=== PATIENT | female | born 1990 | race Caucasian/White ===

== ENCOUNTER 2023-05-13 20:19 | Outpatient (REF) | payer OTHER, SELFPAY ==
[2023-05-18 10:11] LABS: Age Gdln ACOG Testing Note (.); HPV Aptima Negative (Negative); IGP, Aptima HPV, rfx 16/18,45 Note (.)
== END 2023-05-13 20:20 | disposition home or self-care (01) ==
LOC: LAB 20:19
PROVIDERS: PCP Family Medicine; Visit Provider Obstetrics & Gynecology
DX: Z12.4 Encounter for screening for malignant neoplasm of cervix (principal)
CPT/HCPCS: 87624; G0145

== ENCOUNTER 2023-06-01 09:52 | Outpatient (OUT) | payer OTHER, SELFPAY ==
[2023-06-01 10:46] LABS: Basophils Percent Auto 0.3 % (0.2-2.0); Eosinophils Absolute Auto 0.1 10^3/uL (0.0-0.7); Eosinophils Percent Auto 1.5 % (0.9-7.0); Hematocrit 38.6 % (36.0-48.0); Hemoglobin 12.6 g/dL (12.0-16.0); Immature Granulocytes Abs Auto 0.01 10^3/uL (0.00-0.03); Immature Granulocytes Pct Auto 0.2 % (0.0-0.5); Lymphocytes Absolute Auto 1.9 10^3/uL (1.2-3.8); Lymphocytes Percent Auto 29.2 % (20.5-60.0); Mean Corpuscular HGB Conc 32.6 g/dL (29.9-35.2); Mean Corpuscular Hemoglobin 28.8 pg (26.7-34.0); Mean Corpuscular Volume 88.3 fL (81.0-99.0); Mean Platelet Volume 9.9 fL (9.5-13.5); Monocytes Absolute Auto 0.3 10^3/uL (0.3-0.8); Monocytes Percent Auto 5.2 % (1.7-12.0); Neutrophils Absolute Auto 4.2 10^3/uL (1.4-6.5); Neutrophils Percent Auto 63.6 % (43.0-75.0); Platelet Count 239 10^3/uL (150-450); Red Blood Count 4.37 10^6/uL (4.20-5.40); Red Cell Distribution Width 12.8 % (11.0-15.0); White Blood Count 6.6 10^3/uL (4.0-11.0)
[2023-06-01 11:11] LABS: INR 0.98; Partial Thromboplastin Time 30.2 sec (22.3-36.2); Prothrombin Time 10.4 sec (9.0-11.6)
[2023-06-01 11:27] LABS: Alanine Aminotransferase 17 U/L (14-59); Alkaline Phosphatase 54 U/L (46-116); Aspartate Amino Transferase 11 U/L (15-37); BUN Creatinine Ratio 12.2; Bilirubin Direct 0.1 mg/dL (0.0-0.2); Bilirubin Total 0.3 mg/dL (0.2-1.0); Calcium 9.3 mg/dL (8.5-10.1); Carbon Dioxide 27.1 mmol/L (21.0-32.0); Chloride 103 mmol/L (98-107); Estimated GFR (African America >60 (>=60); Estimated GFR (Non-African Ame >60 (>=60); Globulin 4.1 g/dL; Glucose 91 mg/dL (74-106); Potassium 4.1 mmol/L (3.5-5.1); Sodium 138 mmol/L (136-145); Total Protein 8.1 g/dL (6.4-8.2)
== END 2023-06-01 09:53 | disposition home or self-care (01) ==
LOC: PST 09:52
PROVIDERS: Obstetrics & Gynecology; PCP Family Medicine
DX: Z01.812 Encounter for preprocedural laboratory examination (principal); N92.0 Excessive and frequent menstruation with regular cycle; N94.6 Dysmenorrhea, unspecified; N94.10 Unspecified dyspareunia; R10.2 Pelvic and perineal pain; E34.9 Endocrine disorder, unspecified
CPT/HCPCS: 36415; 80048; 80076; 85025; 85610; 85730

== ENCOUNTER 2023-06-10 06:12 | Day surgery (SDC) | payer OTHER, SELFPAY ==
[2023-06-01 10:18] VITALS: BP 137/97; PULSE 78; RESP 14; TEMP 36.4; O2SAT 99; BMI 27.0
[2023-06-10] VITALS (31 sets, daily range): BP systolic 102–145; BP diastolic 63–93; PULSE 57–86; RESP 10–19; TEMP 36.1–37.2; O2SAT 90–100; BMI 27.3
[2023-06-10 06:22] LABS: Basophils Percent Auto 0.2 % (0.2-2.0); Eosinophils Absolute Auto 0.1 10^3/uL (0.0-0.7); Eosinophils Percent Auto 1.7 % (0.9-7.0); Hematocrit 39.7 % (36.0-48.0); Hemoglobin 12.8 g/dL (12.0-16.0); Immature Granulocytes Abs Auto 0.01 10^3/uL (0.00-0.03); Immature Granulocytes Pct Auto 0.1 % (0.0-0.5); Lymphocytes Absolute Auto 3.2 10^3/uL (1.2-3.8); Lymphocytes Percent Auto 39.6 % (20.5-60.0); Mean Corpuscular HGB Conc 32.2 g/dL (29.9-35.2); Mean Corpuscular Hemoglobin 28.5 pg (26.7-34.0); Mean Corpuscular Volume 88.4 fL (81.0-99.0); Monocytes Absolute Auto 0.4 10^3/uL (0.3-0.8); Monocytes Percent Auto 5.3 % (1.7-12.0); Neutrophils Absolute Auto 4.3 10^3/uL (1.4-6.5); Neutrophils Percent Auto 53.1 % (43.0-75.0); Platelet Count 229 10^3/uL (150-450); Red Blood Count 4.49 10^6/uL (4.20-5.40); White Blood Count 8.2 10^3/uL (4.0-11.0)
[2023-06-10 06:52] LABS: HCG Quantitative <1 mIU/mL
[2023-06-10] MEDS: LACTATED RINGER'S SOLUTION 1,000 ML 50 ML IV (07:37)
[2023-06-10] MEDS: METRONIDAZOLE/SODIUM CHLORIDE 500 MG/100 ML PREMIX 100 MG IV ×2 (07:41→14:10)
[2023-06-10] MEDS: CIPROFLOXACIN IN 5 % DEXTROSE 400 MG/200 ML PIGGYBACK 200 MG IV (07:57)
--- NOTE | 2023-06-10 09:37 | PC.NURSE ---
PATIENT HAD 16 [place] PLACED AT BEGINNING OF SURGICAL CASE. PATIENT HAD 100 ML OF CLEAR YELLOW URINE DRAINED THROUGHOUT THE CASE. PATIENT HAD CATHETER REMOVED UPON END OF SURGICAL CASE PER SURGEONS ORDERS.
--- NOTE | 2023-06-10 09:43 | PM.ONB ---
Brief Operative Note Date of procedure: 06/10/23 Pre-op diagnosis: menorrhagia, pelvic pain, dysparuenia, dysmenorrhea Post-op diagnosis: same Procedure: PROCEDURE:? Robotic assisted laparoscopic hysterectomy with cystoscopy, bilateral salpingectomy PREOPERATIVE DIAGNOSIS:? Dysmenorrhea, menorrhagia, pelvis pain, history of endometriosis. POSTOPERATIVE DIAGNOSIS:? Dysmenorrhea, menorrhagia, pelvis pain, history of endometriosis. ANESTHESIA:? General. SURGEON:? Brett Palma D.O. ASSISTANT SPEECH LANGUAGE PATHOLOGIST:? KAUSHAL URINE OUTPUT:? Yellow and clear. BLOOD LOSS:? 100 mL. FINDINGS:? slightly enlarged uterus, normal appearing ovaries and tubes SPECIMEN:? Uterus and cervix, left tube and right tube PROCEDURE:? The patient was taken back to the operating room, where she was prepped and draped in the normal sterile fashion after being placed in the dorsal lithotomy position.? Patient?s anesthesia was found to be adequate.? Surgical timeout was performed using two patient identifiers.? SCDs were on and in place.? Two grams of Ancef were given prior to the surgery.? Sterile Anne catheter was inserted.? Standard size VCare was secured to the uterine cervix and the surgeon changed gloves.? Attention then was turned to the patient's abdomen, where a supraumbilical incision was then made.? Two S retractors were used to identify the patient?s fascia.? The fascia was then tented up using Jolanta clamps and the patient?s fascia was incised sharply.? Patient?s abdomen was identified and entered bluntly.? The patient had the trocar placed and a pneumoperitoneum was obtained.? Approximately 4 liters of CO2 gas was used.? The camera was then placed through the trocar.? At this time, two robot trocars were placed in the patient?s left and right side, two hand widths from the midline, and this was placed under direct visualization.? The patient?s tube on the right side was tented up and the vessel sealer was then used to come across the mesosalpinx, and this was carried down to the uterine ovarian ligament.? The vessel sealer was carried down serially to the broad ligament, to the area of the bladder flap, which was then created anteriorly, and the uterine arteries were skeletonized and sealed using the vessel sealer.? The colpotomy was made using the monopolar cautery on cut, and this was carried circumferentially, posteriorly to anteriorly, until the uterus was amputated.? The specimen was then removed intact through the vagina, without difficulty.? The vagina was then closed using two running V-Loc in a non-lock fashion.? The robot was undocked.? The abdomen was desufflated.? The skin defects were closed using 4-0 Vicryl.? Please note, the fascia was closed using 0 Vicryl.? Sponge, lap and needle counts were correct x2.? Patient was taken to recovery room in stable condition.? The patient was awakened by Anesthesia first.? Patient tolerated procedure well.??Please note left ovarian cystectomy was performed using the vessel sealer Anesthesia: KENNEY Surgeon: Brett Palma Director Of Engineering: Blanca Hassan Estimated blood loss (mL): 25 Pathology: other (uterus,cervix and tubes) Condition: stable Disposition: PACU
[2023-06-10] MEDS: LACTATED RINGER'S SOLUTION 1,000 ML 1000 ML IV (09:46)
[2023-06-10] MEDS: HYDROMORPHONE HCL 0.5 MG/0.5 ML SYRINGE IV ×4 (10:11→10:38)
--- NOTE | 2023-06-10 10:17 | PC.NURSE ---
PAIN MEDICATION GIVEN AT 1011 OR AN 8 OUT OF 10 PAIN.
--- NOTE | 2023-06-10 10:29 | PC.NURSE ---
PAIN STILL PRESENT AFTEER PAIN MEDS GIVEN
--- NOTE | 2023-06-10 10:32 | PC.NURSE ---
PATIENT RECIEVED 3RD DOSE OF DILAUDID AT 1031 FOR PAIN. APPLYING HEATING PAD TO HELP WITH DISCOMFORT WELL.
--- NOTE | 2023-06-10 10:35 | PC.NURSE ---
PARESH PAD CLEAN AND DRY, 4 DRESSINGS WITH TEGA DERM WITH SCANT AMOUNT OF BLOOD ON EACH
--- NOTE | 2023-06-10 10:52 | PC.NURSE ---
COMPLAINING OF NAUSEAS AT THIS TIME. GIVING ANTIEMETIC MEDS ZOFRAN.
[2023-06-10] MEDS: ONDANSETRON PF 4 MG/2 ML VIAL IV ×2 (10:53→16:58)
--- NOTE | 2023-06-10 11:03 | PC.NURSE ---
pATIENT REPORTS IMPROVEMENT OF NAUSEA AND PAIN IS TOLERABLE AT A 7 AT THIS TIME FOR PATIENT.
--- NOTE | 2023-06-10 11:37 | PC.NURSE ---
1115 report received per pac. pt rates pain 06/08. iv infusing without problems.
[2023-06-10] MEDS: CIPROFLOXACIN IN 5 % DEXTROSE 400 MG/200 ML PIGGYBACK IV (13:00)
[2023-06-10] MEDS: KETOROLAC TROMETHAMINE 30 MG/ML VIAL IVP (13:14)
[2023-06-10 16:12] LABS: Basophils Percent Auto 0.1 % (0.2-2.0); Eosinophils Percent Auto 0.1 % (0.9-7.0); Hematocrit 32.7 % (36.0-48.0); Hemoglobin 10.9 g/dL (12.0-16.0); Immature Granulocytes Abs Auto 0.03 10^3/uL (0.00-0.03); Immature Granulocytes Pct Auto 0.2 % (0.0-0.5); Lymphocytes Absolute Auto 2.1 10^3/uL (1.2-3.8); Lymphocytes Percent Auto 16.9 % (20.5-60.0); Mean Corpuscular HGB Conc 33.3 g/dL (29.9-35.2); Mean Corpuscular Hemoglobin 29.3 pg (26.7-34.0); Mean Corpuscular Volume 87.9 fL (81.0-99.0); Mean Platelet Volume 10.1 fL (9.5-13.5); Monocytes Absolute Auto 0.5 10^3/uL (0.3-0.8); Monocytes Percent Auto 3.9 % (1.7-12.0); Neutrophils Absolute Auto 9.6 10^3/uL (1.4-6.5); Neutrophils Percent Auto 78.8 % (43.0-75.0); Platelet Count 195 10^3/uL (150-450); Red Blood Count 3.72 10^6/uL (4.20-5.40); White Blood Count 12.2 10^3/uL (4.0-11.0)
--- NOTE | 2023-06-10 16:14 | PC.NURSE ---
iv to saline lock
--- NOTE | 2023-06-10 16:45 | PC.NURSE ---
Dr. mccartney calls and is made aware of pt hemoglobin results, and desire to go home. provider gives orders to d/c pt home.
--- NOTE | 2023-06-10 17:20 | PC.NURSE ---
pt requests to go home now. RN gives discharge instructions and pt verbalizes understanding, and has no questions.
== END 2023-06-10 17:25 | disposition home or self-care (01) ==
LOC: SURGOUT 09:43 → FBC 11:17
PROVIDERS: PCP Family Medicine; Visit Provider Obstetrics & Gynecology
PROC: (CPT 49322; principal; 2023-06-10 07:30)
DX: N92.1 Excessive and frequent menstruation with irregular cycle (principal); N94.6 Dysmenorrhea, unspecified; N94.10 Unspecified dyspareunia; R10.2 Pelvic and perineal pain; E34.9 Endocrine disorder, unspecified; N85.2 Hypertrophy of uterus
CPT/HCPCS: 49322; 58571; 36415; 84702; 85025; 86850; 86900; 86901; 88307; 94667; 94668; J1170; J2704

== ENCOUNTER 2023-06-27 23:50 | Observation (INO) | payer OTHER, SELFPAY ==
[2023-06-27 23:55] VITALS: BP 132/93; PULSE 87; RESP 16; TEMP 37; O2SAT 99; BMI 27.4
[2023-06-28] VITALS (7 sets, daily range): BP systolic 101–126; BP diastolic 67–85; PULSE 63–86; RESP 16–20; TEMP 36.6–36.8; O2SAT 95–98; BMI 27.3
--- NOTE | 2023-06-28 00:25 | ED.FEMALEGU1 ---
HPI - Female Genitourinary General Chief complaint: OB/Uterine Contractions Stated complaint: bleeding and pain after hysterctomy Time Seen by Provider: 06/28/23 00:20 Source: patient Mode of arrival: walk-in Limitations: no limitations History of Present Illness HPI Narrative: described partial hysterectomy 06/10/23 due to endometriosis. States she was seen at hospital in [facility] last week for abdominal pain and found to have an abscess which was felt to be related to her surgery. Discharged home on cipro and was suppose to follow up with her gynecologit in 2 days. Tonight she past blood vaginally and has increased abdominal pain. No fever or chills or urinary symptoms MD elicited complaint: Reports vaginal bleeding Related Data Home Medications Medication Instructions Recorded Confirmed alprazolam 0.25 mg tablet 0.25 mg PO TID 06/01/23 06/01/23 bupropion HCl 150 mg 24 hr tablet, 150 mg PO QDAY 06/01/23 06/01/23 extended release rpfjaxrfie-unhjtndqffrej-gmkrlevq 1 cap PO Q8H PRN pain 06/01/23 06/01/23 50 mg-300 mg-40 mg capsule clonidine HCl 0.1 mg tablet 0.1 mg PO Q12H 06/01/23 06/01/23 gabapentin 800 mg tablet 800 mg PO Q12H 06/01/23 06/01/23 Previous Rx's Medication Instructions Recorded ibuprofen 800 mg tablet 800 mg PO Q8H PRN pain 14 days #40 06/10/23 tabs oxycodone-acetaminophen 5 mg-325 1 tab PO Q6H PRN pain 7 days #28 06/10/23 mg tablet (Percocet) tabs Allergies Allergy/AdvReac Type Severity Reaction Status Date / Time Penicillins Allergy Rash Verified 06/28/23 00:00 Review of Systems ROS Status of ROS 10 or more systems reviewed and unremarkable except as noted in history and below PFSH PFS Medical History (Updated 06/28/23 @ 05:33 by Angel Sterling MD) Surgical History (Updated 06/01/23 @ 10:22 by Erendira Valdez NP) Family History (Updated 06/01/23 @ 10:22 by Erendira Valdez NP) Other Family history of diabetes mellitus Family history of hypertension Family history of myocardial infarction Family history of stroke Kidney disease Social History (Updated 06/01/23 @ 10:18 by Erendira Valdez NP) Within the past year, how often did you have a drink containing alcohol: never Score interpretation: A score less than 3 is consistent with normal alcohol consumption. 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 Highest level of school completed/degree received: high school graduate Exam Constitutional Vital Signs, click to edit/add: Last Vital Signs Temp 98.6 F 06/27/23 23:55 Pulse 86 06/28/23 03:35 Resp 16 06/28/23 03:35 BP 120/73 06/28/23 03:35 Pulse Ox 98 06/28/23 03:35 O2 Del Method Room Air 06/28/23 03:35 Common normals: no apparent distress, oriented x3, no limitations, healthy appearing and alert Eye Common normals: EOMs intact bilaterally and conjunctivae normal Respiratory Common normals: normal respiratory effort, no retractions, no use of accessory muscles and clear to auscultation bilaterally Cardio Common normals: regular rate, regular rhythm, S1 normal heart sound and S2 normal heart sound GI Common normals: Normal to inspection, nondistended, normoactive bowel sounds present Other: mild tenderness LLQ. well healed incisions from recent Laproscopic procedure Other: normal external exam. speculum with mod brownish bloody fluid in the vault easily cleared. Extremity Common normals: normal to inspection and full ROM Neuro Common normals: oriented x3, CN's II-XII intact bilaterally, moves all extremities and no focal motor deficits Psych Appearance: grossly normal Course Vital Signs Vital signs: Vital Signs Temperature 98.6 F 06/27/23 23:55 Pulse Rate 87 06/27/23 23:55 Respiratory Rate 16 06/27/23 23:55 Blood Pressure 132/93 H 06/27/23 23:55 Pulse Oximetry 99 06/27/23 23:55 Temperature 98.6 F 06/27/23 23:55 Pulse Rate 86 06/28/23 03:35 Respiratory Rate 16 06/28/23 03:35 Blood Pressure 120/73 06/28/23 03:35 Pulse Oximetry 98 06/28/23 03:35 Oxygen Delivery Method Room Air 06/28/23 03:35 MDM - Female Genitourinary MDM Narrative Medical decision making narrative: presents with pelvic pain and vaginal bleeding. states she had hysterectomy 06/10/[address] with evidence of rim enhancing loculated fluid collection and several tiny bubbles of gas suspicious for abscess adjacent to the apex of the vaginal cuff measuring 4.2x2.3cm discussed with escalation engineer electrical design technologist Dr Dhaliwal and patient accepted for admission Lab Data Labs: Lab Results 06/28/23 Range/Units 00:05 WBC 11.0 (4.0-11.0) 10^3/uL RBC 4.20 (4.20-5.40) 10^6/uL Hgb 11.9 L (12.0-16.0) g/dL Hct 36.5 (36.0-48.0) % MCV 86.9 (81.0-99.0) fL MCH 28.3 (26.7-34.0) pg MCHC 32.6 (29.9-35.2) g/dL RDW 12.5 (11.0-15.0) % Plt Count 361 (150-450) 10^3/uL MPV 9.7 (9.5-13.5) fL Neut % (Auto) 58.8 (43.0-75.0) % Lymph % (Auto) 35.2 (20.5-60.0) % Grimes % (Auto) 4.3 (1.7-12.0) % Eos % (Auto) 1.1 (0.9-7.0) % Baso % (Auto) 0.3 (0.2-2.0) % Neut # (Auto) 6.5 (1.4-6.5) 10^3/uL Lymph # (Auto) 3.9 H (1.2-3.8) 10^3/uL Grimes # (Auto) 0.5 (0.3-0.8) 10^3/uL Eos # (Auto) 0.1 (0.0-0.7) 10^3/uL Baso # (Auto) 0.0 (0.0-0.1) 10^3/uL Abs Immat Gran (auto) 0.03 (0.00-0.03) 10^3/uL Imm/Tot Granulo (auto) 0.3 (0.0-0.5) % Sodium 137 (136-145) mmol/L Potassium 3.6 (3.5-5.1) mmol/L Chloride 101 (98-107) mmol/L Carbon Dioxide 27.6 (21.0-32.0) mmol/L Anion Gap 12.0 BUN 13.0 (7.0-18.0) mg/dL Creatinine 0.90 (0.55-1.02) mg/dL Est GFR ( Amer) >60 (>=60) Est GFR (Non-Af Amer) >60 (>=60) BUN/Creatinine Ratio 14.4 Glucose 122 H (74-106) mg/dL Lactate 1.0 (0.4-2.0) mmol/L Calcium 9.2 (8.5-10.1) mg/dL Total Bilirubin 0.1 L (0.2-1.0) mg/dL AST 10 L (15-37) U/L ALT 34 (14-59) U/L Alkaline Phosphatase 61 (46-116) U/L Total Protein 8.0 (6.4-8.2) g/dL Albumin 4.2 (3.4-5.0) g/dL Globulin 3.8 g/dL Albumin/Globulin Ratio 1.1 Discharge Plan Discharge Chief Complaint: OB/Uterine Contractions Clinical Impression: Abscess of female pelvis Patient Disposition: Admitted As Inpatient
--- NOTE | 2023-06-28 00:29 | CT_ITS ---
The [address] [address] Patient Name: ANALY GALLEGO MRN: [id number] date: 1990 Sex: F Assigned Patient Location: ER Current Patient Location: [place] Accession/Order Number: [id number] Exam Date: 06/28/2023 01:40 Report Date: 06/28/2023 06:46 At the request of: MARIE CHANEY Procedure: CT abdomen pelvis w con EXAM: CT abdomen, pelvis w con 06/28/2023 COMPARISON: CT of the abdomen and pelvis with contrast 06/24/2023. HISTORY: post op pain TECHNIQUE: 3 mm sections were obtained from the lung bases through the pubic symphysis following administration of intravenous contrast. Coronal and sagittal reconstructed images were obtained. FINDINGS: CT ABDOMEN: Lower cardiac chambers, posterior mediastinal structures, and lung bases appear unremarkable. Gallbladder is partially distended. No calcified stones are noted or surrounding fluid. Liver, spleen, pancreas, and adrenals appear unremarkable. An upper pole left renal cyst measures 5 mm. Midpole right renal cyst anteriorly measures 6 mm. There are a few additional smaller right renal midpole cysts noted. Small reactive noncalcified, nonenlarged retroperitoneal nodes are suggested. Bowel pattern is nonobstructive. The appendix is surgically absent. CT PELVIS: Prominent intrapelvic varices are noted. Right ovarian cyst is again identified measuring 18 x 26 mm. Left ovarian follicle measures 16 mm. Uterus is surgically absent. There is a multilobulated loculated rim-enhancing fluid collection again identified abutting the vaginal cuff. Surrounding induration of fat lateral to this abnormality cannot be from both ovaries. This collection was also present on prior study and now contains small gas bubbles. A component of the fluid collection extends to the base of the left ovary. On sagittal image 53, midline component of the collection measures 2.1 cm superior to inferior. On axial imaging, the collection has transverse width of approximately 5.1 cm. This is similar in size to that seen on prior study. No acute osseous abnormality noted. CT/CT abdomen pelvis w con IMPRESSION: 1. Prior hysterectomy and appendectomy. 2. Persistent multilobulated rim-enhancing fluid collection associated with the vaginal cuff now contains gas bubbles and extends laterally to the left ovary. This is presumably related to postoperative abscess. Vaginal dehiscence is likely present. 3. Prominent intrapelvic varices. Small bilateral ovarian cysts/follicles as described. 4. Subcentimeter bilateral renal cysts. No acute intra-abdominal process. Mild constipation. Electronically authenticated by: MEHDI BOLANOS Date: 06/28/2023 06:46
[2023-06-28 00:36] LABS: Basophils Percent Auto 0.3 % (0.2-2.0); Eosinophils Absolute Auto 0.1 10^3/uL (0.0-0.7); Eosinophils Percent Auto 1.1 % (0.9-7.0); Hematocrit 36.5 % (36.0-48.0); Hemoglobin 11.9 g/dL (12.0-16.0); Immature Granulocytes Abs Auto 0.03 10^3/uL (0.00-0.03); Immature Granulocytes Pct Auto 0.3 % (0.0-0.5); Lymphocytes Absolute Auto 3.9 10^3/uL (1.2-3.8); Lymphocytes Percent Auto 35.2 % (20.5-60.0); Mean Corpuscular HGB Conc 32.6 g/dL (29.9-35.2); Mean Corpuscular Hemoglobin 28.3 pg (26.7-34.0); Mean Corpuscular Volume 86.9 fL (81.0-99.0); Mean Platelet Volume 9.7 fL (9.5-13.5); Monocytes Absolute Auto 0.5 10^3/uL (0.3-0.8); Monocytes Percent Auto 4.3 % (1.7-12.0); Neutrophils Absolute Auto 6.5 10^3/uL (1.4-6.5); Neutrophils Percent Auto 58.8 % (43.0-75.0); Platelet Count 361 10^3/uL (150-450); Red Cell Distribution Width 12.5 % (11.0-15.0)
[2023-06-28 00:56] LABS: Alanine Aminotransferase 34 U/L (14-59); Albumin Globulin Ratio 1.1; Albumin Level 4.2 g/dL (3.4-5.0); Alkaline Phosphatase 61 U/L (46-116); Aspartate Amino Transferase 10 U/L (15-37); BUN Creatinine Ratio 14.4; Bilirubin Total 0.1 mg/dL (0.2-1.0); Calcium 9.2 mg/dL (8.5-10.1); Carbon Dioxide 27.6 mmol/L (21.0-32.0); Chloride 101 mmol/L (98-107); Estimated GFR (African America >60 (>=60); Estimated GFR (Non-African Ame >60 (>=60); Globulin 3.8 g/dL; Glucose 122 mg/dL (74-106); Potassium 3.6 mmol/L (3.5-5.1); Sodium 137 mmol/L (136-145)
[2023-06-28] MEDS: FENTANYL CITRATE/PF 100 MCG/2 ML VIAL 50 MCG IV (00:58)
[2023-06-28] MEDS: 0.9 % SODIUM CHLORIDE 1,000 ML 999 ML IV (00:58)
[2023-06-28] MEDS: METRONIDAZOLE/SODIUM CHLORIDE 500 MG/100 ML PREMIX 100 MG IV ×3 (00:59→18:28)
[2023-06-28] MEDS: ONDANSETRON PF 4 MG/2 ML VIAL IV ×3 (01:17→18:28)
[2023-06-28] MEDS: CIPROFLOXACIN IN 5 % DEXTROSE 400 MG/200 ML PIGGYBACK IV (02:42)
--- NOTE | 2023-06-28 03:50 | PC.NURSE ---
Was 8/10 on admission
[2023-06-28] MEDS: FENTANYL CITRATE/PF 100 MCG/2 ML VIAL IV (06:03)
[2023-06-28] MEDS: HYDROMORPHONE HCL 0.5 MG/0.5 ML SYRINGE IV ×4 (11:41→22:06)
--- NOTE | 2023-06-28 11:57 | PM.GYNHP1 ---
SWAGE TENDER - H&P: HPI Last H&P Last H&P: No Data to Display General Source: patient Mode of arrival: walk-in Limitations: no limitations History of Present Illness HPI Narrative: CAME TO ED WITH COMPLAINT OF ABDOMINAL PAIN. CT DEMONSTRATED ABSCESS AROUND VAGINAL CUFF. WBC NOT ELEVATED. NO FEVER. NO NAUSEA AND VOMITING MD elicited complaint: Reports vaginal discharge and pelvic pain Pertinent past history: Reports hysterectomy (PERFORMED ON 06/10/23 WITH CONSERVATION OF OVARIES) Location of symptoms: Reports pelvis Severity: severe Quality of pain: Reports cramping Consistency: Reports constant Vaginal discharge: Reports other (BLOODY ) Vaginal bleeding: Reports scant Relieving factors: Reports none Associated symptoms: Reports denies other symptoms Treatment prior to arrival: Reports none Sexual activity: Reports No Patient : No Possible : Reports other (S/P HYSTERECTOMY) Date of last menstrual period: S/P HYSTERECTOMY Related Data Home Medications Medication Instructions Recorded Confirmed alprazolam 0.25 mg tablet 0.25 mg PO BID PRN anxiety 06/01/23 06/28/23 bupropion HCl 150 mg 24 hr tablet, 150 mg PO QDAY 06/01/23 06/28/23 extended release xieqapgbyt-xgkkhsdkburqw-hqevazku 1 cap PO BID PRN pain 06/01/23 06/28/23 50 mg-300 mg-40 mg capsule gabapentin 800 mg tablet 800 mg PO .every morning 06/01/23 06/28/23 ciprofloxacin HCl 500 mg tablet 500 mg PO Q12H 06/28/23 06/28/23 clonidine HCl 0.1 mg PO BID 06/28/23 06/28/23 gabapentin 800 mg tablet 1,600 mg PO .hs 06/28/23 06/28/23 ibuprofen 800 mg tablet 800 mg PO Q8H PRN pain 06/28/23 06/28/23 metronidazole 500 mg tablet 500 mg PO Q8H 06/28/23 06/28/23 Allergies Allergy/AdvReac Type Severity Reaction Status Date / Time Penicillins Allergy Rash Verified 06/28/23 00:00 Review of Systems ROS Status of ROS 10 or more systems reviewed and unremarkable except as noted in history and below Gastrointestinal Reports: abdominal pain Genitourinary Reports: pelvic pain and vaginal bleeding [facility] Medical History (Updated 06/28/23 @ 12:13 by Edwina Dhaliwal MD) Surgical History (Updated 07/30/23 @ 06:34 by Cesia Ybarra) Family History Other Family history of diabetes mellitus Family history of hypertension Family history of myocardial infarction Family history of stroke Kidney disease Social History (Updated 06/01/23 @ 10:18 by Erendira Valdez NP) Within the past year, how often did you have a drink containing alcohol: never Score interpretation: A score less than 3 is consistent with normal alcohol consumption. 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 Highest level of school completed/degree received: high school graduate Gender Identity: female Meds Home Medications and Allergies Home Medications Medication Instructions Recorded Confirmed Type alprazolam 0.25 mg tablet 0.25 mg PO BID PRN anxiety 06/01/23 06/28/23 History bupropion HCl 150 mg 24 hr tablet, 150 mg PO QDAY 06/01/23 06/28/23 History extended release iwoqgmzimn-qmnmbbjjkzilc-bwrgzfqv 1 cap PO BID PRN pain 06/01/23 06/28/23 History 50 mg-300 mg-40 mg capsule gabapentin 800 mg tablet 800 mg PO .every morning 06/01/23 06/28/23 History ciprofloxacin HCl 500 mg tablet 500 mg PO Q12H 06/28/23 06/28/23 History clonidine HCl 0.1 mg PO BID 06/28/23 06/28/23 History gabapentin 800 mg tablet 1,600 mg PO .hs 06/28/23 06/28/23 History ibuprofen 800 mg tablet 800 mg PO Q8H PRN pain 06/28/23 06/28/23 History metronidazole 500 mg tablet 500 mg PO Q8H 06/28/23 06/28/23 History Allergies Allergy/AdvReac Type Severity Reaction Status Date / Time Penicillins Allergy Rash Verified 06/28/23 00:00 Exam Constitutional Vital Signs, click to edit/add: Last Vital Signs Temp 98 F 06/28/23 07:48 Pulse 64 06/28/23 07:48 Resp 20 06/28/23 07:48 BP 110/76 06/28/23 07:48 Pulse Ox 96 06/28/23 07:48 O2 Del Method Room Air 06/28/23 07:48 Documenting provider has reviewed patient's vital signs: yes Common normals: oriented x3, healthy appearing and alert General appearance: cooperative and in distress (CONSTANT PELVIC PAIN AND COMPLAINS OF NAUSEA) moderate Nutritional appearance: thin Orientation/consciousness: Yes oriented to person, Yes oriented to place and Yes oriented to time HENMT Common normals: normocephalic and head/scalp atraumatic Eye Common normals: PERRL Pupil: accommodation reflex normal Neck & C-Spine Common normals: full ROM and supple Respiratory Common normals: normal respiratory effort Auscultation: clear to auscultation bilaterally Cardio Common normals: regular rate and regular rhythm GI Common normals: Normal to inspection, nondistended, normoactive bowel sounds present and soft to palpation Auscultation: normoactive bowel sounds Other: DEFERRED PELVIC EXAM HAVE CT FINDINGS Extremity Common normals: normal to inspection and full ROM Neuro Common normals: oriented x3, CN's II-XII intact bilaterally, no focal motor deficits and no sensory deficits noted Psych Common normals: mental status grossly normal, thought process normal, cooperative and affect normal Results Labs Labs: Short CBC 06/28/23 Range/Units 00:05 WBC 11.0 (4.0-11.0) 10^3/uL Hgb 11.9 L (12.0-16.0) g/dL Hct 36.5 (36.0-48.0) % Plt Count 361 (150-450) 10^3/uL BMP 06/28/23 00:05 Sodium 137 Potassium 3.6 Chloride 101 Carbon Dioxide 27.6 BUN 13.0 Creatinine 0.90 Glucose 122 H Calcium 9.2 Liver Function 06/28/23 Range/Units 00:05 Total Bilirubin 0.1 L (0.2-1.0) mg/dL AST 10 L (15-37) U/L ALT 34 (14-59) U/L Alkaline Phosphatase 61 (46-116) U/L Albumin 4.2 (3.4-5.0) g/dL Assessment and Plan Assessment and Plan (1) Abscess of female pelvis: Plan WILL DISCUSS CASE AND CT FINDINGS WITH DR. PONCE TODAY. TODAY PROVIDING SUPPORTIVE CARE WITH IVF, PAIN MEDICATION, ANTIBIOTIC COVERAGE AND WILL BE KEPT NPO AFTER MIDNIGHT IN ANTICIPATION OF BEING TAKEN TO SURGERY TOMORROW TO DRAIN FLUID COLLECTION BEHIND VAGINAL CUFF.
[2023-06-28 12:47] LABS: Basophils Percent Auto 0.1 % (0.2-2.0); Eosinophils Absolute Auto 0.1 10^3/uL (0.0-0.7); Eosinophils Percent Auto 1.3 % (0.9-7.0); Hematocrit 33.1 % (36.0-48.0); Hemoglobin 10.9 g/dL (12.0-16.0); Immature Granulocytes Abs Auto 0.01 10^3/uL (0.00-0.03); Immature Granulocytes Pct Auto 0.1 % (0.0-0.5); Lymphocytes Absolute Auto 2.3 10^3/uL (1.2-3.8); Lymphocytes Percent Auto 34.6 % (20.5-60.0); Mean Corpuscular HGB Conc 32.9 g/dL (29.9-35.2); Mean Corpuscular Hemoglobin 28.6 pg (26.7-34.0); Mean Corpuscular Volume 86.9 fL (81.0-99.0); Mean Platelet Volume 9.1 fL (9.5-13.5); Monocytes Absolute Auto 0.3 10^3/uL (0.3-0.8); Monocytes Percent Auto 4.3 % (1.7-12.0); Neutrophils Percent Auto 59.6 % (43.0-75.0); Platelet Count 259 10^3/uL (150-450); Red Blood Count 3.81 10^6/uL (4.20-5.40); Red Cell Distribution Width 12.5 % (11.0-15.0); White Blood Count 6.7 10^3/uL (4.0-11.0)
[2023-06-28] MEDS: LACTATED RINGER'S SOLUTION 1,000 ML 125 ML IV (12:54)
[2023-06-28] MEDS: CIPROFLOXACIN IN 5 % DEXTROSE 400 MG/200 ML PIGGYBACK 200 MG IV (14:38)
[2023-06-29] VITALS (21 sets, daily range): BP systolic 97–141; BP diastolic 64–91; PULSE 69–123; RESP 16–18; TEMP 36.6–36.8; O2SAT 93–99
[2023-06-29] MEDS: METRONIDAZOLE/SODIUM CHLORIDE 500 MG/100 ML PREMIX 100 MG IV ×3 (00:37→13:50)
[2023-06-29] MEDS: LACTATED RINGER'S SOLUTION 1,000 ML 125 ML IV ×3 (00:37→13:53)
[2023-06-29] MEDS: HYDROMORPHONE HCL 0.5 MG/0.5 ML SYRINGE IV ×4 (01:53→13:46)
[2023-06-29] MEDS: ONDANSETRON PF 4 MG/2 ML VIAL IV ×2 (02:42→13:47)
[2023-06-29] MEDS: CIPROFLOXACIN IN 5 % DEXTROSE 400 MG/200 ML PIGGYBACK 125 MG IV (02:42)
[2023-06-29] MEDS: CLINDAMYCIN PHOSPHATE/D5W 600 MG/50 ML PIGGYBACK IV (12:50)
--- NOTE | 2023-06-29 13:00 | PM.ONB ---
Brief Operative Note Date of procedure: 06/29/23 Pre-op diagnosis: vaginal cuff hematoma Post-op diagnosis: same Procedure: I&d of vaginal cuff hematoma-pt was taken back to operating room, prepped and drapped in normal sterile fashion after being placed in dorsal lithotomy position, wt speculum placed in the vagina, the bowens retractor was used, survey of cuff demontrated a small opening, explored with sterile qtip was able to enter abdomen, small amount of blood, no evidence of infection, cultures performed, irrigation with cleocin was performed copious amount, all instruments removed from the patients vagina Anesthesia: BOAZA Surgeon: Brett Palma Estimated blood loss (mL): 10 Pathology: none sent Condition: stable Disposition: PACU
[2023-06-29] MEDS: CIPROFLOXACIN IN 5 % DEXTROSE 400 MG/200 ML PIGGYBACK 200 MG IV (15:01)
--- NOTE | 2023-06-30 15:05 | CM.DCFOLLOWU ---
Person spoke with:Aster How are you feeling? Still some pain How is your pain? better but still having some Did you understand your discharge instructions? Yes Do you have any questions about your discharge instructions? No Were you given any prescriptions at discharge? Yes Were you able to get your prescriptions filled? Yes Do you understand how to take your medications as ordered? Yes Do you have any questions about your follow up appointment and do you plan to keep your follow up appointment? I have appt scheduled and plan on going Is there anything else that you would like to discuss? No Questions/Comments/Concerns/Other:
--- NOTE | 2023-07-03 | DS_ITS ---
DISCHARGE DATE: ??07/03/2023 PRIMARY DIAGNOSES: 1.? Status post robotic hysterectomy. 2.? Vaginal cuff hematoma. 3.? Vaginal drainage. PROCEDURE:? I&D of vaginal cuff hematoma. HOSPITAL COURSE:? As expected.? Please see chart for full details.? LABORATORY DATA:? Please see chart. COMPLICATIONS:? None. DISCHARGE CONDITION:? Stable. CONSULTATION:? Anesthesia. DISCHARGE INSTRUCTIONS: 1.? Diet:? Regular. 2.? Medications: a.? Percocet 5/325 one to two p.o. every 4-6 hours p.r.n. pain. b.? Motrin 800 one p.o. every 8 hours p.r.n. pain. 3.? Followup in one week. Restrictions:? Pelvic rest for 6 weeks.? No heavy lifting. ?May drive when pain free and no longer on narcotics. SYNOPSIS:? Patient was status post robotic hysterectomy, who presented approximately one week post-op with a vaginal cuff hematoma.? There was drainage; however, patient did complain of pain and pressure. At that time, it was decided to go in to evacuate the vaginal cuff hematoma further, which was done through the vagina.? Patient tolerates procedure well. IV antibiotics were given.? Patient sent home on oral antibiotics.? Patient was given medication for pain control. JOSEFA
== END 2023-06-29 18:08 | disposition home or self-care (01) ==
LOC: ER 06-28 05:33 → MS 06-28 06:55
PROVIDERS: Admitting Provider Obstetrics & Gynecology; Emergency Provider Internal Medicine; PCP Family Medicine; Visit Provider Obstetrics & Gynecology
PROC: (CPT 57023; principal; 2023-06-29 11:30)
DX: N99.840 Postprocedural hematoma of a genitourinary system organ or structure following a genitourinary system procedure (principal); Z79.899 Other long term (current) drug therapy; Z90.710 Acquired absence of both cervix and uterus
CPT/HCPCS: 57023; 36415; 74177; 80053; 81003; 83605; 85025; 87070; 87075; 87076; 87150; 87186; 96365; 96366; 96367; 96375; 96376; 99285; 99999; G0378; J1170; J2704; Q9967

== ENCOUNTER 2023-07-15 12:42 | Outpatient (OUT) | payer OTHER, SELFPAY ==
--- NOTE | 2023-07-15 | XR_ITS ---
The [place] [id number] Patient Name: ANALY GALLEGO MRN: [id number] date: 1990 Sex: F Assigned Patient Location: [facility] Current Patient Location: [facility] Accession/Order Number: [id number] Exam Date: 07/15/2023 12:45 Report Date: 07/20/2023 13:16 At the request of: CASSIE SALOMON Procedure: XR knee LT 3V PROCEDURE: XR knee LT 3V HISTORY: PAIN IN LEFT KNEE , chronic since falling several months ago COMPARISON: None. FINDINGS: BONES:No fracture, acute abnormality, or significant arthropathy. SOFT TISSUES:No visible soft tissue swelling. EFFUSION:None visible. OTHER: Negative. XR/XR knee LT 3V IMPRESSION: 1. No acute bone abnormality or appreciable degenerative joint disease. Consider MRI for further evaluation if symptoms persist. Electronically authenticated by: SOHAN DAVIS Date: 07/20/2023 13:16
== END 2023-07-15 12:43 | disposition home or self-care (01) ==
LOC: RAD 12:43
PROVIDERS: PCP Family Medicine; Visit Provider Family Medicine
DX: M25.562 Pain in left knee (principal)
CPT/HCPCS: 73562

== ENCOUNTER 2023-08-24 10:29 | Emergency (ER) | payer OTHER, SELFPAY ==
[2023-08-24 10:33] VITALS: BP 127/92; PULSE 79; RESP 18; TEMP 37; O2SAT 98; BMI 24.6
--- NOTE | 2023-08-24 10:52 | US_ITS ---
The [address] [address] Patient Name: ANALY GALLEGO MRN: [id number] date: 1990 Sex: F Assigned Patient Location: ER Current Patient Location: ED.MAIN Accession/Order Number: [id number] Exam Date: 08/24/2023 11:15 Report Date: 08/24/2023 12:16 At the request of: MIRIAM LAND Procedure: US right upper quadrant US right upper quadrant, 08/24/2023 11:15 AM EDT INDICATION:Right upper quadrant pain x1 day. COMPARISON: Contrast-enhanced CT scan of the abdomen and pelvis 06/28/2023, right upper quadrant ultrasound 06/26/2022. TECHNIQUE: Multi-planar real-time ultrasonography of the upper abdomen (right upper quadrant) using grayscale imaging, supplemented by color, power, and spectral Doppler as needed. FINDINGS: The visualized pancreas is unremarkable. The distal pancreatic tail is obscured by overlying bowel gas. The liver is 14 cm with echotexture. No intrahepatic ductal dilatation. Common bile duct 5.7mm Normal gallbladder. No gallbladder wall thickening or pericholecystic fluid. Negative sonographic Forrest's sign. The main portal vein is antegrade Right kidney: 8.3 x 4.5 x 4.2 cm. No hydronephrosis or significant cortical atrophy. Increased echogenicity within the renal medulla. Normal color Doppler to the right kidney. No ascites. US/US right upper quadrant IMPRESSION: 1. No acute findings. 2. Increased echogenicity within the right renal medulla can be seen with medullary sponge kidney in the appropriate clinical setting. Electronically authenticated by: MILTON KUMAR Date: 08/24/2023 12:16
--- NOTE | 2023-08-24 10:54 | ED_ITS ---
HPI - General Adult General Chief complaint: Abdominal Pain Stated complaint: abd pain Time Seen by Provider: 08/24/23 10:52 Source: patient Mode of arrival: walk-in History of Present Illness HPI narrative: Patient is a Atrial female who is presenting to the Emergency Room with chief complaint of right upper quadrant pain, nausea this started last evening. Patient had a hysterectomy. Patient does still have her gallbladder. Patient d oes not have her appendix. She does not have her uterus, she does have her ovaries. She takes no control or hormone therapy. Patient does vape, no history of lung collapse or lung issues. Patient does not drink alcohol or caffeine, caffeine will cause anxiety. She does have history of acid reflux that she takes Protonix daily 4. Patient did have a gallbladder attack in September of last year, She stated that she had enlarged bile duct, does not remember if she had any gallstones or anything else acute. Patient has no recent traveling, no trauma. Patient did not have excessive amount of food or anything that could cause a flareup of acid reflux or gallbladder yesterday. Patient has no chest pain or chest tightness. She did vomit once last night and once this morning. Patient looks uncomfortable sitting on the bed, she doesn't ride home. No urinary frequency, urgency or burning. No flank pain. The pain in the right upper quadrant does radiate to the right shoulder. No acute complaints at this time. No fever or chills. No diarrhea . All systems are negative except as noted/marked. All systems reviewed and otherwise negative. . Nurses note and vital signs reviewed and patient is not hypoxic. General: The patient appears well and in no apparent distress. Patient is resting comfortably on cart. Patient is not toxic, lethargic, or listless Skin: Warm, dry, no pallor noted. There is no rash noted. No petechiae, purpura. Head: Normocephalic, atraumatic Eye: Normal conjunctiva, no drainage, EOMI. PERRL Ears, Nose, Mouth, and Throat: oral mucosa is moist. Nares patent. Mouth without vesicles. Cardiovascular: Regular Rate and Rhythm, no murmur, gallop, rub Respiratory: Patient is in no distress, no accessory muscle use, lungs are clear to auscultation, no wheezing, rales or rhonchi Back: Mild tenderness to palpation to the right upper scapular area, no rash. Otherwise the rest of her back is non-tender, no CVA tenderness bilaterally to percussion. No CT LS midline pain GI: soft, Moderate tenderness to palpation to the right upper quadrant, positive guarding; no rash, no flank pain bilateral, no right lower quadrant tenderness to palpation, no peritoneal signs, mild midepigastric tenderness to palpation, otherwise no tenderness to palpation, no masses appreciated. No rebound, guarding, or rigidity noted. No flank pain bilateral, No distention Musculoskeletal: Patient has full range of motion of all of the extremities, no motor, sensory, or focal neurological deficits Neurological: A&O x3, normal speech Psychiatric: Cooperative Related Data Home Medications Medication Instructions Recorded Confirmed alprazolam 0.25 mg tablet 0.25 mg PO BID PRN anxiety 06/01/23 06/28/23 bupropion HCl 150 mg 24 hr tablet, 150 mg PO QDAY 06/01/23 06/28/23 extended release dyoztpmlre-ieylwkqphqlih-awlikhlp 1 cap PO BID PRN pain 06/01/23 06/28/23 50 mg-300 mg-40 mg capsule gabapentin 800 mg tablet 800 mg PO .every morning 06/01/23 06/28/23 clonidine HCl 0.1 mg PO BID 06/28/23 06/28/23 gabapentin 800 mg tablet 1,600 mg PO .hs 06/28/23 06/28/23 ibuprofen 800 mg tablet 800 mg PO Q8H PRN pain 06/28/23 06/28/23 Previous Rx's Medication Instructions Recorded oxycodone-acetaminophen 5 mg-325 1 tab PO Q6H PRN pain 7 days #28 06/29/23 mg tablet (Percocet) tabs dicyclomine 20 mg tablet 20 mg PO TID PRN abdominal pain #7 08/24/23 tabs ondansetron 4 mg disintegrating 4 mg PO Q4H PRN nausea and 08/24/23 tablet vomiting 3 days #6 tabs Allergies Allergy/AdvReac Type Severity Reaction Status Date / Time Penicillins Allergy Rash Verified 06/28/23 00:00 [facility] Medical History (Updated 08/24/23 @ 13:49 by Chris Perez MD) Surgical History (Updated 06/28/23 @ 06:34 by Cesia Ybarra) Family History Other Family history of diabetes mellitus Family history of hypertension Family history of myocardial infarction Family history of stroke Kidney disease Social History (Updated 06/01/23 @ 10:18 by Erendira Valdez NP) Within the past year, how often did you have a drink containing alcohol: never Score interpretation: A score less than 3 is consistent with normal alcohol consumption. 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 Highest level of school completed/degree received: high school graduate Gender Identity: female Exam Constitutional Vital Signs, click to edit/add: Last Vital Signs Temp 98.2 F 08/24/23 13:49 Pulse 84 08/24/23 13:49 Resp 18 08/24/23 13:49 BP 102/69 08/24/23 13:49 Pulse Ox 98 08/24/23 13:49 O2 Del Method Room Air 08/24/23 13:49 Course Vital Signs Vital signs: Vital Signs Temperature 98.6 F 08/24/23 10:33 Pulse Rate 79 08/24/23 10:33 Respiratory Rate 18 08/24/23 10:33 Blood Pressure 127/92 H 08/24/23 10:33 Pulse Oximetry 98 08/24/23 10:33 Oxygen Delivery Method Room Air 08/24/23 10:33 Temperature 98.2 F 08/24/23 13:49 Pulse Rate 84 08/24/23 13:49 Respiratory Rate 18 08/24/23 13:49 Blood Pressure 102/69 08/24/23 13:49 Pulse Oximetry 98 08/24/23 13:49 Oxygen Delivery Method Room Air 08/24/23 13:49 Medical Decision Making MDM Narrative Medical decision making narrative: Patient's gallbladder ultrasound shows no acute findings, chest x-ray is negative. Patient was given a copy of her gallbladder ultrasound and chest x- ray. Labwork shows no acute findings. Patient is referred to Dr. Llamas if she continues to have right upper quadrant pain. Patient will follow-up with PCP. Alexis adame was given prescriptions for Zofran and Bentyl to help treat symptoms as needed. No questions at discharge Lab Data Lab results reviewed: Yes I reviewed the patient's lab results Labs: Lab Results 08/24/23 Range/Units 10:44 WBC 6.8 (4.0-11.0) 10^3/uL RBC 4.47 (4.20-5.40) 10^6/uL Hgb 13.0 (12.0-16.0) g/dL Hct 40.1 (36.0-48.0) % MCV 89.7 (81.0-99.0) fL MCH 29.1 (26.7-34.0) pg MCHC 32.4 (29.9-35.2) g/dL RDW 13.0 (11.0-15.0) % Plt Count 230 (150-450) 10^3/uL MPV 10.5 (9.5-13.5) fL Neut % (Auto) 63.4 (43.0-75.0) % Lymph % (Auto) 31.3 (20.5-60.0) % Roane % (Auto) 4.5 (1.7-12.0) % Eos % (Auto) 0.4 L (0.9-7.0) % Baso % (Auto) 0.1 L (0.2-2.0) % Neut # (Auto) 4.3 (1.4-6.5) 10^3/uL Lymph # (Auto) 2.1 (1.2-3.8) 10^3/uL Roane # (Auto) 0.3 (0.3-0.8) 10^3/uL Eos # (Auto) 0.0 (0.0-0.7) 10^3/uL Baso # (Auto) 0.0 (0.0-0.1) 10^3/uL Abs Immat Gran (auto) 0.02 (0.00-0.03) 10^3/uL Imm/Tot Granulo (auto) 0.3 (0.0-0.5) % Sodium 138 (136-145) mmol/L Potassium 4.2 (3.5-5.1) mmol/L Chloride 103 (98-107) mmol/L Carbon Dioxide 27.0 (21.0-32.0) mmol/L Anion Gap 12.2 BUN 10.0 (7.0-18.0) mg/dL Creatinine 0.92 (0.55-1.02) mg/dL Est GFR ( Amer) >60 (>=60) Est GFR (Non-Af Amer) >60 (>=60) BUN/Creatinine Ratio 10.9 Glucose 85 (74-106) mg/dL Calcium 9.4 (8.5-10.1) mg/dL Total Bilirubin 0.3 (0.2-1.0) mg/dL AST 11 L (15-37) U/L ALT 18 (14-59) U/L Alkaline Phosphatase 50 (46-116) U/L Troponin I High Sens <4.0 L (4.0-51.3) pg/mL Total Protein 8.0 (6.4-8.2) g/dL Albumin 4.3 (3.4-5.0) g/dL Globulin 3.7 g/dL Albumin/Globulin Ratio 1.2 Lipase 30.0 L (73.0-393.0) U/L Discharge Plan Discharge Chief Complaint: Abdominal Pain Clinical Impression: Right upper quadrant abdominal pain, Nausea & vomiting Patient Disposition: Home, Self-Care Condition: Good Prescriptions / Home Meds: New dicyclomine 20 mg tablet 20 mg PO TID PRN (Reason: abdominal pain) Qty: 7 0RF ondansetron 4 mg tablet,disintegrating 4 mg PO Q4H PRN (Reason: nausea and vomiting) 3 Days Qty: 6 0RF No Action alprazolam 0.25 mg tablet 0.25 mg PO BID PRN (Reason: anxiety) Rx Instructions: PER REFILL HX LAST FILLED 06/10/23 FOR #1430 DAYS - 1BID PRN bupropion HCl 150 mg tablet extended release 24 hr 150 mg PO QDAY Rx Instructions: PER REFILL HX: LAST FILLED 06/02/23 FOR #3030 DAYS tlvvxtnygf-iwvytgkyqmpdo-tsoz 50-300-40 mg capsule 1 cap PO BID PRN (Reason: pain) Rx Instructions: PER REFILL HX: LAST FILLED 06/10/23 FOR #1430 DAYS -- TAKE 1-2 CAPS PO BID PRN gabapentin 800 mg tablet 800 mg PO .every morning Rx Instructions: PER REFILL HX: LAST FILLED 06/10/23 #90/30 DAYS -- 1QAM + 2QPM gabapentin 800 mg tablet 1,600 mg PO .hs Rx Instructions: PER REFILL HX: LAST FILLED 06/10/23 #90/30 DAYS -- 1QAM + 2QPM clonidine HCl 0.1 mg PO BID Rx Instructions: PER REFILL HX: LAST FILLED 06/07/23 FOR #60/30 DAYS ibuprofen 800 mg tablet 800 mg PO Q8H PRN (Reason: pain) Rx Instructions: PER REFILL HX: LAST FILLED 06/10/23 #40/13 DAYS oxycodone-acetaminophen [Percocet] 5-325 mg tablet 1 tab PO Q6H PRN (Reason: pain) 7 Days Qty: 28 0RF Instructions: Acute Nausea and Vomiting (ED), Abdominal Pain (ED) Additional Instructions: Use Zofran and Bentyl as needed for nausea and abdominal cramping. Follow-up with PCP, surgeon was given to for follow-up as well as additional outpatient testing is needed for right upper quadrant or gallbladder. Stand Alone Forms: Portal Instructions Referrals: Yared Jacobs MD [Primary Care Provider] - 1 week Fletcher Llamas MD [Physician] - 1 week
[2023-08-24] MEDS: KETOROLAC TROMETHAMINE 30 MG/ML VIAL 15 MG IVP (11:06)
[2023-08-24] MEDS: ONDANSETRON PF 4 MG/2 ML VIAL IV (11:06)
[2023-08-24] MEDS: 0.9 % SODIUM CHLORIDE 1,000 ML 999 ML IV (11:06)
[2023-08-24] MEDS: MORPHINE SULFATE 4 MG/ML VIAL IV (11:25)
[2023-08-24 11:26] LABS: Basophils Percent Auto 0.1 % (0.2-2.0); Eosinophils Percent Auto 0.4 % (0.9-7.0); Hematocrit 40.1 % (36.0-48.0); Immature Granulocytes Abs Auto 0.02 10^3/uL (0.00-0.03); Immature Granulocytes Pct Auto 0.3 % (0.0-0.5); Lymphocytes Absolute Auto 2.1 10^3/uL (1.2-3.8); Lymphocytes Percent Auto 31.3 % (20.5-60.0); Mean Corpuscular HGB Conc 32.4 g/dL (29.9-35.2); Mean Corpuscular Hemoglobin 29.1 pg (26.7-34.0); Mean Corpuscular Volume 89.7 fL (81.0-99.0); Mean Platelet Volume 10.5 fL (9.5-13.5); Monocytes Absolute Auto 0.3 10^3/uL (0.3-0.8); Monocytes Percent Auto 4.5 % (1.7-12.0); Neutrophils Absolute Auto 4.3 10^3/uL (1.4-6.5); Neutrophils Percent Auto 63.4 % (43.0-75.0); Platelet Count 230 10^3/uL (150-450); Red Blood Count 4.47 10^6/uL (4.20-5.40); White Blood Count 6.8 10^3/uL (4.0-11.0)
[2023-08-24 11:30] LABS: Alanine Aminotransferase 18 U/L (14-59); Albumin Globulin Ratio 1.2; Albumin Level 4.3 g/dL (3.4-5.0); Alkaline Phosphatase 50 U/L (46-116); Anion Gap 12.2; Aspartate Amino Transferase 11 U/L (15-37); BUN Creatinine Ratio 10.9; Bilirubin Total 0.3 mg/dL (0.2-1.0); Calcium 9.4 mg/dL (8.5-10.1); Chloride 103 mmol/L (98-107); Estimated GFR (African America >60 (>=60); Estimated GFR (Non-African Ame >60 (>=60); Globulin 3.7 g/dL; Glucose 85 mg/dL (74-106); Potassium 4.2 mmol/L (3.5-5.1); Sodium 138 mmol/L (136-145); Troponin I High Sensitivity <4.0 pg/mL (4.0-51.3)
--- NOTE | 2023-08-24 12:27 | XR_ITS ---
The [place] [id number] Patient Name: ANALY GALLEGO MRN: [id number] date: 1990 Sex: F Assigned Patient Location: ER Current Patient Location: ER Accession/Order Number: [id number] Exam Date: 08/24/2023 12:48 Report Date: 08/24/2023 13:13 At the request of: MIRIAM LAND Procedure: XR chest 2V XR chest 2V, 08/24/2023 12:48 PM EDT, [place]001 INDICATION: rule out right pneumo COMPARISON: Chest radiograph from January 27, 2023 TECHNIQUE: Frontal and lateral views of the chest obtained. FINDINGS: The heart is normal in size. The aorta and mediastinum appear unremarkable. The pulmonary vasculature is normal. The lungs are clear. There is no evidence of pneumothorax or pleural effusion. The osseous structures appear intact. XR/XR chest 2V IMPRESSION: No active pulmonary process. No significant interval change is seen. Electronically authenticated by: GIUSEPPE HERNANDEZ Date: 08/24/2023 13:13
[2023-08-24] MEDS: PROCHLORPERAZINE 10 MG/2 ML VIAL IV (12:40)
[2023-08-24 13:02] VITALS: BP 102/69; PULSE 88; RESP 18; O2SAT 99
[2023-08-24 13:49] VITALS: BP 102/69; PULSE 84; RESP 18; TEMP 36.8; O2SAT 98
== END 2023-08-24 14:03 | disposition home or self-care (01) ==
PROVIDERS: Emergency Provider Emergency Medicine; PCP Family Medicine
DX: R10.11 Right upper quadrant pain (principal); R11.2 Nausea with vomiting, unspecified; Z90.710 Acquired absence of both cervix and uterus; Z79.899 Other long term (current) drug therapy; F17.210 Nicotine dependence, cigarettes, uncomplicated
CPT/HCPCS: 36415; 71046; 76705; 80053; 83690; 84484; 85025; 96361; 96374; 96375; 99285

== ENCOUNTER 2025-03-21 08:31 | Outpatient (OUT) | payer OTHER, SELFPAY ==
[2025-03-21 08:50] LABS: Basophils Percent Auto 0.2 % (0.2-2.0); Eosinophils Absolute Auto 0.1 10^3/uL (0.0-0.7); Eosinophils Percent Auto 1.3 % (0.9-7.0); Hematocrit 38.6 % (36.0-48.0); Hemoglobin 12.6 g/dL (12.0-16.0); Immature Granulocytes Abs Auto 0.01 10^3/uL (0.00-0.03); Immature Granulocytes Pct Auto 0.2 % (0.0-0.5); Lymphocytes Percent Auto 32.9 % (20.5-60.0); Mean Corpuscular HGB Conc 32.6 g/dL (29.9-35.2); Mean Corpuscular Hemoglobin 29.9 pg (26.7-34.0); Mean Corpuscular Volume 91.5 fL (81.0-99.0); Mean Platelet Volume 9.6 fL (9.5-13.5); Monocytes Absolute Auto 0.3 10^3/uL (0.3-0.8); Monocytes Percent Auto 4.5 % (1.7-12.0); Neutrophils Absolute Auto 3.8 10^3/uL (1.4-6.5); Neutrophils Percent Auto 60.9 % (43.0-75.0); Platelet Count 239 10^3/uL (150-450); Red Blood Count 4.22 10^6/uL (4.20-5.40); Red Cell Distribution Width 12.1 % (11.0-15.0); White Blood Count 6.2 10^3/uL (4.0-11.0)
[2025-03-21 09:38] LABS: Estimated Average Glucose 103 mg/dL; Glycohemoglobin A1C 5.2 % (4.5-6.2)
[2025-03-21 09:51] LABS: Alanine Aminotransferase 16 U/L (14-59); Albumin Globulin Ratio 1.2; Alkaline Phosphatase 49 U/L (46-116); Anion Gap 15.3; Aspartate Amino Transferase 11 U/L (15-37); BUN Creatinine Ratio 10.1; Bilirubin Total 0.2 mg/dL (0.2-1.0); Calcium 9.2 mg/dL (8.5-10.1); Carbon Dioxide 24.7 mmol/L (21.0-32.0); Chloride 104 mmol/L (98-107); Estimated GFR (African America >60 (>=60 mL/min/1.73m^2); Estimated GFR (Non-African Ame >60 (>=60 mL/min/1.73m^2); Free T3 3.18 pg/mL (2.18-3.98); Globulin 3.3 g/dL; Glucose 88 mg/dL (74-106); Sodium 140 mmol/L (136-145); Thyroid Stimulating Hormone 0.923 uIU/mL (0.358-3.740); Total Protein 7.3 g/dL (6.4-8.2)
[2025-03-22 14:08] LABS: Lyme Total Antibody CIA Negative (Negative)
== END 2025-03-21 08:32 | disposition home or self-care (01) ==
LOC: LAB 08:34
PROVIDERS: PCP Family Medicine; Visit Provider Family Medicine
DX: Z00.00 Encounter for general adult medical examination without abnormal findings (principal)
CPT/HCPCS: 36415; 80053; 83036; 84436; 84443; 84481; 85025; 86618

== ENCOUNTER 2025-03-29 08:37 | Outpatient (OUT) | payer OTHER, SELFPAY ==
[2025-03-29 09:28] LABS: Cholesterol 190 mg/dL (<=200); HDL Cholesterol 48 mg/dL (40-60); Triglycerides 245 mg/dL (<=150)
== END 2025-03-29 08:38 | disposition home or self-care (01) ==
LOC: LAB 08:38
PROVIDERS: PCP Family Medicine; Visit Provider Family Medicine
DX: Z00.00 Encounter for general adult medical examination without abnormal findings (principal)
CPT/HCPCS: 36415; 80053; 80061; 83036; 83525; 83540; 83735; 84436; 84443; 84481

== ENCOUNTER 2025-07-24 11:45 | Day surgery (SDC) | payer OTHER, SELFPAY ==
[2025-07-24 12:26] VITALS: BP 128/92; PULSE 80; TEMP 36.7; O2SAT 99
[2025-07-24 12:40] VITALS: BP 146/82; PULSE 72; O2SAT 99
--- NOTE | 2025-07-24 12:42 | W.PM.PROCNOT ---
Date of procedure: 07/24/25 Pre-op diagnosis: Postdural puncture headache Post-op diagnosis: same as pre-op Procedure: Procedure: Epidural blood patch Medications: 20cc autologous blood After informed consent was obtained, the patient was brought to the medical procedure unit and placed in the prone position.? The skin overlying the area was prepped and draped in standard sterile fashion using alcohol, after which a 25-gauge needle was used to raise a skin wheal with 2% lidocaine over the appropriately designated interspace identified under fluoroscopy.?Concomitantly, the patient's upper extremity was prepped and draped in a sterile fashion. Using aseptic technique, 20cc of the patient's blood were drawn into two sterile 10cc syringes. Subsequently a 17-gauge Tuohy needle was inserted through anesthetized area and directed toward the above interspace under fluoroscopic guidance, which was identified with loss of resistance technique to air.? Needle tip placement was confirmed by injection of Omnipaque dye, which revealed epidural placement; the above 20cc autologous blood was then administered.? Postoperatively, needles were removed.? The patient was transferred to the recovery area in stable condition to be discharged after meeting criteria.? Followup as per treatment plan. Anesthesia: Local Surgeon: Jerry Valente Pathology: none sent Condition: stable Disposition: no change
[2025-07-24] MEDS: IOHEXOL 240 MG/ML - 10 ML VIAL 48 MG INJ (12:45)
[2025-07-24] MEDS: LIDOCAINE HCL 2% 400 MG/20 ML MDV INJ (12:45)
[2025-07-24 12:49] VITALS: BP 132/77; BP 137/80; PULSE 68; PULSE 69; O2SAT 100
[2025-07-24 13:11] VITALS: BP 132/78; PULSE 64; O2SAT 98
[2025-07-24 13:40] VITALS: BP 136/78; PULSE 68; O2SAT 99
== END 2025-07-24 13:50 | disposition home or self-care (01) ==
PROVIDERS: PCP Family Medicine; Visit Provider Anesthesiology
DX: G97.41 Accidental puncture or laceration of dura during a procedure (principal)
CPT/HCPCS: 62273; Q9966

== ENCOUNTER 2025-08-31 16:46 | Outpatient (OUT) | payer OTHER, SELFPAY ==
--- OUTSIDE RECORDS SUMMARY | 2025-07-24 06:45 | XMS_ITS ---
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 B-12. * Medical History: Objective: * Vitals: Assessment: Plan: * Treatment: * * Electronic signature of Mihai Jacobs MD, [phone] on 08/31/2025 at 04:52 PM EDT Sign off status: Pending Visit Status: C ANC (Cancelled) * Provider: Liset Jacobs MD (TTC) Date: 0 07/24/2025 Generated for Printi ng/Faxing/eTransmitting on: 1 04:52 PM EDT
--- OUTSIDE RECORDS SUMMARY | 2025-08-27 22:55 | XMS_ITS | Encounter Summary ---
Author Organization [facility] tem Address [facility] [id number] [address] [place] [address] Care Team Providers Care Nub Card Tender Name Role Phone Yared Jacobs MD Primary Care Provider [phone] Reason for Visit * Reason Comments Flank Pain RLQ pain radiates to the rt flank - onset 1 hr [employer] HEL[employer], hx of stones. Encounter Details Date Type Department Care Team (Late st Contact Info) Description 08/27/2025 10:55 PM EDT - 08/28/2025 7:26 AM EDT Emergency [facility] - ER [address] [place] [address] Fletcher Barahona, DO [address] [facility], [address] [place] [address] Cyst of left ovary (Primary Dx); Abdominal pain, unspecified abdominal location Discharge Disposition: Institution Not Defined Elsewhere Social History Tobacco Use Types Packs/Day Years Used Date Smoking Tobacco: Former Cigarettes Vaping/E-cigarettes Smokeless Tobacco: Never Alcohol Use Standard Drinks/Week Comments No 0 (1 standard drink = 0.6 oz pur e alcohol) [facility] Utilities Answer Date Recorded In the past 12 months has [employer], gas, oil, or water company threatened to shut off services in your home? No 05/24/2025 AUDIT-C Answer Date Recorded Q1: How often do you have a drink containing alcohol? Never 05/24/2025 Q2: How many drinks containi ng alcohol do you have on a typical day when you are drinking? Patient does not drink 06/25/202 5 Q3: How often do you have si x or more drinks on one occasion? Never 05/24/2025 PHQ-2 Answer Date Recorded Total Score 2 05/24/2025 PRAPARE - Transportation Answer Date Re corded In the past 12 months, has l ack of transportation kept you from medical appointments or from getting medications? No 05/01 In the past 12 months, has l ack of transportation kept you from meetings, work, or from getting things needed for daily living? No 05/24/2025 Housing Instability Answer Date Recorde d Are you worried or concerned that in the next two months you may not have stable housing that you own, rent or stay in as a part of a household? No 05/24/2025 Childcare Answer Date Recorded Childcare Unknown 05/09/2019 Employment Answer Date Recorded Employment Unknown 05/09/2019 Hunger Screening Answer Date Recorded Within the past 12 months we worried whether our food would run out before we got money to buy more. Never True 05/25/2025 Within the past 12 months th e food we bought just didn't last and we didn't have money to get more. Never True 05/25/2025 Purpose - Life Answer Date Recorded Purpose and direction in life Unknown Comments No Sex and Gender Information Value Date Recorded Sex Assigned at Female 05/16/2022 10:14 AM EDT Legal Sex Female 11:43 AM EDT Gender Identity Female 05/16/2022 10:14 AM EDT Sexual Orientation Straight 05/16/2022 10 :14 AM EDT documented as of this encounter Last Filed Vital Signs Vital Sign Reading Time Taken Comments Blood Pressure 116/78 08/28/2025 7:15 AM EDT Pulse 59 08/28/2025 7:15 AM EDT Temperature 36.8 C (98.3 F) 08/27/2025 11:00 PM EDT Respiratory Rate 13 08/28/2025 6:45 AM EDT Oxygen Saturation 95% 08/28/2025 7:15 AM EDT Inhaled Oxygen Concentration - - Weight - - Height - - Body Mass Index - - documented in this encounter Medications at Time of Discharge AIMOVIG AUTOINJECTOR 70 mg/mL auto-injector Inject 1 INJECTION under the skin every 30 (thirty) days. 05/03/2025 ALPRAZolam (XANAX) 0.5 mg tablet Take 1 tablet (0.5 mg total) by mouth 3 (three) times a day as needed for anxiety. 07/30/2024 amitriptyline (ELAVIL) 25 mg tabletIndications: Fibromyalgia Take 1 tablet (25 mg total) by mouth nightly. 30 tablet 9 08/07/2025 butalbital-acetami nophen-caff (FIORICET, ESGIC) 50-300-40 mg per capsule Take 1 capsule by mouth as needed in the morning and 1 capsule as needed in the evening for headaches. Take 1-2 caps by mouth as needed for headaches. 08/19/2022 carisoprodoL (SOMA) 350 mg tabletIndications: Fibromyalgia One tablet at bed time 30 tablet 5 08/14/2025 cyanocobalamin 1000 MCG tablet Take 1 tablet (1,000 mcg total) by mouth in the morning. 30 tablet 01/11/2025 gabapentin (NEURONTIN) 800 mg tabletIndications: Paresthesias Take 1 tablet (800 mg total) by mouth in the morning and 1 tablet (800 mg total) in the evening. 30 tablet 2 05/26/2025 gabapentin (NEURONTIN) 800 mg tabletIndications: Paresthesias Take 2 tablets (1,600 mg total) by mouth nightly. 30 tablet 2 05/26/2025 hydrOXYzine (ATARAX) 25 mg tablet Take 1 tablet (25 mg total) by mouth every 6 (six) hours as needed for anxiety. 30 tablet 09/05/2023 ibuprofen (MOTRIN) 800 mg tablet Take 1 tablet (800 mg total) by mouth every 8 (eight) hours as needed for pain, fever or headaches. meclizine (ANTIVERT) 25 mg tablet Take 1 tablet (25 mg total) by mouth 2 (two) times a day as needed for dizziness. 04/08/2025 mupirocin (BACTROBAN) 2 % ointment Apply 1 Application topically as needed (sores on arms). 02/28/2025 ondansetron (ZOFRAN) 4 mg tablet Take 1 tablet (4 mg total) by mouth every 8 (eight) hours as needed for nausea or vomiting for up to 12 doses. 12 tablet 11/16/2024 propranolol LA (INDERAL LA) 60 mg 24 hr capsule Take 1 capsule (60 mg total) by mouth in the morning. 05/22/2025 rOPINIRole (REQUIP) 0.25 mg tabletIndications: Fibromyalgia Take 1 tablet (0.25 mg total) by mouth nightly. 30 tablet 5 08/07/2025 scopolamine (TRANSDERM-SCOP) 1 mg/[address] 1 patch on the skin every third day. 1 patch 01/11/2025 triamcinolone (KENALOG) 0.1 % cream Apply 1 Application topically as needed for irritation. 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 Pt states the pain started suddenly 10/10 on pain scale. Reports hx of stones roughly 2 years ago. documented in this encounter Plan of Treatment Upcoming Encounters Date Type Department Care Team (Late st Contact Info) Description 02/05/2026 10:45 AM EDT Office Visit [facility] Department of [address] [id number] [place] [address] [place] [id number] documented as of this encounter Goals Goal Patient Goal Type Associated Problems Recent Progress Patient-Stated? Author <enter goal here> General Yes Rachel Dockery LSW Note: Evaluation of progress towards goal: home with , self care documented as of this encounter Procedures Procedure Name Priority Date/Time Associated Diagnosis Comments US PELVIC COMPLETE STAT 08/28/2025 2: [address] ABDOMEN AND PELVIS WO CONT STAT 08/27/2025 11:43 PM EDT CBC WITH AUTO DIFFERENTIAL STAT 08/27/2025 11:21 PM EDT LIPASE STAT 08/27/2025 11:21 PM EDT COMPREHENSIVE METABOLIC PANEL STAT 08/27/2025 11:21 PM EDT POCT , URINE (NUCG) Routine 08/27/2025 11:14 PM EDT POCT NURSING URINE MACROSCOPIC UA Routine 08/27/2025 11:11 PM EDT documented in this encounter Results * Ultrasound pelvic with transvaginal and duplex (08/28/2025 2:00 AM EDT) Anatomical Region Laterality Modality Body, Pelvis Ultrasound 08/28/2025 2:08 AM EDT Narrative 08/28/2025 2:58 AM EDT CLINICAL INFORMATION: Evaluate for Ovarian Torsion. TECHNIQUE: Real-time transabdominal and transvaginal sonographic evaluation of the pelvis was performed with bonilla scale and color flow imaging. Transabdominal imaging performed to evaluate for extra adnexal pelvic pathology. Transvaginal imaging performed for better delineation of the adnexal and endometrial contents. Real time bonilla scale, color flow imaging and duplex spectral Doppler waveform analysis evaluation was performed of the major arterial inflow and venous outflow structures of the ovaries with arterial and venous spectral waveforms obtained and reviewed in view of the clinical history of Evaluate for Ovarian Torsion . Duplex spectral Doppler document arterial and venous spectral waveforms documented within the major arterial inflow and venous outflow of both ovaries. Arterial and venous Doppler duplex spectral waveforms were evaluated. COMPARISON: CT abdomen and pelvis without contrast 08/19/2025. FINDINGS: Patient is status post hysterectomy. Small amount of anechoic free fluid is seen in the posterior cul-de-sac. The right ovary measures 3.0 x 2.1 x 3.1 cm venous and arterial color Doppler flow is visualized. Normal arterial and venous waveforms. An anechoic simple cyst measuring 2.7 x 2.5 x 1.9 cm is present. The left ovary measures 7.6 x 5.0 x 7.7 cm. Arterial and venous color Doppler flow is visualized, however appropriate spectral Doppler waveforms were unable to be obtained, despite attempt. A large anechoic cyst measuring 7.4 x 7.2 x 4.9 cm is present. IMPRESSION: * No sonographic evidence of ovarian torsion on the right. * Spectral Doppler waveforms unable to be obtained on the left, however arterial and venous color Doppler flow is visualized. Clinical correlation and short-term follow-up exam is advised * Simple cyst in the left ovary. Since lesions of this size are difficult to assess completely with ultrasound, further imaging with MRI or surgical evaluation should be considered. Recommendations for adnexal cyst follow-up per Society of Radiologists in Ultrasound 2009 consensus statement on management of asymptomatic and ovarian and other adnexal cysts (Parmar et al., Radiology 2010 256: 943-54). Approved by Resident Mason Irwin MD on 08/28/2025 2:08 AM IYvette MD have personally reviewed the image(s) and agree with and/or edited the report Finalized by Yvette Avendano MD on 08/28/2025 2:58 AM Procedure Note Yvette Avendano MD - 08/28/2025 CLINICAL INFORMATION: Evaluate for Ovarian Torsion. TECHNIQUE: Real-time transabdominal and transvaginal sonographic evaluation of thepelvis was performed with bonilla scale and color flow imaging.Transabdominal imaging performed to evaluate for extra adnexal pelvicpathology. Transvaginal imaging performed for better delineation of theadnexal and endometrial contents. Real time bonilla scale, color flow imaging and duplex spectral Dopplerwaveform analysis evaluation was performed of the major arterial inflowand venous outflow structures of the ovaries with arterial and venousspectral waveforms obtained and reviewed in view of the clinical historyof Evaluate for Ovarian Torsion . Duplex spectral Doppler document arterial and venous spectral waveformsdocumented within the major arterial inflow and venous outflow of bothovaries. Arterial and venous Doppler duplex spectral waveforms wereevaluated. COMPARISON: CT abdomen and pelvis without contrast 08/19/2025. FINDINGS: Patient is status post hysterectomy. Small amount of anechoic free fluidis seen in the posterior cul-de-sac. The right ovary measures 3.0 x 2.1 x 3.1 cm venous and arterial colorDoppler flow is visualized. Normal arterial and venous waveforms. Ananechoic simple cyst measuring 2.7 x 2.5 x 1.9 cm is present. The left ovary measures 7.6 x 5.0 x 7.7 cm. Arterial and venous colorDoppler flow is visualized, however appropriate spectral Doppler waveformswere unable to be obtained, despite attempt. A large anechoic cystmeasuring 7.4 x 7.2 x 4.9 cm is present. IMPRESSION: * No sonographic evidence of ovarian torsion on the right. * Spectral Doppler waveforms unable to be obtained on the left, howeverarterial and venous color Doppler flow is visualized. Clinical correlationand short-term follow-up exam is advised * Simple cyst in the left ovary. Since lesions of this size are difficultto assess completely with ultrasound, further imaging with MRI or surgicalevaluation should be considered. Recommendations for adnexal cyst follow-up per Society of Radiologists inUltrasound 2009 consensus statement on management of asymptomatic andovarian and other adnexal cysts (Parmar et al., Radiology 2010 256:943-54). Approved by Resident Mason Irwin MD on 08/28/2025 2:08 AM I, Yvette Avendano MD have personally reviewed the image(s) and agree withand/or edited the report Finalized by Yvette Avendano MD on 08/28/2025 2:58 AM us Fletcher Barahona DO G US ORDERABLES Final Result * CT abdomen and pelvis without contrast (08/27/2025 11:43 PM EDT) Anatomical Region Laterality Modality Body, Abdomen, Body Covera N/A Compu ruiz Tomography 08/28/2025 12:1 0 AM EDT Narrative 08/28/2025 12:17 AM EDT STUDY: UNENHANCED CT OF THE ABDOMEN AND PELVIS CLINICAL INFORMATION: Age/Gender: 34 years / Female History: Right flank pain, history of kidney stones PROCEDURE: CT examination of the abdomen and pelvis was performed without intravenous contrast. Enteric contrast was not administered. All CT scans at this facility use dose modulation, iterative reconstruction, and/or weight based dosing when appropriate to reduce radiation dose to as low as reasonably achievable. COMPARISON: CT abdomen and pelvis 10/23/2024. FINDINGS: The lack of intravenous contrast limits evaluation of the viscera. LOWER THORAX: The lung bases are clear. The heart is normal in size. LIVER: Normal in size and configuration. No suspicious mass within the limits of an unenhanced exam. BILE DUCTS: No intrahepatic or extrahepatic bile duct dilation. GALLBLADDER: No calcified stones. Normal wall thickness. PANCREAS: Unremarkable. No main pancreatic duct dilation. SPLEEN: Unremarkable. ADRENAL GLANDS: Unremarkable. KIDNEYS/URETERS: No hydroureteronephrosis. Right nonobstructive nephrolithiasis with the largest stone seen in the interpolar region measuring 3 mm BLADDER: Unremarkable. REPRODUCTIVE ORGANS: Uterus is surgically absent. Large cystic lesion, likely arising from the right adnexa measuring 7.3 cm. Left ovary is unremarkable. Small right ovarian cystic is again noted measuring approximately 2.4 cm, similar to prior BOWEL: No disproportionate dilation of the small or large bowel. The appendix is surgically absent. PERITONEUM/RETROPERITONEUM: No fluid collection, ascites, or pneumoperitoneum. Trace pelvic free fluid LYMPH NODES: No abdominal or pelvic lymphadenopathy. VESSELS: No abdominal aortic aneurysm. ABDOMINAL/PELVIC WALL: Unremarkable. BONES: No suspicious osseous lesions. IMPRESSION: 1. Right nonobstructive nephrolithiasis. No hydronephrosis 2. Large cystic lesion likely arising from the right adnexa measuring approximately 7.3 cm. Recommend further evaluation with pelvic ultrasound to exclude ovarian torsion. Finalized by Cody Bates MD on 08/28/2025 12:17 AM Procedure Note Cody Bates MD - 08/28/2025 STUDY: UNENHANCED CT OF THE ABDOMEN AND PELVIS CLINICAL INFORMATION: Age/Gender: 34 years / Female History: Right flank pain, history of kidney stones PROCEDURE: CT examination of the abdomen and pelvis was performed withoutintravenous contrast. Enteric contrast was not administered. All CT scans at this facility use dose modulation, iterativereconstruction, and/or weight based dosing when appropriate to reduceradiation dose to as low as reasonably achievable. COMPARISON: CT abdomen and pelvis 10/23/2024. FINDINGS: The lack of intravenous contrast limits evaluation of the viscera. LOWER THORAX: The lung bases are clear. The heart is normal in size. LIVER: Normal in size and configuration. No suspicious mass within thelimits of an unenhanced exam. BILE DUCTS: No intrahepatic or extrahepatic bile duct dilation. GALLBLADDER: No calcified stones. Normal wall thickness. PANCREAS: Unremarkable. No main pancreatic duct dilation. SPLEEN: Unremarkable. ADRENAL GLANDS: Unremarkable. KIDNEYS/URETERS: No hydroureteronephrosis. Right nonobstructivenephrolithiasis with the largest stone seen in the interpolar regionmeasuring 3 mm BLADDER: Unremarkable. REPRODUCTIVE ORGANS: Uterus is surgically absent. Large cystic lesion,likely arising from the right adnexa measuring 7.3 cm. Left ovary isunremarkable. Small right ovarian cystic is again noted measuringapproximately 2.4 cm, similar to prior BOWEL: No disproportionate dilation of the small or large bowel. Theappendix is surgically absent. PERITONEUM/RETROPERITONEUM: No fluid collection, ascites, orpneumoperitoneum. Trace pelvic free fluid LYMPH NODES: No abdominal or pelvic lymphadenopathy. VESSELS: No abdominal aortic aneurysm. ABDOMINAL/PELVIC WALL: Unremarkable. BONES: No suspicious osseous lesions. IMPRESSION: 1. Right nonobstructive nephrolithiasis. No hydronephrosis 2. Large cystic lesion likely arising from the right adnexa measuringapproximately 7.3 cm. Recommend further evaluation with pelvic ultrasoundto exclude ovarian torsion. Finalized by Cody Bates MD on 08/28/2025 12:17 AM Fletcher Barahona DO IMG CT ORDERABLES Final Result * Lipase (08/27/2025 11:21 PM EDT) LIPASE 24 17 - 40 U/L 08/27/2025 11:42 PM EDT [facility] Blood Venous blood / Unknown 08/27/2025 11:21 PM EDT 08/27/2025 11:27 PM EDT Fletcher Barahona DO LAB BLOOD ORDERABLES Final Res ult [address] [address], [place] * (ABNORMAL) Comprehensive metabolic panel (08/27/2025 11:21 PM EDT) SODIUM 137 134 - 146 mmol/L 08/27/2025 11:45 PM [facility] POTASSIUM 3.8 3.5 - 5.0 mmol/L 08/27/2025 11:45 PM [facility] CHLORIDE 103 98 - 109 mmol/L 08/27/2025 11:45 PM [facility] CARBON DIOXIDE 23 22 - 32 mmol/L 08/27/2025 11:45 PM [facility] ANION GAP 11 5 - 15 mmol/L 08/27/2025 11:45 PM [facility] BLOOD UREA NITROGEN 11 5 - 23 mg/dL 08/27/2025 11:45 PM [facility] CREATININE 0.85 0.40 - 1.00 mg/dL 08/27/2025 11:45 PM [facility] Comment:METHOD TRACEABLE TO IDMS STANDARD GLUCOSE 107(H) 65 - 99 mg/dL 08/27/2025 11:45 PM [facility] CALCIUM 9.0 8.5 - 10.5 mg/dL 08/27/2025 11:45 PM [facility] TOTAL PROTEIN 7.6 6.0 - 8.0 g/dL 08/27/2025 11:45 PM [facility] ALBUMIN 4.2 3.2 - 5.3 g/dL 08/27/2025 11:45 PM [facility] ALKALINE PHOSPHATASE 59 39 - 130 U/L 08/27/2025 11:45 PM [facility] AST 20 <=41 U/L 08/27/2025 11:45 PM [facility] ALT 18 <=31 U/L 08/27/2025 11:45 PM [facility] BILIRUBIN,TOTAL 0.3 0.3 - 1.2 mg/dL 08/27/2025 11:45 PM [facility] EGFR Non-Race Dependent >90 >=60 ml/min/1.7 3sq.m 08/27/2025 11:45 PM [facility] Comment: eGFR not reported due to non-numeric value for Creatinine. Reported eGFR is based on the CKD-EPI 2020 equation that does not use a race coefficient. Blood Venous blood / Unknown 08/27/2025 11:21 PM EDT 08/27/2025 11:27 PM EDT us Fletcher Barahona DO LAB BLOOD ORDERABLES Final Res ult [address] [address], [place] * (ABNORMAL) CBC auto differential (08/27/2025 11:21 PM EDT) WBC 11.8(H) 4 - 11 x10E9/L 08/27/2025 11:30 PM EDT [facility] RBC Count 4.48 3.8 - 5.2 X10E12/L 08/27/2025 11:30 PM EDT [facility] Hemoglobin 13.3 11.7 - 15.5 g/dL 08/27/2025 11:30 PM EDT [facility] Hematocrit 38.8 35 - 47 % 08/27/2025 11:30 PM EDT [facility] MCV 87 80 - 100 fL 08/27/2025 11:30 PM EDT [facility] MCH 29.7 27 - 34 pg 08/27/2025 11:30 PM EDT [facility] MCHC 34.2 32 - 36 g/dL 08/27/2025 11:30 PM EDT [facility] RDW 13.3 11.5 - 15 % 08/27/2025 11:30 PM EDT [facility] Platelet Count 275 150 - 450 X10E9/L 08/27/2025 11:30 PM EDT [facility] MPV 7.8 7 - 12 fL 08/27/2025 11:30 PM EDT [facility] Neutrophils % 58.0 % 08/27/2025 11:30 PM EDT [facility] Lymphocytes % 35.0 % 08/27/2025 11:30 PM EDT [facility] Monocytes % 4.7 % 08/27/2025 11:30 PM EDT [facility] Eosinophils % 1.4 % 08/27/2025 11:30 PM EDT [facility] Basophils % 0.9 % 08/27/2025 11:30 PM EDT [facility] Neutrophils Absolute (A) 6.8(H) 1.5 - 6.6 10*3/uL 08/27/2025 11:30 PM EDT [facility] Lymphocytes Absolute 4.1(H) 1.0 - 3.5 10*3/uL 08/27/2025 11:30 PM EDT [facility] Monocytes Absolute 0.6 0.0 - 0.9 10*3/uL 08/27/2025 11:30 PM EDT [facility] Eosinophils Absolute 0.2 0.0 - 0.4 10*3/uL 08/27/2025 11:30 PM EDT [facility] Basophils Absolute 0.1 0.0 - 0.2 10*3/uL 08/27/2025 11:30 PM EDT [facility] Differential Type AUTOMATED DIFFERENTIAL 08/27/2025 11:30 PM EDT [facility] Blood Venous blood / Unknown 08/27/2025 11:21 PM EDT 08/27/2025 11:27 PM EDT us Fletcher Barahona DO LAB BLOOD ORDERABLES Final Res ult [address] [address], [place] * POCT , urine (08/27/2025 11:14 PM EDT) Pathologist [facility] POC Urine Negative Negative, Indeterminate 08/27/2025 11:16 PM EDT [facility] Urine 08/27/2025 11:1 4 PM EDT 08/27/2025 11:16 PM EDT us Fletcher Barahona DO POINT OF CARE TEST ORDERABLES Final Result Performing Organization Address City/[facility]/ZIP Co de Phone Number [place] [id number], [place] * (ABNORMAL) POCT Nursing Urine Macroscopic UA (08/27/2025 11:11 PM EDT) POC Urine Specific [place] 1.015 1.010, 1.015, 1.020, 1.025 08/27/2025 11:09 PM EDT [facility] POC Urine Leukocyte Esterase Negative Negative 08/27/2025 11:09 PM EDT [facility] POC Urine Nitrite Negative Negative 08/27/2025 11:09 PM EDT [facility] POC Urine pH 6.0 5.0, 6.0, 6.5, 7.0, 7.5, 8.0, 8.5, 5.5 08/27/2025 11:09 PM EDT [facility] POC Urine Protein Negative Negative 08/27/2025 11:09 PM EDT [facility] POC Urine Glucose Negative Negative 08/27/2025 11:09 PM EDT [facility] POC Urine Ketones Negative Negative 08/27/2025 11:09 PM EDT [facility] POC Urine Urobilinogen 0.2 E.U./dL 08/27/2025 11:09 PM EDT [facility] POC Urine Bilirubin Negative Negative 08/27/2025 11:09 PM EDT [facility] POC Urine Blood/HGB Trace(A) Negative 08/27/2025 11:09 PM EDT [facility] Urine 08/27/2025 11:1 1 PM EDT 08/27/2025 11:09 PM EDT us Fletcher Barahona DO POINT OF CARE TEST ORDERABLES Final Result [address] [address], documented in this encounter Visit Diagnoses Diagnosis Cyst of left ovary- Primary Other and unspecified ovarian cyst Abdominal pain, unspecified abdominal location documented in this encounter Administered Medications Inactive Administered Medications - up to 3 most recent administrations Medication Order MAR Action Action Date Dose Rate Site HYDROmorphone (PF) (DILAUDID) injection 0.5 mg 0.5 mg, intravenous, Once, On 08/28/25 at 0023, For 1 dose, If IV push, administer over over 2 to 3 minutes. Look-alike/sound-alike medication - verify indication for use. Given 08/28/2025 12:31 AM EDT 0.5 mg HYDROmorphone (PF) (DILAUDID) injection 0.5 mg 0.5 mg, intravenous, Once, On Thu08/28/25 at 0058, For 1 dose, If IV push, administer over over 2 to 3 minutes. Look-alike/sound-alike medication - verify indication for use. Given 08/28/2025 2:00 AM EDT 0.5 mg HYDROmorphone (PF) (DILAUDID) injection 0.5 mg 0.5 mg, intravenous, Once, On Thu08/28/25 at 0316, For 1 dose, If IV push, administer over over 2 to 3 minutes. Look-alike/sound-alike medication - verify indication for use. Given 08/28/2025 3:23 AM EDT 0.5 mg HYDROmorphone (PF) (DILAUDID) injection 0.5 mg 0.5 mg, intravenous, Once, On Thu08/28/25 at 0552, For 1 dose, If IV push, administer over over 2 to 3 minutes. Look-alike/sound-alike medication - verify indication for use. Given 08/28/2025 6:01 AM EDT 0.5 mg ketorolac (TORADOL) 30 mg/mL (1 mL) injection - Pyxis Override Pull Starting on Thu08/27/25 at 2326, For 1 dose, Tirso Staton: cabinet override Look-alike/sound-alike medication - verify indication for use. Duration of therapy is not to exceed 5 days. Maximum recommended dose + 120mg/24 hours. ketorolac (TORADOL) injection 30 mg 30 mg, intravenous, Once, On Thu08/27/25 at 2308, For 1 dose, Look-alike/sound-alike medication - verify indication for use. Duration of therapy is not to exceed 5 days. Maximum recommended dose + 120mg/24 hours. Given 08/27/2025 11:27 PM EDT 30 mg morphine injection 4 mg 4 mg, intravenous, Once, On Thu08/27/25 at 2343, For 1 dose, Look-alike/sound-alike medication - verify indication for use. Given 08/28/2025 12:04 AM EDT 4 mg ondansetron (PF) (ZOFRAN) injection 4 mg 4 mg, intravenous, Once, On 08/27/25 at 2308, For 1 dose, Intravenous administration preferred to be given over 2-5 minutes. Given 08/27/2025 11:22 PM EDT 4 mg ondansetron (PF) (ZOFRAN) injection 4 mg 4 mg, intravenous, Once, On Thu08/28/25 at 0316, For 1 dose, Intravenous administration preferred to be given over 2-5 minutes. Given 08/28/2025 3:20 AM EDT 4 mg sodium chloride 0.9 % bolus 1,000 mL, intravenous, at 984 mL/hr, Administer over 61 Minutes, Once, On 08/27/25 at 2308, For 1 dose Restarted 08/27/2025 11:42 PM EDT 984 mL/hr New Bag 08/27/2025 11:23 PM EDT 1,000 mL 984 mL/hr documented in this encounter Active and Recently Administered Medications Times are shown in EDT. Scheduled Medication Order 08/26/2025 08/27/2025 08/28/2025 HYDROmorphone (PF) (DILAUDID) injection 0.5 mg (COMPLETED) 0.5 mg, intravenous, Once, On Thu08/28/25 at 0023, For 1 dose, If IV push, administer over over 2 to 3 minutes. Look-alike/sound-alike medication - verify indication for use. 0031 (Given - Provid er: Tirso Staton RN) HYDROmorphone (PF) (DILAUDID) injection 0.5 mg (COMPLETED) 0.5 mg, intravenous, Once, On Thu08/28/25 at 0058, For 1 dose, If IV push, administer over over 2 to 3 minutes. Look-alike/sound-alike medication - verify indication for use. 0200 (Given - Provid er: Tirso Staton RN) HYDROmorphone (PF) (DILAUDID) injection 0.5 mg (COMPLETED) 0.5 mg, intravenous, Once, On Thu08/28/25 at 0316, For 1 dose, If IV push, administer over over 2 to 3 minutes. Look-alike/sound-alike medication - verify indication for use. 0323 (Given - Provid er: Tirso Staton RN) HYDROmorphone (PF) (DILAUDID) injection 0.5 mg (COMPLETED) 0.5 mg, intravenous, Once, On Thu08/28/25 at 0552, For 1 dose, If IV push, administer over over 2 to 3 minutes. Look-alike/sound-alike medication - verify indication for use. 0601 (Given - Provid er: Tirso Staton RN) ketorolac (TORADOL) injection 30 mg (COMPLETED) 30 mg, intravenous, Once, On Thu08/27/25 at 2308, For 1 dose, Look-alike/sound-alike medication - verify indication for use. Duration of therapy is not to exceed 5 days. Maximum recommended dose + 120mg/24 hours. 2327 (Given - Provider: Tirso Staton RN) morphine injection 4 mg (COMPLETED) 4 mg, intravenous, Once, On Thu08/27/25 at 2343, For 1 dose, Look-alike/sound-alike medication - verify indication for use. 0004 (Given - Provid er: Alivia Jara RN) ondansetron (PF) (ZOFRAN) injection 4 mg (COMPLETED) 4 mg, intravenous, Once, On Thu08/27/25 at 2308, For 1 dose, Intravenous administration preferred to be given over 2-5 minutes. 2322 (Given - Provider: Tirso Staton RN) ondansetron (PF) (ZOFRAN) injection 4 mg (COMPLETED) 4 mg, intravenous, Once, On Thu08/28/25 at 0316, For 1 dose, Intravenous administration preferred to be given over 2-5 minutes. 0320 (Given - Provid er: Tirso Staton RN) sodium chloride 0.9 % bolus (COMPLETED) 1,000 mL, intravenous, at 984 mL/hr, Administer over 61 Minutes, Once, On Thu08/27/25 at 2308, For 1 dose 2323 (New Bag - Provider: Tirso Staton RN)2335 (Paused - Provider: Tirso Staton RN)2342 (Restarted - Provider: Tirso Staton RN) 0029 (Stop Bag - Provider: Tirso Staton RN) documented in this encounter Additional Health Concerns Assessment Noted Time PHQ-9 Depression Total Score: 2 05/24/20 10:23 AM EDT A Body Mass Index follow-up plan has been documented for the patient 09/23/2022 1:33 PM EDT documented as of this encounter Care Teams Nub Card Tender Relationship Specialty Start Date End Date Yared Jacobs MD [address] [place] [address] PCP - General Family Medicine 01/10/25 documented as of this encounter
--- OUTSIDE RECORDS SUMMARY | 2025-08-28 08:25 | XMS_ITS | Encounter Summary ---
Author Organization [facility] tem Address [id number] [address] [place] [address] Care Team Providers Care Supervisor Sample Name Role Phone Yared Jacobs MD Primary Care Provider [phone] Reason for Referral * Consultation (Routine) - Pending Review Specialty Diagnoses / Procedures Referred By Contac t Referred To Contact Obstetrics & Gynecology Diagnoses Cyst of left ovary Marcelino Cruz, SCIENTIFIC GLASS BLOWER-AWS ARCHITECT [address] [place] [address] Phone: tel: fax: Usha Kaminski MD [address] [facility] [address] [place] [address] Phone: tel: fax: Referral ID Status Reason Start Date Expiration Date Visits Requested Visits Authorized [id number] Pending Review Specialty Services Required 08/28/2025 08/28/2026 1 1 * Consultation (Urgent) - Pending Review Specialty Diagnoses / Procedures Referred By Contac t Referred To Contact Urology Diagnoses Flank pain Hematuria, unspecified type Marcelino Cruz, PHI-AWS ARCHITECT [address] [place] [address] Phone: tel: fax: [facility] [address] [place] [address] Phone: tel: fax: Referral ID Status Reason Start Date Expiration Date Visits Requested Visits Authorized [id number] Pending Review Specialty Services Required 08/28/2025 08/28/2026 1 1 Reason for Visit * Reason Comments Flank Pain Abdominal Pain Nausea Encounter Details Date Type Department Care Team (Late st Contact Info) Description 08/28/2025 8:25 AM EDT - 08/28/2025 12:19 PM EDT Emergency [facility] - Emergency Department [address] [place] [address] Maria Ball MD [address] [place] [address] Flank pain (Primary Dx); Hematuria, unspecified type; Cyst of left ovary Discharge Disposition: Home Social History Tobacco Use Types Packs/Day Years Used Date Smoking Tobacco: Former Cigarettes Vaping/E-cigarettes Smokeless Tobacco: Never Alcohol Use Standard Drinks/Week Comments No 0 (1 standard drink = 0.6 oz pur e alcohol) [facility] Utilities Answer Date Recorded In the past 12 months has e [employer], gas, oil, or water [employer] threatened to shut off services in your home? No 05/24/2025 AUDIT-C Answer Date Recorded Q1: How often do you have a drink containing alcohol? Never 05/24/2025 Q2: How many drinks containi ng alcohol do you have on a typical day when you are drinking? Patient does not drink Q3: How often do you have si [...] Sign Reading Time Taken Comments Blood Pressure 132/104 08/28/2025 12:00 PM EDT Pulse 62 08/28/2025 12:00 PM EDT Temperature 36.7 C (98 F) 08/28/2025 8:30 AM EDT Respiratory Rate 16 08/28/2025 12:00 PM EDT Oxygen Saturation 100% 08/28/2025 12:00 PM EDT Inhaled Oxygen Concentration - - Weight - - Height - - Body Mass Index - - documented in this encounter Discharge Instructions * Discharge Instructions* Marcelino Cruz APRN-PRIYA - 08/28/2025 11:42 AM EDT May follow-up with the OBGYN referral for further evaluation of the 7 cm cyst seen on your ultrasound today of your left ovary. Follow-up ultrasound may be recommended to ensure resolution of symptoms. There was also evidence of blood in your urine with history of kidney stone, follow-up with the your referral to the urologist. May start daily Flomax in case of recently passed stone continue Motrinfor kqtu-[id number] pain. May use UItram as previously prescribed for severe pain. Return for any worsening pain fever vomiting or any concern for medical attention for reassessment. * Attachments The following attachments cannot be sent through Care Everywhere. * Ovarian cysts (Angolan) * Flank pain (Angolan) * Blood in Urine (Hematuria)? Adult ED (Angolan) documented in this encounter Medications at Time [...] as needed for pain, fever or headaches. ibuprofen (MOTRIN) 800 mg tablet Take 1 tablet (800 mg total) by mouth every 6 (six) hours as needed for pain or fever for up to 30 days. 30 tablet 08/28/2025 meclizine (ANTIVERT) 25 mg tablet Take 1 [...] skin every third day. 1 patch 01/11/2025 tamsulosin (FLOMAX) 0.4 mg capsule Take 1 capsule (0.4 mg total) by mouth in the morning for 7 days. 7 capsule 08/28/2025 triamcinolone (KENALOG) 0.1 % cream Apply 1 Application topically as needed for irritation. 03/09/2025 documented as of this encounter H&P Notes * Maite Bustos DO - 08/28/2025 8:41 AM EDT Gynecology History and Physical Subjective: Chief Complaint: Chief Complaint Patient presents with Flank Pain Abdominal Pain Nausea Aster Gonzalez is a 34 y.o. female who presents for RLQ pain radiating to R flank as a transfer from [place]. She is s/p RA laparoscopic hysterectomy (2022) for chronic pelvic pain, s/p appendectomy (2019). Patient states that her pain began suddenly last night in the RLQ and radiated to R flank, prompting her to present to the ED. She reports concurrent nausea and vomiting with 2 rounds of emesis. She denies associated dysuria, hematuria. fevers, chills. Her pain is minimally relieved with IV Diluadid. Imaging at outside hospital significant for CTAP showing nonobstructive R sided nephrolithiasis and a large cystic lesion likely arising from the R adnexa measuring 7.3 cm. Pelvic US ordered to evaluate for torsion revealed 7.6 x 5.0 x 7.7cm cyst on L ovary with arterial and venous doppler flow visualized, without doppler waveforms. Given lack of doppler waveforms seen on Pelvic US, patient transferred for further gynecological evaluation for ovarian torsion. Allergies Allergen Reactions Cyclobenzaprine Hallucinations Pt pt 01/11/25 Pregabalin Rash and Shortness Of Breath Other reaction(s): Mental Status Change Benadryl [Diphenhydramine Hcl] Anxiety I just don't like taking it Lamotrigine Rash Other reaction(s): Mental Status Change Penicillin Rash Penicillin G Rash Past Medical History: Diagnosis Date Abdominal pain 10/26/2022 Added automatically from request for surgery [id number] Anxiety Chronic pain syndrome 07/09/2022 Common bile duct dilation 10/26/2022 DDD (degenerative disc disease), cervical 07/09/2022 Fibromyalgia Hypertension Hypothyroidism Left-sided sensory deficit present 07/09/2022 Migraine Muscle spasm 07/09/2022 Other acute appendicitis without perforation or gangrene 03/12/2020 Palpitations Paresthesia of both legs 05/24/2025 Recurrent sinusitis 02/11/2022 Retained products of conception after miscarriage 04/19/2022 Retention cyst of nasal sinus 02/11/2022 Sensory disturbance 07/09/2022 Sinus tachycardia 05/16/2022 TIA (transient ischemic attack) 05/19/2022 Past Surgical History: Procedure Laterality Date DILATION AND CURETTAGE OF UTERUS 04/14/2022 DILATION CURETTAGE SUCTION N/A 04/19/2022 Performed by Alisha Hatfield MD at [facility] EGD Left Lateral 10/30/2022 Performed by Tatiana Mchugh MD at [facility] HYSTERECTOMY 06/10/2023 dr mccartney LAPAROSCOPIC APPENDECTOMY N/A 03/12/2020 Performed by Fletcher Mcgarry DO at [facility] NECK SURGERY Family History Problem Relation Age of Onset Breast cancer Maternal Grandmother Cancer Maternal Grandmother Alzheimer's disease Maternal Grandmother Stroke Maternal Grandfather Aneurysm Maternal Grandfather Neuropathy Father Diabetes Father Kidney disease Father Migraines Mother Hypertension Mother Hypertension Sister Breast cancer Maternal Aunt Ovarian cancer Paternal Aunt Breast cancer Paternal Aunt Colon cancer Neg Hx Uterine cancer Neg Hx Social History Socioeconomic History Marital status: Tobacco Use Smoking status: Former Current packs/day: 0.50 Types: Vaping/E-cigarettes , Cigarettes Smokeless tobacco: Never Vaping Use Vaping status: Former Substances: Nicotine, Flavoring Devices: Disposable Substance and Sexual Activity Alcohol use: No Drug use: Yes Types: Medical Marijuana Comment: lotion Sexual activity: Yes Partners: Male control/protection: Surgical Comment: CURRENT PARTNER SINCE 2020 Social Drivers of Health Financial Resource Strain: Low Risk (09/23/2023) Received from [facility] Overall Financial Resource Strain ([facility]) Difficulty of Paying Living Expenses: Not hard at all Food Insecurity: No Food Insecurity (05/25/2025) Hunger Screening Food Insecurity - Worry: Never True Food Insecurity - Inability: Never True Transportation Needs: No Transportation Needs (05/24/2025) PRAPARE - Transportation Lack of Transportation (Medical): No Lack of Transportation (Non-Medical): No Interpersonal Safety: Not At Risk (05/24/2025) Humiliation, Afraid, Rape, and Kick questionnaire Fear of Current or Ex-Partner: No Emotionally Abused: No Physically Abused: No Sexually Abused: No Housing Instability: Low Risk (05/24/2025) Housing Instability Housing Instability: No (Not in a hospital admission) She reports no updates to her past medical, surgical, social and family histories. Allergies, Medications and Problem list were reviewed and updated in [facility]. Review of Systems - History obtained from the patient General: no chills, fever, fatigue Respiratory: no acute respiratory distress Cardiovascular: no chest pain or palpitations Gastrointestinal: 2 episodes of emesis, no diarrhea Genito-Urinary: no vaginal bleeding, vaginal discharge, dysuria, trouble voiding, or hematuria Neurological: no headaches, lightheadedness, or dizziness Dermatological ROS: no rashes Objective: Vital signs in last 24 hours: Vitals: 08/28/25 0830 BP: (!) 133/92 Pulse: 64 Resp: 22 Temp: 36.7 ??C (98 ??F) SpO2: 98% Physical Exam General: in no acute distress Cardiovascular: RRR Respiratory: Regular respirations without evidence of distress. Abdominal: Soft, non-distended, tender to the RLQ, voluntary guarding of the RLQ, CVA tenderness onthe R side. Skin: Warm, well perfused without evidence of a rash on visible skin. Extremities: No evidence of lower extremity edema. Neurologic: alert, oriented, normal speech Psychologic: normal mood, behavior, speech, and thought processes Lab Review Lab Results Component Value Date WBC 11.8 (H) 08/27/2025 HGB 13.3 08/27/2025 HCT 38.8 08/27/2025 MCV 87 08/27/2025 PLT 275 08/27/2025 Lab Results Component Value Date GLU 107 (H) 08/27/2025 CALCIUM 9.0 08/27/2025 K 3.8 08/27/2025 CO2 23 08/27/2025 BUN 11 08/27/2025 CREATININE 0.85 08/27/2025 Lab Results Component Value Date ALBUMIN 4.2 08/27/2025 AST 20 08/27/2025 ALT 18 08/27/2025 ALKALINEPHO 70 04/16/2017 TOTALPROTEI 7.6 08/27/2025 Imaging: A/P Aster Gonzalez is a 34 y.o. female presenting with 1 day onset of RLQ pain that radiates to R flank with associated nausea and vomiting. L Ovarian cyst - First noted on imaging 03/21/24 measuring 1.7cm x 1.3cm x 1.1cm - CTAP 08/27: - Right nonobstructive nephrolithiasis. No hydronephrosis - Large cystic lesion likely arising from the right adnexa measuring approximately 7.3 cm. Recommend further evaluation with pelvic ultrasound to exclude ovarian torsion. - Pelvic US 08/28: - Left ovary measuring 7.6 x 5.0 x 7.7 cm. Right ovary measuring 3.0 x 2.1 x 3.1 cm. - No sonographic evidence of ovarian torsion on the right. - Spectral Doppler waveforms unable to be obtained on the left, however arterial and venous color Doppler flow is visualized. Clinical correlation and short-term follow-up exam is advised - Simple cyst in the left ovary. Since lesions of this size are difficult to assess completely withultrasound, further imaging with MRI or surgical evaluation should be considered - Low clinical suspicion for ovarian torsion at this time. Interval increase in size of cyst since 02/2024. - Recommend pain control, return precautions for ovarian torsion, close follow up with OBGYN outpatient for possible outpatient surgical management as necessary. RLQ pain, radiating to R flank - s/p appendectomy - Unlikely to be caused by large L sided cyst - Low concern for ovarian torsion at this time. Clinical history most consistent with R sided nephrolithiasis given pain distribution. - Recommend straining urine, pain control, IVF, Flomax, zofran for nausea/vomiting control - Recommend Urology consult for evaluation of RLQ and flank pain Maite Bustos DO Rn Ccu Resident, PGY-1 Cosigned by Kita Stewart MD at 08/28/2025 12:21 PM EDT Associated attestation - Kita Stewart MD - 08/28/2025 12:21 PM EDT Seen and agree Note reviewed Patient's pain completely right-sided Discussed no evidence of torsion. &cm left simple cyst unlikely to give right- sided pain. Discussed with ER COLOR TECHNICIAN. Will get urology input Could consider Laparoscopy, but unlikely to resolve pain documented in this encounter ED Notes * Alessio Mora RN - 08/28/2025 8:30 AM EDT Patient to the ED as a transfer; handoff complete. Patient to the ED for right flank pain and dx with a left side ovarian cyst at outside facility per ems. Patient to [facility] for OBGYN consult; per ems; patient was given 0.5mg of dilaudid prior to leaving facility but still state significant pain. * Marcelino Cruz, SCIENTIFIC GLASS BLOWER-AWS ARCHITECT - 08/28/2025 8:27 AM EDT Images from the original note were not included. [facility] - EMERGENCY DEPARTMENT Pt Name: Aster Gonzalez Birthdate: 1990 Chief Complaint: Chief Complaint Patient presents with Flank Pain Abdominal Pain Nausea History of Present Illness: 34-year-old female presents today to the [facility] as a transfer from outlying facility for evaluation of ovarian cyst. Past medical history includes hypertension, hypothyroidism, history of TIA who had presented to [facility] with complaint of abdominal pain. She reported that symptoms began to the right flank 1 hour prior to arrival described as sharp and constant with a history ofrenal stones. She had nausea but no vomiting. No fever. She had denied any vaginal bleeding or discharge. Denied any urinary symptoms. Previous abdominal surgery includes hysterectomy appendectomy. CT scan had showed a large adnexal 7.3 cm cyst as well as renal stone. Consultation was obtained withOBGYN with recommendations for evaluation at [facility] for consult. Past Medical History: Past Medical History: Diagnosis Date Abdominal pain 10/26/2022 Added automatically from request for surgery [id number] Anxiety Chronic pain syndrome 07/09/2022 Common bile duct dilation 10/26/2022 DDD (degenerative disc disease), cervical 07/09/2022 Fibromyalgia Hypertension Hypothyroidism Left-sided sensory deficit present 07/09/2022 Migraine Muscle spasm 07/09/2022 Other acute appendicitis without perforation or gangrene 03/12/2020 Palpitations Paresthesia of both legs 05/24/2025 Recurrent sinusitis 02/11/2022 Retained products of conception after miscarriage 04/19/2022 Retention cyst of nasal sinus 02/11/2022 Sensory disturbance 07/09/2022 Sinus tachycardia 05/16/2022 TIA (transient ischemic attack) 05/19/2022 Past Surgical History: Past Surgical History: Procedure Laterality Date DILATION AND CURETTAGE OF UTERUS 04/14/2022 DILATION CURETTAGE SUCTION N/A 04/19/2022 Performed by Alisha Hatfield MD at [facility] EGD Left Lateral 10/30/2022 Performed by Tatiana Mchugh MD at [facility] HYSTERECTOMY 06/10/2023 dr mccartney LAPAROSCOPIC APPENDECTOMY N/A 03/12/2020 Performed by Fletcher Mcgarry DO at [facility] NECK SURGERY Family History: Family History Problem Relation Age of Onset Breast cancer Maternal Grandmother Cancer Maternal Grandmother Alzheimer's disease Maternal Grandmother Stroke Maternal Grandfather Aneurysm Maternal Grandfather Neuropathy Father Diabetes Father Kidney disease Father Migraines Mother Hypertension Mother Hypertension Sister Breast cancer Maternal Aunt Ovarian cancer Paternal Aunt Breast cancer Paternal Aunt Colon cancer Neg Hx Uterine cancer Neg Hx Social History: Social History Socioeconomic History Marital status: Tobacco Use Smoking status: Former Current packs/day: 0.50 Types: Vaping/E-cigarettes , Cigarettes Smokeless tobacco: Never Vaping Use Vaping status: Former Substances: Nicotine, Flavoring Devices: Disposable Substance and Sexual Activity Alcohol use: No Drug use: Yes Types: Medical Marijuana Comment: lotion Sexual activity: Yes Partners: Male control/protection: Surgical Comment: CURRENT PARTNER SINCE 2020 Social Drivers of Health Financial Resource Strain: Low Risk (09/23/2023) Received from [facility] Overall Financial Resource Strain (CARDIA) Difficulty of Paying Living Expenses: Not hard at all Food Insecurity: No Food Insecurity (05/25/2025) Hunger Screening Food Insecurity - Worry: Never True Food Insecurity - Inability: Never True Transportation Needs: No Transportation Needs (05/24/2025) PRAPARE - Transportation Lack of Transportation (Medical): No Lack of Transportation (Non-Medical): No Interpersonal Safety: Not At Risk (05/24/2025) Humiliation, Afraid, Rape, and Kick questionnaire Fear of Current or Ex-Partner: No Emotionally Abused: No Physically Abused: No Sexually Abused: No Housing Instability: Low Risk (05/24/2025) Housing Instability Housing Instability: No Review of Systems: Review of Systems Physical Exam: ED Triage Vitals Temp Pulse Resp BP SpO2 -- -- -- -- -- Temp src Heart Rate Source Patient Position BP Location FiO2 (%) -- -- -- -- -- Vitals: 08/28/25 1114 08/28/25 1130 08/28/25 1145 08/28/25 1200 BP: (!) 124/97 (!) 127/92 128/90 (!) 132/104 Temp: TempSrc: Pulse: 62 Resp: 16 SpO2: 97% 94% 99% 100% MAP (mmHg): 104 104 102 114 100 Physical Exam Vitals and nursing note reviewed. Constitutional: Appearance: Normal appearance. She is not ill-appearing. HENT: Head: Normocephalic and atraumatic. Right Ear: External ear normal. Left Ear: External ear normal. Nose: Nose normal. Eyes: Pupils: Pupils are equal, round, and reactive to light. Neck: Trachea: Trachea normal. Cardiovascular: Rate and Rhythm: Normal rate and regular rhythm. Heart sounds: Normal heart sounds, S1 normal and S2 normal. No murmur heard. No friction rub. No gallop. No S3 or S4 sounds. Pulmonary: Effort: Pulmonary effort is normal. No respiratory distress. Breath sounds: Normal breath sounds. No decreased breath sounds, wheezing, rhonchi or rales. Abdominal: General: Bowel sounds are normal. There is no distension. Palpations: Abdomen is soft. Abdomen is not rigid. Tenderness: There is abdominal tenderness. There is no right CVA tenderness, left CVA tenderness, guarding or rebound. Comments: Right flank tenderness reported. Skin: General: Skin is warm and dry. Capillary Refill: Capillary refill takes less than 2 seconds. Findings: No rash. Neurological: Mental Status: She is alert. She is not disoriented. GCS: GCS eye subscore is 4 = Spontaneous. GCS verbal subscore is 5 = Oriented and converses. GCS motor subscore is 6 = Obeys commands. Cranial Nerves: No cranial nerve deficit. Sensory: No sensory deficit. Psychiatric: Speech: Speech normal. Behavior: Behavior normal. Procedure: Procedures Re-evaluation: Mary Worthington (scribe), documented on behalf and in the presence of Dr. Ball. Medical Decision Making OBGYN was consulted and evaluated patient at bedside. Symptoms of the pain persisted after Toradol,Dilaudid. Low suspicion of ovarian torsion at this time with ultrasound to finding the left ovary showing the7 cm cyst. Recommended patient follow-up with her previous referral to [facility] as she is currently sees with the midwives in [place]. She did have some mild improvement of pain symptoms afterPercocet. OBGYN recommended that urology be consulted. Discussed patient's case with mary HOFF who recommends treating as potential passed ureteral stone with Flomax, Motrin, follow-up in office referral. Offer to send patient home with Percocet but OAARS showed history of recent Ultram prescription. Plan to continue Ultram as she received through family physician. Her chart was corrected to showsshe will continue this medication. Risk Prescription drug management. ED Course: Clinical Impressions as of 08/28/25 1232 Flank pain Hematuria, unspecified type Cyst of left ovary . ED Disposition ED Disposition Discharge Date/Time ThuAug 28, 2025 12:05 PM Comment At the time of discharge, the plan has been discussed with the patient regarding the diagnosis and prognosis. All questions have been answered. Verbal discharge instructions were discussed with the patient. The patient has been advised to follow up w ith their Specialist within 1 week. The patient was also instructed to return to the ED if their symptoms change, worsen, new symptoms arise or if they have any additional concerns. Medications Prescribed this Visit Sig tamsulosin (FLOMAX) 0.4 mg capsule Take 1 capsule (0.4 mg total) by mouth in the morning for 7 days. ibuprofen (MOTRIN) 800 mg tablet Take 1 tablet (800 mg total) by mouth every 6 (six) hours as needed for pain or fever for up to 30 days. Shared/Split Visit 09:33 EDT Mary Worthington (scribe), scribed for and in the presence of: Dr. Ball who performed the aboveservice. I, Dr. Ball personally performed a akln-ll-ltaz diagnostic evaluation on this patient. I personally made and approved the management plan for this patient and take responsibility for the patient management. Additional Notes/Findings: Aster Gonzalez is a 34 y.o. F presenting to the ED for chief complaintof flank pain. Pt reports rt flank pain. Reports nausea. Pain rates 9 out of 10. Exam findings as follows: Constitutional: Awake and alert HENT: Head normocephalic and atraumatic Eyes: conjunctiva unremarkable Cardiovascular: Heart rate regular Pulmonary: Easy work of breathing, speaking full sentences Abdominal: Flat and non-distended Skin: Warm and dry Musculoskeletal: Moving all extremities spontaneously Neurological:intact Please note that portions of this note were completed with a voice recognition program. Efforts were made to edit the dictations but occasionally words are mis-transcribed. Marcelino Cruz APRN-PRIYA 08/28/25 0831 Mary Mendez 08/28/25 0934 Mary Mendez 08/28/25 0955 Marcelino Cruz APRN-PRIYA 08/28/25 1232 Cosigned by Maria Ball MD at 08/30/2025 4:06 PM EDT * Damaris Rubi RN - 08/28/2025 8:25 AM EDT Bed: 12 Expected date: Expected time: Means of arrival: [facility] Comments: Access patient from [place] ED- Aster [place] 1990 Right flank pain and has Left side ovarian cyst-Dr Kahn conferenced with sending and wanted pt to [facility] ED for PAVING STONE INSTALLER assessment. Dr Monroe conference with sending.-Patient coming ground and may be coming per private car--[facility] ED to notify Electrical Assemblies Supervisor resident when patient arrives-[facility] PTN ground transport-ETA for flower picker is [phone]-[facility] Report from [place]: RLQ pain Right flank pain CT shows cyst left ovary 7.3 cm 0.5 mg dilaudid H x chronic pain VSS 20 left AC 56, 126/77 ETA 10 minutes documented in this encounter Plan of Treatment Upcoming Encounters Date Type Department Care Team (Late st Contact Info) Description 02/05/2026 10:45 AM EDT Office Visit [facility] Department of [facility] [address] [id number] Rodrigo Robb MD [address] [address] Scheduled Referrals Name Type Priority Associated Diagnoses Order Schedule Ambulatory referral to Urology Outpatient Referral Routine Flank pain Hematuria, unspecified type 1 Occurrences starting 08/28/2025 until 08/28/2026 Ambulatory referral to Obstetrics / Gynecology - Consult (Non[facility]) Outpatient Referral Routine Cyst of left ovary 1 Occurrences starting 08/28/2025 until 08/28/2026 documented as of this encounter Goals Goal Patient Goal Type Associated Problems Recent Progress Patient-Stated? Author <enter goal here> General Yes Rachel Dockery, GOSIA Note: Evaluation of progress towards goal: home with , self care documented as of this encounter Visit Diagnoses Diagnosis Flank pain- Primary Abdominal pain, unspecified site Hematuria, unspecified type Cyst of left ovary Other and unspecified ovarian cyst documented in this encounter Administered Medications Inactive Administered Medications - up to 3 most recent administrations Medication Order MAR Action Action Date Dose Rate Site HYDROmorphone (PF) (DILAUDID) injection 1 mg 1 mg, intravenous, Once, On Thu08/28/25 at 0836, For 1 dose, If IV push, administer over over 2 to 3 minutes. Look-alike/sound-alike medication - verify indication for use. Given 08/28/2025 8:47 AM EDT 1 mg ketorolac (TORADOL) injection 15 mg 15 mg, intravenous, Once, On Thu08/28/25 at 0959, For 1 dose, Look-alike/sound-alike medication - verify indication for use. Duration of therapy is not to exceed 5 days. Maximum recommended dose + 120mg/24 hours. Given 08/28/2025 10:05 AM EDT 15 mg ondansetron (PF) (ZOFRAN) injection 4 mg 4 mg, intravenous, Once, On Thu08/28/25 at 0836, For 1 dose, Intravenous administration preferred to be given over 2-5 minutes. Given 08/28/2025 8:47 AM EDT 4 mg oxyCODONE-acetaminophen (PERCOCET) 5-325 mg per tablet 1 tablet 1 tablet, oral, Once, On Thu08/28/25 at 1110, For 1 dose, Look-alike/sound-alike medication - verify indication for use. Given 08/28/2025 11:12 AM EDT 1 tablet documented in this encounter Active and Recently Administered Medications Times are shown in EDT. Scheduled Medication Order 08/26/2025 08/27/2025 08/28/2025 HYDROmorphone (PF) (DILAUDID) injection 1 mg (COMPLETED) 1 mg, intravenous, Once, On Thu08/28/25 at 0836, For 1 dose, If IV push, administer over over 2 to 3 minutes. Look-alike/sound-alike medication - verify indication for use. 0847 (Given - Provid er: Sundepe Myers RN) ketorolac (TORADOL) injection 15 mg (COMPLETED) 15 mg, intravenous, Once, On Thu08/28/25 at 0959, For 1 dose, Look-alike/sound-alike medication - verify indication for use. Duration of therapy is not to exceed 5 days. Maximum recommended dose + 120mg/24 hours. 1005 (Given - Provid er: Jelena Pruitt RN) ondansetron (PF) (ZOFRAN) injection 4 mg (COMPLETED) 4 mg, intravenous, Once, On Thu08/28/25 at 0836, For 1 dose, Intravenous administration preferred to be given over 2-5 minutes. 0847 (Given - Provid er: Sundeep Myers RN) oxyCODONE-acetaminophen (PERCOCET) 5-325 mg per tablet 1 tablet (COMPLETED) 1 tablet, oral, Once, On Thu08/28/25 at 1110, For 1 dose, Look-alike/sound-alike medication - verify indication for use. 1112 (Given - Provid er: Nanette Bridges RN) documented in this encounter Additional Health Concerns Assessment Noted Time PHQ-9 Depression Total Score: 2 05/24/20 10:23 AM EDT A Body Mass Index follow-up plan has been documented for the patient 09/23/2022 1:33 PM EDT documented as of this encounter Care Teams Supervisor Sample Relationship Specialty Start Date End Date Yared Jacobs MD [address] [place] [address] PCP - General Family Medicine 01/10/25 documented as of this encounter
--- OUTSIDE RECORDS SUMMARY | 2025-08-31 16:49 | XMS_ITS | Encounter Summary ---
Author Organization [facility] tem Address [facility] [id number] [address] [place] [address] Care Team Providers Care Tearer Press Clipping Name Role Phone Yared Jacobs MD Primary Care Provider [phone] Encounter Details Date Type Department Care Team (Late st Contact Info) Description 08/14/2025 Results Follow-Up [facility] - Lab [address] [place] [address] Rodrigo Robb MD [address] [address] DNA double-stranded (dsDNA) Abs by Yordy beatty IFA Social History Tobacco Use Types Packs/Day Years Used Date Smoking Tobacco: Former Cigarettes Vaping/E-cigarettes Smokeless Tobacco: Never Alcohol Use Standard Drinks/Week Comments No 0 (1 standard drink = 0.6 oz pur e alcohol) [facility] Utilities Answer Date Recorded In the past 12 months has [employer], gas, oil, or water [employer] threatened to shut off services in your [...] AM EDT documented as of this encounter Plan of Treatment Upcoming Encounters Date Type Department Care Team (Late st Contact Info) Description 02/05/2026 10:45 AM EDT [facility] [address] [phone] Rodrigo Robb MD [address] [address] documented as of this encounter Goals Goal Patient Goal Type Associated Problems Recent Progress Patient-Stated? Author <enter goal here> General Yes Rachel Dockery, GOSIA Note: Evaluation of progress towards goal: home with , self care documented as of this encounter Visit Diagnoses Not on filedocumented in this encounter Additional Health Concerns Assessment Noted Time PHQ-9 Depression Total Score: 2 05/24/20 10:23 AM EDT A Body Mass Index follow-up plan has been documented for the patient 09/23/2022 1:33 PM EDT documented as of this encounter Care Teams Tearer Press Clipping Relationship Specialty Start Date End Date Yared Jacobs MD [address] [place] [address] PCP - General Family Medicine 01/10/25 documented as of this encounter
--- OUTSIDE RECORDS SUMMARY | 2025-08-31 16:50 | XMS_ITS | Encounter Summary ---
[facility] tem Address [facility][id number] [address] [place] [address] Care Team Providers Care Large Sheetfed Press Operator Name Role Phone Yared Jacobs MD Primary Care Provider [phone] Encounter Details Date Type Department Care Team (Late st Contact Info) Description 08/17/2025 [facility] of [address] [address] Karen Solorzano, TABITHA Social History Tobacco Use Types Packs/Day Years Used Date Smoking Tobacco: Former Cigarettes Vaping/E-cigarettes Smokeless Tobacco: Never Alcohol Use Standard Drinks/Week Comments No 0 (1 standard drink = 0.6 oz pur e alcohol) [facility] Utilities Answer Date Recorded In the past 12 months has e [employer], gas, oil, or water company threatened to [...] AM EDT documented as of this encounter Miscellaneous Notes * Telephone Encounter - Karen Solorzano CMA - 08/17/2025 2:13 PM EDT Marilu called was wondering will see need to see you for parneal plastic?? Or does she need to seesomeone else for this>> Please advise, Thanks * Telephone Encounter - Rodrigo Robb MD - 08/17/2025 2:13 PM EDT 1st she needs to be evaluated by Neurology to see the significant of this test * Telephone Encounter - Karen Soolrzano CMA - 08/17/2025 2:13 PM EDT ..Spoke with marilu gave results. Pt understood . She also wanted to let you know her Neuro doctor put her on medication for dx myathensia gravis. Medication pyridostigmoine documented in this encounter Plan of Treatment Upcoming Encounters Date Type Department Care Team (Late st Contact Info) Description 02/05/2026 10:45 AM EDT Office Visit [facility], A Department of [facility] [address] [address] Rodrigo Robb MD [address] [address] documented as of this encounter Goals Goal Patient Goal Type Associated Problems Recent Progress Patient-Stated? Author <enter goal here> General Yes Rachel Dockery, SHEAR GRINDER OPERATOR Note: Evaluation of progress towards goal: home with , self care documented as of this encounter Visit Diagnoses Not on filedocumented in this encounter Additional Health Concerns Assessment Noted Time PHQ-9 Depression Total Score: 2 05/24/20 25 10:23 AM EDT A Body Mass Index follow-up plan has been documented for the patient 09/23/2022 1:33 PM EDT documented as of this encounter Care Teams Large Sheetfed Press Operator Relationship Specialty Start Date End Date Yared Jacobs MD [address] [place] [address] PCP - General Family Medicine 01/10/25 documented as of this encounter
--- OUTSIDE RECORDS SUMMARY | 2025-08-31 16:50 | XMS_ITS | Encounter Summary ---
Author Organization [facility] tem Address [facility][id number] [address] [place] [address] Care Team Providers Care Elevator Constructor Electric Name Role Phone Yared Jacobs MD Primary Care Provider [phone] Encounter Details Date Type Department Care Team (Late Contact Info) Description 11/04/2022 Orders Only [facility] - GEN 7 Acute [address] [place] [address] Steffi Jeffries, LASHONDA Social History Tobacco Use Types Packs/Day Years Used Date Smoking Tobacco: Former Cigarettes Vaping/E-cigarettes Smokeless Tobacco: Never Alcohol Use Standard Drinks/Week Comments No 0 (1 standard drink = 0.6 oz pur e alcohol) PHQ-2 Answer Date Recorded Total Score 2 07/09/2022 Childcare Answer Date Recorded Childcare Unknown 05/09/2019 Employment Answer Date Recorded Employment Unknown 05/09/2019 Purpose - Life Answer Date Recorded Purpose and direction in life Unknown Comments No Sex and Gender Information Value Date Recorded Sex Assigned at Female 05/16/2022 10:14 AM EDT Legal Sex Female 11:43 AM EDT Gender Identity Female 05/16/2022 10:14 AM EDT Sexual Orientation Straight 05/16/2022 10 :14 AM EDT COVID-19 Exposure Response Date Recorded In the last month, have you been in contact with someone who was confirmed or suspected to have Coronavirus / COVID-19? No / Unsure 10/28/2022 4:44 PM EST documented as of this encounter Plan of Treatment Upcoming Encounters Date Type Department Care Team (Late Contact Info) Description 02/05/2026 10:45 AM EDT Office Visit [facility], A Department of [facility] [address] [phone] Rodrigo Robb MD [address] [address] documented as of this encounter Visit Diagnoses Not on filedocumented in this encounter Additional Health Concerns Infection Onset Date Last Indicated Resolved Time Respiratory Rule-Out 01/25/2025 01/25/2025 025 8:32 PM EST Respiratory Rule-Out 02/22/2025 02/22/2025 025 10:22 AM EDT Assessment Noted Time PHQ-9 Depression Total Score: 2 07/09/20 22 9:40 AM EDT A Body Mass Index follow-up plan has been documented for the patient 09/23/2022 1:33 PM EDT documented as of this encounter Care Teams Elevator Constructor Electric Relationship Specialty Start Date End Date Yared Jacobs MD [address] [place] [address] PCP - General Family Medicine 01/10/25 documented as of this encounter
--- OUTSIDE RECORDS SUMMARY | 2025-08-31 16:50 | XMS_ITS | Encounter Summary ---
Author Organization [facility] Address [address] [place] [address] [address] Care Team Providers Care Can Washer Name Role Phone Yared Jacobs MD Primary Care Provider [phone] Encounter Details Date Type Department Care Team (Late st Contact Info) Description 06/11/2023 Abstract [facility] [address] [phone] Brett Palma DO [address] [place] [address] Social History Tobacco Use Types Packs/Day Years Used Date Smoking Tobacco: Every Day Cigarettes Comments:Current smoker Comments Unknown Sex and Gender Information Value Date Recorded Sex Assigned at Female 07/25/2024 10:34 AM EDT Legal Sex Female 6:54 PM EDT Gender Identity Female 07/25/2024 10:34 AM EDT Sexual Orientation Not on file COVID-19 Exposure Response Date Recorded In the last 10 days, have yo u been in contact with someone who was confirmed or suspected to have Coronavirus/COVID-19? No / Unsure 05/13/2023 10:38 AM EDT documented as of this encounter Plan of Treatment Not on file documented as of this encounter Visit Diagnoses Not on filedocumented in this encounter Care Teams Can Washer Relationship Specialty Start Date End Date Yared Jacobs MD PCP - General Family Medicine 05/13/23 documented as of this encounter
--- OUTSIDE RECORDS SUMMARY | 2025-08-31 16:50 | XMS_ITS | Encounter Summary ---
Author Organization [employer] tem Address [id number] [address] [place] [address] Care Team Providers Care Nursing Home Manager Name Role Phone Yared Jacobs MD Primary Care Provider [phone] Reason for Visit * Reason Onset Date Comments Med Refill 09/03/2022 Encounter Details Date Type Department Care Team (Late Contact Info) Description 09/03/2022 Refill [facility] [address] [phone] Tatiana Baird MD [address] [address] Fibromyalgia Social History Tobacco Use Types Packs/Day Years [...] Office Visit [facility], A Department of [facility] [address] [address] Rodrigo Robb MD [address] [address] documented as of this encounter Visit Diagnoses Diagnosis Fibromyalgia Unspecified myalgia and myositis documented in this encounter Additional Health Concerns Infection Onset Date Last Indicated Resolved Time Respiratory Rule-Out 01/25/2025 01/25/2025 025 8:32 PM EST Respiratory Rule-Out 02/22/2025 02/22/2025 025 10:22 AM EDT Assessment Noted Time PHQ-9 Depression Total Score: 2 07/09/20 22 9:40 AM EDT A Body Mass Index follow-up plan has been documented for the patient 07/09/2022 3:15 PM EDT documented as of this encounter Care Teams Nursing Home Manager Relationship Specialty Start Date End Date Yared Jacobs MD [address] [place] [address] PCP - General Family Medicine 01/10/25 documented as of this encounter
--- OUTSIDE RECORDS SUMMARY | 2025-08-31 16:50 | XMS_ITS | Encounter Summary ---
Author Organization [facility] tem Address [facility] [place] [facility]-[id number] [address] [place] [address] Care Team Providers Care Spring Tester Name Role Phone Yared Jacobs MD Primary Care Provider [phone] Reason for Visit * Reason Comments Med Refill Encounter Details Date Type Department Care Team ([facility] Contact Info) Description 09/14/2022 Refill [facility] [address] [phone] Tatiana Baird MD [address] [address] Fibromyalgia Social History Tobacco Use Types Packs/Day [...] Upcoming Encounters Date Type Department Care Team ([facility] Contact Info) Description 02/05/2026 10:45 AM EDT Office Visit [facility], A Department of [facility] [address] [phone] Rodrigo Robb MD [address] [address] documented as of this encounter Visit Diagnoses [...] documented as of this encounter Care Teams Spring Tester Relationship Specialty Start Date End Date Yared Jacobs MD [address] [place] [address] PCP - General Family Medicine 01/10/25 documented as of this encounter
--- OUTSIDE RECORDS SUMMARY | 2025-08-31 16:50 | XMS_ITS | Encounter Summary ---
Author Organization [employer] tem Address [facility]-[id number] [address] [place] [address] Care Team Providers Care Assistant Engineer Name Role Phone Yared Jacobs MD Primary Care Provider [phone] Encounter Details Date Type Department Care Team (Late st Contact Info) Description 03/09/2025 Telephone [facility], A Department of [address] [address] Darlene Virgen CMA Social History Tobacco Use Types Packs/Day Years Used Date Smoking Tobacco: Former Cigarettes Vaping/E-cigarettes Smokeless Tobacco: Never Alcohol Use Standard Drinks/Week Comments No 0 (1 standard drink = 0.6 oz pur e alcohol) [facility] Utilities Answer Date Recorded In the past 12 months has e electric, gas, oil, or water company threatened to shut off services in your home? No 01/10/2025 PHQ-2 Answer Date Recorded Total Score 2 07/09/2022 PRAPARE - Transportation Answer Date Re corded In the past 12 months, has l ack of transportation kept you from medical appointments or from getting medications? No 12/31 In the past 12 months, has l ack of transportation kept you from meetings, work, or from getting things needed for daily living? No 01/10/2025 Housing Instability Answer Date Recorde d Are you worried or concerned that in the next two months you may not have stable housing that you own, rent or stay in as a part of a household? No 01/10/2025 Childcare Answer Date Recorded Childcare Unknown 05/09/2019 Employment Answer Date Recorded Employment Unknown 05/09/2019 Hunger Screening Answer Date Recorded Within the past 12 months we worried whether our food would run out before we got money to buy more. Never True 02/22/2025 Within the past 12 months th e food we bought just didn't last and we didn't have money to get more. Never True 02/22/2025 Purpose - Life Answer Date Recorded Purpose and direction in life Unknown Comments No Sex and Gender Information Value Date Recorded Sex Assigned at Female 05/16/2022 10:14 AM EDT Legal Sex Female 11:43 AM EDT Gender Identity Female 05/16/2022 10:14 AM EDT Sexual Orientation Straight 05/16/2022 10 :14 AM EDT documented as of this encounter Miscellaneous Notes * Telephone Encounter - Darlene Virgen CMA - 03/09/2025 9:00 AM EDT Aster called and would like to know if EBV test could be put in for her? She also would like to know if antibodies for lupus could be rechecked as well? Please advise. * Telephone Encounter - Rodrigo Robb MD - 03/09/2025 9:00 AM EDT I do not check for EBV since the results will not be significant. Patient was checked for lupus previously and he clinical picture did not change Will discuss lab tests next appointment if they are necessary or not * Telephone Encounter - Karen Solorzano CMA - 03/09/2025 9:00 AM EDT Pt notified. documented in this encounter Plan of Treatment Upcoming Encounters Date Type Department Care Team (Late st Contact Info) Description 02/05/2026 10:45 AM EDT Office Visit [facility], A Department of [address] [place] [address] Rodrigo Robb MD [address] [address] documented as of this encounter Visit Diagnoses Not on filedocumented in this encounter Additional Health Concerns Assessment Noted Time PHQ-9 Depression Total Score: 2 07/09/20 22 9:40 AM EDT A Body Mass Index follow-up plan has been documented for the patient 09/23/2022 1:33 PM EDT documented as of this encounter Care Teams Assistant Engineer Relationship Specialty Start Date End Date Yared Jacobs MD [address] [place] [address] PCP - General Family Medicine 01/10/25 documented as of this encounter
--- OUTSIDE RECORDS SUMMARY | 2025-08-31 16:50 | XMS_ITS | Clinical Summary ---
Author Organization [facility] Address [address], [address] [place] [address] Care Team Providers Care Wireless Operator Name Role Phone Yared Jacobs MD Primary Care Provider [phone] Allergies Active Allergy Reactions Criticality Noted Date Comments Penicillins Rash Low 09/12/2023 Medications gabapentin (NEURONTIN) 800 MG tablet Take 1 tablet by mouth 3 times daily. Active ALPRAZolam (XANAX) 0.25 MG tablet Take 1 tablet by mouth 3 times daily as needed for Anxiety. Active dicyclomine (BENTYL) 10 MG capsule Take 1 capsule by mouth 3 times daily for 5 days 15 capsule 09/12/2023 Active ondansetron (ZOFRAN) 4 MG tablet Take 1 tablet by mouth 3 times daily as needed for Nausea or Vomiting 15 tablet 09/12/2023 Active Social History Tobacco Use Types Packs/Day Years Used Date Smoking Tobacco: Never Smokeless Tobacco: Never Alcohol Use Standard Drinks/Week Comments Not Currently 0 (1 standard drink = 0.6 oz pur e alcohol) [facility] Answer Date Recorded Q1: How often do you have a drink containing alcohol? Never 09/12/2023 Q2: How many drinks containi ng alcohol do you have on a typical day when you are drinking? Patient does not drink Q3: How often do you have si x or more drinks on one occasion? Never 09/12/2023 Comments No Sex and Gender Information Value Date Recorded Sex Assigned at Not on file Legal Sex Female 1:15 PM EST Gender Identity Not on file Sexual Orientation Not on file Last Filed Vital Signs Vital Sign Reading Time Taken Comments Blood Pressure 121/104 09/12/2023 6:11 PM EDT Pulse 80 09/12/2023 6:11 PM EDT Temperature 37.3 C (99.2 F) 09/12/2023 4:07 PM EDT Respiratory Rate 16 09/12/2023 6:11 PM EDT Oxygen Saturation 97% 09/12/2023 6:11 PM EDT Inhaled Oxygen Concentration - - Weight 65.8 kg (145 lb) 09/12/2023 4:07 PM EDT Height 157.5 cm (5' 2 ) 09/12/2023 4:07 PM EDT Body Mass Index 26.52 09/12/2023 4:07 PM EDT Plan of Treatment Health Maintenance Due Date Last Done Comments Depression Screen 2002 Varicella vaccine (1 of 2 - 13+ 2-dose series) 2003 HIV screen 2005 Hepatitis C screen 2008 Hepatitis B vaccine (1 of 3 - 19+ 3-dose series) 2009 Flu vaccine (#1) 06/30/2025 COVID-19 Vaccine (1 - 2023-2 5 season) 2025 DTaP/Tdap/Td vaccine (2 - Td or Tdap) 04/13/2033 04/13/2023 HPV vaccine (No Doses Required) Completed Hepatitis A vaccine Aged Out No longe r eligible based on patient's age to complete this topic Hib vaccine Aged Out No longer eligi ble based on patient's age to complete this topic Meningococcal (ACWY) vaccine Aged Out No longer eligible based on patient's age to complete this topic Meningococcal B vaccine Aged Out No l onger eligible based on patient's age to complete this topic Pneumococcal 0-49 years Vaccine Aged Out No longer eligible based on patient's age to complete this topic Polio vaccine Aged Out No longer elig ible based on patient's age to complete this topic Insurance [facility] [employer] RET MEDICAID Care Teams Wireless Operator Relationship Specialty Start Date End Date Yared Jacobs MD [address] [place] [address] PCP - General Family Medicine 10/14/22
--- OUTSIDE RECORDS SUMMARY | 2025-08-31 16:50 | XMS_ITS | Clinical Summary ---
Author Organization [facility] Address [address] [place] [address] Care Team Providers Care Optic Fibre Drawer Name Role Phone Yared Jacobs MD Primary Care Provider [phone] Allergies Active Allergy Reactions Criticality Noted Date Comments Lamotrigine Hallucinations,Rash Low 02/19/2022 Other reaction(s): Mental Status Change Penicillin G Unknown 05/11/2023 Pregabalin Hallucinations,Rash, Shor tness of breath High 02/19/2022 Other reaction(s): Mental Status Change Medications buPROPion XL (Wellbutrin XL) 150 MG 24 hr tablet Take 150 mg by mouth in the morning. 3 Active gabapentin (Neurontin) 800 MG tablet Take 800 mg by mouth at bedtime. Active cloNIDine (Catapres) 0.1 MG tablet Take 0.1 mg by mouth in the morning and 0.1 mg in the evening. Active ALPRAZolam (Xanax) 0.25 MG tablet 2 Active nortriptyline (Pamelor) 10 MG capsule Nortriptyline HCl A ctive pantoprazole (ProtoNix) 40 MG EC tablet 2 Active dicyclomine (Bentyl) 20 MG tablet Take 20 mg by mouth in the morning and 20 mg in the evening. 3 Active ibuprofen 800 MG tablet Take 800 mg by mouth every 8 (eight) hours. Active metoprolol tartrate (Lopressor) 25 MG tablet 3 Active Family History Medical History Relation Name Comments No Known Problems Daughter Diabetes Father Kidney disease Father Rheum arthritis Father Hypertension Mother Migraines Mother No Known Problems Son Relation Name Status Comments Brother 1 Alive Brother 2 Alive Brother 3 Alive Daughter Alive Father Alive Mother Alive Sister Alive Son Alive Social History Tobacco Use Types Packs/Day Years Used Date Smoking Tobacco: Every Day Cigarettes Tobacco Cessation:Ready to Q uit: Not Asked; Counseling Given: Not Answered Comments:Current smoker Comments No Sex and Gender Information Value Date Recorded Sex Assigned at Female 07/25/2024 10:34 AM EDT Legal Sex Female 6:54 PM EDT Gender Identity Female 07/25/2024 10:34 AM EDT Sexual Orientation Not on file Last Filed Vital Signs Vital Sign Reading Time Taken Comments Blood Pressure 112/72 07/21/2023 2:10 PM EDT Pulse - - Temperature - - Respiratory Rate - - Oxygen Saturation - - Inhaled Oxygen Concentration - - Weight 66 kg (145 lb 6.4 oz) 07/21/2023 2:10 PM EDT Height 157.5 cm (5' 2 ) 07/06/2023 1:55 PM EDT Body Mass Index 26.59 07/06/2023 1:55 PM EDT Plan of Treatment Not on file Insurance Care Teams Optic Fibre Drawer Relationship Specialty Start Date End Date Yared Jacobs MD PCP - General Family Medicine 05/13/23
--- OUTSIDE RECORDS SUMMARY | 2025-08-31 16:50 | XMS_ITS | Encounter Summary ---
Author Organization [employer] Address [id number] [address] [place] [address] Care Team Providers Care Manager Alliance Name Role Phone Yared Jacobs MD Primary Care Provider [phone] Encounter Details Date Type Department Care Team (Late st Contact Info) Description 09/07/2024 Documentation [facility] [address] [place] [address] Gemma Jones, CHARGEBACK ANALYST-CN [address] [place] [address] Social History Tobacco Use Types Packs/Day Years [...] got money to buy more. Never True 08/08/2024 Within the past 12 months th e food we bought just didn't last and we didn't have money to get more. Never True 08/08/2024 Purpose - Life Answer Date Recorded Purpose [...] Upcoming Encounters Date Type Department Care Team ([facility] st Contact Info) Description 02/05/2026 10:45 AM EDT Office Visit [facility] [address] [phone] Rodrigo Robb MD [address] [address] documented as of this encounter Visit Diagnoses Diagnosis Cyclical pelvic pain- Primary documented in this encounter Additional Health Concerns [...] documented as of this encounter Care Teams Manager Alliance Relationship Specialty Start Date End Date Yared Jacobs MD [address] [place] [address] PCP - General Family Medicine 01/10/25 documented as of this encounter
--- OUTSIDE RECORDS SUMMARY | 2025-08-31 16:50 | XMS_ITS | Encounter Summary ---
Author Organization [employer] Address [id number] [address] [place] [address] Care Team Providers Care Case Fitter Name Role Phone Yared Jacobs MD Primary Care Provider [phone] Reason for Visit * Reason Onset Date Comments Med Refill 09/15/2022 Encounter Details Date Type Department Care Team (Late st Contact Info) Description 09/15/2022 Refill [facility] [address] [place] [address] Gretchen Frances CMA Fibromyalgia Social History Tobacco Use Types Packs/Day [...] encounter Miscellaneous Notes * Telephone Encounter - Gretchen Frances CMA - 09/15/2022 8:55 AM EDT Refill request * Telephone Encounter - Gretchen Frances CMA - 09/15/2022 8:55 AM EDT Patient asked why her refill request was refused documented in this encounter Plan of Treatment Upcoming Encounters Date Type Department Care Team (Late st Contact Info) Description 02/05/2026 10:45 AM EDT Office Visit [facility] [address] [phone] Rodrigo Robb MD [address] [address] documented as of this encounter Visit Diagnoses Diagnosis Fibromyalgia Unspecified myalgia and myositis documented in this encounter Additional Health Concerns Infection Onset Date Last Indicated Resolved Time Respiratory Rule-Out 01/25/2025 01/25/2025 025 8:32 PM EST Respiratory Rule-Out 02/22/2025 02/22/2025 025 10:22 AM EDT Assessment Noted Time PHQ-9 Depression Total Score: 2 07/09/20 9:40 AM EDT A Body Mass Index follow-up plan has been documented for the patient 07/09/2022 3:15 PM EDT documented as of this encounter Care Teams Case Fitter Relationship Specialty Start Date End Date Yared Jacobs MD [address] [place] [address] PCP - General Family Medicine 01/10/25 documented as of this encounter
--- OUTSIDE RECORDS SUMMARY | 2025-08-31 16:50 | XMS_ITS | Clinical Summary ---
Author Organization [employer] Address [id number] [address] [place] [address] Care Team Providers Care Warper Tender Name Role Phone Yared Jacobs MD Primary Care Provider [phone] Allergies Active Allergy Reactions Criticality Noted Date Comments Diphenhydramine Hcl Anxiety Low 02/22/2025 I just don't like taking it Cyclobenzaprine Hallucinations High 01/11/2025 Pt pt 01/11/25 Lamotrigine Rash Low 02/19/2022 Other reaction(s): Mental Status Change Penicillin Rash Low 02/19/2022 Penicillin G Rash Low 10/31/2021 Pregabalin Rash,Shortness Of Breath High 02/19/2022 Other reaction(s): Mental Status Change Medications * This document contains information received from the source organization and may not represent a complete record from that organization. butalbital-acet aminophen-caff (FIORICET, ESGIC) 50-300-40 mg per capsule Take 1 capsule by mouth as needed in the morning and 1 capsule as needed in the evening for headaches. Take 1-2 caps by mouth as needed for headaches. 022 Active hydrOXYzine (ATARAX) 25 mg tablet Take 1 tablet (25 mg total) by mouth every 6 (six) hours as needed for anxiety. 30 tablet 023 Active ALPRAZolam (XANAX) 0.5 mg tablet Take 1 tablet (0.5 mg total) by mouth 3 (three) times a day as needed for anxiety. 024 Active ondansetron (ZOFRAN) 4 mg tablet Take 1 tablet (4 mg total) by mouth every 8 (eight) hours as needed for nausea or vomiting for up to 12 doses. 12 tablet Active cyanocobalamin 1000 MCG tablet Take 1 tablet (1,000 mcg total) by mouth in the morning. 30 tablet Active Additional Information Patient taking differently:1,000 mcg oral Daily, Morning,Patient takes in gummy form, Reported on 08/07/2025 scopolamine (TRANSDERM-SCOP ) 1 mg/[address] 1 patch on the skin every third day. 1 patch Active Additional Information Patient taking differently:1 patch transdermalAs needed, nausea, 1 patch on the skin every 3rd day PRN for nausea, Reported on 08/07/2025 AIMOVIG AUTOINJECTOR 70 mg/mL auto-injector Inject 1 INJECTION under the skin every 30 (thirty) days. Active ibuprofen (MOTRIN) 800 mg tablet Take 1 tablet (800 mg total) by mouth every 8 (eight) hours as needed for pain, fever or headaches. Active meclizine (ANTIVERT) 25 mg tablet Take 1 tablet (25 mg total) by mouth 2 (two) times a day as needed for dizziness. Active mupirocin (BACTROBAN) 2 % ointment Apply 1 Application topically as needed (sores on arms). Active propranolol LA (INDERAL LA) 60 mg 24 hr capsule Take 1 capsule (60 mg total) by mouth in the morning. Active triamcinolone (KENALOG) 0.1 % cream Apply 1 Application topically as needed for irritation. Active gabapentin (NEURONTIN) 800 mg tabletIndicatio ns:Paresthesias Take 1 tablet (800 mg total) by mouth in the morning and 1 tablet (800 mg total) in the evening. 30 tablet 2 Active gabapentin (NEURONTIN) 800 mg tabletIndicatio ns:Paresthesias Take 2 tablets (1,600 mg total) by mouth nightly. 30 tablet 2 Active amitriptyline (ELAVIL) 25 mg tabletIndicatio ns:Fibromyalgia Take 1 tablet (25 mg total) by mouth nightly. 30 tablet 9 Active rOPINIRole (REQUIP) 0.25 mg tabletIndicatio ns:Fibromyalgia Take 1 tablet (0.25 mg total) by mouth nightly. 30 tablet 5 Active carisoprodoL (SOMA) 350 mg tabletIndicatio ns:Fibromyalgia One tablet at bed time 30 tablet 5 Active tamsulosin (FLOMAX) 0.4 mg capsule Take 1 capsule (0.4 mg total) by mouth in the morning for 7 days. 7 capsule 025 2024 Active ibuprofen (MOTRIN) 800 mg tablet Take 1 tablet (800 mg total) by mouth every 6 (six) hours as needed for pain or fever for up to 30 days. 30 tablet 025 2024 Active traMADoL (ULTRAM) 50 mg tablet Take 1 tablet (50 mg total) by mouth every 6 (six) hours as needed for pain. Active carisoprodoL (SOMA) 350 mg tabletIndicatio ns:Fibromyalgia One tab at 8 PM each night 90 tablet 3 025 2024 Discontinued traMADoL (ULTRAM) 50 mg tabletIndicatio ns:neuropathic pain,pain Take 1 tablet (50 mg total) by mouth every 8 (eight) hours as needed for pain Indications: neuropathic pain, pain. 2024 Discontinued amitriptyline (ELAVIL) 10 mg tablet Take 1 tablet (10 mg total) by mouth nightly. 2024 Discontinued(R siri) tiZANidine (ZANAFLEX) 4 mg tablet Take 1 tablet (4 mg total) by mouth every 6 (six) hours as needed for muscle spasms. 30 tablet 025 2024 Discontinued chlorzoxazone 375 mg tabletIndicatio ns:Fibromyalgia One tab at 8 PM each night 30 tablet 5 025 2024 Discontinued Active Problems Problem Noted Date Diagnosed Date Chronic pain of both hips 08/07/2025 Leg weakness, bilateral 05/25/2025 Paresthesias 05/24/2025 Paresthesia of both legs 05/24/2025 Right leg weakness 01/10/2025 Acute pain of left shoulder 01/10/2025 Chronic migraine with aura w ithout status migrainosus, not intractable 01/10/2025 Sinus pressure 01/10/2025 Forgetfulness 01/10/2025 Overview (01/10/2025): Just today Positive NAN (antinuclear antibody) 01/10/2025 Fibromyalgia 01/10/2025 Stroke-like symptoms 01/10/2025 Numbness of right lower extremity 01/10/2025 High triglycerides 08/11/2024 Chronic hypertension 08/08/2024 Family hx of ovarian malignancy 08/08/2024 Family hx-breast malignancy 08/08/2024 Family history of thyroid disease 08/08/2024 Generalized anxiety disorder 08/03/2024 Psychophysiological insomnia 08/03/2024 Carpal tunnel syndrome of left wrist 07/14/2024 Overview (07/14/2024): Cock-up splint Parovarian cyst 03/24/2024 Common bile duct dilation 10/26/2022 Abdominal pain 10/26/2022 Overview (10/29/2022): Added automatically from request for surgery [id number] Chronic pain syndrome 07/09/2022 Left-sided sensory deficit present 07/09/2022 Sensory disturbance 07/09/2022 DDD (degenerative disc disease), cervical 2021 Muscle spasm 07/09/2022 TIA (transient ischemic attack) 05/19/2022 Sinus tachycardia 05/16/2022 Anxiety 04/19/2022 Lupus 04/19/2022 Retained products of conception after miscarriag e 04/19/2022 Retention cyst of nasal sinus 02/11/2022 Recurrent sinusitis 02/11/2022 Resolved Problems Problem Noted Date Diagnosed Date Resolved Date Acute appendicitis 03/12/2020 Other acute appendicitis wit hout perforation or gangrene 03/12/2020 04/19/2022 Encounters Date Type Department Care Team Description 08/28/2025 8:25 AM EDT - 08/28/2025 12:19 PM EDT Emergency [facility] - Emergency Department [address] [place] [address] Maria Ball MD Flank pain (Primary Dx); Hematuria, unspecified type; Cyst of left ovary Discharge Disposition: Home 08/28/2025 Travel 08/27/2025 10:55 PM EDT - 08/28/2025 7:26 AM EDT Emergency [facility] - ER [address] [place] [phone] Fletcher Barahona DO Cyst of left ovary (Primary Dx); Abdominal pain, unspecified abdominal location Discharge Disposition: Institution Not Defined Elsewhere 08/27/2025 Travel 08/17/2025 Telephone [facility] Rheumatology, A Department of [address] [phone] Karen Solorzano, [facility] 08/17/2025 Telephone [facility] Rheumatology, A Department of [address] [phone] Karen Solorzano, [facility] 08/14/2025 Results Follow-Up [facility] - Lab [address] [place] [address], [place] [phone] Rodrigo Robb MD DNA double-stranded (dsDNA) Abs by Yordy beatty [facility] 08/11/2025 Telephone [facility] Rheumatology, A Department of [address] [phone] Darlene Virgen, [facility] 08/09/2025 Travel 08/09/2025 Results Follow-Up [facility] Rheumatology, A Department of [address] [phone] Rodrigo Robb MD Antinuclear Ab, HEp-2 Substrate, S (NAN by IFA), X-ray hips bilateral with or without pelvis 5+ views, ZACKERY Panel, Additional followed-up results: 3 08/07/2025 10:46 AM EDT - 08/07/2025 11:59 PM EDT Hospital Encounter [facility] - Radiology Imaging [address] [facility] [address] [place] [phone] Chronic pain of both hips Discharge Disposition: Home 08/07/2025 10:15 AM EDT Office Visit [facility] Rheumatology, A Department of [facility] [address] [facility] [address] [place] [phone] Rodrigo Robb MD Fibromyalgia (Primary Dx); Chronic pain of both hips 08/07/2025 Travel 08/07/2025 Telephone [facility] Rheumatology, A Department of [facility] [address] [facility] [address] [place] [phone] Karen Solorzano CMA 06/07/2025 Results Follow-Up [facility] - GEN [address] Acute [address] [place] [phone] Nadira Avelar RN ECG 12 lead from Last 3 Months Immunizations No known immunizations Family History Medical History Relation Name Comments Diabetes Father Kidney disease Father Neuropathy Father Breast cancer Maternal Aunt Aneurysm Maternal Grandfather Stroke Maternal Grandfather Alzheimer's disease Maternal Grandmother Breast cancer Maternal Grandmother Cancer Maternal Grandmother Hypertension Mother Migraines Mother Breast cancer Paternal Aunt Ovarian cancer Paternal Aunt Hypertension Sister Colon cancer Neg Hx Uterine cancer Neg Hx Relation Name Status Comments Father Maternal Aunt Other Maternal Grandfather Maternal Grandmother Mother Paternal Aunt Alive Sister Social History Tobacco Use Types Packs/Day Years Used Date Smoking Tobacco: Former Cigarettes Vaping/E-cigarettes Smokeless Tobacco: Never Tobacco Cessation:Counseling Given: Not Answered Alcohol Use Standard Drinks/Week Comments No 0 (1 standard drink = 0.6 oz pur e alcohol) [facility] Utilities Answer Date Recorded In the past 12 months has [employer] gas, oil, or water [employer] threatened to shut off services in your [...] Orientation Straight 05/16/2022 10 :14 AM EDT Last Filed Vital Signs Vital Sign Reading Time Taken Comments Blood Pressure 132/104 08/28/2025 12:00 PM EDT Pulse 62 08/28/2025 12:00 PM EDT Temperature 36.7 C (98 F) 08/28/2025 8:30 AM EDT Respiratory Rate 16 08/28/2025 12:00 PM EDT Oxygen Saturation 100% 08/28/2025 12:00 PM EDT Inhaled Oxygen Concentration - - Weight 73 kg (161 lb) 08/07/2025 10:00 AM EDT Height 157.5 cm (5' 2.01 ) 08/07/2025 10:00 AM E DT Body Mass Index 29.44 08/07/2025 10:00 AM EDT Plan of Treatment Upcoming Encounters Date Type Department Care Team (Late st Contact Info) Description 02/05/2026 10:45 AM EDT Office Visit [facility], A Department of [facility] [address] [phone] Rodrigo Robb MD [address] [address] Health Maintenance Due Date Last Done Comments Adult BMI Follow Up Plan 2008 Influenza Vaccine 07/31/2025 Depression Screening 05/24/2026 05/24/2025 Adult BMI Screening 08/07/2026 08/07/2025 Tobacco Screening 08/28/2026 08/28/2025 Pap Smear 08/08/2027 08/08/2024, 09/0 07/2024, 06/11/2023 DTaP,Tdap and Td Vaccines (2 - Td or Tdap) 04/13/2033 04/13/2023 Goals Goal Patient Goal Type Associated Problems Recent Progress Patient-Stated? Author <enter goal here> General Yes Rachel Dockery, LOGISTICS PROJECT MANAGER Note: Evaluation of progress towards goal: home with , self care Medical Devices Not on file Procedures Procedure Name Priority Date/Time Associated Diagnosis Comments US PELVIC COMPLETE STAT 08/28/2025 2: [address] ABDOMEN AND PELVIS WO CONT STAT 08/27/2025 11:43 PM EDT LIPASE STAT 08/27/2025 11:21 PM EDT COMPREHENSIVE METABOLIC PANEL STAT 08/27/2025 11:21 PM EDT CBC WITH AUTO DIFFERENTIAL STAT 08/27/2025 11:21 PM EDT POCT , URINE (NUCG) Routine 08/27/2025 11:14 PM EDT POCT NURSING URINE MACROSCOPIC UA Routine 08/27/2025 11:11 PM EDT DSDNA AB BY CRITHIDIA IFA, IGG, S Routine 08/09/2025 3:09 PM EDT NAN positive C3 COMPLEMENT Routine 08/09/2025 3:07 PM EDT NAN positive C4 COMPLEMENT Routine 08/09/2025 3:07 PM EDT NAN positive XR HIPS BILAT W OR WO PELVIS 5+ VWS Routine 08/07/2025 11:09 AM EDT Chronic pain of both hips ACHR MODULATING FLOW CYTOMETRY, SERUM Routine 08/07/2025 10:42 AM EDT Fibromyalgia MG/LEMS EVALUATION, S Routine 08/07/2025 10:42 AM EDT Fibromyalgia IMMUNOGLOBULINS Routine 08/07/2025 10:42 AM EDT Fibromyalgia ZACKERY PANEL Routine 08/07/2025 10:42 AM EDT Fibromyalgia ANTINUCLEAR AB, HEP-2 SUBSTRATE, S (NAN BY IFA) Routine 08/07/2025 10:42 AM EDT Fibromyalgia PAP SMEAR Routine 08/08/2024 4:31 AM EDT Encounter for screening for cervical cancer Screening for STD (sexually transmitted disease) from Last 3 Months or Most Recently Relevant to Health Maintenance Results * Ultrasound pelvic with transvaginal and [...] Mason Irwin MD on 08/28/2025 2:08 AM Yvette Worthington MD have personally reviewed the image(s) and agree withand/or edited the report Finalized by Yvette Avendano MD on 08/28/2025 2:58 AM us Fletcher Barahona DO [facility] US ORDERABLES Final Result * CT abdomen [...] Bates MD on 08/28/2025 12:17 AM Fletcher Wood Jun DO IMG CT ORDERABLES Final Result * (ABNORMAL) CBC auto differential (08/27/2025 11:21 PM EDT) WBC 11.8(H) 4 - 11 x10E9/L 08/27/2025 11:30 PM EDT [facility] RBC Count 4.48 3.8 - 5.2 X10E12/L 08/27/2025 11:30 PM EDT [facility] Hemoglobin 13.3 11.7 - 15.5 g/dL 08/27/2025 11:30 PM EDT [facility] Hematocrit 38.8 35 - 47 % 08/27/2025 11:30 PM EDT [facility] MCV 87 80 - 100 fL 08/27/2025 11:30 PM EDT [facility] MCH 29.7 27 - 34 pg 08/27/2025 11:30 PM EDT [facility] MCHC 34.2 32 - 36 g/dL 08/27/2025 11:30 PM EDT [facility] RDW 13.3 11.5 - 15 % 08/27/2025 11:30 PM EDT [facility] Platelet Count 275 150 - 450 X10E9/L 08/27/2025 11:30 PM EDT [facility] MPV 7.8 7 - 12 fL 08/27/2025 11:30 PM EDT [facility] Neutrophils % 58.0 % 08/27/2025 11:30 PM EDT [facility] Lymphocytes % 35.0 % 08/27/2025 11:30 PM EDT [facility] Monocytes % 4.7 % 08/27/2025 11:30 PM EDT [facility] Eosinophils % 1.4 % 08/27/2025 11:30 PM EDT [facility] Basophils % 0.9 % 08/27/2025 11:30 PM EDT [facility] Neutrophils Absolute (A) 6.8(H) 1.5 - 6.6 10*3/uL 08/27/2025 11:30 PM EDT [facility] Lymphocytes Absolute 4.1(H) 1.0 - 3.5 10*3/uL 08/27/2025 11:30 PM EDT [facility] Monocytes Absolute 0.6 0.0 - 0.9 10*3/uL 08/27/2025 11:30 PM EDT [facility] Eosinophils Absolute 0.2 0.0 - 0.4 10*3/uL 08/27/2025 11:30 PM EDT [facility] Basophils Absolute 0.1 0.0 - 0.2 10*3/uL 08/27/2025 11:30 PM EDT [facility] Differential Type AUTOMATED DIFFERENTIAL 08/27/2025 11:30 PM EDT [facility] Blood Venous blood / Unknown 08/27/2025 11:21 PM EDT 08/27/2025 11:27 PM EDT Fletcher Barahona DO LAB BLOOD ORDERABLES Final Res ult [place] [id number], [place] * Lipase (08/27/2025 11:21 PM EDT) LIPASE 24 17 - 40 U/L 08/27/2025 11:42 PM EDT [facility] Blood Venous blood / Unknown 08/27/2025 11:21 PM EDT 08/27/2025 11:27 PM EDT Fletcher Barahona DO LAB BLOOD ORDERABLES Final Res ult Performing Organization Address City/[facility]/[place] [address], [place] * (ABNORMAL) Comprehensive metabolic panel (08/27/2025 11:21 PM EDT) SODIUM 137 134 - 146 mmol/L 08/27/2025 11:45 PM EDT [facility] POTASSIUM 3.8 3.5 - 5.0 mmol/L 08/27/2025 11:45 PM [facility] CHLORIDE 103 98 - 109 mmol/L 08/27/2025 11:45 PM [facility] CARBON DIOXIDE 23 22 - 32 mmol/L 08/27/2025 11:45 PM [facility] ANION GAP 11 5 - 15 mmol/L 08/27/2025 11:45 PM [facility] BLOOD UREA NITROGEN 11 5 - 23 mg/dL 08/27/2025 11:45 PM [facility] CREATININE 0.85 0.40 - 1.00 mg/dL 08/27/2025 11:45 PM [facility] Comment:METHOD TRACEABLE TO IDMS STANDARD GLUCOSE 107(H) 65 - 99 mg/dL 08/27/2025 11:45 PM [facility] CALCIUM 9.0 8.5 - 10.5 mg/dL 08/27/2025 11:45 PM [facility] TOTAL PROTEIN 7.6 6.0 - 8.0 g/dL 08/27/2025 11:45 PM [facility] ALBUMIN 4.2 3.2 - 5.3 g/dL 08/27/2025 11:45 PM [facility] ALKALINE PHOSPHATASE 59 39 - 130 U/L 08/27/2025 11:45 PM [facility] AST 20 <=41 U/L 08/27/2025 11:45 PM [facility] ALT 18 <=31 U/L 08/27/2025 11:45 PM [facility] BILIRUBIN,TOTAL 0.3 0.3 - 1.2 mg/dL 08/27/2025 11:45 PM [facility] EGFR Non-Race Dependent >90 >=60 ml/min/1.7 3sq.m 08/27/2025 11:45 PM [facility] Comment: eGFR not reported due to non-numeric value for Creatinine. Reported eGFR is based on the CKD-EPI 2020 equation that does not use a race coefficient. Blood Venous blood / Unknown 08/27/2025 11:21 PM EDT 08/27/2025 11:27 PM EDT Fletcher Barahona DO LAB BLOOD ORDERABLES Final Res ult [place] [id number], [place] * POCT , urine (08/27/2025 11:14 PM EDT) POC Urine Negative Negative, Indeterminate 08/27/2025 11:16 PM EDT [facility] Urine 08/27/2025 11:1 4 PM EDT 08/27/2025 11:16 PM EDT Fletcher Barahona DO POINT OF CARE TEST ORDERABLES Final Result Performing Organization Address [facility] [place] [address], [place] * (ABNORMAL) POCT Nursing Urine Macroscopic UA (08/27/2025 11:11 PM EDT) POC Urine Specific [place] 1.015 1.010, 1.015, 1.020, 1.025 08/27/2025 11:09 PM EDT [facility] POC Urine Leukocyte Esterase Negative Negative 08/27/2025 11:09 PM EDT [facility] POC Urine Nitrite Negative Negative 08/27/2025 11:09 PM EDT [facility] POC Urine pH 6.0 5.0, 6.0, 6.5, 7.0, 7.5, 8.0, 8.5, 5.5 08/27/2025 11:09 PM EDT [facility] POC Urine Protein Negative Negative 08/27/2025 11:09 PM EDT [facility] POC Urine Glucose Negative Negative 08/27/2025 11:09 PM EDT [facility] POC Urine Ketones Negative Negative 08/27/2025 11:09 PM EDT [facility] POC Urine Urobilinogen 0.2 E.U./dL 08/27/2025 11:09 PM EDT [facility] POC Urine Bilirubin Negative Negative 08/27/2025 11:09 PM EDT [facility] POC Urine Blood/HGB Trace(A) Negative 08/27/2025 11:09 PM EDT [facility] Urine 08/27/2025 11:1 1 PM EDT 08/27/2025 11:09 PM EDT Fletcher Barahona DO POINT OF CARE TEST ORDERABLES Final Result [address] [address], [place] * DNA double-stranded (dsDNA) Abs by Crithidia luciliae IFA (08/09/2025 3:09 PM EDT) DSDNA AB BY CRITHIDIA IFA, IGG, S Negative Negative 08/10/2025 6:51 PM EDT [facility] Crithidia Interp SEE COMMENTS 08/10/2025 6:51 PM EDT [facility] Comment: RESULT: Testing for dsDNA antibody by Crithidia IFA was negative. Test Performed by: [facility] - [address] [address] [place]: Afsaneh Alvarez Ph.D.; CLIA# [id number] Blood Venous blood / Unknown Venipuncture / Unknown 08/09/2025 3:09 PM EDT 08/09/2025 3:09 PM EDT us Rodrigo Robb MD LAB BLOOD ORDERABLES Final Res ult [facility] [address] [place] [address], [place] * C3 complement (08/09/2025 3:07 PM EDT) COMPLEMENT C3 135 86 - 184 mg/dL 08/09/2025 8:41 PM EDT [facility] Blood Venous blood / Unknown Venipuncture / Unknown 08/09/2025 3:07 PM EDT 08/09/2025 3:07 PM EDT us Rodrigo Robb MD LAB BLOOD ORDERABLES Final Res ult [facility] [address] [place] [address], [place] [phone] * C4 complement (08/09/2025 3:07 PM EDT) COMPLEMENT C4 41 16 - 47 mg/dL 08/09/2025 8:41 PM EDT [facility] Blood Venous blood / Unknown Venipuncture / Unknown 08/09/2025 3:07 PM EDT 08/09/2025 3:07 PM EDT us Rodrigo Robb MD LAB BLOOD ORDERABLES Final Res ult Performing Organization Address City/[facility]/ZIP Co de Phone Number [facility] [address] [place] [address], * X-ray hips bilateral with or without pelvis 5+ views (08/07/2025 11:09 AM EDT) Anatomical Region Laterality Modality Lower Extremities, MSK, Hip Bilateral Comp uted Radiography 08/08/2025 8:59 PM EDT Narrative 08/08/2025 8:59 PM EDT XR HIPS BILAT W OR WO PELVIS 5+ VWS Chronic pain of both hips Findings: There is grossly no fracture or destructive lesion. Impression: * No acute findings. * Consider MRI if you suspect occult process. Finalized by Carlos Glez MD on 08/08/2025 8:59 PM Procedure Note Carlos Glez MD - 08/08/2025 XR HIPS BILAT W OR WO PELVIS 5+ VWS Chronic pain of both hips Findings: There is grossly no fracture or destructive lesion. Impression: * No acute findings. * Consider MRI if you suspect occult process. Finalized by Carlos Glez MD on 08/08/2025 8:59 PM us Rodrigo Robb MD IMG DIAGNOSTIC IMAGING ORDERAB LES Final Result * (ABNORMAL) MG/LEMS Evaluation, S (08/07/2025 10:42 AM EDT) ACH RECEPTOR (MUSCLE) BINDING AB 0.13(H) <=0.02 nmol/L 08/15/2025 5:10 PM EDT [facility] Comment: Due to a change in assay reagent for the Acetylcholine Receptor (Muscle AChR) Binding Antibody (ARBI) test, direct quantitative comparison to previous testing results is not advised. ADDITIONAL INFORMATION This test was developed and its performance characteristics determined by [facility] in a manner consistent with CLIA requirements. This test has not been cleared or approved by the U.S. Food and Drug Administration. P/Q-TYPE CALCIUM CHANNEL AB 0.00 <=0.02 nmol/L 08/15/2025 5:10 PM EDT [facility] Comment: ADDITIONAL INFORMATION This test was developed and its performance characteristics determined by [facility] in a manner consistent with CLIA requirements. This test has not been cleared or approved by the U.S. Food and Drug Administration. Test Performed by: [facility] [place] [address] [place]: Afsaneh Alvarez Ph.D.; CLIA# [id number] [facility] INTERPRETATION SEE COMMENTS 08/15/2025 5:10 PM EDT [facility] Comment: The following antibodies were identified: muscle acetylcholine receptor binding antibodies. This antibody profile in an appropriate clinical and electrophysiological context, is consistent with autoimmune myasthenia gravis. A paraneoplastic basis should be considered with thymoma being the most commonly associated cancer. Blood Venous blood / Unknown 08/07/2025 10:42 AM EDT 08/07/2025 1:43 PM EDT us Rodrigo Robb MD LAB BLOOD ORDERABLES Final Res ult Performing Organization Address [facility]/ZIP Co de Phone Number [facility] [address] [place] [address], [place] * (ABNORMAL) Antinuclear Ab, HEp-2 Substrate, S (NAN by IFA) (08/07/2025 10:42 AM EDT) ANTINUCLEAR AB, HEP-2 SUBSTRATE, S Positive 1:320(A) <1:80 (Negativ e) 08/08/2025 2:26 PM EDT [facility] Comment: ADDITIONAL INFORMATION Method: Immunofluorescence using HEp-2 cellular substrate. NAN TITER: 1:320 08/08/2025 2:26 PM EDT [facility] NAN PATTERN: Speckled 08/08/2025 2:26 PM EDT [facility] Comment: Test Performed by: [facility] [address] [place] [address] [place]: Afsaneh Alvarez Ph.D.; CLIA# [id number] NAN TITER 2: DNR 08/08/2025 2:26 PM EDT [facility] NAN PATTERN 2: DNR 08/08/2025 2:26 PM EDT [facility] CYTOPLASMIC PATTERN: DNR 07/2025 2:26 PM EDT [facility] LAB COMMENT: DNR 08/08/2025 2:26 PM EDT [facility] Blood Venous blood / Unknown Venipuncture / Unknown 08/07/2025 10:42 AM EDT 08/07/2025 10:42 AM EDT Rodrigo Robb MD LAB BLOOD ORDERABLES Final Res ult Performing Organization Address [facility]/ZIP Co de Phone Number [facility] [address] [place] [address], [place] * AChR Modulating Flow Cytometry, Serum (08/07/2025 10:42 AM EDT) Pathologist [facility] ACHR MODULATING FLOW CYTOMETRY, SERUM Negative Negative 08/15/2025 3:37 PM EDT [facility] Comment: ADDITIONAL INFORMATION This test was developed and its performance characteristics determined by [facility] in a manner consistent with CLIA requirements. This test has not been cleared or approved by the U.S. Food and Drug Administration. Test Performed by: [facility] - [address] [address] [place]: Afsaneh Alvarez Ph.D.; CLIA# [id number] Blood Venous blood / Unknown 08/07/2025 10:42 AM EDT 08/07/2025 1:43 PM EDT Rodrigo Robb MD LAB BLOOD ORDERABLES Final Res ult Performing Organization Address City/[facility]/ZIP Co de Phone Number [address] [address], [place] * Immunoglobulins (08/07/2025 10:42 AM EDT) IGA 257 68 - 378 mg/dL 08/07/2025 1:20 PM EDT [facility] IGG 990 635 - 1,741 mg/dL 08/07/2025 1:20 PM EDT [facility] IGM 64 45 - 281 mg/dL 08/07/2025 1:20 PM EDT [facility] Blood Venous blood / Unknown Venipuncture / Unknown 08/07/2025 10:42 AM EDT 08/07/2025 10:42 AM EDT Rodrigo Robb MD LAB BLOOD ORDERABLES Final Res ult [facility] [address] [place] [address], * ZACKERY Panel (08/07/2025 10:42 AM EDT) JO1 ANTIBODY <0.2 <1.0 AI 08/07/2025 2:55 PM EDT [facility] RELAYS DRAFTSPERSON ANTIBODY IGG <0.2 <1.0 AI 08/07/2025 2:55 PM EDT [facility] SCL 70 ANTIBODY 0.4 <1.0 AI 08/07/2025 2:55 PM EDT [facility] ANTI-ADNE AB IGG <0.2 <1.0 AI 08/07/2025 2:55 PM EDT [facility] SSA ANTIBODY <0.2 <1.0 AI 08/07/2025 2:55 PM EDT [facility] SSB ANTIBODY <0.2 <1.0 AI 08/07/2025 2:55 PM EDT [facility] Blood Venous blood / Unknown Venipuncture / Unknown 08/07/2025 10:42 AM EDT 08/07/2025 10:42 AM EDT Rodrigo Robb MD LAB BLOOD ORDERABLES Final Res ult [facility] [address] [place] [address], * Pap Smear (08/08/2024 4:31 AM EDT) 08/08/2024 4:31 AM EDT 08/08/2024 5:07 AM EDT Narrative COPATH - 08/28/2024 9:10 AM EDT [facility] [address] [place] [address] Gynecologic Cytology Consultation Patient Name:ANALY GONZALEZ:1990 (Age: 33)Gender:FTaken:4Reported:4Physician(s):Gemma Jones CNM ([id number])Copy To: Rec. #:[id number]: #[id number] Final Cytologic Interpretation ThinPrep Pap Test (Cervical): Satisfactory for evaluation. A transformazion zone component is not identified via imaging-assisted review, using [employer] Thin Prep Imaging System, within 22 microscopic fletcher of view. NEGATIVE FOR INTRAEPITHELIAL LESION OR MALIGNANCY. 08/28/2024 Interpretation performed at [facility], [address] [place] [address], License number: [id number]. Electronically Signed Out By PADMA Lugo (ASCP) Date of Last Menstrual Period: (None Given) Other Clinical Conditions: Hysterectomy: has ovaries Z12.4 Screening for malignant neoplasm of cervix Z11.3 Encntr screen for infections w sexl mode of transmiss Source of Specimen ThinPrep Pap Test (Cervical) Thin Prep Pap (LOCKER ROOM CLERK) Fee Code(s): G0145 The Pap test is a screening test with an inherent, but low, probability of error. The Pap test is primarily effective for the diagnosis and prevention of squamous cell carcinoma. Regular screening is critical for prevention. ThinPrep liquid-based slides, which meet the Home Care Liaison criteria for automated screening, have been screened by the ThinPrep Imaging System (as of 08/16/07) along with an additional manual rescreening by a sales development representative and, if indicated, by a pathologist. Gemma Jones APRN-[facility] PATHOLOGY/CYTOLOGY ORD ERABLES Final Result COPATH from Last 3 Months or Most Recently Relevant to Health Maintenance Insurance FRONTPATH Advance Directives * Full Code (Latest Code Status on File) Date Activated Date Inactivated Comments 05/24/2025 5:14 AM 05/26/2025 8:01 PM * Full Code Date Activated Date Inactivated Comments 01/10/2025 10:06 AM 01/11/2025 4:49 PM * Full Code Date Activated Date Inactivated Comments 10/26/2022 5:42 PM 10/30/2022 10:21 PM * Full Code Date Activated Date Inactivated Comments 05/19/2022 10:54 PM 05/21/2022 4:29 PM * Full Code Date Activated Date Inactivated Comments 05/16/2022 12:41 PM 05/17/2022 4:37 PM Care Teams Warper Tender Relationship Specialty Start Date End Date Yared Jacobs MD [address] [place] [address] PCP - General Family Medicine 01/10/25
--- OUTSIDE RECORDS SUMMARY | 2025-08-31 16:50 | XMS_ITS | Encounter Summary ---
Author Organization [facility] Address [address] [place] [address] Care Team Providers Care Tax Associate Attorney Name Role Phone Maddison Fraire MANAGEMENT LEAD Unavailable [phone] Source Comments In the event this information is protected by the Federal Confidentiality of Alcohol and Drug AbusePatient Records regulations: The Federal rules restrict any use of the information to criminally investigate or prosecute any alcohol or drug abuse patient.[facility] Encounter Details Date Type Department Care Team (Late st Contact Info) Description 07/01/2022 Get Medical Advice Neurology [address] [place], [place] [phone] [place] [address] [place] [address] Question regarding last visit follow up. Social History Tobacco Use Types Packs/Day Years Used Date Smoking Tobacco: Former Cigarettes Q uit: 02/20/2020 Smokeless Tobacco: Current Alcohol Use Standard Drinks/Week Comments Not Currently 0 (1 standard drink = 0.6 oz pur e alcohol) PHQ-2 Answer Date Recorded PHQ-2 score 2 06/11/2022 Area Deprivation Index Answer Date Pedor rded National Score (1-100), lower number is lower ri 56 06/13/2022 State Score (1-10), lower number is lower risk N ot on file 06/13/2022 Data from: https://www.neighborhoodatlas.medicine.[facility].edu/. Last address used for calculation [address] 06/13/2022 Comments Unknown Sex and Gender Information Value Date Recorded Sex Assigned at Female 02/17/2022 9:01 PM EDT Legal Sex Female 9:36 AM EST Gender Identity Female 02/17/2022 9:01 PM EDT Sexual Orientation Straight 02/17/2022 9: 01 PM EDT documented as of this encounter Plan of Treatment Not on file documented as of this encounter Visit Diagnoses Diagnosis Weakness- Primary Other malaise and fatigue Paresthesia of skin Disturbance of skin sensation documented in this encounter Care Teams Tax Associate Attorney Relationship Specialty Start Date End Date Maddison Fraire CNP [address] [place] [address] Referring Internal Medicine 01/14/22 documented as of this encounter
--- OUTSIDE RECORDS SUMMARY | 2025-08-31 16:50 | XMS_ITS | Encounter Summary ---
Author Organization [facility] Address [address] [place] [address] Care Team Providers Care Milking Worker Name Role Phone Maddison Fraire MALTED MILK MASHER Unavailable [phone] Source Comments In the event this information is protected by the Federal Confidentiality of Alcohol and Drug AbusePatient Records regulations: The Federal rules restrict any use of the information to criminally investigate or prosecute any alcohol or drug abuse patient.[facility] Encounter Details Date Type Department Care Team (Late st Contact Info) Description 07/07/2022 Patient Msg Neurology [address] [phone] Provider, [facility] Requested EMG Appointment Social History Tobacco Use Types Packs/Day Years Used Date Smoking Tobacco: Former Cigarettes Q uit: 02/20/2020 Smokeless Tobacco: Current Alcohol Use Standard Drinks/Week Comments Not Currently 0 (1 standard drink = 0.6 oz pur e alcohol) PHQ-2 Answer Date Recorded PHQ-2 score 2 06/11/2022 Area Deprivation Index Answer Date Pedro rded National Score (1-100), lower number is lower ri sk 56 06/13/2022 State Score (1-10), lower number is lower risk N ot on file 06/13/2022 Data from: https://www.neighborhoodatlas.medicine.[facility].edu/. Last address used for calculation [address] [...] on filedocumented in this encounter Care Teams Milking Worker Relationship Specialty Start Date End Date Maddison Fraire CNP [address] [place] [address] Referring Internal Medicine 01/14/22 documented as of this encounter
--- OUTSIDE RECORDS SUMMARY | 2025-08-31 16:50 | XMS_ITS | Encounter Summary ---
Author Organization [facility] Address [facility][id number] [address] [place] [address] Care Team Providers Care Solution Make Up Operator Name Role Phone Yared Jacobs MD Primary Care Provider [phone] Reason for Referral * Consultation (Routine) - Pending Review Specialty Diagnoses / Procedures Referred By Contac t Referred To Contact Neurology Diagnoses Serum acetylcholine receptor antibody positive Rodrigo Robb MD [address] [place] [address] Phone: tel: fax: Shahram Benson MD [address] [place] [address] 101, [address] [place] [address] Phone: tel: fax: Referral ID Status Reason Start Date Expiration Date Visits Requested Visits Authorized [id number] Pending Review Specialty Services Required 08/17/2025 08/17/2026 1 1 Encounter Details Date Type Department Care Team (Late st Contact Info) Description 08/17/2025 [facility] Department of [address] [phone] Karen Solorzano CMA Social History Tobacco Use Types Packs/Day Years Used Date Smoking Tobacco: Former Cigarettes Vaping/E-cigarettes Smokeless Tobacco: Never Alcohol Use Standard Drinks/Week Comments No 0 (1 standard drink = 0.6 oz pur e alcohol) [facility] Utilities Answer Date Recorded In the past 12 months has th e electric, gas, oil, or water company [...] Encounter - Karen Solorzano CMA - 08/17/2025 11:26 AM EDT Aster called asking for results of her MG/LEMS eval lab she stated they sent her message regarding abnormal result?? Please advise. Thanks * Telephone Encounter - Rodrigo Robb MD - 08/17/2025 11:26 AM EDT Abnormal lab tests came back positive cold as style: Antibodies. Patient needs to be seen and evaluated by Neurology to rule out possibility of neurological diseasecausing her fatigue * Telephone Encounter - Karen Solorzano CMA - 08/17/2025 11:26 AM EDT Pt notified. documented in this encounter Plan of Treatment Upcoming Encounters Date Type Department Care Team (Late st Contact Info) Description 02/05/2026 10:45 AM EDT Office Visit [facility], A Department of [facility] [address] [phone] Rodrigo Robb MD [address] [address] Scheduled Referrals Name Type Priority Associated Diagnoses Orde r Schedule [facility] [place], [place] Outpatient Referral Routine Serum acetylcholine receptor antibody positive 1 Occurrences starting 08/17/2025 until 08/17/2026 documented as of this encounter Goals Goal Patient Goal Type Associated Problems Recent Progress Patient-Stated? Author <enter goal here> General Yes Rachel Dockery, AIR POLLUTION INSPECTOR Note: Evaluation of progress towards goal: home with , self care documented as of this encounter Visit Diagnoses Diagnosis Serum acetylcholine receptor antibody positive- Primary documented in this encounter Additional Health Concerns Assessment Noted Time PHQ-9 Depression Total Score: 2 05/24/20 25 10:23 AM EDT A Body Mass Index follow-up plan has been documented for the patient 09/23/2022 1:33 PM EDT documented as of this encounter Care Teams Solution Make Up Operator Relationship Specialty Start Date End Date Yared Jacobs MD [address] [place] [address] PCP - General Family Medicine 01/10/25 documented as of this encounter
--- OUTSIDE RECORDS SUMMARY | 2025-08-31 16:50 | XMS_ITS | Clinical Summary ---
Author Organization [facility] Address [address] [place] [address] Care Team Providers Care Sales Manager Prearranged Funerals Name Role Phone Yee Maddison Dutton HUMAN SERVICE WORKER Unavailable [phone] Allergies Active Allergy Reactions Criticality Noted Date Comments Lamotrigine Mental Status Change,Rash Penicillin Rash 02/19/2022 Penicillin G Rash Low 10/31/2021 Pregabalin Mental Status Change ,Rash,Shortness of Breath 02/19/2022 Medications acetaminophen 300 mg-caffeine 40 mg-butalbital 50 mg (FIORICET) per capsule Take 1-2 capsules by mouth twice daily. 02/17/2022 Active fluticasone (FLONASE) 50 mcg/actuation nasal spray Use 1 [place] in the nose once daily. 02/11/2022 Active gabapentin (NEURONTIN) 300 mg capsule Take 300 capsules by mouth five times daily. 01/26/2022 Active hydrOXYzine HCl (ATARAX) 25 mg tablet 1 tablet. 01/26/2022 Active naratriptan (AMERGE) 2.5 mg tablet Take one at onset of severe headache/migr clement may repeat x 1 after 4 hours if needed. Maximum 2/day and 2 days/week. 9 tablet 4 06/13/2022 Active sertraline (ZOLOFT) 50 mg tablet Take 1 tablet by mouth daily at bedtime. 30 tablet 4 06/13/2022 Active meloxicam (MOBIC) 15 mg tablet Take 1 tablet by mouth once daily as needed for pain. 30 tablet 4 06/13/2022 Active Active Problems No known active problems Social History Tobacco Use Types Packs/Day Years Used Date Smoking Tobacco: Former Cigarettes Q uit: 02/20/2020 Smokeless Tobacco: Current Alcohol Use Standard Drinks/Week Comments Not Currently 0 (1 standard drink = 0.6 oz pur e alcohol) PHQ-2 Answer Date Recorded PHQ-2 score 2 06/11/2022 Area Deprivation Index Answer Date Pedro rded National Score (1-100), lower number is lower ri sk 56 12/28/2022 State Score (1-10), lower number is lower risk N ot on file 12/28/2022 Data from: https://www.neighborhoodatlas.medicine.[facility]/. Last address used for calculation [address] 12/28/2022 Comments Unknown Sex and Gender Information Value Date Recorded Sex Assigned at Female 02/17/2022 9:01 PM EDT Legal Sex Female 9:36 AM EST Gender Identity Female 02/17/2022 9:01 PM EDT Sexual Orientation Straight 02/17/2022 9: 01 PM EDT Plan of Treatment Health Maintenance Due Date Last Done Comments Anxiety Screening 2008 Depression Screening 2008 HIV Screening 2008 Hepatitis C Screening 2008 DTaP,Tdap,Td Vaccine (1 - Tdap) 2009 Hepatitis B Vaccine (1 of 3 - 19+ 3-dose series) 09/26 Cervical Cancer Screening 2011 HPV Vaccine (1 - 3-dose SCDM series) 2017 Influenza Vaccine (#1) 2025 Insurance [facility] Care Teams Sales Manager Prearranged Funerals Relationship Specialty Start Date End Date Maddison Fraire, HUMAN SERVICE WORKER [address] [place] [phone] Referring Internal Medicine 01/14/22
--- OUTSIDE RECORDS SUMMARY | 2025-08-31 16:50 | XMS_ITS | Encounter Summary ---
Author Organization [facility] tem Address [facility][id number] [address] [place] [address] Care Team Providers Care Scientist Immunology Name Role Phone Yared Jacobs MD Primary Care Provider [phone] Encounter Details Date Type Department Care Team (Late st Contact Info) Description 08/09/2025 Results Follow-Up [facility], A Department of [address] [phone] Rodrigo Robb MD [address] [address] Antinuclear Ab, HEp-2 Substrate, S (NAN by IFA), X-ray hips bilateral with or without pelvis 5+ views, ZACKERY Panel, Additional followed-up results: 3 Social History Tobacco Use Types Packs/Day Years Used Date Smoking Tobacco: Former Cigarettes Vaping/E-cigarettes Smokeless Tobacco: Never Alcohol Use Standard Drinks/Week Comments No 0 (1 standard drink = 0.6 oz pur e alcohol) [facility] Utilities Answer Date Recorded In the past 12 months has [employer], gas, oil, or water company threatened to [...] Office Visit [facility], A Department of [facility] [address] [phone] Rodrigo Robb MD [address] [address] documented as of this encounter Goals Goal Patient Goal Type Associated Problems Recent Progress Patient-Stated? Author <enter goal here> General Yes Rachel Dockery, WELDING MACHINE OPERATOR ELECTRON BEAM Note: Evaluation of progress towards goal: home with , self care documented as of this encounter Visit Diagnoses Not on filedocumented in this encounter Additional Health Concerns Assessment Noted Time PHQ-9 Depression Total Score: 2 05/24/20 10:23 AM EDT A Body Mass Index follow-up plan has been documented for the patient 09/23/2022 1:33 PM EDT documented as of this encounter Care Teams Scientist Immunology Relationship Specialty Start Date End Date Yared Jacobs MD [address] [place] [address] PCP - General Family Medicine 01/10/25 documented as of this encounter
--- OUTSIDE RECORDS SUMMARY | 2025-08-31 16:50 | XMS_ITS | Encounter Summary ---
Author Organization [facility] Address [address] [place] [address] Care Team Providers Care Party Plan Salesperson Name Role Phone Yared Jacobs MD Primary Care Provider [phone] Encounter Details Date Type Department Care Team (Late st Contact Info) Description 06/23/2023 Abstract [facility] [address] [place] [phone] Geeta Lora PA [address] [place], [id number] Social History Tobacco Use Types Packs/Day Years Used Date Smoking Tobacco: Every Day Cigarettes Comments:Current smoker Comments Unknown Sex and Gender Information Value Date Recorded Sex Assigned at Female 07/25/2024 10:34 AM EDT Legal Sex Female 6:54 PM EDT Gender Identity Female 07/25/2024 10:34 AM EDT Sexual Orientation Not on file documented as of this encounter Plan of Treatment Not on file documented as of this encounter Visit Diagnoses Not on filedocumented in this encounter Care Teams Party Plan Salesperson Relationship Specialty Start Date End Date Yared Jacobs MD PCP - General Family Medicine 05/13/23 documented as of this encounter
--- OUTSIDE RECORDS SUMMARY | 2025-08-31 16:50 | XMS_ITS | Encounter Summary ---
Author Organization [employer] [facility] Address [id number] [address] [place] [address] Care Team Providers Care Employment Programs Analyst Name Role Phone Yared Jacobs MD Primary Care Provider [phone] Encounter Details Date Type Department Care Team (Late st Contact Info) Description 10/13/2022 Telephone [facility] [address] [phone] Karen Solorzano CMA Social History Tobacco Use [...] have Coronavirus / COVID-19? No / Unsure 09/23/2022 12:42 PM EDT documented as of this encounter Miscellaneous Notes * Telephone Encounter - Karen Solorzano CMA - 10/13/2022 3:03 PM EST Aster called in stated she has tachycardia and her primary physician stated she shouldn't take amitriptyline it could make it worst, she was wondering if you could prescribe something different forher. Please advise. Thanks * Telephone Encounter - Rodrigo Robb MD - 10/13/2022 3:03 PM EST We can try low-dose gabapentin or Lyrica if she has never tried these at bed time * Telephone Encounter - Karen Solorzano CMA - 10/13/2022 3:03 PM EST Called spoke with Aster she stated already on gabapentin and lyrica she is allergic too. She stated if not anything else to take she was wondering would it be safe for her to continue the amitriptyline documented in this encounter Plan of Treatment Upcoming Encounters Date Type Department Care Team (Late st Contact Info) Description 02/05/2026 10:45 AM EDT Office Visit [facility], [facility] Department of [facility] [address] [phone] Rodrigo Robb MD [address] [address] documented as of this encounter Visit Diagnoses [...] documented as of this encounter Care Teams Employment Programs Analyst Relationship Specialty Start Date End Date Yared Jacobs MD [address] [place] [address] PCP - General Family Medicine 01/10/25 documented as of this encounter
--- OUTSIDE RECORDS SUMMARY | 2025-08-31 16:50 | XMS_ITS | Encounter Summary ---
Author Organization [employer] Address [id number] [address] [place] [address] Care Team Providers Care Director Of Medical Education Name Role Phone Yared Jacobs MD Primary Care Provider [phone] Encounter Details Date Type Department Care Team (Late st Contact Info) Description 05/29/2025 Orders Only [facility] [address] [place] [phone] Waqas Marvin MD [address] [place] [address] [address] [place] [address] Neck pain (Primary Dx) Social History Tobacco Use Types Packs/Day Years Used Date Smoking Tobacco: Former Cigarettes Vaping/E-cigarettes Smokeless Tobacco: Never Alcohol Use Standard Drinks/Week Comments No 0 (1 standard drink = 0.6 oz pur e alcohol) [facility] Utilities Answer Date Recorded In the past 12 months has [employer], gas, oil, or water [employer] threatened to shut off services in your [...] Office Visit [facility], A Department of [address] [phone] Rodrigo Robb MD [address] [address] Scheduled Orders Name Type Priority Associated Diagnoses Orde r Schedule X-ray spine cervical 4 or 5 views Imaging Routine Neck pain Expected: 09/28/2025, Expires: 05/29/2026 documented as of this encounter Goals Goal Patient Goal Type Associated Problems Recent Progress Patient-Stated? Author <enter goal here> General Yes Rachel Dockery, PLASTIC FIXTURE BUILDER Note: Evaluation of progress towards goal: home with , self care documented as of this encounter Visit Diagnoses Diagnosis Neck pain- Primary Cervicalgia documented in this encounter Additional Health Concerns Assessment Noted Time PHQ-9 Depression Total Score: 2 05/24/20 10:23 AM EDT A Body Mass Index follow-up plan has been documented for the patient 09/23/2022 1:33 PM EDT documented as of this encounter Care Teams Director Of Medical Education Relationship Specialty Start Date End Date Yared Jacobs MD [address] [place] [address] PCP - General Family Medicine 01/10/25 documented as of this encounter
--- OUTSIDE RECORDS SUMMARY | 2025-08-31 16:50 | XMS_ITS | Encounter Summary ---
Author Organization [employer] [facility] Address [id number] [address] [place] [address] Care Team Providers Care Sales Agent Insurance Name Role Phone Yared Jacobs MD Primary Care Provider [phone] Reason for Visit * Reason Comments Med Refill Encounter Details Date Type Department Care Team ([facility] st Contact Info) Description 10/09/2024 Refill [facility] [address] [phone] Rodrigo Robb MD [address] [address] Fibromyalgia Social History Tobacco Use Types Packs/Day [...] Upcoming Encounters Date Type Department Care Team ([facility] st Contact Info) Description 02/05/2026 10:45 AM EDT Office Visit [facility], A Department of [facility] [address] [phone] Rodrigo Robb MD [address] [address] documented as of this encounter Visit Diagnoses [...] documented as of this encounter Care Teams Sales Agent Insurance Relationship Specialty Start Date End Date Yared Jacobs MD [address] [place] [address] PCP - General Family Medicine 01/10/25 documented as of this encounter
--- OUTSIDE RECORDS SUMMARY | 2025-08-31 16:50 | XMS_ITS | Encounter Summary ---
Author Organization [employer] tem Address [id number] [address] [place] [address] Care Team Providers Care Philosophy And Religion Instructor Name Role Phone Yared Jacobs MD Primary Care Provider [phone] Encounter Details Date Type Department Care Team (Latest Contact Info) Description 08/28/2025 Travel Social History Tobacco Use Types Packs/Day Years Used Date Smoking Tobacco: Former Cigarettes Vaping/E-cigarettes Smokeless Tobacco: Never Alcohol Use Standard Drinks/Week Comments No 0 (1 standard drink = 0.6 oz pur e alcohol) [facility] Utilities Answer Date Recorded In the past 12 months has th [employer], gas, oil, or water company threatened [...] Upcoming Encounters Date Type Department Care Team ([facility] st Contact Info) Description 02/05/2026 10:45 AM EDT Office Visit [facility] Department of [address] [phone] Rodrigo Robb MD [address] [address] documented as of this encounter Goals Goal Patient Goal Type Associated Problems Recent Progress Patient-Stated? Author <enter goal here> General Yes Rachel Dockery, BAG MACHINE HELPER Note: Evaluation of progress towards goal: home with , self care documented as of this encounter Visit Diagnoses Not on filedocumented in this encounter Additional Health Concerns Assessment Noted Time PHQ-9 Depression Total Score: 2 05/24/20 10:23 AM EDT A Body Mass Index follow-up plan has been documented for the patient 09/23/2022 1:33 PM EDT documented as of this encounter Care Teams Philosophy And Religion Instructor Relationship Specialty Start Date End Date Yared Jacobs MD [address] [place] [address] PCP - General Family Medicine 01/10/25 documented as of this encounter
--- OUTSIDE RECORDS SUMMARY | 2025-08-31 16:50 | XMS_ITS | Encounter Summary ---
Author Organization [facility] tem Address [facility]-[id number] [address] [place] [address] Care Team Providers Care Truer Pinion And Wheel Name Role Phone Yared Jacobs MD Primary Care Provider [phone] Reason for Visit * Reason Onset Date Comments GENETICS 08/29/2024 CLERICAL skin lesions 08/29/2024 Encounter Details Date Type Department Care Team (Late st Contact Info) Description 08/29/2024 Telephone [facility] -GENETICS [address] [facility] [address] [place] [id number] May Rand, [facility] [address] [facility] [address] [place], [place] [id number] GENETICS (CLERICAL); skin lesions Social History Tobacco Use Types Packs/Day Years [...] encounter Miscellaneous Notes * Telephone Encounter - Nia Stroud - 08/29/2024 11:03 AM EDT 08/29/24 NON-WORKING PHONE #, SENT [place] LETTER. [place] documented in this encounter Plan of Treatment Upcoming Encounters Date Type Department Care Team ([facility] st Contact Info) Description 02/05/2026 10:45 AM EDT Office Visit [facility] Department of [facility] [address] [address] Rodrigo Robb MD [address] [address] documented as of this encounter Visit Diagnoses [...] documented as of this encounter Care Teams Truer Pinion And Wheel Relationship Specialty Start Date End Date Yared Jacobs MD [address] [place] [address] PCP - General Family Medicine 01/10/25 documented as of this encounter
--- OUTSIDE RECORDS SUMMARY | 2025-08-31 16:50 | XMS_ITS | Clinical Summary ---
Author Organization [facility] Address [address] [place] [address] Care Team Providers Care Livestock Breeder Name Role Phone [facility], Other Unavailable [phone] Social History Tobacco Use Types Packs/Day Years Used Date Smoking Tobacco: Never Assessed Comments Unknown Sex and Gender Information Value Date Recorded Sex Assigned at Not on file Legal Sex Female 11:31 AM EDT Gender Identity Not on file Sexual Orientation Not on file Last Filed Vital Signs Vital Sign Reading Time Taken Comments Blood Pressure - - Pulse - - Temperature - - Respiratory Rate - - Oxygen Saturation - - Inhaled Oxygen Concentration - - Weight 65.8 kg (145 lb) 08/26/2022 11:00 AM EDT Height 157.5 cm (5' 2 ) 08/26/2022 11:00 AM EDT Body Mass Index 26.52 08/26/2022 11:00 AM EDT Plan of Treatment Health Maintenance Due Date Last Done Comments HEPATITIS C VIRUS SCREENING 1990 TETANUS 1990 HIV SCREENING DISCUSSION 2005 HEP B VACCINE (1 of 3 - 19+ 3-dose series) 2009 TDAP (ADULT) 2009 CERVICAL CANCER SCREENING DISCUSSION 2011 HPV VACCINE (1 - 3-dose SCDM series) 2017 COVID-19 VACCINE (1 - 2023-2 5 season) 2025 INFLUENZA VACCINE (#1) 2025 PNEUMOCOCCAL VACCINE SERIES Aged Out No longer eligible based on patient's age to complete this topic Care Teams Livestock Breeder Relationship Specialty Start Date End Date [facility], Other [address] [place] [address] PCP - Admissions Gate Attendant Transplant 08/26/22
--- OUTSIDE RECORDS SUMMARY | 2025-08-31 16:50 | XMS_ITS | Encounter Summary ---
Author Organization [facility] Address [address] [place] [address] Care Team Providers Care Button Riveter Name Role Phone Yared Jacobs MD Primary Care Provider [phone] Encounter Details Date Type Department Care Team (Late st Contact Info) Description 06/10/2023 Abstract [facility] [address] [place] [phone] Brett Palma DO [address] [place] [address] Social History Tobacco Use Types Packs/Day Years [...] on filedocumented in this encounter Care Teams Button Riveter Relationship Specialty Start Date End Date Yared Jacobs MD PCP - General Family Medicine 05/13/23 documented as of this encounter
--- OUTSIDE RECORDS SUMMARY | 2025-08-31 16:50 | XMS_ITS | Encounter Summary ---
Author Organization [employer] Address [facility]-[id number] [address] [place] [address] Care Team Providers Care Hand Laminator Name Role Phone Yared Jacobs MD Primary Care Provider [phone] Encounter Details Date Type Department Care Team (Latest Contact Info) Description 08/27/2025 Travel Social History Tobacco Use Types Packs/Day Years Used Date Smoking Tobacco: Former Cigarettes Vaping/E-cigarettes Smokeless Tobacco: Never Alcohol Use Standard Drinks/Week Comments No 0 (1 standard drink = 0.6 oz pur e alcohol) [facility] Utilities Answer Date Recorded In the past 12 months has th [employer], gas, oil, or water company threatened [...] Upcoming Encounters Date Type Department Care Team ([facility] st Contact Info) Description 02/05/2026 10:45 AM EDT Office Visit [facility] Department of [address] [address] Rodrigo Robb MD [address] [address] documented as of this encounter Goals Goal Patient Goal Type Associated Problems Recent Progress Patient-Stated? Author <enter goal here> General Yes Rachel Dockery, RIGGER SUPERVISOR Note: Evaluation of progress towards goal: home with , self care documented as of this encounter Visit Diagnoses Not on filedocumented in this encounter Additional Health Concerns Assessment Noted Time PHQ-9 Depression Total Score: 2 05/24/20 10:23 AM EDT A Body Mass Index follow-up plan has been documented for the patient 09/23/2022 1:33 PM EDT documented as of this encounter Care Teams Hand Laminator Relationship Specialty Start Date End Date Yared Jacobs MD [address] [place] [address] PCP - General Family Medicine 01/10/25 documented as of this encounter
--- OUTSIDE RECORDS SUMMARY | 2025-08-31 16:50 | XMS_ITS | Encounter Summary ---
Author [facility] Address [id number] [address] [place] [address] Care Team Providers Care Customer Support Associate Name Role Phone Yared Jacobs MD Primary Care Provider [phone] Encounter Details Date Type Department Care Team (Late st Contact Info) Description 08/07/2025 [facility] of [address] [address] Karen Solorzano, TABITHA Social History Tobacco Use Types Packs/Day Years Used Date Smoking Tobacco: Former Cigarettes Vaping/E-cigarettes Smokeless Tobacco: Never Alcohol Use Standard Drinks/Week Comments No 0 (1 standard drink = 0.6 oz pur e alcohol) [facility] Utilities Answer Date Recorded In the past 12 months has e [employer], gas, oil, or water company threatened to [...] Office Visit [facility] Department of [facility] [address] [phone] Rodrigo Robb MD [address] [address] documented as of this encounter Goals Goal Patient Goal Type Associated Problems Recent Progress Patient-Stated? Author <enter goal here> General Yes Rachel Dockery, SENIOR POLICY ADVISOR Note: Evaluation of progress towards goal: home with , self care documented as of this encounter Visit Diagnoses Not on filedocumented in this encounter Additional Health Concerns Assessment Noted Time PHQ-9 Depression Total Score: 2 05/24/20 10:23 AM EDT A Body Mass Index follow-up plan has been documented for the patient 09/23/2022 1:33 PM EDT documented as of this encounter Care Teams Customer Support Associate Relationship Specialty Start Date End Date Yared Jacobs MD [address] [place] [address] PCP - General Family Medicine 01/10/25 documented as of this encounter
--- OUTSIDE RECORDS SUMMARY | 2025-08-31 16:51 | XMS_ITS | Encounter Summary ---
Author Organization [employer] tem Address [facility]-[id number] [address] [place] [address] Care Team Providers Care Cone Operator Name Role Phone Yared Jacobs MD Primary Care Provider [phone] Encounter Details Date Type Department Care Team (Late st Contact Info) Description 06/11/2022 Telephone [facility] [address] [place] [address] Anisha Bernabe Social History Tobacco Use Types Packs/Day Years Used Date Smoking Tobacco: Former Cigarettes Vaping/E-cigarettes Smokeless Tobacco: Never Alcohol Use Standard Drinks/Week Comments No 0 (1 standard drink = 0.6 oz pur e alcohol) PHQ-2 Answer Date Recorded Total Score 11 05/09/2019 Childcare Answer Date Recorded Childcare Unknown 05/09/2019 [...] have Coronavirus / COVID-19? No / Unsure 06/13/2022 9:38 PM EDT documented as of this encounter Miscellaneous Notes * Telephone Encounter - Anisha Bernabe - 06/11/2022 3:29 PM EDT Patient called and left a voicemail at [facility] manager front office. Patient called because she is looking for someone to please call her to discuss some things off of her MRI report as soon as possible. A good call back number for the patient is [phone] Please advise. * Telephone Encounter - June Bonilla MD - 06/11/2022 3:29 PM EDT I will call her tomorrow morning and discuss results. Please let me know if a particular time worksfor her. Thanks * Telephone Encounter - Blanca Coleman CMA - 06/11/2022 3:29 PM EDT Called patient and she said anytime tomorrow morning will work for her * Telephone Encounter - June Bonilla MD - 06/11/2022 3:29 PM EDT Thanks! documented in this encounter Plan of Treatment Upcoming Encounters Date Type Department Care Team (Late st Contact Info) Description 02/05/2026 10:45 AM EDT Office Visit [facility] Department of [facility] [address] [phone] Rodrigo Robb MD [address] [address] documented as of this encounter Visit Diagnoses Not on filedocumented in this encounter Additional Health Concerns Infection Onset Date Last Indicated Resolved Time Respiratory Rule-Out 01/25/2025 01/25/2025 025 8:32 PM EST Respiratory Rule-Out 02/22/2025 02/22/202502/22/2 025 10:22 AM EDT Assessment Noted Time PHQ-9 Depression Total Score: 11 019 2:00 PM EDT documented as of this encounter Care Teams Cone Operator Relationship Specialty Start Date End Date Yared Jacobs MD [address] [place] [address] PCP - General Family Medicine 01/10/25 documented as of this encounter
--- OUTSIDE RECORDS SUMMARY | 2025-08-31 16:51 | XMS_ITS | Encounter Summary ---
[facility] Address [facility]-[id number] [address] [place] [address] Care Team Providers Care Electronic Maintenance Supervisor Name Role Phone Yared Jacobs MD Primary Care Provider [phone] Encounter Details Date Type Department Care Team (Late st Contact Info) Description 02/14/2025 Telephone [facility] Department of [address] [phone] Karen Solorzano, TABITHA Social History Tobacco Use Types Packs/Day Years Used Date Smoking Tobacco: Former Cigarettes Vaping/E-cigarettes Smokeless Tobacco: Never Alcohol Use Standard Drinks/Week Comments No 0 (1 standard drink = 0.6 oz pur e alcohol) [facility] Utilities Answer Date Recorded In the past [...] got money to buy more. Never True 01/25/2025 Within the past 12 months th e food we bought just didn't last and we didn't have money to get more. Never True 01/25/2025 Purpose - Life Answer Date Recorded Purpose [...] Upcoming Encounters Date Type Department Care Team ([facility] st Contact Info) Description 02/05/2026 10:45 AM EDT Office Visit [facility] Department of [facility] [address] [phone] Rodrigo Robb MD [address] [address] documented as of this encounter Visit Diagnoses Not on filedocumented in this encounter Additional Health Concerns Infection Onset Date Last Indicated Resolved Time Respiratory Rule-Out 02/22/2025 02/22/2025 025 10:22 AM EDT Assessment Noted Time PHQ-9 Depression Total Score: 2 07/09/20 22 9:40 AM EDT A Body Mass Index follow-up plan has been documented for the patient 09/23/2022 1:33 PM EDT documented as of this encounter Care Teams Electronic Maintenance Supervisor Relationship Specialty Start Date End Date Yared Jacobs MD [address] [place] [address] PCP - General Family Medicine 01/10/25 documented as of this encounter
--- NOTE | 2025-08-31 16:52 | US_ITS ---
The [address] [address] Patient Name: ANALY GALLEGO MRN: [id number] date: 1990 Sex: F Assigned Patient Location: US Current Patient Location: US Accession/Order Number: [id number] Exam Date: 08/31/2025 16:58 Report Date: 08/31/2025 19:50 At the request of: CASSIE SALOMON MD Procedure: US renal bladder Renal ultrasound HISTORY: Kidney stones Right kidney measures up to 8.4 cm. Renal cortex thickness 8 mm. Multiple echogenic foci seen in the right kidney measuring up to 5 mm. Left kidney measures up to 10.6 cm with cortex thickness of 9 mm. Echogenic foci of the kidney measuring up to 6 mm. No hydronephrosis. Minimal post void residual of the urinary bladder. Bilateral ureteral jets identified. US/US renal bladder IMPRESSION: No hydronephrosis. Punctate echogenic foci of the kidneys consistent with nonobstructing renal calculi. Impression dictated by: Chris Steve M.D. 08/31/2025 7:50 PM Dictation Location: [place] [address] Electronically authenticated by: [id number] Y Date: 08/31/2025 19:50
--- OUTSIDE RECORDS SUMMARY | 2025-08-31 16:52 | XMS_ITS | Patient Health Record ---
Author Organization The [facility] in [place] Address [address] [place] [address] Care Team Providers Care Dyehouse Worker Name Role Phone Mihai Jacobs Primary Care Provider Allergies Allergen (clinical drug ingredient) Drug/Non Drug Allergy documented on EMR Reaction Allergy Type Onset Date Status Penicillin rash Drug Allergy Active Results Component Value Reference Range Notes UA DIP NONAUTO WO MICRO (810 02) - IN OFFICE (Not yet reviewed by provider) Interpretation: Performing Lab: Notes/Report: COLOR light yello CLARITY cloudy GLUCOSE neg BILIRUBIN neg KETONE beg SPECIFIC GRAVITY 1.005 BLOOD small PH 5.0 PROTEIN pos UROBILINOGEN neg NITRITE neg LEUKOCYTE ESTERASE neg CBC AUTO DIFF Reviewed date:03/21/2025 02:21:58 PM Interpretation: Performing Lab: Notes/Report: [facility] , White Blood Count 6.2 4.0-11.0 10 3/uL Red Blood Count 4.22 4.20-5.40 10 6/uL Hemoglobin 12.6 12.0-16.0 g/dL Hematocrit 38.6 36.0-48.0 % Mean Corpuscular Volume 91.5 81.0-99.0 fL Mean Corpuscular Hemoglobin 29.9 26.7-34.0 pg Mean Corpuscular HGB Conc 32.6 29.9-35.2 g/dL Red Cell Distribution Width 12.1 11.0-15.0 % Platelet Count 239 150-450 10 3/uL Mean Platelet Volume 9.6 9.5-13.5 fL Neutrophils Percent Auto 60.9 43.0-75.0 % Lymphocytes Percent Auto 32.9 20.5-60.0 % Monocytes Percent Auto 4.5 1.7-12.0 % Eosinophils Percent Auto 1.3 0.9-7.0 % Basophils Percent Auto 0.2 0.2-2.0 % Immature Granulocytes Pct Auto 0.2 0.0-0.5 % Neutrophils Absolute Auto 3.8 1.4-6.5 10 3/uL Lymphocytes Absolute Auto 2.0 1.2-3.8 10 3/uL Monocytes Absolute Auto 0.3 0.3-0.8 10 3/uL Eosinophils Absolute Auto 0.1 0.0-0.7 10 3/uL Basophils Absolute Auto 0.0 0.0-0.1 10 3/uL Immature Granulocytes Abs Auto 0.01 0.00-0.03 10 3/uL Performing Lab: see note - [facility] LB GLYCOHEMOGLOBIN A1C Reviewed date:03/21/2025 02:21:58 PM Interpretation: Performing Lab: Notes/Report: [facility] , Glycohemoglobin A1C 5.2 4.5-6.2 % ACTION SUGGESTED > 7.0 ADA RECOMMENDED LIMIT 4.0 - 6.0 ADA THERAPEUTIC TARGET < 7.0 Estimated Average Glucose 103 Performing Lab: see note - [facility] LB PROF 14(COMP METB) Reviewed date:03/21/2025 02:21:58 PM Interpretation: Performing Lab: Notes/Report: [facility] , Sodium 140 136-145 mmol/L Potassium 4.0 3.5-5.1 mmol/L Chloride 104 98-107 mmol/L Carbon Dioxide 24.7 21.0-32.0 mmol/L Anion Gap 15.3 Glucose 88 74-106 mg/dL Blood Urea Nitrogen 9.0 7.0-18.0 mg/dL Creatinine 0.89 0.55-1.02 mg/dL Estimated GFR ( Hayde >60 >=60 mL/min/1.73m 2 Estimated GFR (Non- Elina >60 >=60 mL/min/1.73m 2 BUN Creatinine Ratio 10.1 Calcium 9.2 8.5-10.1 mg/dL Bilirubin Total 0.2 0.2-1.0 mg/dL Aspartate Amino Transferase 11 15-37 U/L Alanine Aminotransferase 16 14-59 U/L Alkaline Phosphatase 49 46-116 U/L Total Protein 7.3 6.4-8.2 g/dL Albumin Level 4.0 3.4-5.0 g/dL Globulin 3.3 Albumin Globulin Ratio 1.2 Performing Lab: see note ML - [facility] FREE T3 Reviewed date:03/21/2025 02:21:58 PM Interpretation: Performing Lab: Notes/Report: [facility] , Free T3 3.18 2.18-3.98 pg/mL Performing Lab: see note ML - [facility] LB T4 Reviewed date:03/21/2025 02:21:58 PM Interpretation: Performing Lab: Notes/Report: [facility] , T4 Thyroxine 8.00 4.80-13.90 ug/dL Performing Lab: see note - [facility] LB TSH Reviewed date:03/21/2025 02:21:58 PM Interpretation: Performing Lab: Notes/Report: [facility] , Thyroid Stimulating Hormone 0.923 0.358-3.740 u IU/mL Performing Lab: see note ML - [facility] LB Lyme Disease Serology w/Refl ex Reviewed date:03/22/2025 07:13:18 PM Interpretation: Performing Lab: Notes/Report: [facility] , Lyme Total Antibody PETER Negative Negative Performed at: [facility] Lyme antibodies not detected. Reflex testing is not testing on a new sample collected in 7 to 14 days is burgdorferi. If recent infection is suspected, repeat (Lyme disease). Negative results may occur in patients indicated. No laboratory evidence of infection with B. burgdorferi recently infected (less than or equal to 14 days) with B. recommended. Hotel Desk Clerk: Aidan Silvestre PhD, Phone: [phone] [address] [place], [place] [phone] Performing Lab: see note [facility] LB INSULIN Reviewed date:03/30/2025 12:19:17 PM Interpretation: Performing Lab: Notes/Report: [facility] , Insulin 24.0 2.6-24.9 uIU/mL [address] [place], [place] [id number] Hotel Desk Clerk: Aidan Silvestre PhD, Phone: [phone] Performed at: [facility] Performing Lab: see note [facility] LB IRON Reviewed date:03/29/2025 01:19:22 PM Interpretation: Performing Lab: Notes/Report: [facility] , Iron 51.0 50.0-170.0 ug/dL Performing Lab: see note ML - [facility] LB LIPID PROFILE Reviewed date:03/29/2025 01:19:22 PM Interpretation: Performing Lab: Notes/Report: [facility] , Triglycerides 245 <=150 mg/dL Cholesterol 190 <=200 mg/dL HDL Cholesterol 48 40-60 mg/dL <40 mg/dl - HIGH CARDIOVASCULAR RISK > or =60 mg/dl - LOW CARDIOVASCULAR RISK LDL Cholesterol Calculated 93.0 <100 mg/dl OPTIMAL >190 mg/dl VERY HIGH 160-189 mg/dl HIGH 130-159 mg/dl BORDERLINE HIGH 100-129 mg/dl NEAR OR ABOVE OPTIMAL VLDL CHOLESTEROL 49.0 Chol HDL Ratio 4.0 4.4 - 7.1 AVERAGE RISK >11.0 HIGH RISK 3.3 - 4.4 LOW RISK 7.1 - 11.0 MODERATE RISK Performing Lab: see note ML - [facility] LB MAGNESIUM Reviewed date:03/29/2025 01:19:22 PM Interpretation: Performing Lab: Notes/Report: [facility] , Magnesium 2.0 1.8-2.4 mg/dL Performing Lab: see note ML - [facility] LB Reason For Referral Reason Neck and low back pa in Diagnosis 1 Cervical disc disord er at C5-C6 level with radiculopathy (M50.122) Referral Organization [facility] Referring Provider First Name Mihai Referring Provider Last Name Arlene Referring Provider Speciality Family Med icine Referred Provider [facility], Physical Therap y Referred Provider Specialty Physical The rapist Referral Priority Routine Medications Medication SIG (Take, Route, Frequency, Duration) Notes Start Date End Date Status HYDROcodone-Acetaminophe n 5-325 MG 1 tablet as needed Orally every 6 hrs; Duration: 7 days 08/31/2025 Active Hyoscyamine Sulfate 0.125 MG 1-2 tabs SL SL every 4 hrs PRN abd pain 08/31/2025 Active Mupirocin 2 % 1 application Externally Twice a day ENT 03/01/2025 Active Meclizine HCl 25 MG 1 tablet as needed Orally Q 6 hours 03/01/2025 Active Ibuprofen 800 MG 1 tablet Orally ever y 6-8 hrs PRN; Duration: 30 days PRN Active Vitamin D 50 MCG (2000 UT) 1 tablet Orally Once a day Active Triamcinolone Acetonide 0.1 % 1 application Externally Twice a day; Duration: 30 PRN 07/27/2023 Active Aimovig 70 MG/ML 70 mg Subcutaneous monthly; Duration: 1 days 02/10/2025 Active Scopolamine 1 MG/3DAYS 1 patch to skin behind the ear as needed Transdermal; Duration: 30 days 03/21/2025 Active pyRIDostigmine [place] 60 MG 1 tablet Orally BID 08/31/2025 Active Protonix 40 MG 1 tablet Orally Ever y Evening; Duration: 30 day(s) 08/17/2023 Active Ondansetron HCl 4 MG 1 tablet Orally QID ; Duration: 30 days PRN 05/27/2023 Active Neurontin 800 MG Take Orally dx M54.5 0 1 Q am, 1 afternoon, 2 Q pm; Duration: 30 days 08/29/2024 Active hydrOXYzine HCl 25 MG 1 Orally QID prn PRN Active traMADol HCl 50 MG TAKE 1 TABLET BY MOUTH 3 TIMES A DAY NEEDED; Duration: 30 08/08/2025 Active Zglldsyivr-AMZF-Dhdtxagh 50-300-40 MG TAKE 1 TO 2 CAPSULES BY MOUTH TWICE A DAY NEEDED FOR 30 DAYS; Duration: 30 days 08/08/2025 Active Terbinafine HCl 250 MG 1 tablet Orally O nce a day; Duration: 30 days 03/23/2025 Active Amitriptyline HCl 10 MG 1 tablet at bedt li Orally Once a day; Duration: 30 day(s) 01/20/2025 Active Tamsulosin HCl 0.4 MG 1 capsule Orally O nce a day 08/31/2025 Active ALPRAZolam 0.5 MG 1 tablet Orally Twic e a day; Duration: 30 days 08/08/2025 Active Soma 350 MG 1 tablet as needed Orally once daily- PRN Rhuematology 03/01/2025 Active Social History Tobacco Use: Social History Observation Description Date Details (start date - stop date) Former Smoker 11/30/2004 - 11/30/2019 Tobacco Use/Smoking Question Answer Notes Patient is a former smoker When did you start smoking? 11/30/2004 When did you stop smoking? 11/30/2019 How long has it been since you last smoked? 1-5 years Alcohol Screen (Audit-C) Question Answer Notes Did you have a drink containing alcohol in the p ast year? No Points 0 Interpretation Negative AUDIT-C (Standard) Question Answer Notes Did you have a drink containing alcohol in the p ast year? 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, predominantly inattentive type (F90.0) Active confirmed Problem Hypertension (14991410) Hypertension (I10) Active confirmed Problem Gastroesophageal reflux disease (571511748) GERD (gastroesophagea l reflux disease) (K21.9) Active confirmed Problem Migraine (19633887) Migraine (G43.909) Active confirmed Problem Dysmenorrhea (437461402) Dysmenorrhea (N94.6) Active confirmed Problem Well adult (152533367) Well adult (Z00.00) Active confirmed Problem Cervical spondylosis (512255173) Cervical spondylosis (M47.812) Active confirmed Problem Atypical migraine (47057804) Atypical migraine (G43.009) Active confirmed Problem Cervical radiculopathy (05292619) Cervical disc disorder at C5-C6 level with radiculopathy (M50.122) Active confirmed Problem Anxiety depression (428033311) Anxiety with depression (F41.8) Active confirmed Vital Signs Blood pressure diastolic 82 mm Hg 06/14/2025 Height 62 in 08/31/2025 Blood pressure systolic 116 mm Hg 06/14/2025 Weight 164 lbs 06/14/2025 BMI 29.99 kg/m2 06/14/2025 Encounters Encounter Location Date Provider Diagnosis [facility] [address] [place] [address] 03/21/2025 Mihai Jacobs Well adult Z00.00 [facility] [address] [place] [address] 06/14/2025 Mihai Jacobs Cervical disc disord er at C5-C6 level with radiculopathy M50.122 [facility] [address] [place] [address] 08/31/2025 Mihai Hoy UTI (urinary tract infection), uncomplicated N39.0 and Dysuria R30.0 [facility] [address] [place] [facility] [place] [address] 09/20/2024 Mihai Hoy Hypertension I10 [facility] [address] [place] [facility] [place] [place] [address] 01/20/2025 Mihai Hoy Anxiety with depress ion F41.8 [facility] [address] [facility] [place] [address] 10/21/2024 Mihai Hoy Migraine G43.909 an d Hypertension I10 [facility] [address] [place] [facility] [place] [address] 11/17/2024 Mihai Hoy Hypertension I10 [facility] [address] [place] [place] [place] [address] 12/14/2024 Mihai Hoy Hypertension I10 [facility] [address] [facility] [place] [address] 12/22/2024 Mihai Hoy Hypertension I10 [facility] [address] [place] [facility] [place] [address] 01/11/2025 Mihai Hoy [facility] [address] [place] [place] [address] 01/11/2025 Mihai Hoy [facility] [address] [place] [place] [address] 01/13/2025 Mihai Hoy Hypertension I10 [facility] [address] [place] [place] [place] [address] 01/18/2025 Mihai Hoy [facility] [address] [place] [facility] [place] [place] [address] 01/19/[address] [facility] [address] [facility] [place] [address] 01/26/[address] [facility] [address] [facility] [place] [address] 01/27/2025 Mihai Hoy Bilateral lower extremity edema R60.0 [facility] [address] [place] [facility] [place] [address] 02/06/2025 Mihai Luis Albertoy [facility] [address] [place] [address] 02/06/2025 Mihai [address]10 [facility] [address] [place] [address] 02/10/2025 Mihai H[address] Hypertension I10 [facility] [address] [place] [address] 02/17/2025 Mihai Hoy Hypertension I10 [facility] [address] [place] [address] 02/28/2025 Mihai Jacobs [facility] [address] [facility] [place] [address] 03/01/2025 Mihai Arlene [facility] [address] [facility] [place] [address] 03/06/2025 Mihai Hoy Hypertension I10 [facility] [address] [facility] [place] [address] 03/09/2025 Mihai Arlene [facility] [address] [facility] [place] [address] 03/14/2025 Mihai Jacobs [facility] [address] [facility] [place] [address] 03/17/2025 Mihai Arlene [facility] [address] [facility] [place] [address] 03/17/2025 Mihai Jacobs Well adult Z00.00 [facility] [address] [facility] [place] [address] 03/21/2025 Mihai Luis Albertoy [facility] [address] [facility] [place] [address] 03/21/2025 Mihai Sahuy [facility] [address] [facility] [place] [address] 03/21/2025 Mihai Sahuy [facility] [address] [facility] [place] [address] 03/22/[address] [facility] [address] [place] [place] [address] 03/23/2025 Mihai Hoy [facility] [address] [place] [facility] [place] [place] [address] 03/29/2025 Mihai Hoy Well adult Z00.00 an d Hypertension I10 [facility] [address] [place] [facility] [place] [address] 03/29/2025 Mihai Hoy [facility] [address] [place] [place] [address] 04/05/2025 Mihai Hoy Well adult Z00.00 [facility] [address] [place] [place] [address] 04/19/2025 Mihai Hoy Hypertension I10 and Migraine G43.909 [facility] [address] [place] [place] [place] [address] 05/12/2025 Mihai Hoy Well adult Z00.00 [facility] [address] [place] [address] 06/08/2025 Mihai Hoy Hypertension I10 [facility] [address] [place] [address] 07/04/2025 Mihai Hoy Well adult Z00.00 an d Hypertension I10 [facility] [address] [place] [address] 07/18/2025 Mihai Hoy B12 deficiency E53. 8 [facility] [address] [place] [address] 08/08/2025 Mihai Hoy Well adult Z00.00 an d Hypertension I10 [facility] [address] [place] [address] 08/31/2025 Mihai Hoy UTI (urinary tract infection), uncomplicated N39.0 [facility] [address] [place] [address] 03/01/2025 Mihai Hoy Vertigo R42 [facility] [address] [place] [address] 12/14/2024 Mihai Hoy Hypertension I10 Assessments Encounter Date Diagnosis (ICD Code) Assessment Notes Treatment Notes Treatment Clinical Notes Section Notes 09/20/2024 Hypertension (ICD-10 - I10) 03/21/2025 Well adult (ICD-10 - Z00.00) 12/14/2024 Hypertension (ICD-10 - I10) 01/20/2025 Anxiety with depression (ICD-10 - F41.8) vangie thomas iwyu the tramadol 03/01/2025 Vertigo (ICD-10 - R42) 06/14/2025 Cervical disc disorder at C5-C6 level with radiculopathy (ICD-10 - M50.122) needs PT 08/31/2025 UTI (urinary tract infection), uncomplicated (ICD-10 - N39.0) Drink plenty of water. Avoid drinks like coffee, alcohol and soft frinks, as these can irritate your bladder and aggravate your frequent or urgent need to urinate. Apply a warm heating pad to your abdomen to minimize bladder pressure or discomfort. You have been prescribed antibiotics for a urinary tract infection. Antibiotics may bother your stomach, so try taking them with a light meal (unless instructed otherwise by your pharmacist). It is important to take them until they are finished. You can use lthb-edz-yovhsae acetaminophen or ibuprofen if needed for pain. You should follow up with your Primary Care Physician or return to clinic if not improving in the next 3-5 days. 10/21/2024 Migraine (ICD-10 - G43.909) 11/17/2024 Hypertension (ICD-10 - I10) 12/14/2024 Hypertension (ICD-10 - I10) 12/22/2024 Hypertension (ICD-10 - I10) 01/13/2025 Hypertension (ICD-10 - I10) 01/27/2025 Bilateral lower extremity edema (ICD-10 - R60.0) 02/06/2025 Hypertension (ICD-10 - I10) 02/10/2025 Hypertension (ICD-10 - I10) 02/17/2025 Hypertension (ICD-10 - I10) CancelRx Response got Denied on 2025-03-21 11:27:49 for 'ALPRAZolam XR 0.5 MG Tablet Extended Release 24 Hour'Pharmacy Notes: Unable to cancel prescription; prescription was transferred to another pharmacy. Rx was transferred to -- Facility: [facility] [id number] ID: [id number] 03/06/2025 Hypertension (ICD-10 - I10) 03/17/2025 Well adult (ICD-10 - Z00.00) 03/29/2025 Well adult (ICD-10 - Z00.00) 05/12/2025 Well adult (ICD-10 - Z00.00) 06/08/2025 Hypertension (ICD-10 - I10) 07/04/2025 Well adult (ICD-10 - Z00.00) 04/05/2025 Well adult (ICD-10 - Z00.00) 04/19/2025 Hypertension (ICD-10 - I10) 07/18/2025 B12 deficiency (ICD-10 - E53.8) 08/08/2025 Well adult (ICD-10 - Z00.00) 08/31/2025 UTI (urinary tract infection), uncomplicated (ICD-10 - N39.0) 08/08/2025 Hypertension (ICD-10 - I10) 04/19/2025 Migraine (ICD-10 - G43.909) 07/04/2025 Hypertension (ICD-10 - I10) 03/29/2025 Hypertension (ICD-10 - I10) 10/21/2024 Hypertension (ICD-10 - I10) 08/31/2025 Dysuria (ICD-10 - R30.0) 06/14/2025 Other Recommended to rest and use a heating pad on the area. Take NSAIDs for pain as needed Plan Of Treatment Pending Test Test Name Order Date CMP (COMPLETE METABOLIC PANEL) 4 HEMOGLOBIN A1C (GLYCO) 02/12/2024 HEMOGLOBIN A1C (GLYCO) 03/21/2025 IRON, TOTAL 03/21/2025 LYME TITER IGG and IGM (SCREEN) 03/17/20 25 LIPID PANEL (CHOL/TRIG/HDL/LDL) 03/21/20 25 LIPID PANEL (CHOL/TRIG/HDL/LDL) 02/12/20 24 CBC WITH DIFF 02/12/2024 MAMM Mammograms CAD 02/12/2024 UA DIP NONAUTO WO MICRO (01180) - IN OFF ICE 08/31/2025 Insulin Level 02/12/2024 Insulin Level 03/21/2025 XR Knee 3 Views Left* 06/08/2023 MAGNESIUM 03/21/2025 VITAMIN B12 07/18/2025 US ARTERY LEG SEAN 01/27/2025 US FRANCISCA DOP LEG SEAN 01/27/2025 XR KNEE LT 4V or > 07/20/2023 THYROID PANEL (T4/TSH/FREE T3) 5 THYROID PANEL (T4/TSH/FREE T3) 5 THYROID PANEL (T4/TSH/FREE T3) 4 US renal bladder 08/31/2025 CMP (COMP MET [place]) w/eGFR CKD-EPI 2024 CBC WITH DIFF 03/21/2025 Insurance Providers Payer Name Payer Address Payer Phone Subscriber Number Group Number Insured Name Patient Relationship to Insured Coverage Start Date Coverage End Date [employer] [address] [place], [place] [phone] [id number] maria alejandra gonzalez Spouse - patient is the spouse of the insured [place] [address] [address] [place] [address] [id number] Aster Gonzalez Self - patient is the insured Medications Administered Medication Instructions Date of Administration Dosage Notes Cyanocobalamin 08/31/2025 1 mL Medical (General) History Medical History History ICD Code Degenerative disc disease 722.6 Ovarian cyst, right N83.201 Cervical disc disorder at C5-C6 level wi th radiculopathy M50.122 Insomnia G47.00 Cervical disc disease M50.90 Atypical migraine G43.009 Lupus M32.9 Sinus tachycardia R00.0 Miscarriage O03.9 NAN positive R76.8 Syncope R55 COVID-19 U07.1 Vitamin D deficiency E55.9 Peripheral neuropathy G62.9 Depression F32.9 Anxiety F41.9 Surgical History Surgery Date(Month/Year) I&D of vaginal cuff hemangioma 06/29/2023 Lap Hysterectomy, Cystoscopy, Bilat Salp ingectomy - Dr. Palma 06/10/23 Cervical Disc Replacement- C5 APPENDECTOMY Hospitalization History Reason Date(Month/Year) Kidney Stones- [facility] 08/24 fibromyalgia 01/24 Stomach Issues 09/2022
--- OUTSIDE RECORDS SUMMARY | 2025-08-31 16:52 | XMS_ITS | Encounter Summary ---
[id number] [address] [place] [address] Care Team Providers Care Yarding Engineer Name Role Phone Yared Jacobs MD Primary Care Provider [phone] Reason for Visit * Reason Comments Med Refill Encounter Details Date Type Department Care Team (Late st Contact Info) Description 07/15/2019 Refill [facility] [address] [place] [address] [address] [place] [address] Tracey Morfin, [employer] EQU[employer]MENT PRESERVATION INSPECTOR-[facility] [address] [place] [address] Intractable migraine without status migrainosus, unspecified migraine type Social History Tobacco Use Types Packs/Day Years Used Date Smoking Tobacco: Every Day Cigarettes Smokeless Tobacco: Never Alcohol Use Standard Drinks/Week Comments No 0 (1 standard drink = 0.6 oz pur e alcohol) PHQ-2 Answer Date Recorded Total Score 11 05/09/2019 Childcare Answer Date Recorded Childcare Unknown 05/09/2019 Employment Answer Date Recorded Employment Unknown 05/09/2019 Comments No Sex and Gender Information Value [...] Description 02/05/2026 10:45 AM EDT Office Visit [facility] of [facility] [address] [address] Rodrigo Robb MD [address] [address] documented as of this encounter Visit Diagnoses Diagnosis Intractable migraine without status migrainosus, unspecified migraine type documented in this encounter Additional Health Concerns Infection Onset Date Last Indicated Resolved Time COVID-19 Positive 12/25/2021 12/25/2021 01/15/2022 11:12 PM EST Respiratory Rule-Out 01/25/2025 01/25/2025 025 8:32 PM EST Respiratory Rule-Out 02/22/2025 02/22/2025 025 10:22 AM EDT Assessment Noted Time PHQ-9 Depression Total Score: 11 019 2:00 PM EDT documented as of this encounter Care Teams Yarding Engineer Relationship Specialty Start Date End Date Yared Jacobs MD [address] [place] [address] PCP - General Family Medicine 01/10/25 documented as of this encounter
--- OUTSIDE RECORDS SUMMARY | 2025-08-31 16:52 | XMS_ITS | Encounter Summary ---
Author Organization [employer] Address [id number] [address] [place] [address] Care Team Providers Care Forming Machine Upkeep Mechanic Name Role Phone Yared Jacobs MD Primary Care Provider [phone] Encounter Details Date Type Department Care Team (Late st Contact Info) Description 09/11/2023 Telephone [facility] [address] [phone] Karen Solorzano, CUSTODIAN BLOOD BANK Social History Tobacco Use Types Packs/Day Years [...] got money to buy more. Never True 09/05/2023 Within the past 12 months th e food we bought just didn't last and we didn't have money to get more. Never True 09/05/2023 Purpose - Life Answer Date Recorded Purpose [...] Office Visit [facility], A Department of [facility] [address] [phone] Rodrigo Robb MD [address] [address] documented as of this encounter Visit Diagnoses [...] documented as of this encounter Care Teams Forming Machine Upkeep Mechanic Relationship Specialty Start Date End Date Yared Jacobs MD [address] [place] [address] PCP - General Family Medicine 01/10/25 documented as of this encounter
--- OUTSIDE RECORDS SUMMARY | 2025-08-31 16:52 | XMS_ITS | Encounter Summary ---
Author Organization [employer] Address [id number] [address] [place] [address] Care Team Providers Care Material Attendant Name Role Phone Yared Jacobs MD Primary Care Provider [phone] Encounter Details Date Type Department Care Team (Late st Contact Info) Description 02/15/2024 Telephone [facility] [address] [place] [phone] Diann Mayfield RMA Social History Tobacco Use Types Packs/Day Years [...] encounter Miscellaneous Notes * Telephone Encounter - VERITO Javier - 02/15/2024 9:42 AM EDT Tried calling patient regarding her appt tomorrow for Fibromyalgia. The providers aren't treating for strictly Fibro. They are to be referred back to the nurse practitioner at Rheumatology . Patient does have an appt with them on 03/10. I will send her a my chart message to cancel this appt * Telephone Encounter - VERITO Javier - 02/15/2024 9:42 AM EDT We will see patient. Spoke with providers. Some Program Support Clerk don't like to send in usp narcotics. Patient will have to sign pain contract and have a drug screen documented in this encounter Plan of Treatment Upcoming Encounters Date Type Department Care Team (Late st Contact Info) Description 02/05/2026 10:45 AM EDT Office Visit [facility] Rheumatology, A Department of [facility] [address] [place] [phone] Rodrigo Robb MD [address] [address] documented as of this encounter Visit Diagnoses [...] documented as of this encounter Care Teams Material Attendant Relationship Specialty Start Date End Date Yared Jacobs MD [address] [place] [address] PCP - General Family Medicine 01/10/25 documented as of this encounter
--- OUTSIDE RECORDS SUMMARY | 2025-08-31 16:52 | XMS_ITS | Encounter Summary ---
Author Organization [employer] Address [id number] [address] [place] [address] Care Team Providers Care Dry Room Attendant Name Role Phone Yared Jacobs MD Primary Care Provider [phone] Encounter Details Date Type Department Care Team (Late st Contact Info) Description 05/19/2022 Telephone [facility] [address] [place] [address] Yarelis Anthony Social History Tobacco Use Types Packs/Day Years [...] have Coronavirus / COVID-19? No / Unsure 05/21/2022 4:10 PM EDT documented as of this encounter Mental Status * Question Answer Entry Date Author Overall Cognitive Status WFL 05/20/2022 9:22 AM EDT Eleanor Portillo, PT * Question Answer Entry Date Author Overall Cognitive Status X 05/20/2022 9:00 AM EDT Roopa Koch, LATESHA-IC DESIGN MANAGER documented in this encounter Plan of Treatment Upcoming Encounters Date Type Department Care Team (Late st Contact Info) Description 02/05/2026 10:45 AM EDT [facility] [address] [phone] Rodrigo Robb MD [address] [address] documented as of this encounter Visit Diagnoses Not on filedocumented in this encounter Additional Health Concerns Infection Onset Date Last Indicated Resolved Time Respiratory Rule-Out 01/25/2025 01/25/2025 025 8:32 PM EST Respiratory Rule-Out 02/22/2025 02/22/2025 025 10:22 AM EDT Assessment Noted Time PHQ-9 Depression Total Score: 11 019 2:00 PM EDT documented as of this encounter Care Teams Dry Room Attendant Relationship Specialty Start Date End Date Yared Jacobs MD [address] [place] [address] PCP - General Family Medicine 01/10/25 documented as of this encounter
--- OUTSIDE RECORDS SUMMARY | 2025-08-31 16:52 | XMS_ITS | Encounter Summary ---
Author Organization [employer] Address [id number] [address] [place] [address] Care Team Providers Care Refrigerated Cargo Clerk Name Role Phone Yared Jacobs MD Primary Care Provider [phone] Encounter Details Date Type Department Care Team (Late st Contact Info) Description 12/21/2024 Documentation [facility] [address] [place] [address] Gemma Jones, WASTE WATER TREATMENT PLANT OPERATOR-CN [address] [place] [address] Social History Tobacco Use Types [...] got money to buy more. Never True 12/21/2024 Within the past 12 months th e food we bought just didn't last and we didn't have money to get more. Never True 12/21/2024 Purpose - Life Answer Date Recorded Purpose [...] Office Visit [facility], A Department of [facility] [address] [phone] Rodrigo Robb MD [address] [address] documented as of this encounter Visit Diagnoses Diagnosis Herpes zoster without complication- Primary documented in this encounter Additional Health [...] documented as of this encounter Care Teams Refrigerated Cargo Clerk Relationship Specialty Start Date End Date Yared Jaocbs MD [address] [place] [address] PCP - General Family Medicine 01/10/25 documented as of this encounter
--- OUTSIDE RECORDS SUMMARY | 2025-08-31 20:09 | XMS_ITS | CCD ---
Author Organization [facility] Care Team Providers Care Rail Equipment Operator Name Role Phone Maddison Zaldivar CNP S Unavailable Maddison Cabrera Unavailable MD Cassie Salomon Primary Care Provider [phone] MD Arthur Mckenzie Attending Provider [phone] ROSY BERMUDEZ Attending Unavailab MADDISON Jean-Baptiste Referring Unavailable ROSY BERMUDEZ Attending Unavailab Arthur Ivy Unavailable MD Cassie Salomon Primary Care Provider [phone] MD Arthur Mckenzie Attending Provider [phone] NOREEN ., DR RUIZ Dutton Admitting Unavailable SORTO ., DR RUIZ Dutton Attending Unavailable UMM ., DR MATTHEWS Consulting Unavailable UMM ., DR MATTHEWS Primary Care Unavailable NOREEN ., DR RUIZ Dutton Admitting Unavailable SORTO ., DR RUIZ Dutton Attending Unavailable NOREEN ., DR RUIZ Dutton Consulting Unavailable UMM ., DR MATTHEWS Primary Care Unavailable MADDISON ZALDIVAR Primary Care Unavailable KRIS ., DR ALFARO Consulting Unavailable KRIS ., DR ALFARO Attending Unavailable KRIS ., DR ALFARO Admitting Unavailable ANJALI LUX Consulting Unavailable ARMIN BILL Consulting Unavailable SAILAJA DELA CRUZ Consulting Unavailable BRYANT Rehman, DR FRAGOSO Attending Unavailable SUZANNE .KAVYA Consulting UnavailLuigi Rehman, DR FRAGOSO Admitting Unavailable UMM ., DR MATTHEWS Primary Care Unavailable DIONNA SONG Consulting Unavailable YVAN POWERS Admitting Unavailable YVAN POWERS Attending Unavailable BRIAN ., DR PACE Consulting Unavailable UMM ., DR MATTHEWS Primary Care Unavailable JUANCHO ., YVAN Consulting Unavailable NEWATIA, MICHAEL Consulting Unavailable KAYLEY, MADDISON Admitting Unavailable KAYLEY, MADDISON Attending Unavailable ZIEBER, DR SOHAN Miller Consulting Unavailable HOY ., DR MATTHEWS Primary Care Unavailable KAYLEY, MADDISON Consulting Unavailable KAYLEY, MADDISON Admitting Unavailable KAYLEY, MADDISON Attending Unavailable ZIEBER, DR SOHAN Miller Consulting Unavailable HOY ., DR MATTHEWS Primary Care Unavailable KAYLEY, MADDISON Consulting Unavailable KAYLEY, MADDISON Primary Care Unavailable KRIS ., DR ALFARO Attending Unavailable KRIS ., DR ALFARO Admitting Unavailable PESAVENTO, MANDO Consulting Unavailable PESAVENTO, MANDO Admitting Unavailable PESAVENTO, MANDO Attending Unavailable HOY ., DR MATTHEWS Primary Care Unavailable KRIS ., DR ALFARO Attending Unavailable CLARK, DR DIONNA Angeles Consulting Unavailable REQUEST, DR QUILES LISTED Primary Care Unavaila ble KRIS ., DR ALFARO Admitting Unavailable KRIS ., DR ALFARO Consulting Unavailable KAYLEY, MADDISON Primary Care Unavailable KRIS ., DR ALFARO Attending Unavailable KRIS ., DR ALFARO Consulting Unavailable KRIS ., DR ALFARO Admitting Unavailable ZIEBER, DR SOHAN Miller Consulting Unavailable KRIS ., DR ALFARO Consulting Unavailable KRIS ., DR ALFARO Admitting Unavailable KRIS ., DR ALFARO Attending Unavailable HOY ., DR MATTHEWS Primary Care Unavailable ZIEBER, DR SOHAN Miller Consulting Unavailable KRIS ., DR ALFARO Attending Unavailable KRIS ., DR ALFARO Consulting Unavailable KRIS ., DR ALFARO Admitting Unavailable HOY ., DR MATTHEWS Primary Care Unavailable MISC, DR GALVIN Consulting Unavailable MISC, DR GALVIN Admitting Unavailable MISC, DR GALVIN Attending Unavailable HOY ., DR MATTHEWS Primary Care Unavailable PESAVENTO, MANDO Admitting Unavailable PESAVENTO, MANDO Attending Unavailable PESAVENTO, MANDO Consulting Unavailable KEYSHAY ., DR MATTHEWS Primary Care Unavailable JUANCHO ., YVAN Admitting Unavailable JUANCHO ., YVAN Attending Unavailable GREVIRA ., KAVYA FIELDS Consulting Unavailabl e HOY ., DR MATTHEWS Primary Care Unavailable LOI DYKES Consulting Unavailable STRAWSER, SADAF Consulting Unavailable KRIS ., DR ALFARO Attending Unavailable KRIS ., DR ALFARO Consulting Unavailable KAYLEY, MADDISON Primary Care Unavailable KRIS ., DR ALFARO Admitting Unavailable KRIS ., DR ALFARO Attending Unavailable KRIS ., DR ALFARO Consulting Unavailable KRIS ., DR ALFARO Admitting Unavailable HOY ., DR MATTHEWS Primary Care Unavailable PRECIOUS CERON Consulting Unavailable DELTA II, DEDE Consulting Unavailable KAYLEY, MADDISON Primary Care Unavailable KEIKO, DR IDNIA Miller Admitting Unavailable KEIKO, DR INDIA Miller Attending Unavailable KEIKO, DR INDIA Miller Consulting Unavailable DIONNA SONG Consulting Unavailable MARKER ., DR PACE Admitting Unavailable MARKER ., DR PACE Attending Unavailable MARKER ., DR PACE Consulting Unavailable HOY ., DR MATTHEWS Primary Care Unavailable HAILEY LIN Consulting Unavailable ROBIN HOLLIS Consulting Unavailable KRIS ., DR ALFARO Consulting Unavailable KRIS ., DR ALFARO Admitting Unavailable KRIS ., DR ALFARO Attending Unavailable HOY ., DR MATTHEWS Primary Care Unavailable DIONNA PANIAGUA Consulting Unavailable KAYLEY, MADDISON Admitting Unavailable KAYLEY, MADDISON Attending Unavailable KAYLEY, MADDISON Primary Care Unavailable MISC, DR GALVIN Admitting Unavailable MISC, DR GALVIN Attending Unavailable MISC, DR GALVIN Consulting Unavailable HOY ., DR MATTHEWS Primary Care Unavailable KAYLEY, MADDISON Primary Care Unavailable MARIE CHANEY Admitting Unavailable MARIE CHANEY Attending Unavailable MARIE CHANEY Consulting Unavailable Paulina Pro Unavailable UMM, CASSIE Hernandez Primary Care Unavailable FAITH KURTZ Admitting Unavailable FAITH KURTZ Attending Unavailable ROSALINA DOLL Referring Unavailable ROSALINA DOLL Attending Unavailable MD Cassie Salomon Primary Care Provider [phone] MD Arthur Mckenzie Attending Provider [phone] SARA VALDEZ Attending Unavailable HOY, CASSIE M Referring Unavailable HOY, CASSIE M Primary Care Unavailable ROLF BLANK Attending Unavailable SARA VALDEZ Referring Unavailable HOY, CASSIE M Primary Care Unavailable SARA VALDEZ Attending Unavailable KEYSHAY, CASSIE M Referring Unavailable HOY, CASSIE M Primary Care Unavailable SARA VALDEZ Attending Unavailable HOY, CASSIE M Referring Unavailable HOY, CASSIE M Primary Care Unavailable ROLF BLANK Attending Unavailable ROLF BLANK Referring Unavailable HOY, CASSIE M Primary Care Unavailable ARIEL LYNN Attending Unavailable HOY, CASSIE M Referring Unavailable HOY, CASSIE M Primary Care Unavailable ARIEL LYNN Attending Unavailable HOY, CASSIE M Referring Unavailable HOY, CASSIE M Primary Care Unavailable HOY, CASSIE M Primary Care Unavailable ISABEL GARCIA Attending Unavailable HOY, CASSIE M Primary Care Unavailable ISIS TORRES Attending Unavailable HOY, CASSIE M Primary Care Unavailable ARIEL LUNDBERG Attending Unavailable CAROLINA ALEXANDER Attending Unavailable CAROLINA ALEXANDER Referring Unavailable HOY, CASSIE M Primary Care Unavailable HOY, CASSIE M Primary Care Unavailable ELLIOT DUGGAN Attending Unavailable Cassie Salomon MD Primary Care Provider [phone] Brandi Lisa APRN Attending Provider Cody Gupta MD Attending Provider [facility] Referring Provider Cody Gupta MD Other Provider Cassie Salomon MD Primary Care Unavaila brandon Youssef PA-C, Rabia Hernandez Attending Samantha Valdovinos MD, Billy Zuniga Attending Cassie Romero MD Fletcher Primary Care Unavaila brandon Salomon MD, Cassie Bynum Primary Care Unavaila brandon Valdovinos MD, Billy Zuniga Consulting Damaris Brown DO Attending Unavailabl e Damaris Martino DO Admitting Unavailabl e Sidra BLANCO, Jerry Iniguez Attending Unavailable Cassie Salomon MD Primary Care Unavaila brandon Salomon MD, Cassie Bynum Primary Care Unavaila brandon Youssef PA-C, Rabia Hernandez Attending Cassie Romero MD Primary Care Unavaila Phyllis Epps Attending Unavailable HOY, CASSIE M Primary Care Unavailable ARIEL LUNDBERG Attending Unavailable UMM CASSIE M Primary Care Unavailable BATSHEVAJULIANE Admitting Unavailable BATSHEVABRADID M Attending Unavailable BLAKE HERNANDES Consulting Unavailable INPATIENT, TELENEUROLOGY Consulting Unavail able HOY, CASSIE M Primary Care Unavailable MANDO SANCHEZ Attending Unavailable CARLOS GIL Referring Unavailable HOY, CASSIE M Primary Care Unavailable SARA VALDEZ Referring Unavailable HOY, CASSIE M Primary Care Unavailable VANESSA MATHEWS Referring Unavail able HOY, CASSIE M Primary Care Unavailable GIL, CARLOS Attending Unavailable HOY, CASSIE M Referring Unavailable HOY, CASSIE M Primary Care Unavailable INGE, SABEENA PONCE Admitting Unavailable INGE, SABEENA PONCE Attending Unavailable BRYANHAELLIOT WEBBER Referring Unavailable HOY, CASSIE M Primary Care Unavailable WAQAS SEVILLA Unavailable ELLIOT DUGGAN Referring Unavailable HOY, CASSIE M Primary Care Unavailable GIL, CARLOS Attending Unavailable HOY, CASSIE M Referring Unavailable HOY, CASSIE M Primary Care Unavailable GIL, CARLOS Referring Unavailable HOY, CASSIE M Primary Care Unavailable GIL, CARLOS Referring Unavailable HOY, CASSIE M Primary Care Unavailable Candy, Cody S Admitting Unavailable Candy, Cody S Attending Unavailable Hoy, Cassie M Primary Care Unavailable Hoy, Cassie M Primary Care Unavailable Candy, Cody S Admitting Unavailable Candy, Cody S Attending Unavailable Hoy, Cassie M Primary Care Unavailable Candy, Cody S Admitting Unavailable Candy, Cody S Attending Unavailable Allergies Allergy Classification Reported Allergen(s) Allergy Type Date of Onset Reaction(s) Facility Anti-Epileptic Agents (1 source) lamoTRIgine Drug Allergy 4 [facility] Penicillins (antibiotic) (2 sources) Penicillin Drug Allergy 4 [facility] pregabalin (1 source) [facility] lamoTRIg[facility]; Translations: [LAMOTRIGINE] Drug Allergy 2 Mental Status Change, Rash [facility] (14 sources) Penicillin; Translations: [PENICILLIN] Drug Allergy 2 [facility] (20 sources) Penicillin G; Translations: [PENICILLIN G] Drug Allergy 1 [facility] (20 sources) pregabalin; Translations: [PREGABALIN] Drug Allergy 2 Mental Status Change, Rash, Shortness of Breath [facility] (13 sources) Penicillins; Translations: [Penicillins] Propensity to adverse reactions 2 [facility] (1 source) lamoTRIgine Drug Allergy [facility] (3 sources) cyclobenzaprine ; Translations: [CYCLOBENZAPRIN E] Drug Allergy 5 [facility] (3 sources) diphenhydrAMINE ; Translations: [DIPHENHYDRAMIN E HCL] Drug Allergy 5 [facility] (1 source) lamoTRIgine Drug Allergy [address] [facility] Repository (1 source) Penicillin Drug Allergy [address] [facility] (1 source) pregabalin Drug Allergy [address] [facility] Medications Current Medications Medication Drug Class(es) Dates Sig (Normalized) Sig (Original) acetaminophen 325 mg oral tablet (4 sources) take 1 tablet by mouth every four hours Tylenol 325 MG 1 tablet as needed Orally every 4 hrs Active acetaminophen 300 mg / butalbital 50 mg / caffeine 40 mg oral capsule (13 sources) Barbiturate, Central Nervous System Stimulant, Methylxanthine Start: 06-15-2025 take 1 capsule by mouth every four hours as needed for pain Butalbital-Aceta minophen-Caff 50-300-40 mg capsule Active 1 CAP PO Every 4 hours as needed for pain June 15, 2025 12:00am Complies with drug therapy Start: 02-17-2022 take 1-2 capsules by mouth twice daily acetaminophen 300 mg-caffeine 40 mg-butalbital 50 mg (FIORICET) per capsule Take 1-2 capsules by mouth twice daily. 0 02/17/2022 Active take 1-2 capsules by mouth twice daily Fcgdbuxkdw-MIEJ-Ujrwifmj 50-300-40 MG take 1 to 2 capsules by mouth twice a day if needed headache Oral for 7 Days Active Comment on above: Take 1-2 capsules by mouth twice daily. ALPRAZolam 0.25 mg oral tablet (14 sources) Benzodiazepine Start: 08-18-20 take 1 tablet by mouth twice daily as needed for anxiety Alprazolam 0.25 mg tablet Active 0.25 MG PO Twice daily as needed for Anxiety August 18, 2022 12:00am Complies with drug therapy amitriptyline hydrochloride 10 mg oral tablet (20 sources) Tricyclic Antidepressant Start: 07-30-20 25 take 1 tablet by mouth once daily at bedtime Amitriptyline 10 mg tablet Active 10 MG PO Daily at bedtime June 28, 2025 12:00am Complies with drug therapy Start: 08-18-2022 End: 05-05-2024 take 1 tablet by mouth once daily at bedtime Amitriptyline 10 mg tablet Discontinued 10 MG PO Daily at bedtime August 18, 2022 12:00am May 05, 2024 10:27am carisoprodol 350 mg oral tablet (20 sources) Muscle Relaxant Start: 06-15-2025 take 1 tablet by mouth once daily at bedtime Carisoprodol (Soma) 350 mg tablet Active 350 MG PO Daily at bedtime June 15, 2025 12:00am Complies with drug therapy Start: 08-18-2022 End: 09-02-2022 take 1 tablet by mouth once daily at bedtime Carisoprodol 350 mg tablet Discontinued 350 MG PO Daily at bedtime August 18, 2022 12:00am September 02, 2022 7:53am take 1 tablet by keagan th every six hours Carisoprodol 350 MG 1 tablet as needed Orally Four times a day Not-Taking doxycycline hyclate 100 mg oral tablet (2 sources) Tetracycline-class Drug Start: 02-11-2022 End: 03-11-2022 take 1 tablet by mouth twice daily doxycycline (VIBRA-TABS) 100 mg tablet Take 1 tablet by mouth twice daily. 0 02/11/2022 03/11/2022 Active Comment on above: Take 1 tablet by mouth twice daily. 1 ml erenumab-aooe 70 mg/ml auto-injector (5 sources) Start: 07-12-2025 inject 70 mg by subcutaneous injection every 30 days Erenumab-Aooe (Aimovig Autoinjector) 70 mg/mL auto-injector Active 70 MG SUBCUT Q30D July 12, 2025 12:00am Complies with drug therapy gabapentin 800 mg oral tablet (20 sources) Anti-epileptic Agent Start: 08-18-2022 End: 06-15-2025 Gabapentin 800 mg tablet Active 800 MG PO Three times daily June 15, 2025 1:14pm 1 tab am, 1 tab noon and 2 tabs at bedtime Complies with drug therapy Start: 08-18-2022 End: 08-18-2022 Gabapentin 300 mg capsule Discontinued MG August 18, 2022 12:00am August 18, 2022 9:20am Start: 08-18-2022 End: 08-18-2022 Gabapentin Discontinued MG S eptember 2021 12:00am August 18, 2022 9:20am Start: 01-26-2022 gabapentin (NE URONTIN) 300 mg capsule Take 300 capsules by mouth five times daily. 0 01/26/2022 Active Gabapentin 800 M G take 1 capsule by mouth once daily Oral tid for 30 Days Active take 1 capsule by mo [facility] once daily Gabapentin 300 MG take 1 capsule by mouth once daily Oral for 30 Days Active Comment on above: Take 300 capsules by mouth five times daily. hydrOXYzine hydrochloride 25 mg oral tablet (15 sources) Antihistamine Start: 05-05-20 take 1 tablet by mouth twice daily as needed for anxiety Hydroxyzine Hcl 25 mg tablet Active 25 MG PO Twice daily as needed for anxiety May 05, 2024 12:00am Complies with drug therapy Start: 01-26-2022 hydrOXYzine HC l (ATARAX) 25 mg tablet 1 tablet. 0 01/26/2022 Active take 1 tablet by keagan twice daily hydrOXYzine HCl 25 MG take 1 tablet by mouth twice a day if needed Oral for 30 Days Active Comment on above: 1 tablet. ibuprofen 800 mg oral tablet (20 sources) Nonsteroidal Anti-inflammatory Drug Start: 06-15-2025 take 1 tablet by mouth every eight hours Ibuprofen 800 mg tablet Active 800 MG PO Every 8 hours June 15, 2025 12:00am Complies with drug therapy Start: 08-18-2022 End: 06-28-2025 take 1 tablet by mouth once daily as needed for pain Ibuprofen 600 mg tablet Discontinued 600 MG PO Daily as needed for Pain August 18, 2022 12:00am June 28, 2025 2:01pm take 1 tablet by keagan th three times daily at mealtime as needed Ibuprofen 800 MG 1 tablet with food or milk as needed Orally Three times a day Active take 1 tablet by keagan th three times daily at mealtime as needed Ibuprofen 600 MG 1 tablet with food or milk as needed Orally Three times a day Active mecobalamin 1 mg chewable tablet (7 sources) Start: 06-15-2025 take 1 tablet by mouth once daily Mecobalamin (Vitamin B12) 1,000 mcg tablet,chewable Active 1000 MCG PO Daily June 15, 2025 12:00am Complies with drug therapy methylPREDNISolone 4 mg oral tablet (1 source) Corticosteroid Start: 04-13-2023 Medrol 4 MG as directed Orally as directed for 6 days March, Active ondansetron 4 mg oral tablet (6 sources) Serotonin-3 Receptor Antagonist Start: 07-12-2025 take 1 tablet by mouth every eight hours as needed for nausea and vomiting Ondansetron Hcl 4 mg tablet Active 4 MG PO Every 8 hours as needed for nausea and vomiting July 12, 2025 12:00am Complies with drug therapy take 1 tablet by keagan th every six hours for nausea Ondansetron 4 MG dissolve 1 tablet ON TO NGUE every 6 hours if needed for nausea OR vomiting Oral for 5 Days Active pyridostigmine bromide 60 mg oral tablet (1 source) Start: 08-23-2025 take 1 tablet by mouth twice daily Pyridostigmine [place] 60 mg tablet Active 60 MG PO Twice daily August 23, 2025 12:00am Complies with drug therapy rOPINIRole 0.25 mg oral tablet (2 sources) Nonergot Dopamine Agonist Start: 08-09-2025 take 1 tablet by mouth once daily at bedtime Ropinirole 0.25 mg tablet Active 0.25 MG PO Daily at bedtime August 09, 2025 12:00am administer 1-3 hours before bedtime Complies with drug therapy traMADol hydrochloride 50 mg oral tablet (7 sources) Opioid Agonist Start: 06-15-2025 take 1 tablet by mouth three times daily as needed for pain Tramadol 50 mg tablet Active 50 MG PO Three times daily as needed for pain June 15, 2025 12:00am Complies with drug therapy Completed/Discontinued Medications Medication Drug Class(es) Dates Sig (Normalized) Sig (Original) acetaminophen 300 mg / butalbital 50 mg / caffeine 40 mg / codeine phosphate 30 mg oral capsule (9 sources) Opioid Agonist, Barbiturate, Central Nervous System Stimulant, Methylxanthine Start: 05-05-2024 End: 06-15-2025 take 1 capsule by mouth every four hours as needed Butalbital-Acetamin op-Caf-Cod (Fioricet With Codeine) 99-780-46-30 mg capsule Discontinued 1 CAP PO Every 4 hours as needed May 05, 2024 12:00am June 15, 2025 1:13pm ciprofloxacin 500 mg oral tablet (5 sources) Quinolone Antimicrobial take 1 tablet by mouth twice daily Ciprofloxacin HCl 500 MG take 1 tablet by mouth twice a day Oral for 10 Days Not-Taking cyclobenzaprine hydrochloride 5 mg oral tablet (5 sources) Muscle Relaxant Start: 02-19-2022 End: 06-13-2022 take 2.5-5 mg by mouth every twelve hours as needed cyclobenzaprine (FLEXERIL) 5 mg tablet Take 0.5-1 tablets by mouth twice daily as needed. 60 tablet 3 02/19/2022 06/13/2022 Discontinued Comment on above: Take 0.5-1 tablets b y mouth twice daily as needed. diclofenac sodium 75 mg delayed release oral tablet (5 sources) Nonsteroidal Anti-inflammatory Drug Start: 02-19-2022 End: 06-13-2022 take 1 tablet by mouth every twelve hours as needed diclofenac, EC, (VOLTAREN) 75 mg EC tablet Take 1 tablet by mouth twice daily as needed (for pain.). 60 tablet 4 02/19/2022 06/13/2022 Discontinued Comment on above: Take 1 tablet by keagan twice daily as needed (for pain.). DULoxetine 30 mg delayed release oral capsule (5 sources) Serotonin and Norepinephrine Reuptake Inhibitor take 1 capsule by mouth once daily DULoxetine HCl 30 MG take 1 capsule by mouth once daily Oral for 30 Days Not-Taking fluticasone propionate 0.05 mg/actuat metered dose nasal spray (5 sources) Corticosteroid Start: 02-11-2022 fluticasone (FLONASE) 50 mcg/actuation nasal spray Use 1 [place] in the nose once daily. 0 02/11/2022 Active Comment on above: Use 1 [place] in the n ose once daily. Ketorolac (4 sources) Nonsteroidal Anti-inflammatory Drug, Cyclooxygenase Inhibitor Start: 03-20-2017 Toradol per 15 mg Feb, 30 mg meclizine hydrochloride 25 mg oral tablet (5 sources) Antiemetic take 1 tablet by mouth twice daily for dizziness Meclizine HCl 25 MG take 1 tablet by mouth twice a day if needed for dizziness (DO NO... (REFER TO PRESCRIPTION NOTES). Oral for 10 Days Not-Taking meloxicam 15 mg oral tablet (1 source) Nonsteroidal Anti-inflammatory Drug Start: 06-13-2022 take 1 tablet by mouth once daily as needed for pain meloxicam (MOBIC) 15 mg tablet Take 1 tablet by mouth once daily as needed for pain. 30 tablet 4 06/13/2022 Active Comment on above: Take 1 tablet by keagan once daily as needed for pain. naratriptan 2.5 mg oral tablet (19 sources) Serotonin-1b and Serotonin-1d Receptor Agonist Start: 08-18-2022 End: 05-05-2024 take 1 tablet by mouth once daily as needed for headache Naratriptan 2.5 mg tablet Discontinued 2.5 MG PO Daily as needed for Migraine Headache August 18, 2022 12:00am May 05, 2024 10:27am Start: 02-19-2022 End: 06-13-2022 naratriptan (AMERGE) 2.5 mg tablet Take one at onset of severe headache/migraine may repeat x 1 after 4 hours if needed. Maximum 2/day and 2 days/week. 9 tablet 4 06/13/2022 Active Comment on above: Take one at onset of severe headache/migraine may repeat x 1 after 4 hours if needed. Maximum 2/day and 2 days/week. oxyCODONE hydrochloride 5 mg oral tablet (11 sources) Opioid Agonist Start: End: take 5-10 mg by mouth every six hours as needed for pain Oxycodone 5 mg tablet Discontinued 5 - 10 MG PO Q6H as needed for Pain 40 8 September 02, 2022 May 05, 2024 10:28am predniSONE 10 mg oral tablet (16 sources) Start: End: Prednisone 10 mg tablets,dose pack Discontinued 1 dose pk PO per package directions September 02, 2022 12:00am May 05, 2024 10:28am take 4 tabs for 3 days then take 3 tabs for 3 days then take 2 tabs for 3 days then take 1 tab for 3 days Start: 09-02-2022 End: 05-05-2024 Prednisone Discontinued 1 do se pk PO per package directions September 02, 2022 12:00am Irma 6th, 2024 10:28am take 4 tabs for 3 days then take 3 tabs for 3 days then take 2 tabs for 3 days then take 1 tab for 3 days Start: 09-02-2022 Prednisone Act cachorro 1 dose pk PO per package directions September 01, 2022 11:00pm take 4 tabs for 3 days then take 3 tabs for 3 days then take 2 tabs for 3 days then take 1 tab for 3 days Start: 09-02-2022 Prednisone Act cachorro 1 dose pk PO per package directions September 02, 2022 12:00am take 4 tabs for 3 days then take 3 tabs for 3 days then take 2 tabs for 3 days then take 1 tab for 3 days take 2 tablets by mo uth once daily predniSONE 20 MG take 2 tablets by mouth once daily Oral for 5 Days Not-Taking pregabalin 50 mg oral capsule (5 sources) take 1 capsule by mouth three times daily Pregabalin 50 MG take 1 capsule by mouth three times a day Oral for 8 Days Not-Taking RA Vitamin D-3 50 MCG (1999 UT) (5 sources) take 1 capsule by mouth once daily RA Vitamin D-3 50 MCG (1999 UT) take 1 capsule by mouth once daily Oral for 30 Days Not-Taking sertraline 50 mg oral tablet (3 sources) Serotonin Reuptake Inhibitor Start: 06-13-2022 take 1 tablet by mouth once daily at bedtime sertraline (ZOLOFT) 50 mg tablet Take 1 tablet by mouth daily at bedtime. 30 tablet 4 06/13/2022 Active Start: 03-12-2022 End: 06-13-2022 take 1 tablet by mouth once daily at bedtime sertraline (ZOLOFT) 25 mg tablet Take 1 tablet by mouth daily at bedtime. 30 tablet 4 03/12/2022 06/13/2022 Discontinued Comment on above: Take 1 tablet by keagan th daily at bedtime. sulfamethoxazole 800 mg / trimethoprim 160 mg oral tablet (13 sources) Dihydrofolate Reductase Inhibitor Antibacterial, Sulfonamide Antimicrobial Start: take 1 tablet by mouth every twelve hours Bactrim DS 800-160 MG 1 tablet Orally Twice a day for 10 day(s) Dec, Not-Taking Start: 09-02-2022 End: 06-15-2025 take 1 tablet by mouth every twelve hours Sulfamethoxazole-Trimethoprim (Bactrim D s) 800-160 mg tablet Discontinued 1 TAB PO Q12H September 02, 2022 12:00am June 15, 2025 1:15pm divalproex sodium 250 mg delayed release oral tablet (5 sources) Mood Stabilizer, Anti-epileptic Agent Start: 02-07-2022 End: 06-13-2022 take 1 tablet by mouth once daily divalproex DR (DEPAKOTE) 250 mg EC tablet Take 1 tablet by mouth once daily. 0 02/07/2022 06/13/2022 Discontinued Comment on above: Take 1 tablet by keagan th once daily. 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 Headache; including migraine (2 sources) Migraine without aura, not refractory ; Translations: [Chronic migraine without aura, not intractable, without status migrainosus] Chronic Immunizations and screening for infectious disease (1 source) Encounter for screening for infections with a predominantly sexual mode of transmission; Translations: [Encounter for screening for infections with a predominantly sexual mode of transmission] Onset: 4 Episodic Malaise and fatigue (2 sources) Asthenia; Translations: [Weakness] Episodic Menstrual disorders (8 sources) Dysmenorrhea, unspecified; Translations: [Irregular menstruation, unspecified] Onset: 2 Chronic Miscellaneous mental health disorders (1 source) Psychophysiologic insomnia; Translations: [Psychophysiologic insomnia] Onset: 4 Chronic Other aftercare (1 source) Other mcfp (current) drug therapy; Translations: [OTH CITY DIRECTOR CURRENT DRUG THERAPY] Onset: 3 Episodic Other connective tissue disease (1 source) Other muscle spasm; Translations: [OTHER MUSCLE SPASM] Onset: 2 Episodic Other connective tissue disease (15 sources) Other symptoms and signs involving the musculoskeletal system; Translations: [Weakness of left upper extremity] Onset: 5 06-15-2025 Episodic Other endocrine disorders (5 sources) Endocrine disorder, unspecified; Translations: [ENDOCRINE DISORDER UNSPECIFIED] Onset: 2 Episodic Other gastrointestinal disorders (2 sources) Other constipation; Translations: [Other constipation] Onset: 3 Episodic Other nervous system disorders (4 sources) Other chronic pain; Translations: [OTHER CHRONIC PAIN] Onset: 2 Chronic Other nervous system disorders (1 source) Carpal tunnel syndrome, left upper limb; Translations: [Carpal tunnel syndrome, left upper limb] Onset: 4 Chronic Other nervous system disorders (18 sources) Chronic pain; Translations: [Other chronic pain] 06-28-2025 Chronic Other nervous system disorders (2 sources) Paresthesia of skin; Translations: [Paresthesia of skin] Onset: 5 Episodic Other non-traumatic joint disorders (1 source) Pain in right hip; Translations: [Pain in right hip] Onset: 5 Episodic Other non-traumatic joint disorders (1 source) Pain in left hip; Translations: [Pain in left hip] Onset: 5 Episodic Other screening for suspected conditions (not mental disorders or infectious disease) (6 sources) Unspecified abnormal finding in specimens from other organs, systems and tissues; Translations: [Encounter for screening mammogram for malignant neoplasm of breast] Onset: 2 Episodic Other upper respiratory infections (1 source) Acute upper respiratory infection, unspecified; Translations: [ACUTE UP RESPIRATORY INFECTION UNS] Onset: 3 Episodic Poisoning by nonmedicinal substances (2 sources) Toxic effect of unspecified spider venom, accidental (unintentional), initial encounter; Translations: [Toxic effect of venom of wasps, undetermined, initial encounter] Episodic Residual codes; unclassified (9 sources) History of cervical discectomy; Translations: [Other specified postprocedural states] 05-05-2024 Episodic Residual codes; unclassified (2 sources) Other specified postprocedural states; Translations: [Other postprocedural status] 05-05-2024 Episodic Spondylosis; intervertebral disc disorders; other back problems (20 sources) Cervical disc disorder; Translations: [Cervical disc disorder, unspecified, unspecified cervical region] 06-15-2025 Chronic Spondylosis; intervertebral disc disorders; other back problems (20 sources) Cervical disc disorder with radiculopathy; Translations: [Cervical disc disorder at C5-C6 level with radiculopathy] Onset: 2 09-02-2022 Episodic Comment on above: Problem List clean-u p per request of Phys. EHR Cmte Syncope (2 sources) Syncope; Translations: [Syncope and collapse] Episodic Systemic lupus erythematosus and connective tissue disorders (1 source) Systemic lupus erythematosus, unspecified; Translations: [SYSTEMIC LUPUS ERYTHMATOSUS UNS] Onset: 2 Chronic Unclassified (1 source) CONTACT W/AND (SUSP) EXPOS COVID-19; Translations: [CONTACT W/AND (SUSP) EXPOS COVID-19] Onset: 3 Unclassified (1 source) ADENOMYOSIS OF THE UTERUS; Translations: [ADENOMYOSIS OF THE UTERUS] Onset: 3 Unclassified (3 sources) LOW BACK PAIN, UNSPECIFIED; Translations: [LOW BACK PAIN, UNSPECIFIED] Onset: 2 Unclassified (1 source) Gynecologic Exam Onset: 4 Unclassified (1 source) Right paraovarian cyst Onset: 4 Unclassified (1 source) New Patient Onset: 4 Unclassified (1 source) Low back pain, unspecified; Translations: [Low back pain, unspecified] Onset: 5 Unclassified (1 source) VOMITING, NAUSEA Onset: 4 Unclassified (2 sources) Z98.890 - Other specified postprocedural states,M54.12 - Radiculopathy, cervical region Unclassified (5 sources) Call Dr. Gupta's office to schedule a follow up appointment if you do not already have one scheduled Unclassified (4 sources) Call Dr. Irving office to schedule a follow up appointment if you do not already have one scheduled Unclassified (1 source) Chronic migraine with aura, not intractable, without status migrainosus; Translations: [Chronic migraine with aura, not intractable, without status migrainosus] Onset: 5 Unclassified (1 source) Extremity Weakness Onset: 5 Unclassified (1 source) Blurred Vision Onset: 5 Unclassified (1 source) weakness/numbness, blurred vision Onset: 5 Unclassified (1 source) Rash Onset: 5 Unclassified (1 source) Rapidly progressive paresthesia Onset: 5 Viral infection (1 source) Other coronavirus as the cause of diseases classified elsewhere; Translations: [OTH CORONAVIRUS CAUSE DZ CLASS ELSW] Onset: 3 Episodic Past or Other Problems Problem Classification Problem Date Documented Da te Episodic/Chronic Abdominal pain (17 sources) Unspecified abdominal pain; Translations: [Pelvic and perineal pain] Onset: 06-26-2022 Episodic Contraceptive and procreative management (1 source) Contraception Onset: 04-28-2024 Episodic Fever of unknown origin (5 sources) Fever, unspecified; Translations: [Fever] Onset: 01-27-2023 Episodic Genitourinary symptoms and ill-defined conditions (2 sources) Hematuria, unspecified; Translations: [Dysuria] Onset: 03-21-2024 Episodic Headache; including migraine (1 source) Cervicogenic headache; Translations: [Cervicogenic headache] Onset: 02-22-2025 Episodic Nausea and vomiting (1 source) Nausea with vomiting, unspecified; Translations: [NAUSEA WITH VOMITING UNSPECIFIED] Onset: 06-30-2022 Episodic Noninfectious gastroenteritis (2 sources) Noninfective gastroenteritis and colitis, unspecified; Translations: [NONINFECTIVE GE AND COLITIS UNS] Onset: 06-30-2022 Episodic Nonspecific chest pain (8 sources) Chest pain, unspecified; Translations: [Other chest pain] Onset: 04-08-2022 Episodic Other complications of (5 sources) Missed ; Translations: [MISSED ] Onset: 04-11-2022 Episodic Other complications of (1 source) Other specified related conditions, first trimester; Translations: [OTH SPEC PREG RELATED COND 1ST TRI] Onset: 04-10-2022 Episodic Other complications of (1 source) Other mental disorders complicating , first trimester; Translations: [OTH MENTAL D/O COMP PREG FIRST TRI] Onset: 04-10-2022 Episodic Other connective tissue disease (3 sources) Other specified soft tissue disorders; Translations: [OTHER SPEC SOFT TISSUE DISORDERS] Onset: 03-07-2022 Episodic Other connective tissue disease (1 source) Pain in right arm; Translations: [Pain in right arm] Onset: 01-25-2025 Episodic Other connective tissue disease (1 source) Pain in upper limb Onset: 01-25-2025 Episodic Other connective tissue disease (1 source) Unspecified symptoms and signs involving the nervous system; Translations: [Unspecified symptoms and signs involving the nervous system] Onset: 01-10-2025 Episodic Other connective tissue disease (2 sources) Fibromyalgia; Translations: [Fibromyalgia] Onset: 01-10-2025 Episodic Other female genital disorders (2 sources) Personal history of other diseases of the female genital tract; Translations: [PERSONAL HX OTH DZ FE GENITAL TRACT] Onset: 12-24-2022 Episodic Other female genital disorders (2 sources) Other specified conditions associated with female genital organs and menstrual cycle; Translations: [Other specified conditions associated with female genital organs and menstrual cycle] Onset: 04-12-2024 Episodic Other female genital disorders (1 source) Other specified noninflammatory disorders of vagina; Translations: [Other specified noninflammatory disorders of vagina] Onset: 10-13-2024 Episodic Other gastrointestinal disorders (1 source) Constipation, unspecified; Translations: [CONSTIPATION UNSPECIFIED] Onset: 06-30-2022 Episodic Other nervous system disorders (2 sources) Anesthesia of skin; Translations: [Anesthesia of skin] Onset: 01-10-2025 Episodic Other nervous system disorders (1 source) Numbness Onset: 01-10-2025 Episodic Other non-traumatic joint disorders (1 source) Pain in right shoulder Onset: 01-15-2022 Resolved: 01-15-2022 Episodic Other non-traumatic joint disorders (1 source) Pain in right elbow Onset: 01-15-2022 Resolved: 01-15-2022 Episodic Other skin disorders (1 source) Other skin changes; Translations: [Other skin changes] Onset: 04-28-2024 Episodic Other skin disorders (1 source) Rash and other nonspecific skin eruption; Translations: [Rash and other nonspecific skin eruption] Onset: 12-21-2024 Episodic Other skin disorders (1 source) Disorder of the skin and subcutaneous tissue, unspecified; Translations: [Disorder of the skin and subcutaneous tissue, unspecified] Onset: 09-01-2024 Episodic Ovarian cyst (6 sources) Unspecified ovarian cyst, right side; Translations: [Unspecified ovarian cyst, left side] Onset: 12-24-2022 Episodic Residual codes; unclassified (4 sources) Kidney donor; Translations: [KIDNEY DONOR] Onset: 10-17-2022 Episodic Residual codes; unclassified (1 source) Less than 8 weeks gestation of ; Translations: [< 8 WEEKS GESTATION ] Onset: 04-10-2022 Episodic Residual codes; unclassified (1 source) Edema, unspecified; Translations: [EDEMA UNSPECIFIED] Onset: 03-11-2022 Episodic Residual codes; unclassified (2 sources) Acquired absence of both cervix and uterus; Translations: [Acquired absence of both cervix and uterus] Onset: 04-12-2024 Episodic Screening and history of mental health and substance abuse codes (1 source) Personal history of nicotine dependence; Translations: [PERSONAL HISTORY OF NICOTINE DEPEND] Onset: 06-30-2022 Episodic Sprains and strains (1 source) Unspecified sprain of right shoulder joint, initial encounter Onset: 01-15-2022 Resolved: 01-15-2022 Episodic Superficial injury; contusion (1 source) Contusion of right elbow, initial encounter Onset: 01-15-2022 Resolved: 01-15-2022 Episodic Unclassified (1 source) LOW BACK PAIN, UNSPECIFIED; Translations: [LOW BACK PAIN, UNSPECIFIED] Onset: 11-04-2022 Results Test Name Value Interpretation Reference Range Facility C3 COMPLEMENTon 08-09-2025 COMPLEMENT C3 135 mg/dL Normal 86-184 [facility] Comment on above: Performed By: #### C HERVE DE LA GARZA, 59136-9, 26443-8, THYR #### [facility] ([id number]) [address] [place] [address] C4 COMPLEMENTon 08-09-2025 COMPLEMENT C4 41 mg/dL Normal 16-47 [facility] Comment on above: Performed By: #### C HERVE DE LA GARZA, 39199-5, 72492-6, THYR #### [facility] ([id number]) [address] [place] [address] DSDNA AB BY CRITHIDIA IFA, I GG, Son 08-09-2025 CRITHIDIA INTERPRETATION SEE COMMENTS Normal [facility] Comment on above: Result Comment: RESU LT: Testing for dsDNA antibody by Crithidia IFA was negative. Test Performed by: [facility] - [facility] [address] [place] [address] Camp Maintenance Supervisor: Afsaneh Alvarez Ph.D.; CLIA# [id number] Performed By: #### C BCA, BMP, 16837-8, 25003-3, THYR #### [facility] ([id number]) [address] [place] [address] DSDNA AB BY CRITHIDIA IFA, IGG, S Negative Normal Negative [facility] Comment on above: Performed By: #### C BCA, BMP, , 55817-2, THYR #### [facility] ([id number]) [address] [place] [address] XR HIPS BILAT W OR WO PELVIS 5+ VWSon 08-08-2025 XR HIPS BILAT W OR WO PELVIS 5+ VWS XR HIPS BILAT W OR WO PELVIS 5+ VWS XR HIPS BILAT W OR WO PELVIS 5+ VWS Chronic pain of both hips Findings: There is grossly no fracture or destructive lesion. Impression: * No acute findings. * Consider MRI if you suspect occult process. Finalized by Carlos Glez MD on 08/08/2025 8:59 PM Normal [facility] ACHR MODULATING FLOW CYTOMET RY, SERUMon 08-07-2025 ACHR MODULATING FLOW CYTOMETRY, SERUM Negative Normal Negative [facility] Comment on above: Result Comment: ADDITIONAL INFORMATION This test was developed and its performance characteristics determined by [facility] in a manner consistent with CLIA requirements. This test has not been cleared or approved by the U.S. Food and Drug Administration. Test Performed by: [facility] - [facility] [address] [place] [address] Camp Maintenance Supervisor: Afsaneh Alvarez Ph.D.; CLIA# [id number] Performed By: #### 6 30-4 #### [facility] ([id number]) [address], [address] [place] [address] ANTINUCLEAR AB, HEP-2 SUBSTR ATE, S (NAN BY IFA)on 08-07-2025 NAN PATTERN 2: DNR Normal [facility] Comment on above: Performed By: #### V PPCR #### [facility] ([id number]) [address], [address] [place] [address] NAN PATTERN: Speckled Normal [facility] Comment on above: Result Comment: Test Performed by: [facility] [address] [place] [address] Camp Maintenance Supervisor: Afsaneh Alvarez Ph.D.; CLIA# [id number] Performed By: #### V PPCR #### [facility] ([id number]) [address], [address] [place] [address] NAN TITER 2: DNR Normal [facility] Comment on above: Performed By: #### V PPCR #### [facility] ([id number]) [address], [address] [place] [address] NAN TITER: 1:320 Normal [facility] Comment on above: Performed By: #### V PPCR #### [facility] ([id number]) [address], [address] [place] [address] ANTINUCLEAR AB, HEP-2 SUBSTRATE, S Positive Abnormal <1:80 (Negative) [facility] Comment on above: Result Comment: ADDITIONAL INFORMATION Method: Immunofluorescence using HEp-2 cellular substrate. Performed By: #### V PPCR #### [facility] ([id number]) [address], [address] [place] [address] CYTOPLASMIC PATTERN: DNR Normal [facility] [place] [facility] Comment on above: Performed By: #### V PPCR #### [facility] ([id number]) [address], [address] [place] [address] LAB COMMENT: DNR Normal [facility] [place] [facility] Comment on above: Performed By: #### V PPCR #### [facility] ([id number]) [address] [place] [address] ZACKERY PANELon 08-07-2025 ANTI-ADEN AB IGG <^0.2 Normal <1.0 [facility] [place] [facility] Comment on above: Performed By: #### V PPCR #### [facility] ([id number]) [address], [address] [place] [address] JO1 ANTIBODY <^0.2 Normal <1.0 [facility] [place] [facility] Comment on above: Performed By: #### V PPCR #### [facility] ([id number]) [address], [address] [place] [address] BUCKLE STRAP DRUM OPERATOR ANTIBODY IGG <^0.2 Normal <1.0 [facility] [place] [facility] Comment on above: Performed By: #### V PPCR #### [facility] ([id number]) [address], [address] [place] [address] SCL 70 ANTIBODY 0.4 AI Normal <1.0 [facility] [place] [facility] Comment on above: Performed By: #### V PPCR #### [facility] ([id number]) [address] [place] [address] SSA ANTIBODY <^0.2 Normal <1.0 [facility] [place] [facility] Comment on above: Performed By: #### V PPCR #### [facility] ([id number]) [address] [address] SSB ANTIBODY <^0.2 Normal <1.0 [facility] Comment on above: Performed By: #### V PPCR #### [facility] ([id number]) [address] [address] IMMUNOGLOBULINSon 08-07-2025 IgA [Mass/Vol] 257 mg/dL Normal 68-378 [facility] Comment on above: Performed By: #### V PPCR #### [facility] ([id number]) [address] [place] [address] IgG [Mass/Vol] 990 mg/dL Normal 635-1741 [facility] Comment on above: Performed By: #### V PPCR #### [facility] ([id number]) [address] [place] [address] IgM [Mass/Vol] 64 mg/dL Normal 45-281 [facility] Comment on above: Performed By: #### V PPCR #### [facility] ([id number]) [address] [place] [address] MG/LEMS EVALUATION, Son ACH RECEPTOR (MUSCLE) BINDING AB 0.13 nmol/L High <=0.02 [facility] Comment on above: Result Comment: Due to a change in assay reagent for the Acetylcholine Receptor (Muscle AChR) Binding Antibody (ARBI) test, direct quantitative comparison to previous testing results is not advised. ADDITIONAL INFORMATION This test was developed and its performance characteristics determined by [facility] in a manner consistent with CLIA requirements. This test has not been cleared or approved by the U.S. Food and Drug Administration. Performed By: #### 6 30-4 #### [facility] ([id number]) [address] [place] [address] MG LAMBERT-EATON INTERPRETATION SEE COMMENTS Normal [facility] Comment on above: Result Comment: The following antibodies were identified: muscle acetylcholine receptor binding antibodies. This antibody profile in an appropriate clinical and electrophysiological context, is consistent with autoimmune myasthenia gravis. A paraneoplastic basis should be considered with thymoma being the most commonly associated cancer. Performed By: #### 6 30-4 #### [facility] ([id number]) [address] [place] [address], [address] [place] [address] P/Q-TYPE CALCIUM CHANNEL AB 0.00 nmol/L Normal <=0.02 [facility] Comment on above: Result Comment: ADDITIONAL INFORMATION This test was developed and its performance characteristics determined by [facility] in a manner consistent with CLIA requirements. This test has not been cleared or approved by the U.S. Food and Drug Administration. Test Performed by: [facility] [place] [address] Camp Maintenance Supervisor: Afsaneh Alvarez Ph.D.; CLIA# [id number] Performed By: #### 6 30-4 #### [facility] ([id number]) [address] [place] [address], [address] [address] Send-out: Otheron 07-26-2025 Send-out Other See Report Normal [facility] Comment on above: Order Comment: Refer ence Lab: [facility] Name: Cerebrospinal Fluid IgG Index Profile, Serum and Spinal FluidTest Code: SFIGCSF tube 4 0.5mL + 2 x 0.5mL serumsent 07/20/2025 14:45:54 EDT ar Result Comment: Miss ing Attachment Chartable Reference Lab Reports Can be viewed in source system Performed By: #### C [id number] #### [facility] [address] [place] [address] Send-out: Otheron 07-25-2025 Send-out Other See Report Normal [facility] Comment on above: Order Comment: Refer ence Lab: [facility] Name: Syphilis: VDRL, CSFTest Code: [id number] 1sent 07/20/2025 14:46:01 EDT ar Result Comment: Miss ban Talavera Chartable Reference Lab Reports Can be viewed in source system Performed By: #### C [id number] #### [place] [address] MS Profile, SerCSFon 025 [place] Free Light Chain,CSF-Correa 0.0095 mg/dL Normal <0.1000 [facility] Comment on above: Result Comment: Nega tive. The kappa free light concentration measured in CSF is lower than the threshold associated with multiple sclerosis. Clinical correlation recommended. ADDITIONAL INFORMATION This test has been modified from the pit furnace operator's instructions. Its performance characteristics were determined by [facility] in a manner consistent with CLIA requirements. This test has not been cleared or approved by the [place].S. Food and Drug Administration. A [facility] study published in 2018 with 325 patients suggested that a kappa free light chain concentration in CSF greater than or equal to 0.06 mg/dL has 92% clinical sensitivity in the diagnosis of multiple sclerosis (ref 1). A second, larger [facility] study with 1355 patients published in 2020 showed that a kappa CSF concentration greater than or equal to 0.06 mg/dL had approximately 89% sensitivity. When kappa was greater than or equal to 0.1 mg/dL it had similar sensitivity (87%) to the finding of 2 unique CSF oligoclonal bands (89%) (ref 2). Given the difference in thresholds based on these studies and highest sensitivity at the threshold of 0.06mg/dL, any CSF kappa free light chain result greater than or equal to 0.06 mg/dL will reflex to oligoclonal banding when the multiple sclerosis profile tests are ordered. A result less than 0.06 mg/dL is considered negative. A result between 0.06 and 0.099 mg/dL is considered borderline; look for oligoclonal banding test results. A result greater than or equal to 0.1 mg/dL is considered positive; look for oligoclonal banding test results. References: 1.Etienne KM, Jaqui E, Hayden BOYD, Haile WOODS, Carlos QUISPE, Gris MARTIN, et al. CSF free light chain identification of demyelinating disease: comparison with oligoclonal banding and other CSF indexes. Clin Chem Lab Med. 2018;56(7):1071-80. 2.Theoodre VARNER, Hayden BOYD, Edgardo Norris, Carlos QUISPE, Gris MARTIN, et al. CSF [place] Free Light Chains: Cutoff Validation for Diagnosing Multiple Sclerosis. [place] Clin Proc. 2020; [id number])93710-2. doi: 10.1016/j.mayocp.202.09.014. Performed By: #### U CI #### [place] [id number] Send-out: Other 07-23-2025 Send-out Other See Report Normal [facility] Comment on above: Order Comment: Refer ence Lab: [facility]est Name: Lyme testing, csfTest Code: LYMPVsent 07/20/2025 14:45:47 EDT ar Result Comment: Miss ing Attachment Chartable Reference Lab Reports Can be viewed in source system Performed By: #### C BCI #### [address] [address] CSF Crypto-[facility] 07-21-2025 Crypto Ag Titr CSF-[place] Negative Normal Negative B [facility] Comment on above: Result Comment: A si ngle negative result does not exclude the diagnosis of cryptococcosis. Test Performed by: [facility] [employer] [address] [address] Camp Maintenance Supervisor: Afsaneh Alvarez Ph.D.; CLIA# [id number] Performed By: #### C [id number] #### [address] [address] [place] Bands-[facility] 5 [place] Band Int-[place] 0 bands Normal <2 [facility] Comment on above: Result Comment: The oligoclonal band assay detected no unique IgG bands in the CSF. This is a negative result. Test Performed by: [facility] [employer] - [address] [place] [address] Camp Maintenance Supervisor: Afsaneh Alvarez Ph.D.; CLIA# [id number] Performed By: #### C BCI #### [address] [address] [place] Bands CSF-Correa 1 bands Normal [facility] Comment on above: Performed By: #### C BCI #### [place] [address] Olig[place] Bands-Correa 1 bands Normal [facility] Comment on above: Performed By: #### C BCI #### [address] [address] .CSF Cell Cnt RBC Mon 2024 CSF RBC 64 /mcL High 0-1 [facility] Comment on above: Performed By: #### U CI #### [place] [address] .CSF Cell Cnt TNC Mon 2024 CSF TNC 2 /mcL Normal [facility] Comment on above: Result Comment: No e stablished Reference Range. Performed By: #### M G #### [place] [address] .CSF Coloron 07-20-2025 CSF Color Clear Normal [facility] Comment on above: Performed By: #### C [id number] #### [place] [address] C CSFon 07-20-2025 C CSF -- - Final No growth at 7 days. - Gram Stain Rare White Blood Cells No organisms seen. Normal [facility] Comment on above: Performed By: #### C [id number] #### [address] [address] CSF Cell Counton 07-20-2025 CSF Tube Number Tube 1 Normal [facility] Comment on above: Performed By: #### C [id number] #### [address] [address] CSF Glucoseon 07-20-2025 Glucose CSF 53 mg/dL Normal 40-70 [facility] Comment on above: Performed By: #### C BCI #### [address] [address] Tube Num CSF Glu Tube Number 1 Normal [facility] Comment on above: Performed By: #### C BCI #### [address] [address] CSF Proteinon 07-20-2025 Protein CSF 24.00 mg/dL Normal 15.00-45.0 0 [facility] Comment on above: Performed By: #### C [id number] #### [address] [address] Tube Num CSF Prot Tube Number 1 Normal [facility] Comment on above: Performed By: #### C [id number] #### [address] [address] Jennifer Inkon 07-20-2025 Jennifer Ink Jennifer ink smears performed on CSF sediment are positive in only 60% of all cases of cryotococcal meningitis. All requests for Jennifer Ink smears should be be supplemented with culture or antigenic detection. - Final Negative for capsule production [facility] Comment on above: Performed By: #### C [id number] #### [facility] [address] [place] [address] BASIC METABOLIC PANELon -2 Anion gap [Moles/Vol] 9 mmol/L Normal 5-15 [facility] Comment on above: Performed By: #### V PPCR #### [facility] ([id number]) [address], [address] [place] [address] Calcium [Mass/Vol] 9.2 mg/dL Normal 8.5-10.5 [facility] Comment on above: Performed By: #### V PPCR #### [facility] ([id number]) [address], [address] [place] [address] Chloride [Moles/Vol] 103 mmol/L Normal 98-109 [facility] Comment on above: Performed By: #### V PPCR #### [facility] ([id number]) [address], [address] [place] [address] CO2 [Moles/Vol] 24 mmol/L Normal 22-32 [facility] Comment on above: Performed By: #### V PPCR #### [facility] ([id number]) [address], [address] [place] [address] Creatinine [Mass/Vol] 0.90 mg/dL Normal 0.40-1.00 [facility] Comment on above: Result Comment: METH OD TRACEABLE TO IDMS STANDARD Performed By: #### V PPCR #### [facility] ([id number]) [address], [address] [place] [address] GFR/1.73 sq M.predicted among non-blacks MDRD (S/P/Bld) [Vol rate/Area] 86 mL/min/{1.73_m2} Normal >=60 [facility] Comment on above: Result Comment: Repo rted eGFR is based on the CKD-EPI 2020 equation that does not use a race coefficient. Performed By: #### V PPCR #### [facility] ([id number]) [address], [address] [place] [address] Glucose [Mass/Vol] 88 mg/dL Normal 65-99 [facility] Comment on above: Performed By: #### V PPCR #### [facility] ([id number]) [address], [address] [place] [address] Potassium [Moles/Vol] 3.5 mmol/L Normal 3.5-5.0 [facility] Comment on above: Performed By: #### V PPCR #### [facility] ([id number]) [address], [address] [place] [address] Sodium [Moles/Vol] 136 mmol/L Normal 134-146 [facility] Comment on above: Performed By: #### V PPCR #### [facility] ([id number]) [address], [address] [place] [address] Urea nitrogen [Mass/Vol] 13 mg/dL Normal 5-23 [facility] Comment on above: Performed By: #### V PPCR #### [facility] ([id number]) [address], [address] [place] [address] CBC WITH AUTO DIFFERENTIALon 05-26-2025 BASOPHILS ABSOLUTE COUNT (10*3/UL) BY AUTOMATED COUNT 0.0 10*3/uL Normal 0.0-0.2 [facility] Comment on above: Performed By: #### V PPCR #### [facility] ([id number]) [address], [address] [place] [address] BASOPHILS RELATIVE PERCENT BY AUTOMATED COUNT 0.3 % Normal [facility] Comment on above: Performed By: #### V PPCR #### [facility] ([id number]) [address], [address] [place] [address] CELLAVISION DIFFERENTIAL TYPE AUTOMATED DIFFERENTIAL Normal [facility] Comment on above: Performed By: #### V PPCR #### [facility] ([id number]) [address] [address] [place] [address] Eosinophils (Bld) [#/Vol] 0.1 10*3/uL Normal 0.0-0.4 [facility] Comment on above: Performed By: #### V PPCR #### [facility] ([id number]) [address] [address] [place] [address] EOSINOPHILS RELATIVE PERCENT BY AUTOMATED COUNT 0.8 % Normal [facility] Comment on above: Performed By: #### V PPCR #### [facility] ([id number]) [address] [address] [place] [address] Erythrocyte distribution width (RBC) [Ratio] 13.0 % Normal 11.5-15 [facility] Comment on above: Performed By: #### V PPCR #### [facility] ([id number]) [address] [address] [place] [address] Hematocrit (Bld) [Volume fraction] 38.3 % Normal 35-47 [facility] Comment on above: Performed By: #### V PPCR #### [facility] ([id number]) [address] [address] [place] [address] Hemoglobin (Bld) [Mass/Vol] 13.0 g/dL Normal 11.7-15.5 [facility] Comment on above: Performed By: #### V PPCR #### [facility] ([id number]) [address] [address] [place] [address] LYMPHOCYTES ABSOLUTE COUNT (10*3/UL) BY AUTOMATED COUNT 3.4 10*3/uL Normal 1.0-3.5 [facility] Comment on above: Performed By: #### V PPCR #### [facility] ([id number]) [address] [address] [place] [address] LYMPHOCYTES RELATIVE PERCENT BY AUTOMATED COUNT 43.8 % Normal [facility] Comment on above: Performed By: #### V PPCR #### [facility] ([id number]) [address], [address] [place] [address] MCH (RBC) [Entitic mass] 29.5 pg Normal 27-34 [facility] Comment on above: Performed By: #### V PPCR #### [facility] ([id number]) [address], [address] [place] [address] MCHC (RBC) [Mass/Vol] 34.0 g/dL Normal 32-36 [facility] Comment on above: Performed By: #### V PPCR #### [facility] ([id number]) [address], [address] [place] [address] MCV (RBC) [Entitic vol] 87 fL Normal 80-100 [facility] Comment on above: Performed By: #### V PPCR #### [facility] ([id number]) [address], [address] [place] [address] MONOCYTES ABSOLUTE COUNT (10*3/UL) BY AUTOMATED COUNT 0.4 10*3/uL Normal 0.0-0.9 [facility] Comment on above: Performed By: #### V PPCR #### [facility] ([id number]) [address], [address] [place] [address] MONOCYTES RELATIVE PERCENT BY AUTOMATED COUNT 5.7 % Normal [facility] Comment on above: Performed By: #### V PPCR #### [facility] ([id number]) [address], [address] [place] [address] NEUTROPHILS ABSOLUTE COUNT BY AUTOMATED COUNT 3.8 10*3/uL Normal 1.5-6.6 [facility] Comment on above: Performed By: #### V PPCR #### [facility] ([id number]) [address], [address] [place] [address] NEUTROPHILS RELATIVE PERCENT BY AUTOMATED COUNT 49.4 % Normal [facility] Comment on above: Performed By: #### V PPCR #### [facility] ([id number]) [address] [address] [place] [address] Platelet mean volume (Bld) [Entitic vol] 8.3 fL Normal 7-12 [facility] Comment on above: Performed By: #### V PPCR #### [facility] ([id number]) [address] [address] Platelets (Bld) [#/Vol] 200 10*3/uL Normal 150-450 [facility] Comment on above: Performed By: #### V PPCR #### [facility] ([id number]) [address] [address] [place] [address] RBC COUNT 4.41 X10E12/L Normal 3.8-5.2 [facility] Comment on above: Performed By: #### V PPCR #### [facility] ([id number]) [address] [address] WBC (Bld) [#/Vol] 7.8 10*3/uL Normal 4-11 [facility] Comment on above: Performed By: #### V PPCR #### [facility] ([id number]) [address] [address] MR CERVICAL SPINE W WO CONTo n 05-26-2025 MR CERVICAL SPINE W WO CONT MR CERVICAL SPINE W WO CONT MR CERVICAL SPINE W WO CONT 05/26/2025 12:11 AM INDICATION: Left upper extremity weakness. COMPARISON: MRI cervical spine 06/06/2022. TECHNIQUE: Multiplanar multisequence MR images of the cervical spine with and without contrast were obtained. FINDINGS: Post contrast sequence is severely degraded by patient motion artifact. There are 7 cervical type vertebrae. Vertebral body heights are preserved. Intervertebral disc space hardware at the C5-C6 level with adjacent susceptibility compromising evaluation of the adjacent bone marrow. Straightening of the normal lordosis, no significant spondylolisthesis. No aggressive bone marrow replacing process. Cervical spinal cord signal is unremarkable. No definite pathologic enhancement. Paraspinous soft tissues are unremarkable. Dominant left vertebral artery, major cervical arterial flow voids appear preserved. DEGENERATIVE FINDINGS: Craniocervical junction: Normal alignment at the craniocervical junction without narrowing at the foramen magnum and at C1-C2. C2-C3: No significant neural foraminal or thecal sac narrowing. C3-C4: Posterior disc osteophyte complex with bilateral facet arthropathy. Minimal overall thecal sac stenosis. Bilateral neural foramina pain. C4-C5: Bilateral uncovertebral joint spurring and facet arthropathy. Bilateral neural foramina and thecal sac are patent. C5-C6: Left greater than right disc osteophyte complex focally effacing the left ventral thecal sac and narrowing the left neural foramen. Facet arthropathy. No segment thecal sac stenosis. Moderate left neural foraminal stenosis. C6-C7: Bilateral uncovertebral joint spurring with facet arthropathy. No significant thecal sac or neural foraminal stenosis. C7-T1: No significant neural foraminal or thecal sac narrowing. IMPRESSION: * Degenerative changes most pronounced on the left at the C5-C6 level with disc osteophyte complex resulting in moderate left neural foraminal stenosis. * No new high-grade thecal sac or neural foraminal stenosis. Finalized by Sidney Simpson MD on 05/26/2025 1:43 PM Normal [facility] MR LUMBAR SPINE W WO CONTon 05-26-2025 MR LUMBAR SPINE W WO CONT MR LUMBAR SPINE W WO CONT MR LUMBAR SPINE W WO CONT 05/26/2025 12:11 AM INDICATION: Lower extremity weakness. COMPARISON: None. TECHNIQUE: Multiplanar multisequence MR images of the lumbar spine with and without contrast were obtained. FINDINGS: Diminutive ribs at what is designated as T12 for numbering purposes. There are 4 nonrib-bearing lumbar type vertebrae. Vertebral body heights are preserved. Straightening of the normal lordosis, no significant spondylolisthesis. No aggressive bone marrow replacing process. Visualized lower thoracic spinal cord signal is unremarkable. Conus medullaris terminates at the L1 level. Cauda equina nerve roots are grossly normal. No pathologic enhancement. No significant degenerative changes, spinal canal stenosis, or neural foraminal stenosis throughout the thoracic spine. Paraspinous soft tissues and visualized abdominal contents show no acute abnormality. Right renal simple cyst, this does not require follow-up. IMPRESSION: * No significant degenerative changes, spinal canal stenosis, or neural foraminal stenosis throughout the lumbar spine. 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 ? Finalized by Sidney Simpson MD on 05/26/2025 1:58 PM Normal [facility] MR ORBIT W WO CONTon 025 MR ORBIT W WO CONT MR ORBIT W WO CONT MR ORBIT W WO CONT CLINICAL INFORMATION: Left-sided vision difficulty. COMPARISON: MRI brain 01/10/2025. PROCEDURE: Routine MRI Orbits was obtained before and after the uncomplicated intravenous administration of 14 mL ProHance. Multisequence, multiplanar imaging was obtained. FINDINGS: Postcontrast sequences degraded by patient motion artifact. No acute intracranial ischemia, mass effect, shift of midline structures, or abnormal extra axial fluid collection. No acute intracranial hemorrhage or parenchymal enhancing lesion. Overall brain volume is normal. Few scattered nonspecific foci of T2/FLAIR hyperintensity within the supratentorial white matter predominantly within the left frontal lobe deep white matter. Major intracranial flow voids appear preserved. Ventricular system size and morphology are normal, basal cisterns are patent. Normal rounded contour the bilateral globes. [place] lenses are intact. Slight prominence of CSF within the bilateral optic nerve sheaths. Intraorbital fat is preserved. Extraocular musculature is symmetric. Symmetric signal intensity and caliber of the bilateral optic nerves. No pathologic enhancement. Optic chiasm and bilateral optic tracts are within normal limits. Suprasellar space is unremarkable. Cavernous sinus is normal. Mild mucosal thickening of the left in the right maxillary alveolar recess. Trace fluid within the left greater than right mastoid air cells. IMPRESSION: * Unremarkable MRI of the orbits given limitations of motion degraded postcontrast sequences. * Few scattered nonspecific foci of T2/FLAIR hyperintensity within the supratentorial white matter. Finalized by Sidney Simpson MD on 05/26/2025 9:38 AM Normal [facility] MR THORACIC SPINE W WO CONTo n 05-26-2025 MR THORACIC SPINE W WO CONT MR THORACIC SPINE W WO CONT MR THORACIC SPINE W WO CONT 05/26/2025 12:11 AM INDICATION: Left upper extremity weakness. COMPARISON: None TECHNIQUE: Multiplanar multisequence MR images of the thoracic spine with and without contrast were obtained. FINDINGS: Evaluation is degraded by patient motion artifact, most pronounced of the postcontrast sequences. 11 vertebral bodies with fully formed ribs. Hypoplastic ribs at what is designated as T12 for numbering purposes. Vertebral body heights are preserved. Normal kyphosis, no significant spondylolisthesis. No aggressive bone marrow replacing process. Thoracic spinal cord signal is unremarkable. No pathologic enhancement. No significant thecal sac or neural foraminal stenosis. Visualized intrathoracic contents and paraspinous soft tissues show no acute abnormality. Dependent atelectasis. Right renal simple cyst, this does not require follow-up. IMPRESSION: * Minimal multilevel degenerative changes without significant thecal sac or neural foraminal stenosis throughout the thoracic spine. 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 ? Finalized by Sidney Simpson MD on 05/26/2025 1:53 PM Normal [facility] BASIC METABOLIC PANELon 06-2 Anion gap [Moles/Vol] 8 mmol/L Normal 5-15 [facility] Comment on above: Performed By: #### B MP #### [facility] ([facility]) [address] [place] [address] VIR Calcium [Mass/Vol] 9.1 mg/dL Normal 8.5-10.5 [facility] Comment on above: Performed By: #### B MP #### [facility] ([facility]) [address] [place] [address] VIR Chloride [Moles/Vol] 106 mmol/L Normal 98-109 [facility] Comment on above: Performed By: #### B MP #### [facility] ([facility]) [address] [place] [address] VIR CO2 [Moles/Vol] 25 mmol/L Normal 22-32 [facility] Comment on above: Performed By: #### B MP #### [facility] ([facility]) [address] [place] [address] VIR Creatinine [Mass/Vol] 0.79 mg/dL Normal 0.40-1.00 [facility] Comment on above: Result Comment: METH OD TRACEABLE TO IDMS STANDARD Performed By: #### B MP #### [facility] ([facility]) [address] [place] [address] VIR EGFR (CKD-EPI) NON-RACE DEPENDENT >^90 Normal >=60 [facility] Comment on above: Result Comment: Repo rted eGFR is based on the CKD-EPI 2020 equation that does not use a race coefficient. Performed By: #### B MP #### [facility] ([facility]) [address] [place] [address] VIR Glucose [Mass/Vol] 88 mg/dL Normal 65-99 [facility] Comment on above: Performed By: #### B MP #### [facility] ([facility]) [address] [place] [address] VIR Potassium [Moles/Vol] 3.9 mmol/L Normal 3.5-5.0 [facility] Comment on above: Performed By: #### B MP #### [facility] ([facility]) [address] [place] [address] VIR Sodium [Moles/Vol] 139 mmol/L Normal 134-146 [facility] Comment on above: Performed By: #### B MP #### [facility] ([facility]) [address] [place] [address] VIR Urea nitrogen [Mass/Vol] 12 mg/dL Normal 5-23 [facility] Comment on above: Performed By: #### B MP #### [facility] ([facility]) [address] [place] [address] VIR CBC WITH AUTO DIFFERENTIALon 05-25-2025 BASOPHILS ABSOLUTE COUNT (10*3/UL) BY AUTOMATED COUNT 0.1 10*3/uL Normal 0.0-0.2 [facility] Comment on above: Performed By: #### C BCA #### [facility] ([facility]) [address] [place] [address] VIR BASOPHILS RELATIVE PERCENT BY AUTOMATED COUNT 0.8 % Normal [facility] Comment on above: Performed By: #### C BCA #### [facility] ([facility]) [address] [place] [address] VIR CELLAVISION DIFFERENTIAL TYPE AUTOMATED DIFFERENTIAL Normal [facility] Comment on above: Performed By: #### C BCA #### [facility] ([facility]) [address] [place] [address] VIR Eosinophils (Bld) [#/Vol] 0.1 10*3/uL Normal 0.0-0.4 [facility] Comment on above: Performed By: #### C BCA #### [facility] ([facility]) [address] [place] [address] VIR EOSINOPHILS RELATIVE PERCENT BY AUTOMATED COUNT 1.1 % Normal [facility] Comment on above: Performed By: #### C BCA #### [facility] ([facility]) [address] [place] [address] VIR Erythrocyte distribution width (RBC) [Ratio] 13.3 % Normal 11.5-15 [facility] Comment on above: Performed By: #### C BCA #### [facility] ([facility]) [address] [place] [address] VIR Hematocrit (Bld) [Volume fraction] 37.7 % Normal 35-47 [facility] Comment on above: Performed By: #### C BCA #### [facility] ([facility]) [address] [place] [address] VIR Hemoglobin (Bld) [Mass/Vol] 12.8 g/dL Normal 11.7-15.5 [facility] Comment on above: Performed By: #### C BCA #### [facility] ([facility]) [address] [place] [address] VIR LYMPHOCYTES ABSOLUTE COUNT (10*3/UL) BY AUTOMATED COUNT 2.8 10*3/uL Normal 1.0-3.5 [facility] Comment on above: Performed By: #### C BCA #### [facility] ([facility]) [address] [place] [address] VIR LYMPHOCYTES RELATIVE PERCENT BY AUTOMATED COUNT 41.2 % Normal [facility] Comment on above: Performed By: #### C BCA #### [facility] ([facility]) [address] [place] [address] VIR MCH (RBC) [Entitic mass] 29.1 pg Normal 27-34 [facility] Comment on above: Performed By: #### C BCA #### [facility] ([facility]) [address] [place] [address] VIR MCHC (RBC) [Mass/Vol] 33.9 g/dL Normal 32-36 [facility] Comment on above: Performed By: #### C BCA #### [facility] ([facility]) [address] [place] [address] VIR MCV (RBC) [Entitic vol] 86 fL Normal 80-100 P [facility] Comment on above: Performed By: #### C BCA #### [facility] ([facility]) [address] [place] [address] VIR MONOCYTES ABSOLUTE COUNT (10*3/UL) BY AUTOMATED COUNT 0.4 10*3/uL Normal 0.0-0.9 [facility] Comment on above: Performed By: #### C BCA #### [facility] ([facility]) [address] [place] [address] VIR MONOCYTES RELATIVE PERCENT BY AUTOMATED COUNT 5.4 % Normal [facility] Comment on above: Performed By: #### C BCA #### [facility] ([facility]) [address] [place] [address] VIR NEUTROPHILS ABSOLUTE COUNT BY AUTOMATED COUNT 3.5 10*3/uL Normal 1.5-6.6 [facility] Comment on above: Performed By: #### C BCA #### [facility] ([facility]) [address] [place] [address] VIR NEUTROPHILS RELATIVE PERCENT BY AUTOMATED COUNT 51.5 % Normal [facility] Comment on above: Performed By: #### C BCA #### [facility] ([facility]) [address] [place] [address] VIR Platelet mean volume (Bld) [Entitic vol] 8.3 fL Normal 7-12 [facility] Comment on above: Performed By: #### C BCA #### [facility] ([facility]) [address] [place] [address] VIR Platelets (Bld) [#/Vol] 200 10*3/uL Normal 150-450 [facility] Comment on above: Performed By: #### C BCA #### [facility] ([facility]) [address] [place] [address] VIR RBC COUNT 4.39 X10E12/L Normal 3.8-5.2 [facility] Comment on above: Performed By: #### C BCA #### [facility] ([facility]) [address] [place] [address] VIR WBC (Bld) [#/Vol] 6.7 10*3/uL Normal 4-11 [facility] Comment on above: Performed By: #### C BCA #### [facility] ([facility]) [address] [place] [address] VIR APTTon 05-24-2025 aPTT Coag (Bld) [Time] 33 s Normal 26-37 [facility] Comment on above: Performed By: #### P TT #### [facility] ([facility]) [address] [place] [address] VIR BASIC METABOLIC PANELon 06-2 Anion gap [Moles/Vol] 10 mmol/L Normal 5-15 [facility] Comment on above: Performed By: #### B MP #### [facility] ([facility]) [address] [place] [address] VIR Calcium [Mass/Vol] 9.6 mg/dL Normal 8.5-10.5 [facility] Comment on above: Performed By: #### B MP #### [facility] ([facility]) [address] [place] [address] VIR Chloride [Moles/Vol] 104 mmol/L Normal 98-109 [facility] Comment on above: Performed By: #### B MP #### [facility] ([facility]) [address] [place] [address] VIR CO2 [Moles/Vol] 23 mmol/L Normal 22-32 [facility] Comment on above: Performed By: #### B MP #### [facility] ([facility]) [address] [place] [address] VIR Creatinine [Mass/Vol] 0.79 mg/dL Normal 0.40-1.00 [facility] Comment on above: Result Comment: METH OD TRACEABLE TO IDMS STANDARD Performed By: #### B MP #### [facility] ([facility]) [address] [place] [address] VIR EGFR (CKD-EPI) NON-RACE DEPENDENT >^90 Normal >=60 [facility] Comment on above: Result Comment: Repo rted eGFR is based on the CKD-EPI 2020 equation that does not use a race coefficient. Performed By: #### B MP #### [facility] ([facility]) [address] [place] [address] VIR Glucose [Mass/Vol] 90 mg/dL Normal 65-99 [facility] Comment on above: Performed By: #### B MP #### [facility] ([facility]) [address] [place] [address] VIR Potassium [Moles/Vol] 3.8 mmol/L Normal 3.5-5.0 [facility] Comment on above: Performed By: #### B MP #### [facility] ([facility]) [address] [place] [address] VIR Sodium [Moles/Vol] 137 mmol/L Normal 134-146 [facility] Comment on above: Performed By: #### B MP #### [facility] ([facility]) [address] [place] [address] VIR Urea nitrogen [Mass/Vol] 11 mg/dL Normal 5-23 [facility] Comment on above: Performed By: #### B MP #### [facility] ([facility]) [address] [place] [address] VIR CBC WITH AUTO DIFFERENTIALon 05-24-2025 BASOPHILS ABSOLUTE COUNT (10*3/UL) BY AUTOMATED COUNT 0.0 10*3/uL Normal 0.0-0.2 [facility] Comment on above: Performed By: #### C BCA #### [facility] ([facility]) [address] [place] [address] VIR BASOPHILS RELATIVE PERCENT BY AUTOMATED COUNT 0.2 % Normal [facility] Comment on above: Performed By: #### C BCA #### [facility] ([facility]) [address] [place] [address] VIR CELLAVISION DIFFERENTIAL TYPE AUTOMATED DIFFERENTIAL Normal [facility] Comment on above: Performed By: #### C BCA #### [facility] ([facility]) [address] [place] [address] VIR Eosinophils (Bld) [#/Vol] 0.1 10*3/uL Normal 0.0-0.4 [facility] Comment on above: Performed By: #### C BCA #### [facility] ([facility]) [address] [place] [address] VIR EOSINOPHILS RELATIVE PERCENT BY AUTOMATED COUNT 0.9 % Normal [facility] Comment on above: Performed By: #### C BCA #### [facility] ([facility]) [address] [place] [address] VIR Erythrocyte distribution width (RBC) [Ratio] 12.9 % Normal 11.5-15 [facility] Comment on above: Performed By: #### C BCA #### [facility] ([facility]) [address] [place] [address] VIR Hematocrit (Bld) [Volume fraction] 39.0 % Normal 35-47 [facility] Comment on above: Performed By: #### C BCA #### [facility] ([facility]) [address] [place] [address] VIR Hemoglobin (Bld) [Mass/Vol] 13.2 g/dL Normal 11.7-15.5 [facility] Comment on above: Performed By: #### C BCA #### [facility] ([facility]) [address] [place] [address] VIR LYMPHOCYTES ABSOLUTE COUNT (10*3/UL) BY AUTOMATED COUNT 2.7 10*3/uL Normal 1.0-3.5 [facility] Comment on above: Performed By: #### C BCA #### [facility] ([facility]) [address] [place] [address] VIR LYMPHOCYTES RELATIVE PERCENT BY AUTOMATED COUNT 26.9 % Normal [facility] Comment on above: Performed By: #### C BCA #### [facility] ([facility]) [address] [place] [address] VIR MCH (RBC) [Entitic mass] 29.3 pg Normal 27-34 [facility] Comment on above: Performed By: #### C BCA #### [facility] ([facility]) [address] [place] [address] VIR MCHC (RBC) [Mass/Vol] 33.7 g/dL Normal 32-36 [facility] Comment on above: Performed By: #### C BCA #### [facility] ([facility]) [address] [place] [address] VIR MCV (RBC) [Entitic vol] 87 fL Normal 80-100 [facility] Comment on above: Performed By: #### C BCA #### [facility] ([facility]) [address] [place] [address] VIR MONOCYTES ABSOLUTE COUNT (10*3/UL) BY AUTOMATED COUNT 0.4 10*3/uL Normal 0.0-0.9 [facility] Comment on above: Performed By: #### C BCA #### [facility] ([facility]) [address] [place] [address] VIR MONOCYTES RELATIVE PERCENT BY AUTOMATED COUNT 4.3 % Normal [facility] Comment on above: Performed By: #### C BCA #### [facility] ([facility]) [address] [place] [address] VIR NEUTROPHILS ABSOLUTE COUNT BY AUTOMATED COUNT 6.9 10*3/uL High 1.5-6.6 [facility] Comment on above: Performed By: #### C BCA #### [facility] ([facility]) [address] [place] [address] VIR NEUTROPHILS RELATIVE PERCENT BY AUTOMATED COUNT 67.7 % Normal [facility] Comment on above: Performed By: #### C BCA #### [facility] ([facility]) [address] [place] [address] VIR Platelet mean volume (Bld) [Entitic vol] 8.4 fL Normal 7-12 [facility] Comment on above: Performed By: #### C BCA #### [facility] ([facility]) [address] [place] [address] VIR Platelets (Bld) [#/Vol] 196 10*3/uL Normal 150-450 [facility] Comment on above: Performed By: #### C BCA #### [facility] ([facility]) [address] [place] [address] VIR RBC COUNT 4.49 X10E12/L Normal 3.8-5.2 [facility] Comment on above: Performed By: #### C BCA #### [facility] ([facility]) [address] [place] [address] VIR WBC (Bld) [#/Vol] 10.2 10*3/uL Normal 4-11 [facility] Comment on above: Performed By: #### C BCA #### [facility] ([facility]) [address] [place] [address] VIR COPPER, Son 05-24-2025 COPPER 118 mcg/dL Normal 77-206 [facility] Comment on above: Result Comment: ADDITIONAL INFORMATION This test was developed and its performance characteristics determined by [facility] in a manner consistent with CLIA requirements. This test has not been cleared or approved by the [place]. Food and Drug Administration. Test Performed by: [facility] [address] [place] [address] [employer] Supervisor: Afsaneh Alvarez Ph.D.; CLIA# [id number] Performed By: #### V PPCR #### [facility] ([id number]) [address] [place] [address] URINALYSISon 05-24-2025 Bilirubin Ql (U) Negative Normal Negative [facility] Comment on above: Performed By: #### U A #### [facility] ([facility]) [address] [place] [address] VIR BLOOD/HGB Negative Normal Negative [facility] Comment on above: Performed By: #### U A #### [facility] ([facility]) [address] [place] [address] VIR Color (U) Colorless Normal Yellow, Colorless [facility] Comment on above: Performed By: #### U A #### [facility] ([facility]) [address] [place] [address] VIR Glucose Ql (U) Negative Normal Negative [facility] Comment on above: Performed By: #### U A #### [facility] ([facility]) [address] [place] [address] VIR Ketones Ql (U) Negative Normal Negative [facility] Comment on above: Performed By: #### U A #### [facility] ([facility]) [address] [place] [address] VIR Leukocyte esterase Test strip Ql (U) Negative Normal Negative [facility] Comment on above: Performed By: #### U A #### [facility] ([facility]) [address] [place] [address] VIR Nitrite Ql (U) Negative Normal Negative [facility] Comment on above: Performed By: #### U A #### [facility] ([facility]) [address] [place] [address] VIR PH,URINE 6.5 Normal 5.0-8.5 [facility] Comment on above: Performed By: #### U A #### [facility] ([facility]) [address] [place] [address] VIR Protein Ql (U) Negative Normal Negative [facility] Comment on above: Performed By: #### U A #### [facility] ([facility]) [address] [place] [address] VIR Specific gravity (U) [Rel density] 1.005 Normal 1.003-1.03 5 [facility] Comment on above: Performed By: #### U A #### [facility] ([facility]) [address] [place] [address] VIR TURBIDITY Clear Normal Clear [facility] Comment on above: Performed By: #### U A #### [facility] ([facility]) [address] [place] [address] VIR UROBILINOGEN <1.1 eu/dL Normal <1.1 eu/dL [facility] Comment on above: Performed By: #### U A #### [facility] ([facility]) [address] [place] [address] VIR VITAMIN B12on 05-24-2025 Cobalamin (Vitamin B12) [Mass/Vol] 315 pg/mL Normal 180-914 [facility] Comment on above: Performed By: #### B 12 #### [facility] ([facility]) [address] [place] [address] VIR BASIC METABOLIC PANELon 05-01 Anion gap [Moles/Vol] 5 mmol/L Normal 5-15 [facility] Comment on above: Performed By: #### C BCA, CMP #### [facility] ([id number]) [address] [place] [address] Calcium [Mass/Vol] 9.1 mg/dL Normal 8.5-10.5 [facility] Comment on above: Performed By: #### C BCA, CMP #### [facility] ([id number]) [address] [place] [address] Chloride [Moles/Vol] 106 mmol/L Normal 98-109 [facility] Comment on above: Performed By: #### C BCA, CMP #### [facility] ([id number]) [address] [place] [address] CO2 [Moles/Vol] 24 mmol/L Normal 22-32 [facility] Comment on above: Performed By: #### C BCA, CMP #### [facility] ([id number]) [address] [place] [address] Creatinine [Mass/Vol] 0.89 mg/dL Normal 0.40-1.00 [facility] Comment on above: Result Comment: METH OD TRACEABLE TO IDMS STANDARD Performed By: #### C BCA, CMP #### [facility] ([id number]) [address] [place] [address] GFR/1.73 sq M.predicted among non-blacks MDRD (S/P/Bld) [Vol rate/Area] 87 mL/min/{1.73_m2} Normal >=60 [facility] Comment on above: Result Comment: eGFR not reported due to non-numeric value for Creatinine. Reported eGFR is based on the CKD-EPI 2020 equation that does not use a race coefficient. Performed By: #### C BCA, CMP #### [facility] ([id number]) [address] [place] [address] Glucose [Mass/Vol] 90 mg/dL Normal 65-99 [facility] Comment on above: Performed By: #### C BCA, CMP #### [facility] ([id number]) [address] [place] [address] Potassium [Moles/Vol] 4.0 mmol/L Normal 3.5-5.0 [facility] Comment on above: Performed By: #### C BCA, CMP #### [facility] ([id number]) [address] [place] [address] Sodium [Moles/Vol] 135 mmol/L Normal 134-146 [facility] Comment on above: Performed By: #### C BCA, CMP #### [facility] ([id number]) [address] [place] [address] Urea nitrogen [Mass/Vol] 8 mg/dL Normal 5-23 [facility] Comment on above: Performed By: #### C BCA, CMP #### [facility] ([id number]) [address] [place] [address] C-REACTIVE PROTEINon 025 C REACTIVE PROTEIN 0.6 mg/dL Normal <=0.7 [facility] Comment on above: Performed By: #### C HOLLI, CMP #### [facility] ([id number]) [address] [place] [address] CBC WITH AUTO DIFFERENTIALon 05-23-2025 BASOPHILS ABSOLUTE COUNT (10*3/UL) BY AUTOMATED COUNT 0.0 10*3/uL Normal 0.0-0.2 [facility] Comment on above: Performed By: #### C HOLLI, CMP #### [facility] ([id number]) [address] [place] [address] BASOPHILS RELATIVE PERCENT BY AUTOMATED COUNT 0.4 % Normal [facility] Comment on above: Performed By: #### C HOLLI, CMP #### [facility] ([id number]) [address] [place] [address] CELLAVISION DIFFERENTIAL TYPE AUTOMATED DIFFERENTIAL Normal [facility] Comment on above: Performed By: #### C HOLLI, CMP #### [facility] ([id number]) [address] [place] [address] Eosinophils (Bld) [#/Vol] 0.1 10*3/uL Normal 0.0-0.4 [facility] Comment on above: Performed By: #### C HOLLI, CMP #### [facility] ([id number]) [address] [place] [address] 91561 EOSINOPHILS RELATIVE PERCENT BY AUTOMATED COUNT 0.8 % Normal [facility] Comment on above: Performed By: #### C HOLLI, CMP #### [facility] ([id number]) [address] [place] [address] Erythrocyte distribution width (RBC) [Ratio] 13.1 % Normal 11.5-15 [facility] Comment on above: Performed By: #### C HOLLI, CMP #### [facility] ([id number]) [address] [place] [address] Hematocrit (Bld) [Volume fraction] 37.6 % Normal 35-47 [facility] Comment on above: Performed By: #### C BCA, CMP #### [facility] ([id number]) [address] [place] [address] Hemoglobin (Bld) [Mass/Vol] 12.8 g/dL Normal 11.7-15.5 [facility] Comment on above: Performed By: #### C HOLLI, CMP #### [facility] ([id number]) [address] [place] [address] 27661 LYMPHOCYTES ABSOLUTE COUNT (10*3/UL) BY AUTOMATED COUNT 2.3 10*3/uL Normal 1.0-3.5 [facility] Comment on above: Performed By: #### C HOLLI, CMP #### [facility] ([id number]) [address] [place] [address] 07227 LYMPHOCYTES RELATIVE PERCENT BY AUTOMATED COUNT 24.9 % Normal [facility] Comment on above: Performed By: #### C HOLLI, CMP #### [facility] ([id number]) [address] [place] [address] 01817 MCH (RBC) [Entitic mass] 29.8 pg Normal 27-34 [facility] Comment on above: Performed By: #### C BCA, CMP #### [facility] ([id number]) [address] [place] [address] 26566 MCHC (RBC) [Mass/Vol] 33.9 g/dL Normal 32-36 [facility] Comment on above: Performed By: #### C BCA, CMP #### [facility] ([id number]) [address] [place] [address] 39866 MCV (RBC) [Entitic vol] 88 fL Normal 80-100 [facility] Comment on above: Performed By: #### C BCA, CMP #### [facility] ([id number]) [address] [place] [address] 40904 MONOCYTES ABSOLUTE COUNT (10*3/UL) BY AUTOMATED COUNT 0.3 10*3/uL Normal 0.0-0.9 [facility] Comment on above: Performed By: #### C HOLLI, CMP #### [facility] ([id number]) [address] [place] [address] 46398 MONOCYTES RELATIVE PERCENT BY AUTOMATED COUNT 3.6 % Normal [facility] Comment on above: Performed By: #### C HOLLI, CMP #### [facility] ([id number]) [address] [place] [address] 89370 NEUTROPHILS ABSOLUTE COUNT BY AUTOMATED COUNT 6.6 10*3/uL Normal 1.5-6.6 [facility] Comment on above: Performed By: #### C HOLLI, CMP #### [facility] ([id number]) [address] [place] [address] 30801 NEUTROPHILS RELATIVE PERCENT BY AUTOMATED COUNT 70.3 % Normal [facility] Comment on above: Performed By: #### C HOLLI, CMP #### [facility] ([id number]) [address] [place] [address] 51376 Platelet mean volume (Bld) [Entitic vol] 8.7 fL Normal 7-12 [facility] Comment on above: Performed By: #### C BCA, CMP #### [facility] ([id number]) [address] [place] [address] 49698 Platelets (Bld) [#/Vol] 224 10*3/uL Normal 150-450 [facility] Comment on above: Performed By: #### C BCA, CMP #### [facility] ([id number]) [address] [place] [address] 98892 RBC COUNT 4.29 X10E12/L Normal 3.8-5.2 [facility] Comment on above: Performed By: #### C BCA, CMP #### [facility] ([id number]) [address] [place] [address] 74141 WBC (Bld) [#/Vol] 9.3 10*3/uL Normal 4-11 [facility] Comment on above: Performed By: #### C BCA, CMP #### [facility] ([id number]) [address] [place] [address] 99065 ERYTHROCYTE SEDIMENTATION RA TE (ESR)on 05-23-2025 ESR, ERYTHROCYTE SEDIMENTATION RATE 14 mm/h Normal 0-20 [facility] Comment on above: Performed By: #### C BCA, CMP #### [facility] ([id number]) [address] [place] [address] 36516 XR SPINE LUMBAR 2 OR 3 VWSon 05-23-2025 XR SPINE LUMBAR 2 OR 3 VWS XR SPINE LUMBAR 2 OR 3 VWS CLINICAL INFORMATION: low back pain, subjective weakness in thighs TECHNIQUE: XR SPINE LUMBAR 2 OR 3 VWS 3 views of the lumbar spine were obtained. Minor degenerative changes appreciated. Endplates appear intact without compression. There is no malalignment. Sacral ala intact. IMPRESSION: Minor degenerative changes. Finalized by Aidan Weber MD on 05/23/2025 1:43 PM Normal [facility] XR SPINE THORACIC 3 VWSon XR SPINE THORACIC 3 VWS XR SPINE THORACI C 3 VWS CLINICAL INFORMATION: back pain TECHNIQUE: XR SPINE THORACIC 3 VWS 3 views thoracic spine were obtained. There is no thoracic malalignment or compression. Endplates appear intact. No fracture. IMPRESSION: Negative exam. Finalized by Aidan Weber MD on 05/23/2025 1:42 PM Normal [facility] Audiology Office/Clinic Note on 02-28-2025 Audiology Office/Clinic Note History Patient was seen today for a hearing test. She was seen prior to her appointment with Rabia Youssef PA-C. Patient reports a cyst in her left sinus cavity which is causing headaches and dizziness. She reports occasional tinnitus and otalgia in the left ear. She denies hearing loss. She denies family history of hearing loss and noise exposure. Otoscopy was unremarkable, bilaterally. Tympanometry yielded Type A tympanograms bilaterally. Pure tone testing revealed normal hearing sensitivity, bilaterally. Word recognition ability RIGHT: 100% @ 50dB (30dB masking) LEFT: 100% @ 50dB (30dB masking) Using recorded [facility] W22 1 & 2 word lists. Summary Results were reviewed with the patient. Findings from today?s testing revealed normal hearing sensitivity, bilaterally. Recommendations 1. Follow-up with ENT as scheduled. 2. Re-test hearing every 2-3 years or sooner if changes are noted. 3. Hearing protection in noise. Electronically signed by Phyllis Maxwell 02/28/25 16:23 EDT Normal [facility] Otolaryngology Office/Clinic Noteon 02-28-2025 Otolaryngology Office/Clinic Note Chief Complaint Pt states here for vision/sinus/facial pain concerns . History of Present Illness History of Present Illness HPI: Pt states she has been having spotty/spinning vision for a mo. This comes and goes but does not last. she feels when occurs she can feel more headaches in a band around her head. Pt has appt with neuro in [place] having recurrent nosebleeds for a few wks, switches between nos, heavy, and lasts 10 min. Pt does take flonase daily. Ongoing L facial/chin pain for 3 wks, ongoing headaches as well. She feels this feels tingly and like its numb, this is fairly constant. She feels laying on the left makes her discomfort worse. Had a cyst on mri and ct of sinus within the left maxillary sinus this was reviewed and seen on previous notes. Pt does state she feels she clenches her jaw alot. Review of Systems General Adult ROS Fatigue: No Appetite change: No Other General: No Weakness: No Weight gain: No Weight Loss: No Cardiovascular Chest pain/pressure: No Claudication: No Edema: No Orthopnea: No Other Cardiovascular: No Palpitations: No Syncope: No EENMT Bleeding gums: No Dental pain: No Ear drainage: No Ear pain: No Facial pain: Yes Hearing loss: No Hoarseness: No Mouth lesions: No Nasal congestion: No Nasal discharge: No Nosebleeds: Yes Other EENMT: Yes Postnasal drainage: No Sore_throat: No Tinnitus: No Vision Changes: No Gastrointestinal Abdominal pain: No Constipation: No Diarrhea: No Dysphagia: No Fecal incontinence: No Heartburn: No Nausea: No Other GI: No Stools, black/bloody: No Vomiting: No Vomiting blood: No Genitourinary Decreased urine output: No Dysuria: No Frequency: No Genital irritation: No Hematuria: No Hesitancy: No Impaired urge sensation: No Other Genitourinary: No Polyuria: No Sexual dysfunction: No Urgency: No Urinary Incontinence: No Vaginal discharge: No Hematologic/Lymphatic Musculoskeletal Neurological Psychiatric Respiratory Apnea: No Cough: No Hemoptysis: No Other Respiratory: No Shortness_of_breath: No Snoring: No Sputum production: No Wheezing: No Skin Physical Exam Vitals & Measurements BP: 134/95 HT: 156.5 cm WT: 73 kg WT: 73 kg (Dosing) BMI: 29.81 Additional Vitals BP Position/Location: Sitting, Right arm Overall:[Communication mode is clear, normal] [Appearance- no acute distress, appears stated age and is well nourished] Assistive device:[ none] Head:[normocephalic, no trauma, lesions or asymmetry]no facial nerve weakness. Ocular appearance:[ Conjuctiva- clear and bright, no drainage or infection. EOM intact] Ears:[ external ear- normal shape, no signs of infection, mass, lesion or asymmetry bilaterally. Ear canal is healthy, free from wax and infection, bilaterally] [Eardrum-healthy, no sign of infection, trauma, perforation or infection] [Middle ear- healthy, no obvious fluid present or infection] Nose:[ External- healthy, no sign of asymmetry, lesion or infection] Septum:[ Midline, no sign of perforation, infection or deviation] Turbinates:[ normal, no hypertrophy, mass or polyp] Nasal passages:[ clear, no infection, drainage or obstruction,dryness and crusting noted] Oral cavity:[ Normal, tongue healthy no mass, lesion or infection. Soft and hard palate normal. Bimanual palpation is normal. Mucosa moist, free from infection][ Benign gingiva, good dental hygiene][Tonsil size is normal, no asymmetry, mass or lesionn][oropharynx- clear, no evidence of post nasal drip, cobblestoning or other abnormalities] Nasopharynx:[ unable to view with mirror due to gagging] Larynx:[ Unable to view with mirror due to gagging] Neck:[ Salivary gland exam is normal, no enlargement or tenderness. No lymph node enlargement. TMJ exam is normal, but tenderness noted on palpation left][ Thyroid exam is normal, no masses or tenderness] Mental Status:[Alert and oriented x3][Mood and affect normal][Gait is normal]. Audiogram:[ Word recognition is normal. Hearing is normal bilaterally. No asymmetry noted] Tympanogram: [Normal bilaterally][No negative pressure and normal ear canal volume] Assessment/Plan 1. Change in vision Pt has what is felt to be spotty vision, pt referred to ophthalmology for evaluation 2. Epistaxis Pt has recent worsening of nosebleeding, dryness and irritation noted on exam. pt stop flonase for several days and use saline along with atb ointment to help heal nose. 3. Atypical facial pain Pt has left side facial pain with know maxillary sinus abnormality, plan to reimage this for evaluation and determination if additional meds/treatment is needed. Suspect she may have TMJ component as well given tenderness on exam and sensation of pain and numbness plan to try some meds to help this. Pt states she is sensative to muscle relaxers so if issues switch to topical voltaren. f/u once testing and treatment completed., side effects of meds reviewed Or (more content not included)... Normal [facility] BASIC METABOLIC PANLon 02-22 Anion gap [Moles/Vol] 6 mmol/L Normal 5-15 [facility] Comment on above: Performed By: #### C HOLLI, HERVE, 64806-5, 03690-1, THYR #### [facility] ([id number]) [address] [place] [address] 97469 Calcium [Mass/Vol] 9.1 mg/dL Normal 8.5-10.5 [facility] Comment on above: Performed By: #### C BCA, BMP, 67957-2, 77858-2, THYR #### [facility] ([id number]) [address] [place] [address] 00921 Chloride [Moles/Vol] 106 mmol/L Normal 98-109 [facility] Comment on above: Performed By: #### C BCA, BMP, 27856-2, 90569-0, THYR #### [facility] ([id number]) [address] [place] [address] 23632 CO2 [Moles/Vol] 22 mmol/L Normal 22-32 [facility] Comment on above: Performed By: #### C BCA, BMP, 59503-0, 83961-4, THYR #### [facility] ([id number]) [address] [place] [address] 54731 Creatinine [Mass/Vol] 0.78 mg/dL Normal 0.40-1.00 [facility] Comment on above: Result Comment: METH OD TRACEABLE TO IDMS STANDARD Performed By: #### C BCA, BMP, , 28447-2, THYR #### [facility] ([id number]) [address] [place] [address] 61175 eGFR (CKD-EPI) NON-RACE DEPENDENT >90 Normal >59 [facility] Comment on above: Result Comment: Reported eGFR is based on the CKD-EPI 2021 equation that does not use a race coefficient. Performed By: #### C BCA, BMP, 14818-6, 51122-0, THYR #### [facility] ([id number]) [address] [place] [address] 53952 Glucose [Mass/Vol] 91 mg/dL Normal 65-99 [facility] Comment on above: Performed By: #### C BCA, BMP, 57631-4, 96177-1, THYR #### [facility] ([id number]) [address] [place] [address] 39886 Potassium [Moles/Vol] 3.8 mmol/L Normal 3.5-5.0 [facility] Comment on above: Performed By: #### C BCA, BMP, , 71448-0, THYR #### [facility] ([id number]) [address] [place] [address] 44094 Sodium [Moles/Vol] 134 mmol/L Normal 134-146 [facility] Comment on above: Performed By: #### C BCA, BMP, , 22232-5, THYR #### [facility] ([id number]) [address] [place] [address] 99020 Urea nitrogen [Mass/Vol] 11 mg/dL Normal 5-23 [facility] Comment on above: Performed By: #### C BCA, BMP, , 21636-0, THYR #### [facility] ([id number]) [address] [place] [address] 07210 CBC AND AUTO DIFFon 02-22- 25 ABSOLUTE BASOPHIL 0.0 X10E9/L Normal 0.0-0.2 [facility] Comment on above: Performed By: #### C BCA, BMP, , 58727-0, THYR #### [facility] ([id number]) [address] [place] [address] 23939 ABSOLUTE NEUTROPHIL 4.8 X10E9/L Normal 1.5-6.6 [facility] Comment on above: Performed By: #### C BCA, BMP, , 67638-2, THYR #### [facility] ([id number]) [address] [place] [address] 37852 Basophils/100 WBC (Bld) 0.7 % Normal [facility] Comment on above: Performed By: #### C BCA, BMP, , 03830-8, THYR #### [facility] ([id number]) [address] [place] [address] 04438 Eosinophils (Bld) [#/Vol] 0.0 10*3/uL Normal 0.0-0.4 [facility] Comment on above: Performed By: #### C BCA, BMP, , 17814-1, THYR #### [facility] ([id number]) [address] [place] [address] 62717 Eosinophils/100 WBC (Bld) 0.5 % Normal [facility] Comment on above: Performed By: #### C BCA, BMP, , 91984-2, THYR #### [facility] ([id number]) [address] [place], [place] [address] Erythrocyte distribution width (RBC) [Ratio] 12.8 % Normal 11.5-15.0 [facility] Comment on above: Performed By: #### C BCA, BMP, , 61754-5, THYR #### [facility] ([id number]) [address] [place], [place] [address] Hematocrit (Bld) [Volume fraction] 37.9 % Normal 35-47 [facility] Comment on above: Performed By: #### C BCA, BMP, , 41105-8, THYR #### [facility] ([id number]) [address] [place], [place] [address] Hemoglobin (Bld) [Mass/Vol] 13.0 g/dL Normal 11.7-15.5 [facility] Comment on above: Performed By: #### C BCA, BMP, , 53919-2, THYR #### [facility] ([id number]) [address] [place] [address] 35415 Lymphocytes (Bld) [#/Vol] 2.4 10*3/uL Normal 1.0-3.5 [facility] Comment on above: Performed By: #### C BCA, BMP, , 12240-4, THYR #### [facility] ([id number]) [address] [place] [address] 85599 Lymphocytes/100 WBC (Bld) 31.5 % Normal [facility] Comment on above: Performed By: #### C BCA, BMP, , 02441-7, THYR #### [facility] ([id number]) [address] [place] [address] 09402 MCH (RBC) [Entitic mass] 30.2 pg Normal 27-34 [facility] Comment on above: Performed By: #### C BCA, BMP, , 56113-9, THYR #### [facility] ([id number]) [address] [place] [address] 81440 MCHC (RBC) [Mass/Vol] 34.2 g/dL Normal 32-36 [facility] Comment on above: Performed By: #### C BCA, BMP, , 37339-4, THYR #### [facility] ([id number]) [address] [place] [address] 62850 MCV (RBC) [Entitic vol] 88 fL Normal 80-100 [facility] Comment on above: Performed By: #### C BCA, BMP, , 57113-4, THYR #### [facility] ([id number]) [address] [place] [address] 80858 Monocytes (Bld) [#/Vol] 0.3 10*3/uL Normal 0-0.9 [facility] Comment on above: Performed By: #### C BCA, BMP, , 41499-0, THYR #### [facility] ([id number]) [address] [place] [address] 57121 Monocytes/100 WBC (Bld) 4.0 % Normal [facility] Comment on above: Performed By: #### C BCA, BMP, , 32874-1, THYR #### [facility] ([id number]) [address] [place] [address] 26537 Neutrophils/100 WBC (Bld) 63.3 % Normal [facility] Comment on above: Performed By: #### C BCA, BMP, 18542-9, 07194-3, THYR #### [facility] ([id number]) [address] [place] [address] 94675 Platelet mean volume (Bld) [Entitic vol] 8.1 fL Normal 7-12 [facility] Comment on above: Performed By: #### C BCA, BMP, , 91614-7, THYR #### [facility] ([id number]) [address] [place] [address] 22939 Platelets (Bld) [#/Vol] 230 10*3/uL Normal 150-450 [facility] Comment on above: Performed By: #### C BCA, BMP, , 33107-7, THYR #### [facility] ([id number]) [address] [place] [address] 36537 RBC COUNT 4.28 X10E12/L Normal 3.80-5.20 [facility] Comment on above: Performed By: #### C BCA, BMP, , 13846-0, THYR #### [facility] ([id number]) [address] [place] [address] 25232 WBC (Bld) [#/Vol] 7.7 10*3/uL Normal 4.0-11.0 [facility] Comment on above: Performed By: #### C BCA, BMP, 16743-5, 70960-3, THYR #### [facility] ([id number]) [address] [place] [address] 12058 CRP [Mass/Vol]on 02-22-2025 C REACTIVE PROTEIN 0.6 mg/dL Normal 0.000-0.7 4 4 [facility] Comment on above: Performed By: #### C HERVE DE LA GARZA, , 82075-0, THYR #### [facility] ([id number]) [address] [place] [address] BRAIN WO CONTon CT BRAIN WO CONT CT BRAIN WO CONT Exam: CT brain without contrast. CLINICAL HISTORY: Headache. TECHNIQUE: CT brain without intravenous contrast. All CT scans at this facility use dose modulation, iterative reconstruction, and/or weight based dosing when appropriate to reduce radiation dose to as low as reasonably achievable COMPARISON: 01/10/2025 FINDINGS: No evidence of hemorrhage. No mass or mass effect. No CT evidence of acute ischemia/infarct. The midline structures are intact, no midline shift. The ventricles and basal cisterns are unremarkable. The brainstem and cerebellum are unremarkable. The paranasal sinuses and mastoid air cells are well aerated. No acute osseous abnormality. IMPRESSION: No acute intracranial pathology by CT. Finalized by Dez Holt MD on 02/22/2025 11:17 AM Normal [facility] ESR Photometric method (Bld) [Velocity]on 02-22-2025 ESR, ERYTHROCYTE SEDIMENTATION RATE 18 mm/h Normal 0-20 [facility] Comment on above: Performed By: #### C HERVE DE LA GARZA, , 70732-0, THYR #### [facility] ([id number]) [address] [place] [address] 98950 Lactate (P brian) [Moles/Vol]o n 02-22-2025 LACTATE W/REFLEX 0.8 mmol/L Normal 0.4-2.0 [facility] Comment on above: Result Comment: Result did not trigger repeat Lactate, re-order if needed. Performed By: #### C HERVE DE LA GARZA, , 43411-0, THYR #### [facility] ([id number]) [address] [place] [address] 25067 SARS/FLU A+B/RSV by NAAT/Mol ecularon 02-22-2025 SARS/FLU A+B/RSV by NAAT/Molecular FLU A PCR Negative (qualifier value) FLU B PCR Negative (qualifier value) RSV by PCR Negative (qualifier value) SARS CoV 2 Not detected (qualifier value) NOTE The Xpert Xpress SARS-CoV-2/Flu/RSV Plus test is a rapid, multiplexed real-time RT-PCR test intended for the simultaneous qualitative detection and differentiation of SARS-CoV-2, influenza A, influenza B and respiratory syncytial virus (RSV) viral RNA from individuals suspected of respiratory viral infection consistent with COVID-19 by their healthcare provider. This test has not been validated in asymptomatic patients. The Xpert Xpress SARS-CoV-2 test is intended for use by qualified and trained operators who are performing tests using either [employer] or [employer] systems and is limited to laboratories that meet the CLIA requirements to perform high and moderate complexity tests. The Xpert Xpress SARS-CoV-2/Flu/RSV Plus is only for use under the Food and Drug Administration's Emergency Use Authorization. Results are for the simultaneous detection and differentiation of SARS-CoV-2, influenza A, influenza B and RSV nucleic acids in clinical specimens. SARS-CoV-2, influenza A, influenza B and RSV RNA identified by this test are generally detectable in upper respiratory samples during the acute phase of infection. Positive results are indicative of the presence of the identified virus, but do not rule out bacterial infection or co-infection with other pathogens not detected by this test. Clinical correlation with patient history and other diagnostic information is necessary to determine patient infection status. The agent detected may not be the definite cause of disease. Negative results do not preclude SARS-CoV-2, influenza A, influenza B and RSV infection and should not be used as the sole basis for treatment or other patient management decisions. Negative results must be combined with clinical observations, patient history and epidemiological information. An Invalid result may occur with specimen-associated inhibition unable to be resolved with specimen repeat. Fact Sheet for Healthcare Providers: https://www.fda.gov/me hollis/760458/download Fact Sheet for Patients: https://www.fda.gov/me hollis/164972/download Normal [facility] Comment on above: Performed By: #### C HOLLI, HERVE, 12908-0, 66208-0, THYR #### [facility] ([id number]) [address] [place] [address] 57983 CBC AND AUTO DIFFon 01-25-20 ABSOLUTE BASOPHIL 0.1 X10E9/L Normal 0.0-0.2 [facility] Comment on above: Performed By: #### Jose Manuel DE LA GARZA, 12485-9, CMP #### [facility] ([id number]) [address] [place] [address] 76691 ABSOLUTE NEUTROPHIL 8.3 X10E9/L High 1.5-6.6 [facility] Comment on above: Performed By: #### Jose Manuel DE LA GARZA, 11492-7, CMP #### [facility] ([id number]) [address] [place] [address] 22481 Basophils/100 WBC (Bld) 0.4 % Normal [facility] Comment on above: Performed By: #### Jose Manuel DE LA GARZA, 25571-3, CMP #### [facility] ([id number]) [address] [place] [address] 70931 Eosinophils (Bld) [#/Vol] 0.1 10*3/uL Normal 0.0-0.4 [facility] Comment on above: Performed By: #### Jose Manuel DE LA GARZA, 53803-4, CMP #### [facility] ([id number]) [address] [place] [address] 91178 Eosinophils/100 WBC (Bld) 0.7 % Normal [facility] Comment on above: Performed By: #### Jose Manuel DE LA GARZA, 20726-7, CMP #### [facility] ([id number]) [address] [place] [address] 22398 Erythrocyte distribution width (RBC) [Ratio] 13.6 % Normal 11.5-15.0 [facility] Comment on above: Performed By: #### Jose Manuel DE LA GARZA, 40804-7, CMP #### [facility] ([id number]) [address] [place] [address] 95060 Hematocrit (Bld) [Volume fraction] 36.7 % Normal 35-47 [facility] Comment on above: Performed By: #### Jose Manuel DE LA GARZA, 11316-0, CMP #### [facility] ([id number]) [address] [place] [address] 50240 Hemoglobin (Bld) [Mass/Vol] 12.1 g/dL Normal 11.7-15.5 [facility] Comment on above: Performed By: #### Jose Manuel DE LA GARZA, 13173-1, CMP #### [facility] ([id number]) [address] [place] [address] 11589 Lymphocytes (Bld) [#/Vol] 3.4 10*3/uL Normal 1.0-3.5 [facility] Comment on above: Performed By: #### Jose Manuel DE LA GARZA, 08901-6, CMP #### [facility] ([id number]) [address] [place] [address] 28271 Lymphocytes/100 WBC (Bld) 27.7 % Normal [facility] Comment on above: Performed By: #### Jose Manuel DE LA GARZA, 51165-4, CMP #### [facility] ([id number]) [address] [place] [address] 32329 MCH (RBC) [Entitic mass] 29.5 pg Normal 27-34 [facility] Comment on above: Performed By: #### Jose Manuel DE LA GARZA, 46045-8, CMP #### [facility] ([id number]) [address] [place] [address] 04598 MCHC (RBC) [Mass/Vol] 32.9 g/dL Normal 32-36 [facility] Comment on above: Performed By: #### Jose Manuel DE LA GARZA, 05864-1, CMP #### [facility] ([id number]) [address] [place] [address] 75413 MCV (RBC) [Entitic vol] 90 fL Normal 80-100 [facility] Comment on above: Performed By: #### Jose Manuel DE LA GARZA, 62413-9, CMP #### [facility] ([id number]) [address] [place] [address] 33776 Monocytes (Bld) [#/Vol] 0.6 10*3/uL Normal 0-0.9 [facility] Comment on above: Performed By: #### Jose Manuel DE LA GARZA, 56230-3, CMP #### [facility] ([id number]) [address] [place] [address] 37448 Monocytes/100 WBC (Bld) 4.6 % Normal [facility] Comment on above: Performed By: #### Jose Manuel DE LA GARZA, 96013-7, CMP #### [facility] ([id number]) [address] [place] [address] 86857 Neutrophils/100 WBC (Bld) 66.6 % Normal [facility] Comment on above: Performed By: #### Jose Manuel DE LA GARZA, 60459-3, CMP #### [facility] ([id number]) [address] [place] [address] 33083 Platelet mean volume (Bld) [Entitic vol] 7.5 fL Normal 7-12 [facility] Comment on above: Performed By: #### Jose Manuel DE LA GARZA, 02874-0, CMP #### [facility] ([id number]) [address] [place] [address] 61595 Platelets (Bld) [#/Vol] 298 10*3/uL Normal 150-450 [facility] Comment on above: Performed By: #### Jose Manuel DE LA GARZA, 32624-0, CMP #### [facility] ([id number]) [address] [place] [address] 32922 RBC COUNT 4.10 X10E12/L Normal 3.80-5.20 [facility] Comment on above: Performed By: #### Jose Manuel DE LA GARZA, 22969-8, CMP #### [facility] ([id number]) [address] [place] [address] 55196 WBC (Bld) [#/Vol] 12.4 10*3/uL High 4.0-11.0 [facility] Comment on above: Performed By: #### C HOLLI, 24295-0, CMP #### [facility] ([id number]) [address] [place] [address] 56715 COMPREHENSIVE METABOLIC PANE Giovanny 01-25-2025 Albumin [Mass/Vol] 4.7 g/dL Normal 3.2-5.3 [facility] Comment on above: Performed By: #### C HOLLI, CMP #### [facility] ([id number]) [address] [place] [address] 54121 ALP [Catalytic activity/Vol] 44 U/L Normal 39-130 [facility] Comment on above: Performed By: #### C HOLLI, CMP #### [facility] ([id number]) [address] [place] [address] 75239 ALT [Catalytic activity/Vol] 24 U/L Normal 0-31 [facility] Comment on above: Performed By: #### C BCA, CMP #### [facility] ([id number]) [address] [place] [address] 19918 Anion gap [Moles/Vol] 5 mmol/L Normal 5-15 [facility] Comment on above: Performed By: #### C BCA, CMP #### [facility] ([id number]) [address] [place] [address] 16209 AST [Catalytic activity/Vol] 18 U/L Normal 0-41 [facility] Comment on above: Performed By: #### C BCA, CMP #### [facility] ([id number]) [address] [place] [address] 09265 Bilirubin [Mass/Vol] 0.3 mg/dL Normal 0.3-1.2 [facility] Comment on above: Performed By: #### C BCA, CMP #### [facility] ([id number]) [address] [place] [address] 30696 Calcium [Mass/Vol] 9.3 mg/dL Normal 8.5-10.5 [facility] Comment on above: Performed By: #### C BCA, CMP #### [facility] ([id number]) [address] [place] [address] 13862 Chloride [Moles/Vol] 103 mmol/L Normal 98-109 [facility] Comment on above: Performed By: #### C BCA, CMP #### [facility] ([id number]) [address] [place] [address] 31835 CO2 [Moles/Vol] 24 mmol/L Normal 22-32 [facility] Comment on above: Performed By: #### C BCA, CMP #### [facility] ([id number]) [address] [place] [address] 69171 Creatinine [Mass/Vol] 0.72 mg/dL Normal 0.40-1.00 [facility] Comment on above: Result Comment: METH OD TRACEABLE TO IDMS STANDARD Performed By: #### C BCA, CMP #### [facility] ([id number]) [address] [place] [address] 36529 eGFR (CKD-EPI) NON-RACE DEPENDENT >90 Normal >59 [facility] Comment on above: Result Comment: Reported eGFR is based on the CKD-EPI 2020 equation that does not use a race coefficient. Performed By: #### C BCA, CMP #### [facility] ([id number]) [address] [place] [address] 17141 Glucose [Mass/Vol] 96 mg/dL Normal 65-99 [facility] Comment on above: Performed By: #### C BCA, CMP #### [facility] ([id number]) [address] [place] [address] 60642 Potassium [Moles/Vol] 3.9 mmol/L Normal 3.5-5.0 [facility] Comment on above: Performed By: #### C BCA, CMP #### [facility] ([id number]) [address] [place] [address] 19642 Protein [Mass/Vol] 8.1 g/dL High 6.0-8.0 [facility] Comment on above: Performed By: #### C BCA, CMP #### [facility] ([id number]) [address] [place] [address] 68480 Sodium [Moles/Vol] 132 mmol/L Low 134-146 [facility] Comment on above: Performed By: #### C BCA, CMP #### [facility] ([id number]) [address] [place] [address] 49249 Urea nitrogen [Mass/Vol] 10 mg/dL Normal 5-23 [facility] Comment on above: Performed By: #### C BCA, CMP #### [facility] ([id number]) [address] [place] [address] 10236 Fibrin D-dimer DDU (PPP) [Ma ss/Vol]on 01-25-2025 D DIMER 269 ng/mL DDU High <255 [facility] Comment on above: Result Comment: Results >=255ng/mL DDU: Results may be indicative of the presence of VTE. The use of the Wells score and further diagnostic tests should be considered. Elevated D-Dimer levels can also be associated with DIC, neoplasm, , trauma and liver disease. Elevated levels of rheumatoid factor may lead to an overestimation of the D-Dimer level. Performed By: #### C BCA, CMP #### [facility] ([id number]) [address] [place] [address] SARS/FLU A+B/RSV by NAAT/Mol ecularon 01-25-2025 SARS/FLU A+B/RSV by NAAT/Molecular FLU A PCR Negative (qualifier value) FLU B PCR Negative (qualifier value) RSV by PCR Negative (qualifier value) SARS CoV 2 Not detected (qualifier value) NOTE The Xpert Xpress SARS-CoV-2/Flu/RSV Plus test is a rapid, multiplexed real-time RT-PCR test intended for the simultaneous qualitative detection and differentiation of SARS-CoV-2, influenza A, influenza B and respiratory syncytial virus (RSV) viral RNA from individuals suspected of respiratory viral infection consistent with COVID-19 by their healthcare provider. This test has not been validated in asymptomatic patients. The Xpert Xpress SARS-CoV-2 test is intended for use by qualified and trained operators who are performing tests using either [employer] or [employer] systems and is limited to laboratories that meet the CLIA requirements to perform high and moderate complexity tests. The Xpert Xpress SARS-CoV-2/Flu/RSV Plus is only for use under the Food and Drug Administration's Emergency Use Authorization. Results are for the simultaneous detection and differentiation of SARS-CoV-2, influenza A, influenza B and RSV nucleic acids in clinical specimens. SARS-CoV-2, influenza A, influenza B and RSV RNA identified by this test are generally detectable in upper respiratory samples during the acute phase of infection. Positive results are indicative of the presence of the identified virus, but do not rule out bacterial infection or co-infection with other pathogens not detected by this test. Clinical correlation with patient history and other diagnostic information is necessary to determine patient infection status. The agent detected may not be the definite cause of disease. Negative results do not preclude SARS-CoV-2, influenza A, influenza B and RSV infection and should not be used as the sole basis for treatment or other patient management decisions. Negative results must be combined with clinical observations, patient history and epidemiological information. An Invalid result may occur with specimen-associated inhibition unable to be resolved with specimen repeat. Fact Sheet for Healthcare Providers: https://www.fda.gov/me hollis/591633/download Fact Sheet for Patients: https://www.fda.gov/me hollis/525342/download Normal [facility] [place] Comment on above: Performed By: #### C HOLLI, CMP #### [facility] ([id number]) [address] [place] [address] [place] [address] URN MACROSCOPIC NURon 2024 BILIRUBIN ANT Negative Normal NEG [facility] Comment on above: Performed By: #### C BCA, CMP #### [facility] ([id number]) [address] [place] [address] [place] [address] BLOOD/HGB ANT Trace Abnormal NEG [facility] Comment on above: Performed By: #### C BCA, CMP #### [facility] ([id number]) [address] [place] [address] [place] [address] GLUCOSE ANT Negative Normal NEG [facility] Comment on above: Performed By: #### C BCA, CMP #### [facility] ([id number]) [address] [place] [address] [place] [address] KETONES ANT Negative Normal NEG [facility] Comment on above: Performed By: #### C BCA, CMP #### [facility] ([id number]) [address] [place] [address] [place] [address] LEUKOCYTE ESTERASE ANT Negative Normal NEG [facility] Comment on above: Performed By: #### C BCA, CMP #### [facility] ([id number]) [address] [place] [address], [place] [address] NITRITE ANT Negative Normal NEG [facility] Comment on above: Performed By: #### C BCA, CMP #### [facility] ([id number]) [address] [place] [address] [place] [address] PH ANT 5.5 Normal 5.0-8.5 [facility] Comment on above: Performed By: #### C BCA, CMP #### [facility] ([id number]) [address] [place] [address] [place] [address] PROTEIN ANT Negative Normal NEG [facility] Comment on above: Performed By: #### C BCA, CMP #### [facility] ([id number]) [address] [place] [address] SPECIFIC GRAVITY ANT 1.010 Normal 1.003-1 .03 5 [facility] Comment on above: Performed By: #### C BCA, CMP #### [facility] ([id number]) [address] [place] [address] UROBILINOGEN ANT 0.2 eu/dL Normal <1.1 [facility] Comment on above: Performed By: #### C BCA, CMP #### [facility] ([id number]) [address] [place] [address] Inpatient Clinical Summaryon 01-18-2025 Inpatient Clinical Summary [facility] [address] [place] [address] [phone] [id number] [phone] Clinical Summary Person Information Name: Analy Gonzalez Age: 34 Years : 1990 Sex: Female PCP: Cassie Salomon MD Marital Status: Phone: PCP: Race: White Ethnicity: Not or Language: Latvian Visit Id: Visit Reason: Vaginal pain; vaginal pain Speciality: Acuity: Enc Type: Observation Med Service: Emergency Medicine Arrival: 01/15/2025 21:08:35 Discharge: Dispo Type: Address: [address] [place] [phone] Preferred Communication Mode: Preferred Language: Latvian Discharge Diagnosis: 1:Lower extremity weakness Discharged To: Home with family care Mode of Discharge Transportation: Private vehicle Home Treatments: Devices/Equipment: Professional Skilled Services: Special Services and Community Resources: Discharge Orders: Tube Feeding and Supplements Home Health Consult and Ambulatory Referrals Treatment and Wound Care Coughing/Deep Breathing 01/16/25 4:25:00 EST, Stop date 01/16/25 4:25:00 EST, Encourage patient to perform Q1 hour while awake Skin Care: Skin Integrity: Intact Skin Abnormalities: Lines/Devices/BM Information: Urinary Catheter Type: Urinary Catheter Size: Urinary Catheter Activity Date: Pre-insertion Indwelling Catheter Education: Ostomy Type: GI Tube Type: GI Tube Size: GI Tube Activity Date: Date of Last Bowel Movement: 01/16/25 Functional Status: Sensory Deficits: Valuables/Belongings: Glasses, Electronics History of Falls Within 6 Months: No High Fall Risk Interventions: Activities of Daily Living: ADLs: Minimal assistance Bathing ADL: Independent (2) Dressing ADL: Independent (2) Personal Care Provided: Linens changed, Shower Bed Mobility Assistance: Independent Ambulation Assistance: Standby assistance Musculoskeletal Abnormality: Gait: Steady Assistive Devices: Special Orthopedic Devices: Current Level of Assistance for Self Care/Mobility: Cognitive Status: Orientation Assessment: Oriented x 4 Level of Consciousness: Alert Characteristics of Speech: Clear Aspiration Risk: None Affect/Behavior: Appropriate, Calm, Cooperative Smoking Status Never (less than 100 in lifetime) Laboratory or Other Results This Visit (last charted value for your 01/15/2025 visit) Hematology 01/17/2025 5:06 AM WBC: 7.9 x10 RBC: 3.58 x10 MCV: 91.1 fL -- Normal range between ( 80.0 and 100.0 ) MCHC: 33.8 % -- Normal range between ( 31.0 and 37.0 ) Hct: 32.6 % -- Normal range between ( 36.0 and 46.0 ) MCH: 30.8 pg -- Normal range between ( 27.0 and 35.0 ) Hgb: 11.0 g/dL -- Normal range between ( 12.0 and 16.0 ) Mean Platelet Volume: 7.7 fL -- Normal range between ( 6.7 and 10.6 ) Platelet: 198 x10 RDW: 13.5 % -- Normal range between ( 11.6 and 14.8 ) 01/16/2025 6:31 AM Sed Rate: 12 mm/hr -- Normal range between ( 0 and 23 ) 01/15/2025 10:14 PM Neutro Auto: 68.8 % -- Normal range between ( 47.2 and 70.8 ) Lymph Auto: 28.8 % -- Normal range between ( 27.2 and 40.8 ) Boundary Auto: 1.3 % -- Normal range between ( 3.7 and 11.9 ) Eos Auto: 0.7 % -- Normal range between ( 0.0 and 5.4 ) Basophil Auto: 0.4 % -- Normal range between ( 0.0 and 1.5 ) Baso Absolute: 0.0 x10 Lymph Absolute: 2.7 x10 Boundary Absolute: 0.1 x10 Neutro Absolute: 6.4 x10 Eos Absolute: 0.1 x10 Urinalysis 01/15/2025 10:34 PM UA Color: Yellow UA Urobilinogen: Normal mg/dL UA Bili: Negative UA Ketones: Negative mg/dL UA Leukocyte Esterase: Negative UA Nitrite: Negative UA Glucose: Normal mg/dL UA Bacteria: Present /HPF UA Protein: Negative mg/dL UA Blood: Negative UA Spec Grav: 1.022 -- Normal range between ( 1.003 and 1.035 ) UA pH: 6.0 UA Clarity: Clear UA Source: Clean Catch UA Mucus: Present /LPF UA WBC Quant: 0 /HPF -- Normal range between ( 0 and 5 ) UA RBC Quant: 0 /HPF -- Normal range between ( 0 and 5 ) UA Squepi Cells Quant: 12 /HPF -- Normal range between ( 0 and 29 ) Chemistry 01/17/2025 5:06 AM Creatinine Lvl: 0.92 mg/dL -- Normal range between ( 0.44 and 1.03 ) BUN: 8 mg/dL -- Normal range between ( 8 and 26 ) Glucose Lvl: 87 mg/dL -- Normal range between ( 70 and 99 ) Potassium Lvl: 4.3 mmol/L -- Normal range between ( 3.4 and 4.8 ) Sodium Lvl: 137 mmol/L -- Normal range between ( 133 and 142 ) Calcium Lvl: 8.7 mg/dL -- Normal range between ( 8.5 and 10.3 ) Chloride: 105 mmol/L -- Normal range between ( 98 and 110 ) CO2: 25 mmol/L -- Normal range between ( 22 and 32 ) Anion Gap: 7 -- Normal range between ( 4 and 12 ) Estimated GFR: >60 mL/min/1.73m? BUN Crea Ratio: 8.7 -- Normal range between ( 10.0 and 20.0 ) 01/16/2025 12:32 PM 6 Hour Troponin: <0.03 ng/mL -- Normal range between ( 0.00 and 0.03 ) 6 (more content not included)... Normal [facility] .eGFRon 01-17-2025 GFR/1.73 sq M.predicted MDRD (S/P/Bld) [Vol rate/Area] mL/min/{1.73_m2} Normal >=60 [facility] Comment on above: Result Comment: [facility] have implemented the eGFR calculation approach that does not have a coefficient for race and that conforms to the NKF-ASN Task Force Recommendations. Stages of Chronic Kidney Disease GFR Stage 3a Mild to moderate loss of kidney function 59 to 45 Stage 3b Moderate to severe loss of kidney function 44 to 33 Stage 4 Severe loss of kidney function 29 to 15 Stage 5 Kidney failure Less than 15 GFR calculated using the CKD-Epi Creatinine Equation (2020): eGFR = 142 X min(SCr/?, 1)? X max(SCr /?, 1)-1.200 X 0.9938Age X 1.012 [if female] Abbreviations/Units: eGFR (estimated glomerular filtration rate) = mL/min/1.73 m2 SCr (standardized serum creatinine) = mg/dL ? = 0.7 (females) or 0.9 (males) ? = -0.241 (females) or -0.302 (males) min = indicates the minimum of SCr/? or 1 max = indicates the maximum of SCr/? or 1 Age = years Performed By: #### C [id number] #### [facility] [address] [place] [address] Basic Metabolic Profileon Anion gap [Moles/Vol] 7 mmol/L Normal 4-12 [facility] Comment on above: Performed By: #### M G #### [facility] [address] [place] [address] Calcium [Mass/Vol] 8.7 mg/dL Normal 8.5-10.3 [facility] Comment on above: Performed By: #### M G #### [address] [address] [place] [address] Chloride [Moles/Vol] 105 mmol/L Normal 98-110 [facility] Comment on above: Performed By: #### M G #### [address] [address] CO2 [Moles/Vol] 25 mmol/L Normal 22-32 [facility] Comment on above: Performed By: #### M G #### [address] [address] Creatinine [Mass/Vol] 0.92 mg/dL Normal 0.44-1.03 [facility] Comment on above: Performed By: #### M G #### [address] [address] Glucose [Mass/Vol] 87 mg/dL Normal 70-99 [facility] Comment on above: Performed By: #### M G #### [address] [address] Potassium [Moles/Vol] 4.3 mmol/L Normal 3.4-4.8 [facility] Comment on above: Performed By: #### M G #### [address] [address] Sodium [Moles/Vol] 137 mmol/L Normal 133-142 [facility] Comment on above: Performed By: #### M G #### [address] [address] Urea nitrogen [Mass/Vol] 8 mg/dL Normal 8-26 [facility] Comment on above: Performed By: #### M G #### [address] [address] Urea nitrogen/Creatinine [Mass ratio] 8.7 mg/mg Low 10.0-20.0 [facility] Comment on above: Performed By: #### M G #### [address] [address] C Urineon 01-17-2025 C Urine -- - Final No growth of uropathogens Normal [facility] Comment on above: Performed By: #### C BCI #### [address] [address] CBCon 01-17-2025 Erythrocyte distribution width (RBC) [Ratio] 13.5 % Normal 11.6-14.8 [facility] Comment on above: Performed By: #### C [id number] #### [address] [address] Hematocrit (Bld) [Volume fraction] 32.6 % Low 36.0-46.0 [facility] Comment on above: Performed By: #### C [id number] #### [address] [address] Hemoglobin (Bld) [Mass/Vol] 11.0 g/dL Low 12.0-16.0 [facility] Comment on above: Performed By: #### C [id number] #### [address] [address] MCH (RBC) [Entitic mass] 30.8 pg Normal 27.0-35.0 [facility] Comment on above: Performed By: #### C [id number] #### [address] [address] MCHC 33.8 % Normal 31.0-37.0 [facility] Comment on above: Performed By: #### C [id number] #### [address] [address] MCV (RBC) [Entitic vol] 91.1 fL Normal 80.0-100.0 [facility] Comment on above: Performed By: #### C [id number] #### [address] [address] Platelet 198 x10*3/mcL Normal 150-450 [facility] Comment on above: Performed By: #### C [id number] #### [address] [address] Platelet mean volume (Bld) [Entitic vol] 7.7 fL Normal 6.7-10.6 [facility] Comment on above: Performed By: #### C [id number] #### [address] [place] [address] RBC 3.58 x10*6/mcL Low 3.80-5.20 [facility] Comment on above: Performed By: #### C [id number] #### [address] [place] [address] WBC 7.9 x10*3/mcL Normal 4.5-11.0 [facility] Comment on above: Performed By: #### C [id number] #### [address] [address] MRI Brain w/ + w/o Contrasto n 01-17-2025 MRI Brain w/ + w/o Contrast MRI BRAIN WITH AND WITHOUT CONTRAST; 01/16/2025 11:00 PM EST History:Other (please specify), Demyelinating disease Comparison: Unenhanced study 01/17/2022 . SEQUENCES: Per extended routine protocol. Additional sagittal T2 FLAIR STUDY QUALITY: Moderate motion artifact on sagittal T1. No evidence of acute infarction. No intracranial restricted diffusion. No unexpected paramagnetic substance deposition. No evidence of white matter disease. The corpus callosum and the callosal septal interface are unremarkable in appearance. The brachium ponti are unremarkable. No intracranial mass or mass effect effect. No midline shift. No distinct evidence of abnormal intracranial enhancement VESSELS: Signal voids are present in the major intracranial blood vessels. Unremarkable vascular enhancement BRAIN VOLUME: Normal. VENTRICLES: No hydrocephalus. ORBITS: No acute findings. SELLA/ SUPRASELLAR: No acute findings. CP ANGLES: No acute findings. UPPER CERVICAL: No acute findings. PARANASAL SINUSES: No air-fluid levels. Areas of minimal mucosal thickening MASTOIDS: Essentially clear at MRI CALVARIUM: No acute findings. OTHER: None. IMPRESSION: 1. No evidence of acute intracranial process. Final Dictated by: Blaine Richard MD Dictated DT/TM: 01/17/2025 10:20 am Signed by: Blaine Richard MD Signed (Electronic Signature): 01/17/2025 10:28 am (If Report Is Signed, Electronically Signed in Other Vendor System) Normal [facility] Comment on above: Order Comment: call before 30 minutes before to medicate patient MRI Spine Cervical w/ + w/o Contraston 01-17-2025 MRI Spine Cervical w/ + w/o Contrast HISTORY: Numbness in the vaginal area, leg pain nausea and vomiting. MRI Spine Cervical w/ + w/o Contrast: 01/16/2025 11:00 PM EST COMPARISON: None. TECHNIQUE: Multiple, multisequence MR images of the cervical spine were obtained prior to and following the intravenous administration of gadolinium. FINDINGS: A few images are slightly degraded by breathing motion artifact. There is straightening of the normal cervical lordosis. There is severe discogenic disease at the C5-C6 level with adjacent small Schmorl's node deformities and chronic type III Modic endplate change. There is also evidence of mild discogenic disease at the C3-C4 and C6-C7 level. The bone marrow signal intensity appears age appropriate. The craniovertebral junction appears grossly within normal limits. There is mild diffuse narrowing of the AP dimension of the cervical spinal canal at the C3-C4 through the C6-C7 level secondary to short pedicles. C2-C3 level: No significant disc protrusion, spinal canal stenosis, or foraminal narrowing is seen. C3-C4 level: There is a small broad-based central disc protrusion contribute to mild spinal canal stenosis. No significant foraminal narrowing is seen. C4-C5 level: There is a small central/left paracentral disc protrusion contributing to mild spinal canal stenosis. No foraminal narrowing is seen. C5-C6 level: There is a small left paracentral disc-osteophyte complex contributing to mild spinal canal stenosis. Uncovertebral arthropathy on the left causes mild left foraminal narrowing. No right foraminal narrowing. C6-C7 level: There is a small left paracentral disc protrusion contributing to mild spinal canal stenosis. No foraminal narrowing. C7-T1 level: No significant disc protrusion, spinal canal stenosis, or foraminal narrowing is seen. The signal intensity of the cervical spinal cord appears grossly within normal limits and no abnormal enhancement of the cervical spinal cord or thecal sac is seen. IMPRESSION: 1. 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 2. There is mild left foraminal narrowing at the C5-C6 level secondary to uncovertebral arthropathy. No other significant foraminal narrowing is seen. 3. 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 4. No signal abnormality or abnormal enhancement of the cervical spinal cord is seen. 5. There is straightening of the normal cervical lordosis and this may be related to patient positioning for this study or it could be related to an underlying muscular spasm. Final Dictated by: Cassie Anthony MD Dictated DT/TM: 01/17/2025 7:14 am Signed by: Cassie Anthony MD Signed (Electronic Signature): 01/17/2025 7:21 am (If Report Is Signed, Electronically Signed in Other Vendor System) Normal [facility] Neurology Progress Noteon Neurology Progress Note Subjective Discussed with patient and . reports the patient has actually been dealing with her symptoms for about 3 years. Neurological workup for multiple sclerosis as well as spinal stenosis is unremarkable. Brain MRI without and with contrast is normal cervical spine MRI without and with contrast shows mild narrowing of the spinal canal there is no cord compression or cord enhancement. Subsequently I did tell the patient as well as her the major issue is versus fibromyalgia. She is already been on steroids, Lyrica, Cymbalta, Savella, and has done best with gabapentin she already has a fibromyalgia DrSherie Schilling. From a neurological perspective I do believe her workup is complete. There is no evidence of Guillain-Mariano?. Review of Systems Constitutional: [No fevers, chills, sweats] Eye: [No recent visual problems] ENMT: [No ear pain, nasal congestion, sore throat] Respiratory: [No shortness of breath, cough] Cardiovascular: [No Chest pain, palpitations, syncope] Gastrointestinal: [No nausea, vomiting, diarrhea] Genitourinary: [No hematuria] Objective Vitals & Measurements T: 36.7 ?C (Oral) HR: 86 (Monitored) RR: 18 BP: 112/76 SpO2: 96% HT: 158 cm WT: 78.8 kg BMI: 30.92 Additional Vitals No qualifying data available. Lab Results Test Name Test Result Date/Time WBC 7.9 x10 Hgb 11.0 g/dL (Low) 01/17/2025 05:06 EST Platelet 198 x10 Sodium Lvl 137 mmol/L 01/17/2025 05:06 EST Potassium Lvl 4.3 mmol/L 01/17/2025 05:06 EST Chloride 105 mmol/L 01/17/2025 05:06 EST CO2 25 mmol/L 01/17/2025 05:06 EST Glucose Lvl 87 mg/dL 01/17/2025 05:06 EST BUN 8 mg/dL 01/17/2025 05:06 EST Creatinine Lvl 0.92 mg/dL 01/17/2025 05:06 EST Microbiology - Current Encounter Culture Urine: Auth (Verified) NEG (01/15/25) Diagnostic Results Diagnostic Radiology XR Chest 1 View 01/16/25 02:20:48 IMPRESSION: 1. No acute cardiopulmonary abnormality. Signed By: Merari BLANCO, Caroline Mone Computed Tomography CT Abdomen Pelvis w/ IV Contrast 01/16/25 01:59:05 IMPRESSION: 1. Liquid stool throughout the colon, in keeping with diarrhea. 2. Status post appendectomy and hysterectomy. 3. Collapsing left ovarian hemorrhagic cyst with a small right adnexal cystic structure. There is a small amount of free fluid in the pelvis. These findings could be further evaluated with a pelvic ultrasound examination if clinically indicated. Signed By: Alo BLANCO, Matias Murray [facility] MRI Brain w/ + w/o Contrast 01/17/25 10:28:47 IMPRESSION: 1. No evidence of acute intracranial process. Signed By: Hilary BLANCO, Blaine Thomas MRI Spine Cervical w/ + w/o Contrast 01/17/25 07:21:35 IMPRESSION: 1. 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 2. There is mild left foraminal narrowing at the C5-C6 level secondary to uncovertebral arthropathy. No other significant foraminal narrowing is seen. 3. 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 4. No signal abnormality or abnormal enhancement of the cervical spinal cord is seen. 5. There is straightening of the normal cervical lordosis and this may be related to patient positioning for this study or it could be related to an underlying muscular spasm. Signed By: Cassie Anthony MD MRI Spine Lumbar w/o Contrast 01/16/25 01:18:19 IMPRESSION: Evaluation of the thoracic spine is somewhat limited due to motion artifacts. 1. Considering limitations, no acute fracture or subluxation. 2. No acute fracture or subluxation in the lumbar spine. 3. No high-grade spinal canal or foraminal stenosis in the thoracolumbar spine. Signed By: Gladys Eduardo MD MRI Spine Thoracic w/o Contrast 01/16/25 01:18:19 IMPRESSION: Evaluation of the thoracic spine is somewhat limited due to motion artifacts. 1. Considering limitations, no acute fracture or subluxation. 2. No acute fracture or subluxation in the lumbar spine. 3. No high-grade spinal canal or foraminal stenosis in the thoracolumbar spine. Signed By: Gladys Eduardo MD Physical Exam [place] x 3 normal speech cranial nerves II through XII are symmetric. Still has some mild weakness in her proximal lower extremities deep tendon reflexes are 2-3+ throughout toes are downgoing there is no dysmetria there is no sensory level cerebellar function is normal Medications Inpatient acetaminophen, 650 mg, Oral, q6hr, PRN acetaminophen, 650 mg, Oral, q6hr, PRN ALPRAZolam, 0.5 mg, Oral, TID, PRN docusate sodium, 100 mg, Oral, Daily, PRN enoxaparin, 40 mg= 0.4 mL, Subcutaneous, Daily gabapentin, 800 mg, Oral, BID gabapenti (more content not included)... Normal [facility] Progress Note-Nurseon 2024 Progress Note-Nurse Report called to Debbie GALLEGO on 4th floor. Patient updated regarding room change. Electronically signed by [facility] Janet 01/17/25 19:41 EST [facility] Progress Note-Nurse Instructional Technology Teacher entered room to give PRN Toradol, patient then states that she wants to hold off taking it. Patient also wanted to know what time she could have the anxiety medication. Instructional Technology Teacher informed patient that she can have PRN Xanax anytime and patient wanted to hold off for a while. Patient said she would call when she wanted the pain med or anxiety med. Electronically signed by [facility] Janet 01/17/25 19:06 EST [facility] .eGFRon 01-16-2025 GFR/1.73 sq M.predicted MDRD (S/P/Bld) [Vol rate/Area] mL/min/{1.73_m2} Normal >=60 [facility] Comment on above: Order Comment: Order added by Discern rule Result Comment: [facility] have implemented the eGFR calculation approach that does not have a coefficient for race and that conforms to the NKF-ASN Task Force Recommendations. Stages of Chronic Kidney Disease GFR Stage 3a Mild to moderate loss of kidney function 59 to 45 Stage 3b Moderate to severe loss of kidney function 44 to 33 Stage 4 Severe loss of kidney function 29 to 15 Stage 5 Kidney failure Less than 15 GFR calculated using the CKD-Epi Creatinine Equation (2020): eGFR = 142 X min(SCr/?, 1)? X max(SCr /?, 1)-1.200 X 0.9938Age X 1.012 [if female] Abbreviations/Units: eGFR (estimated glomerular filtration rate) = mL/min/1.73 m2 SCr (standardized serum creatinine) = mg/dL ? = 0.7 (females) or 0.9 (males) ? = -0.241 (females) or -0.302 (males) min = indicates the minimum of SCr/? or 1 max = indicates the maximum of SCr/? or 1 Age = years Performed By: #### M G #### [address] [address] AMI 2Hron 01-16-2025 2 Hour Myoglobin 12.6 ng/mL Low 14.3-65.8 [facility] Comment on above: Performed By: #### A MI2 #### [place] [address] 2 Hour Troponin <0.03 Normal 0.00-0.03 [facility] Comment on above: Result Comment: An i ncreased Troponin-I value, in the absence of myocardial ischemia, may indicate other etiologies of cardiac damage. 99th Percentile Cutoff for Negative/Positive: Negative <= 0.03 Positive >= 0.04 Performed By: #### A MI2 #### [address] [address] AMI Initon 01-16-2025 Initial Myoglobin 13.3 ng/mL Low 14.3-65.8 [facility] Comment on above: Performed By: #### M G #### [address] [address] Initial Troponin <0.03 Normal 0.00-0.03 [facility] Comment on above: Result Comment: An i ncreased Troponin-I value, in the absence of myocardial ischemia, may indicate other etiologies of cardiac damage. 99th Percentile Cutoff for Negative/Positive: Negative <= 0.03 Positive >= 0.04 Performed By: #### M G #### [address] [address] [id number] 01-16-2025 6 Hour Myoglobin 11.9 ng/mL Low 14.3-65.8 [facility] Comment on above: Performed By: #### C BCI #### [address] [address] 6 Hour Troponin <0.03 Normal 0.00-0.03 [facility] Comment on above: Result Comment: An i ncreased Troponin-I value, in the absence of myocardial ischemia, may indicate other etiologies of cardiac damage. 99th Percentile Cutoff for Negative/Positive: Negative <= 0.03 Positive >= 0.04 Performed By: #### C BCI #### [address] [address] B12/Folate Lvlon 01-16-2025 Cobalamin (Vitamin B12) [Mass/Vol] 431 pg/mL Normal 180-914 [facility] Comment on above: Performed By: #### U CI #### [address] [address] Folate Lvl 16.8 ng/mL Normal >=5.9 [facility] Comment on above: Result Comment: A WH O Technical Consultation has determined that deficient Folate concentrations are considered to be less than 4 ng/mL. Performed By: #### U CI #### [address] [address] Basic Metabolic Profileon Anion gap [Moles/Vol] 5 mmol/L Normal 4-12 [facility] Comment on above: Performed By: #### C [id number] #### [address] [address] Calcium [Mass/Vol] 8.3 mg/dL Low 8.5-10.3 [facility] Comment on above: Performed By: #### C [id number] #### [address] [address] Chloride [Moles/Vol] 104 mmol/L Normal 98-110 [facility] Comment on above: Performed By: #### C [id number] #### [address] [address] CO2 [Moles/Vol] 23 mmol/L Normal 22-32 [facility] Comment on above: Performed By: #### C [id number] #### [address] [address] Creatinine [Mass/Vol] 0.74 mg/dL Normal 0.44-1.03 [facility] Comment on above: Performed By: #### C [id number] #### [address] [address] Glucose [Mass/Vol] 108 mg/dL High 70-99 [facility] Comment on above: Performed By: #### C [id number] #### [address] [address] Potassium [Moles/Vol] 4.3 mmol/L Normal 3.4-4.8 [facility] Comment on above: Performed By: #### C [id number] #### [address] [address] Sodium [Moles/Vol] 132 mmol/L Low 133-142 [facility] Comment on above: Performed By: #### C [id number] #### [address] [address] Urea nitrogen [Mass/Vol] 12 mg/dL Normal 8-26 [facility] Comment on above: Performed By: #### C [id number] #### [address] [address] Urea nitrogen/Creatinine [Mass ratio] 16.2 mg/mg Normal 10.0-20.0 [facility] Comment on above: Performed By: #### C [id number] #### [address] [address] CBCon 01-16-2025 Erythrocyte distribution width (RBC) [Ratio] 13.2 % Normal 11.6-14.8 [facility] Comment on above: Performed By: #### C BCI #### [address] [address] Hematocrit (Bld) [Volume fraction] 33.6 % Low 36.0-46.0 [facility] Comment on above: Performed By: #### C BCI #### [address] [address] Hemoglobin (Bld) [Mass/Vol] 11.6 g/dL Low 12.0-16.0 [facility] Comment on above: Performed By: #### C BCI #### [address] [address] MCH (RBC) [Entitic mass] 31.0 pg Normal 27.0-35.0 [facility] Comment on above: Performed By: #### C BCI #### [address] [address] MCHC 34.6 % Normal 31.0-37.0 [facility] Comment on above: Performed By: #### C BCI #### [address] [address] MCV (RBC) [Entitic vol] 89.6 fL Normal 80.0-100.0 [facility] Comment on above: Performed By: #### C BCI #### [address] [address] Platelet 221 x10*3/mcL Normal 150-450 [facility] Comment on above: Performed By: #### C BCI #### [address] [address] Platelet mean volume (Bld) [Entitic vol] 7.8 fL Normal 6.7-10.6 [facility] Comment on above: Performed By: #### C BCI #### [address] [address] RBC 3.75 x10*6/mcL Low 3.80-5.20 [facility] Comment on above: Performed By: #### C BCI #### [address] [address] WBC 11.7 x10*3/mcL High 4.5-11.0 [facility] Comment on above: Performed By: #### C BCI #### [facility] [address] [place] [address] CPKon 01-16-2025 Creatine Phosphokinase 20 IU/L Low 38-234 [facility] Comment on above: Performed By: #### U CI #### [facility] [address] [place] [address] CRPon 01-16-2025 CRP 2.16 mg/dL High 0.00-0.75 [facility] Comment on above: Result Comment: CRP measurement is useful for assessment of non-specific INFLAMMATORY RESPONSE to infection or injury AND is a sensitive MARKER of ACUTE INFLAMMATION including CARDIAC RISK ASSESSMENT. CARDIAC patients with elevated CRP are POTENTIALLY at a HIGHER RISK OF FUTURE CARDIAC EVENTS. Performed By: #### U CI #### [address] [address] [address] Abdomen Pelvis w/ IV Cont raston 01-16-2025 CT Abdomen Pelvis w/ IV Contrast EXAMINATION: CT Abdomen Pelvis w/ IV Contrast, 01/15/2025 11:01 PM MST HISTORY: Abdominal pain, generalized, COMPARISON: CT abdomen and pelvis examination dated 06/28/2023. TECHNIQUE: CT scan of the abdomen and pelvis was performed with IV contrast. CT dose reduction technique was used, including Automated Exposure Control. FINDINGS: There is mild bibasilar atelectasis. Abdomen: The liver and spleen enhance homogeneously without focal lesion. There is no intra or extrahepatic biliary duct dilatation. The gallbladder is unremarkable. There are a couple subcentimeter hypodensities in the kidneys that are too small to characterize by CT size criteria. Otherwise, the pancreas, adrenal glands, and kidneys are unremarkable. There is no mesenteric or retroperitoneal lymphadenopathy. Liquid stool is seen throughout the colon. The patient is status post an appendectomy. Pelvis: The bladder and rectum are unremarkable. There is no iliac or inguinal lymphadenopathy. The patient is status post a hysterectomy. There is a collapsing left ovarian hemorrhagic cyst measuring up to 1.9 x 1.5 cm (series 2, image 111). There is a right adnexal cystic structure measuring up to 2.4 x 2.1 cm (series 2, image 120). There is a small amount of free fluid in the pelvis. Bone windows show no aggressive osseous lesions. IMPRESSION: 1. Liquid stool throughout the colon, in keeping with diarrhea. 2. Status post appendectomy and hysterectomy. 3. Collapsing left ovarian hemorrhagic cyst with a small right adnexal cystic structure. There is a small amount of free fluid in the pelvis. These findings could be further evaluated with a pelvic ultrasound examination if clinically indicated. Radiation Dose Estimate: CTDI(mGy):0.234725 / / / kVp:120.865413 / mAs:0.026229 / / / DLP(mGy-cm):3.000139Tt dy Part: Abdomen CTDI(mGy):13.072265 / / / kVp:100.363941 / mAs:184.100742 / / / DLP(mGy-cm):657.386612 Body Part: Abdomen Final Dictated by: Matias Prajapati MD Dictated DT/TM: 01.16.2025 1:53 am Signed by: Matias Prajapati MD Signed (Electronic Signature): 01.16.2025 1:59 am (If Report Is Signed, Electronically Signed in Other Vendor System) Normal [facility] CoV2 [place] 01-16-2025 Influenza A PCR Negative Normal Negative [facility] Comment on above: Performed By: #### U CI #### [place] [address] Influenza B PCR Negative Normal Negative [facility] Comment on above: Performed By: #### U CI #### [place] [address] LAB ONLY Result Called? No Normal B [facility] Comment on above: Performed By: #### U CI #### [place] [address] RSV PCR Negative Normal Negative [facility] Comment on above: Result Comment: Resu lts from the Xpert Flu/RSV XC Assay should be interpreted with other laboratory and clinical data available to the clinician. Negative results do not preclude influenza virus or RSV infection and should not be used as the sole basis for treatment or other patient management decisions. False negative results may occur if the virus is present at levels below the analytical limit of detection. Recent exposure to FluMist or other live, attenuated influenza vaccines may cause inaccurate positive results. Performed By: #### U CI #### [address] [address] SARS-CoV-2 RNA Detection Negative Normal Negative [facility] Comment on above: Result Comment: The 2019 novel coronavirus SARS-CoV-2 target nucleic acids are not detected. The Xpert Xpress SARS-CoV-2/Flu/RSV plus test is a rapid, multiplexed real-time RT-PCR test intended for the simultaneous qualitative detection and differentiation of SARS-CoV-2, influenza A, influenza B, and respiratory syncytial virus (RSV) viral RNA in either nasopharyngeal swab or nasal swab collected from individuals suspected of respiratory viral infection consistent with COVID-19 by their healthcare provider. Performed By: #### U CI #### [address] [address] ED Clinical Summaryon 2024 ED Clinical Summary [address] [address] ED Clinical Summary Person Information Name: Analy Gonzalez [facility] Age: 34 Years : 1990 Sex: Female PCP: Cassie Salomon MD Marital Status: Phone: Race: White Ethnicity: Not or Language: Latvian Visit Reason: Vaginal pain; vaginal pain Acuity: 3 Enc Type: Observation Med Service: Emergency Medicine Arrival: 01/15/2025 21:08:35 Discharge: LOS: 000 21:37 Checkin: 01/15/2025 21:08:35 Checkout: 01/16/2025 18:45:12 Dispo Type: Address: [address] [place] [id number] Provider Notes: Diagnosis: 1:Lower extremity weakness Problems No Problems Documented Smoking Status: Smoking Status Never (less than 100 in lifetime) Functional Status: Sensory Deficits: History of Falls: Mobility Assistance Prior to Admission: ADLs: Current Level of Assistance for Self-Care/Mobility: Cognitive Status: Allergies penicillin (Rash) Laboratory or Other Results This Visit (last charted value for your 01/15/2025 visit) Hematology 01/16/2025 6:31 AM WBC: 11.7 x10 RBC: 3.75 x10 MCV: 89.6 fL -- Normal range between ( 80.0 and 100.0 ) MCHC: 34.6 % -- Normal range between ( 31.0 and 37.0 ) Hct: 33.6 % -- Normal range between ( 36.0 and 46.0 ) MCH: 31.0 pg -- Normal range between ( 27.0 and 35.0 ) Hgb: 11.6 g/dL -- Normal range between ( 12.0 and 16.0 ) Mean Platelet Volume: 7.8 fL -- Normal range between ( 6.7 and 10.6 ) Platelet: 221 x10 RDW: 13.2 % -- Normal range between ( 11.6 and 14.8 ) Sed Rate: 12 mm/hr -- Normal range between ( 0 and 23 ) 01/15/2025 10:14 PM Neutro Auto: 68.8 % -- Normal range between ( 47.2 and 70.8 ) Lymph Auto: 28.8 % -- Normal range between ( 27.2 and 40.8 ) Boundary Auto: 1.3 % -- Normal range between ( 3.7 and 11.9 ) Eos Auto: 0.7 % -- Normal range between ( 0.0 and 5.4 ) Basophil Auto: 0.4 % -- Normal range between ( 0.0 and 1.5 ) Baso Absolute: 0.0 x10 Lymph Absolute: 2.7 x10 Boundary Absolute: 0.1 x10 Neutro Absolute: 6.4 x10 Eos Absolute: 0.1 x10 Urinalysis 01/15/2025 10:34 PM UA Color: Yellow UA Urobilinogen: Normal mg/dL UA Bili: Negative UA Ketones: Negative mg/dL UA Leukocyte Esterase: Negative UA Nitrite: Negative UA Glucose: Normal mg/dL UA Bacteria: Present /HPF UA Protein: Negative mg/dL UA Blood: Negative UA Spec Grav: 1.022 -- Normal range between ( 1.003 and 1.035 ) UA pH: 6.0 UA Clarity: Clear UA Source: Clean Catch UA Mucus: Present /LPF UA WBC Quant: 0 /HPF -- Normal range between ( 0 and 5 ) UA RBC Quant: 0 /HPF -- Normal range between ( 0 and 5 ) UA Squepi Cells Quant: 12 /HPF -- Normal range between ( 0 and 29 ) Chemistry 01/16/2025 12:32 PM 6 Hour Troponin: <0.03 ng/mL -- Normal range between ( 0.00 and 0.03 ) 6 Hour Myoglobin: 11.9 ng/mL -- Normal range between ( 14.3 and 65.8 ) 01/16/2025 10:22 AM 2 Hour Troponin: <0.03 ng/mL -- Normal range between ( 0.00 and 0.03 ) 2 Hour Myoglobin: 12.6 ng/mL -- Normal range between ( 14.3 and 65.8 ) 01/16/2025 6:31 AM Creatinine Lvl: 0.74 mg/dL -- Normal range between ( 0.44 and 1.03 ) BUN: 12 mg/dL -- Normal range between ( 8 and 26 ) Glucose Lvl: 108 mg/dL -- Normal range between ( 70 and 99 ) Potassium Lvl: 4.3 mmol/L -- Normal range between ( 3.4 and 4.8 ) CRP: 2.16 mg/dL -- Normal range between ( 0.00 and 0.75 ) Sodium Lvl: 132 mmol/L -- Normal range between ( 133 and 142 ) Folate Lvl: 16.8 ng/mL Calcium Lvl: 8.3 mg/dL -- Normal range between ( 8.5 and 10.3 ) Phosphorus: 2.5 mg/dL -- Normal range between ( 2.5 and 4.6 ) Prolactin: 17.34 ng/mL Magnesium Lvl: 2.0 mg/dL -- Normal range between ( 1.7 and 2.4 ) Vitamin B12 Lvl: 431 pg/mL -- Normal range between ( 180 and 914 ) Chloride: 104 mmol/L -- Normal range between ( 98 and 110 ) CO2: 23 mmol/L -- Normal range between ( 22 and 32 ) Anion Gap: 5 -- Normal range between ( 4 and 12 ) Estimated GFR: >60 mL/min/1.73m? BUN Crea Ratio: 16.2 -- Normal range between ( 10.0 and 20.0 ) Creatine Phosphokinase: 20 IU/L -- Normal range between ( 38 and 234 ) Initial Troponin: <0.03 ng/mL -- Normal range between ( 0.00 and 0.03 ) Initial Myoglobin: 13.3 ng/mL -- Normal range between ( 14.3 and 65.8 ) Vitamin D 25-Hydroxy Total: 18 ng/mL -- Normal range between ( 30 and 100 ) 01/15/2025 10:34 PM Ur Creatinine Tox Scrn: 125.3 mg/dL 01/15/2025 10:14 PM AST: 14 IU/L -- Normal range between ( 15 and 41 ) ALT: 15 IU/L -- Normal range between ( 14 and 54 ) Troponin-I: <0.03 ng/mL -- Normal range between ( 0.00 and 0.03 ) Albumin Lvl: 3.8 g/dL -- Normal range between ( 3.2 and 4.9 ) Total Protein: 6.7 g/dL -- Normal range between ( 6.5 and 8.1 ) Bili Total: 0.3 mg/dL -- Normal range between ( 0.3 and 1.2 ) Alk Phos: 43 IU/L -- Normal range between ( 32 and 91 ) TSH: 3.70 mcIU/mL - (more content not included)... Normal [facility] ED Note-Nursingon 01-16-2025 ED Note-Nursing Pt complains of pain . Pt given options of pain medications available at this time. Toradol 15 mg IVP and tramdol oral given for pain control. Pt also request 1 mg Ativan ordered by Dr. Valdovinos. Electronically signed by Filomena Vargas R 01/16/25 18:21 EST Normal [facility] ED Note-Nursing MRI called for ETA o n when patient will be getting testing done/ MRI states they will not be able to take her until approx 2300/ 2330 tonight. Pt notified Electronically signed by Filomena Vargas R 01/16/25 18:20 EST Normal [facility] ED Note-Nursing Pt requested somethi ng to eat. PT NPO except Ice chips at this time. Dr. Martino contacted. Pt to have [place] Swallow Assessment before any food. [place] swallow completed and pt unable to take full sips of water without difficulty getting it down. Pt did not choke, but states its hard to swallow. Pt informed she needs to remain NPO at this time until evaluated. Electronically signed by Vargas, Filomena 01/16/25 13:43 EST [facility] ED Note-Nursing Pt calling out for pain/ and request something to eat. Dr. Martino notified via [employer] for diet order/ Pt NPO except Ice chips at this time. Electronically signed by Vargas, Filomena 01/16/25 13:04 EST Normal [facility] ED Note-Nursing lab coming to draw 2 hour AMI Electronically signed by Vargas, 01/16/25 10:05 EST Normal [facility] ED Note-Nursing IV potassium stopped per patient request due to burning. Pt refuses to have medication running at this time even when turning NS up. Electronically signed by Vargas, 01/16/25 08:12 EST Normal [facility] ED Note-Nursing Pt reports sensation s have moved to chest and throat. Concerns for GBS made to hospitalist. EKG ordered. Hospitalist to review chart at this time. Will let ER know if Lumbar puncture is ordered Electronically signed by SmaJose Davidsa Miller 01/16/25 08:07 EST Normal [facility] ESRon 01-16-2025 Sed Rate 12 mm/hr Normal 0-23 [facility] Comment on above: Performed By: #### U CI #### [facility] [address] [place] [id number] MRI Spine Lumbar w/o Contras ton 01-16-2025 MRI Spine Lumbar w/o Contrast EXAM TYPE: MRI Spine Lumbar w/o Contrast, MRI Spine Thoracic w/o Contrast EXAM DATE AND TIME: 01/15/2025 10:10 PM CNC MECHANIC INDICATION: 34 years old Female with Other (please specify), back pain, weakness, incontinence COMPARISON: NONE TECHNIQUE: MR imaging of the thoracic and lumbar spine was performed without contrast. FINDINGS: Thoracic spine: Normal thoracic kyphosis. The thoracic vertebrae demonstrate normal height, alignment and marrow signal. Motion artifacts somewhat limit optimal evaluation. No marrow edema or aggressive osseous lesion. The intervertebral disc height is normal T2 signal. No critical spinal canal or foraminal stenosis. The thoracic cord shows normal signal intensity motion artifacts. Lumbar spine: The last fully formed disc space is considered L5-S1. There is mild straightening of the lumbar lordosis. The lumbar vertebrae demonstrate normal height, alignment and marrow signal. No marrow edema or aggressive osseous lesion. No acute fracture or subluxation. Intervertebral disc height is normal in signal. . No abnormal spinal curvature. Vertebral body heights are maintained. Bone marrow signal is unremarkable. The conus terminates at the L1-L2 level and is normal in caliber and signal. Findings by level: T12-L1: No disc herniation. No central canal or foraminal narrowing. L1-L2: No disc herniation. No central canal or foraminal narrowing. L2-L3: No disc herniation. No central canal or foraminal narrowing. L3-L4: No disc herniation. No central canal or foraminal narrowing. L4-L5: No disc herniation. No central canal or foraminal narrowing. L5-S1: No disc herniation. No central canal or foraminal narrowing. IMPRESSION: Evaluation of the thoracic spine is somewhat limited due to motion artifacts. 1. Considering limitations, no acute fracture or subluxation. 2. No acute fracture or subluxation in the lumbar spine. 3. No high-grade spinal canal or foraminal stenosis in the thoracolumbar spine. 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 FINDINGS: Thoracic spine: Normal thoracic kyphosis. The thoracic vertebrae demonstrate normal height, alignment and marrow signal. Motion artifacts somewhat limit optimal evaluation. No marrow edema or aggressive osseous lesion. The intervertebral disc height is normal T2 signal. No critical spinal canal or foraminal stenosis. The thoracic cord shows normal signal intensity motion artifacts. Lumbar spine: The last fully formed disc space is considered L5-S1. There is mild straightening of the lumbar lordosis. The lumbar vertebrae demonstrate normal height, alignment and marrow signal. No marrow edema or aggressive osseous lesion. No acute fracture or subluxation. Intervertebral disc height is normal in signal. . No abnormal spinal curvature. Vertebral body heights are maintained. Bone marrow signal is unremarkable. The conus terminates at the L1-L2 level and is normal in caliber and signal. Findings by level: T12-L1: No disc herniation. No central canal or foraminal narrowing. L1-L2: No disc herniation. No central canal or foraminal narrowing. L2-L3: No disc herniation. No central canal or foraminal narrowing. L3-L4: No disc herniation. No central canal or foraminal narrowing. L4-L5: No disc herniation. No central canal or foraminal narrowing. L5-S1: No disc herniation. No central canal or foraminal narrowing. IMPRESSION: Evaluation of the thoracic spine is somewhat limited due to motion artifacts. 1. Considering limitations, no acute fracture or subluxation. 2. No acute fracture or subluxation in the lumbar spine. 3. No high-grade spinal canal or foraminal stenosis in the thoracolumbar spine. Final Dictated by: Gladys Eduardo MD Dictated DT/TM: 01/16/2025 1:12 am Signed by: Gladys Eduardo MD Signed (Electronic Signature): 01/16/2025 1:18 am (If Report Is Signed, Electronically Signed in Other Vendor System) Normal [facility] Magnesiumon 01-16-2025 Magnesium [Mass/Vol] 2.0 mg/dL Normal 1.7-2.4 [facility] Comment on above: Performed By: #### M G #### [place] [address] Neurology Consultationon Neurology Consultation Chief Complaint numbness in vaginal area started today, 1 episode of incontinence today also, recently released from hospital for stroke-like symptoms related to a migraine, negative for CVA though Reason for Consultation Evaluate for possible demyelinating disease versus stress History of Present Illness 34year-old female with a history of panic attacks as well as fibromyalgia who has approximate 5-day history of paresthesias involving the face upper extremities and lower extremities associated with back pain and then 1 episode of urinary incontinence yesterday. Patient had apparently spent about 2 days at [facility] with her symptoms. She had told the hospital there that she was starting develop symptoms of weakness and paresthesias predominantly involving the extremities associated with difficulty with walking. She was not transferred up to [facility] but had a video consult and she was told that she may be having migraine. She was placed on aspirin and a statin and was discharged with a walker. Unfortunately she continued to have more problems with gait and then with her incontinence of urine she came over to [facility]. Workup to date has included a thoracic spine MRI without contrast that was fairly unremarkable as well as a lumbar sacral MRI that showed mild disc disease spinal cord itself looked normal. Initial blood work is unremarkable sed rate 12 GFR greater than 60 UA 0 WBCs 0 RBCs calcium 8.3 phosphorus 2.8 magnesium 2 CPK 20 C-reactive protein 2.16 prolactin 17.34 B12 431 folate 16.8 vitamin D 25-hydroxy 18 urine toxicology negative influenza A/B- MRSA negative. Patient does have some hyperreflexia based on her exam and history 1 does have to worry about demyelinating disease i.e. MS versus transverse myelitis. She is agreeable to MRI of the brain without and with contrast as well as an MRI of the C-spine without and with contrast. He does report that she does have anxiety and she is agreeable to having her study done with Ativan 1 mg IV which can be repeated x 2. Patient has no history of precipitating trauma. Outpatient she is predominantly using gabapentin and Xanax. 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 She does have 2 children at home. is out of town working but should be in town tomorrow. Review of Systems Constitutional: [No fevers, chills, sweats] Eye: [No recent visual problems] ENMT: [No ear pain, nasal congestion, sore throat] Respiratory: [No shortness of breath, cough] Cardiovascular: [No Chest pain, palpitations, syncope] Gastrointestinal: [No nausea, vomiting, diarrhea] Genitourinary: [No hematuria] urinary incontinence Rufus/Lymph: [Negative for bruising tendency, swollen lymph glands] Endocrine: [Negative for excessive thirst, excessive hunger] Musculoskeletal: Neck and thoracic spine pain x 5 days different than her baseline fibromyalgia Integumentary: [No rash, pruritus, abrasions] Neurologic: [Alert & oriented X 4] this had numbness and paresthesias of the face arm and legs and genital region Psychiatric: [No anxiety, depression] Physical Exam Vitals & Measurements T: 36.9 ?C (Oral) HR: 59 (Monitored) RR: 18 BP: 110/81 SpO2: 98% HT: 170.2 cm WT: 58.6 kg (Dosing) 34-year-old white female well-developed well-nourished alert cooperative for testing HEENT shows the head is normocephalic atraumatic pupils react to light neck is supple cranial nerves II through XII show full extraocular movements jaw and facial strength are normal hearing is intact tongue trapezius and sternocleidomastoid strength are normal. 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 Assessment/Plan 1. Lower extremity weakness Exam is worrisome for demyelinating disease such as cord pathology. Her vitamin D level is low. She will be started on vitamin D 2000 units daily. MRI of the brain without and with contrast and cervical spine MRI without and with contrast was ordered I did discuss my impression with the sister at bedside. Time spent with patient, chart, electronic records 70 minutes Orders: LORazepam, 1 mg, IV Push, Injection, q30min, PRN anxiety, First Dose: 01/16/25 17:57:00 EST, Dispense From Location: [facility], 01/16/25 17:57:00 EST MRI Brain w/ + w/o Contrast MRI Spine Cervical w/ + w/o Contrast Problem List/Past Medical History Ongoing No qualifying data Historical No qualifying data Medications Inpatient acetaminophen, 650 mg, Oral, q6hr, PRN acetaminophen, 650 mg, Oral, q6hr, PRN docusate sodium, 100 mg, Oral, Daily, PRN enoxaparin, 40 mg= 0.4 mL, Subcutaneous, Daily Lactated Ringers Injection intravenous solution 1,0 (more content not included)... Normal [facility] Phosphoruson 01-16-2025 Phosphate [Mass/Vol] 2.5 mg/dL Normal 2.5-4.6 [facility] Comment on above: Performed By: #### C [id number] #### [address] [address] Prolactinon 01-16-2025 Prolactin 17.34 ng/mL Normal [facility] Comment on above: Result Comment: *Prolactin Result Interpretation Pre-Menopausal Female: 3.34-26.72 ng/mL Post-Menopausal Female: 2.74-19.64 ng/mL Performed By: #### C BCI #### [address] [address] TSHon 01-16-2025 TSH Qn 3.70 m[IU]/L Normal 0.45-5.33 [facility] Comment on above: Result Comment: Refe rence Ranges for individuals from to 18 years of age were obtained from The Viridiana Abdalla Handbook (20 ed) published by [facility]. Reference Ranges for Females: Females, 1st Trimester 0.05 ? 3.7 uIU/mL Females, 2nd Trimester 0.31 ? 4.35 uIU/mL Females, 3rd Trimester 0.41 ? 5.18 uIU/mL Performed By: #### U CI #### [place] [id number] Troponin-Ion 01-16-2025 Troponin I.cardiac [Mass/Vol] ng/mL Normal 0.00-0.03 [facility] Comment on above: Result Comment: An i ncreased Troponin-I value, in the absence of myocardial ischemia, may indicate other etiologies of cardiac damage. 99th Percentile Cutoff for Negative/Positive: Negative <= 0.03 Positive >= 0.04 Performed By: #### U CI #### [address] [address] UDS Basicon 01-16-2025 Creatinine [Mass/Vol] 125.3 mg/dL Normal [facility] Comment on above: Performed By: #### C [id number] #### [address] [address] Ur Amph Scrn Negative Normal NEG = <1000 [facility] Comment on above: Performed By: #### C [id number] #### [address] [address] Ur Cannab Scrn Negative Normal NEG = <50 [facility] Comment on above: Performed By: #### C [id number] #### [address] [address] Ur Cocaine Scrn Negative Normal NEG = <300 [facility] Comment on above: Performed By: #### C [id number] #### [address] [address] Ur Opiate Scrn Negative Normal NEG = <300 [facility] Comment on above: Performed By: #### C [id number] #### [address] [address] Ur Oxy Screen Negative Normal NEG = <100 [facility] Comment on above: Performed By: #### C [id number] #### [address] [address] Ur Oxy Scrn Qnt 0 ng/mL Normal <=99 [facility] Comment on above: Performed By: #### C [id number] #### [address] [address] UA pH 6.0 Normal 4.5 - 7.8 [facility] Comment on above: Performed By: #### C [id number] #### [address] [address] UA Spec Grav 1.022 Normal 1.003-1.03 5 [facility] Comment on above: Performed By: #### C [id number] #### [address] [address] Vitamin D 25-Hydroxy Totalon 01-16-2025 Vitamin D 25-Hydroxy Total 18 ng/mL Low 30-100 [facility] Comment on above: Result Comment: Supriya min D 25-Hydroxy Total Reference Range: Deficient: < 20 Insufficient: 20 to < 30 Sufficient: 30 - 100 Upper Safety Limit: > 100 Performed By: #### C [id number] #### [address] [address] XR Chest 1 Viewon 01-16-2025 XR Chest 1 View XR Chest 1 View, 01/15/2025 10:55 PM PST, INDICATION: Cough, TECHNIQUE: Chest, 1 view. COMPARISON: Chest x-ray 01/27/2023 FINDINGS: The cardiac and mediastinal silhouette are normal. The pulmonary vascularity is normal. The lung fletcher are grossly clear without focal area of consolidation. No pleural effusions. There is no evidence of pneumothorax or a displaced rib fracture. IMPRESSION: 1. No acute cardiopulmonary abnormality. Final Dictated by: Caroline Gage MD Dictated DT/TM: 01/16/2025 2:19 am Signed by: Caroline Gage MD Signed (Electronic Signature): 01/16/2025 2:20 am (If Report Is Signed, Electronically Signed in Other Vendor System) Normal [facility] .UA Microscp Aon 01-15-2025 UA Bacteria Present Abnormal Absent [facility] Comment on above: Performed By: #### C BCI #### [place] [address] UA Mucus Present Normal Absent [facility] Comment on above: Performed By: #### C BCI #### [place] [id number] UA RBC Quant 0 /HPF Normal 0-5 [facility] Comment on above: Performed By: #### C BCI #### [address] [address] UA Squepi Cells Quant 12 /HPF Normal 0-29 [facility] Comment on above: Performed By: #### C BCI #### [place] [id number] UA WBC Quant 0 /HPF Normal 0-5 [facility] Comment on above: Performed By: #### C BCI #### [place] [address] .eGFRon 01-15-2025 GFR/1.73 sq M.predicted MDRD (S/P/Bld) [Vol rate/Area] mL/min/{1.73_m2} Normal >=60 [facility] Comment on above: Result Comment: [facility] have implemented the eGFR calculation approach that does not have a coefficient for race and that conforms to the NKF-ASN Task Force Recommendations. Stages of Chronic Kidney Disease GFR Stage 3a Mild to moderate loss of kidney function 59 to 45 Stage 3b Moderate to severe loss of kidney function 44 to 33 Stage 4 Severe loss of kidney function 29 to 15 Stage 5 Kidney failure Less than 15 GFR calculated using the CKD-Epi Creatinine Equation (2020): eGFR = 142 X min(SCr/?, 1)? X max(SCr /?, 1)-1.200 X 0.9938Age X 1.012 [if female] Abbreviations/Units: eGFR (estimated glomerular filtration rate) = mL/min/1.73 m2 SCr (standardized serum creatinine) = mg/dL ? = 0.7 (females) or 0.9 (males) ? = -0.241 (females) or -0.302 (males) min = indicates the minimum of SCr/? or 1 max = indicates the maximum of SCr/? or 1 Age = years Performed By: #### C BCI #### [place] [address] CBC w/ Diffon 01-15-2025 Erythrocyte distribution width (RBC) [Ratio] 13.3 % Normal 11.6-14.8 [facility] Comment on above: Performed By: #### C BCI #### [place] [id number] Hematocrit (Bld) [Volume fraction] 35.5 % Low 36.0-46.0 [facility] Comment on above: Performed By: #### C BCI #### [place] [id number] Hemoglobin (Bld) [Mass/Vol] 12.2 g/dL Normal 12.0-16.0 [facility] Comment on above: Performed By: #### C BCI #### [place] [id number] MCH (RBC) [Entitic mass] 31.1 pg Normal 27.0-35.0 [facility] Comment on above: Performed By: #### C BCI #### [place] [id number] MCHC 34.5 % Normal 31.0-37.0 [facility] Comment on above: Performed By: #### C BCI #### [place] [id number] MCV (RBC) [Entitic vol] 90.2 fL Normal 80.0-100.0 B [facility] Comment on above: Performed By: #### C BCI #### [address] [address] Platelet 231 x10*3/mcL Normal 150-450 [facility] Comment on above: Performed By: #### C BCI #### [address] [address] Platelet mean volume (Bld) [Entitic vol] 7.5 fL Normal 6.7-10.6 [facility] Comment on above: Performed By: #### C BCI #### [address] [address] RBC 3.94 x10*6/mcL Normal 3.80-5.20 [facility] Comment on above: Performed By: #### C BCI #### [address] [address] WBC 9.3 x10*3/mcL Normal 4.5-11.0 [facility] Comment on above: Performed By: #### C BCI #### [place] [id number] CMPon 01-15-2025 Albumin [Mass/Vol] 3.8 g/dL Normal 3.2-4.9 [facility] Comment on above: Performed By: #### C BCI #### [place] [id number] Albumin/Globulin [Mass ratio] 1.3 {ratio} Normal 1.1-2.2 [facility] Comment on above: Performed By: #### C BCI #### [address] [address] Alk Phos 43 IU/L Normal 32-91 [facility] Comment on above: Performed By: #### C BCI #### [place] [id number] ALT [Catalytic activity/Vol] 15 U/L Normal 14-54 [facility] Comment on above: Performed By: #### C BCI #### [facility] [address] [place] [address], [place] [address] Anion gap [Moles/Vol] 8 mmol/L Normal 4-12 [facility] Comment on above: Performed By: #### C BCI #### [address] [place] [address] AST [Catalytic activity/Vol] 14 U/L Low 15-41 [facility] Comment on above: Performed By: #### C BCI #### [address] [address] Bili Total 0.3 mg/dL Normal 0.3-1.2 [facility] Comment on above: Performed By: #### C BCI #### [address] [address] Calcium [Mass/Vol] 8.8 mg/dL Normal 8.5-10.3 [facility] Comment on above: Performed By: #### C BCI #### [address] [place] [address] Chloride [Moles/Vol] 102 mmol/L Normal 98-110 [facility] Comment on above: Performed By: #### C BCI #### [address] [place] [address] CO2 [Moles/Vol] 24 mmol/L Normal 22-32 [facility] Comment on above: Performed By: #### C BCI #### [address] [place] [address] Creatinine [Mass/Vol] 0.93 mg/dL Normal 0.44-1.03 [facility] Comment on above: Performed By: #### C BCI #### [address] [place] [address] Glucose [Mass/Vol] 105 mg/dL High 70-99 [facility] Comment on above: Performed By: #### C BCI #### [address] [address] Potassium [Moles/Vol] 3.2 mmol/L Low 3.4-4.8 [facility] Comment on above: Performed By: #### C BCI #### [address] [address] Protein [Mass/Vol] 6.7 g/dL Normal 6.5-8.1 [facility] Comment on above: Performed By: #### C BCI #### [address] [address] Sodium [Moles/Vol] 134 mmol/L Normal 133-142 [facility] Comment on above: Performed By: #### C BCI #### [address] [address] Urea nitrogen [Mass/Vol] 12 mg/dL Normal 8-26 [facility] Comment on above: Performed By: #### C BCI #### [address] [address] Urea nitrogen/Creatinine [Mass ratio] 12.9 mg/mg Normal 10.0-20.0 [facility] Comment on above: Performed By: #### C BCI #### [address] [address] Diff Autoon 01-15-2025 Baso Absolute 0.0 x10*3/mcL Normal 0.0-0.2 [facility] Comment on above: Performed By: #### C [id number] #### [address] [address] Basophils/100 WBC (Bld) 0.4 % Normal 0.0-1.5 B [facility] Comment on above: Performed By: #### C [id number] #### [address] [address] Eos Absolute 0.1 x10*3/mcL Normal 0.0-0.4 [facility] Comment on above: Performed By: #### C [id number] #### [address] [address] Eosinophils/100 WBC (Bld) 0.7 % Normal 0.0-5.4 [facility] Comment on above: Performed By: #### C [id number] #### [address] [address] Lymph Absolute 2.7 x10*3/mcL Normal 1.0-4.8 [facility] Comment on above: Performed By: #### C [id number] #### [address] [address] Lymphocytes/100 WBC (Bld) 28.8 % Normal 27.2-40.8 [facility] Comment on above: Performed By: #### C [id number] #### [address] [address] Boundary Absolute 0.1 x10*3/mcL Normal 0.1-1.1 [facility] Comment on above: Performed By: #### C [id number] #### [address] [address] Monocytes/100 WBC (Bld) 1.3 % Low 3.7-11.9 [facility] Comment on above: Performed By: #### C [id number] #### [address] [address] Neutro Absolute 6.4 x10*3/mcL Normal 1.8-7.7 [facility] Comment on above: Performed By: #### C [id number] #### [address] [address] Neutro Auto 68.8 % Normal 47.2-70.8 [facility] Comment on above: Performed By: #### C [id number] #### [address] [address] ED Note-Physicianon 01-15-20 ED Note-Physician Chief Complaint numbness in vaginal area started today, 1 episode of incontinence today also, recently released from hospital for stroke-like symptoms related to a migraine, negative for CVA though History of Present Illness Patient is a 34 year old female presenting to the ED with worsening lower weakness and bladder incontinence which started today. The weakness in her legs started about 3 days ago, pain extending from her bilateral thighs to her calves. She reports some numbness in the pelvic region. The pain then extended to her hips, lower back, pelvis, and abdomen. She had 1 episode of bladder incontinence today, which she has never experienced before. She noted that when she urinated before coming in, she felt that she needed to push more than usual. She denies any recent falls, trauma, or strenuous activity. She took Toradol shortly before coming in and feels that there is no improvement. 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 At that time, she had some facial numbness, weakness in the arms, some minor weakness in the legs, and forgetfulness. Her MRI was clear at that time. She was discharged after being started on Lipitor and aspirin. She was told to use a walker to ambulate at home, but she has not been doing so and feels that her balance is worsening along with the leg pain. She was also started with physical, speech, and occupational therapy. Patient has history of neck pain, neck surgery, herniated disc, migraines, fibromyalgia, and IBS. Review of Systems As reviewed in the HPI. All other systems reviewed are negative or normal. Physical Exam CONSTITUTIONAL: [no apparent distress, well appearing] SKIN: [warm, dry, no jaundice, hives or petechiae] EYES: [pupils are equally round, extraocular movements intact without nystagmus, clear conjunctiva, non-icteric sclera] HENT: [normocephalic, atraumatic, moist mucus membranes, oropharynx clear without exudates] NECK: [Nontender and supple with no nuchal rigidity, no lymphadenopathy, full range of motion] PULMONARY: [clear to auscultation without wheezes, rhonchi, or rales, normal excursion, no accessory muscle use and no stridor] CARDIOVASCULAR: [+2 DP and PT pulses bilaterally; regular rate, rhythm, normal S1 and S2. No appreciated murmurs.] GASTROINTESTINAL: [soft, non-tender, non-distended, no palpable masses, no rebound or guarding] MUSCULOSKELETAL: [Extremities are nontender to palpation and have no gross deformity, no edema, redness, or swelling] NEUROLOGIC: [alert and oriented x 3, GCS 15, normal mentation and speech. 3/5 strength bilateral lower extremities, 5/5 dorsi and plantar flexion] PSYCHIATRIC: [normal mood and affect, thought process is clear and linear] Vitals & Measurements T: 36.9 ?C (Oral) HR: 86 (Peripheral) RR: 17 BP: 139/88 SpO2: 95% HT: 170.2 cm WT: 58.6 kg (Dosing) Additional Vitals No qualifying data available. Procedure No qualifying data available. ASA Documentation Medical Decision Making Raymon Frances scribing for and in the presence of Dr. Loza. Scribe Attestation: The information in this document, created by the medical staff director for me, accurately reflects the services I personally performed and the decisions made by me. This report has been created using voice recognition software. It may contain minor errors which are inherent in voice recognition technology. MEDICAL DECISION MAKING Number and Complexity of Problems Differential Diagnosis: _cauda equina, fracture, disc herniation, infectious etiology, MS, GBS MDM Data External documents reviewed: _ My EKG interpretation: _sinus tachycardia My CT interpretation: _no acute abnormalities My X-ray interpretation: _no acute pathology My Ultrasound interpretation: _ Decision rules/scores evaluated: _ Discussed with: _ Decision rules/scores evaluated: _ ? HEART Score: Not Completed ? PERC Rule: _ ? NEXUS C-spine Criteria: _ ? [place] Ankle Rule: _ ? [place] Knee Rule: _ ? Wells Criteria for DVT: _ ? Wells Criteria for PE: _ Discussed with: _ Treatment and Disposition ED Course: 34-year-old female presenting to the emergency department for lower extremity weakness and an episode of bladder incontinence. The patient had stable vital signs on arrival. She was overall well-appearing on exam. She did have 3 out of 5 strength bilateral lower extremities, 3 out of 5 dorsi and plantarflexion bilaterally. She had intact distal pulses lower extremities. The skin of the lower extremities was warm and well-perfused. Given the patient's back pain and urinary incontinence, will obtain MRI imaging of the lumbar and thoracic spine. MRI imaging was negative for any acute abnormalities. Her lab work showed no significant leukocytosis or electrolyte derangement. While awaiting imaging results, the patient did become tachycardic to the 140s. EKG showing sinus rhythm. Did add on troponin which was negati (more content not included)... Normal [facility] S Preg Qlon 01-15-2025 Serum Preg Negative Normal [facility] Comment on above: Result Comment: The hCG Combo Rapid Test has a sensitivity of 10 mIU/mL in serum and is capable of detecting as early as 1 day after the first missed menses. Performed By: #### U CI #### [address] [address] UA w Culture if Indon 2024 Color (U) Yellow Normal Yellow [facility] Comment on above: Performed By: #### U CI #### [address] [address] Ketones Ql (U) Negative Normal Negative [facility] Comment on above: Performed By: #### U CI #### [address] [address] UA Blood Negative Normal Negative [facility] Comment on above: Performed By: #### U CI #### [address] [address] UA Clarity Clear Normal Clear [facility] Comment on above: Performed By: #### U CI #### [address] [address] UA Glucose Normal Normal Negative [facility] Comment on above: Performed By: #### U CI #### [address] [address] UA Leukocyte Esterase Negative Normal Negative [facility] Comment on above: Performed By: #### U CI #### [address] [address] UA Nitrite Negative Normal Negative [facility] Comment on above: Performed By: #### U CI #### [address] [address] UA pH 5.5 Normal 4.5 - 7.8 [facility] Comment on above: Performed By: #### U CI #### [address] [address] UA Protein Negative Normal Negative [facility] Comment on above: Performed By: #### U CI #### [facility] [address] [place] [address] UA Source Clean Catch Normal [facility] Comment on above: Performed By: #### U CI #### [facility] [address] [place] [address] UA Spec Grav 1.022 Normal 1.003-1.03 5 [facility] Comment on above: Performed By: #### U CI #### [facility] [address] [place] [address] UA Urobilinogen Normal Normal 0.2 - 1.0 [facility] Comment on above: Performed By: #### U CI #### [facility] [address] [place] [address] Urobilinogen (U) [Mass/Vol] Negative Normal Negative [facility] Comment on above: Performed By: #### U CI #### [facility] [address] [place] [address] CBC AND AUTO DIFFon 01-11-20 25 ABSOLUTE BASOPHIL 0.1 X10E9/L Normal 0.0-0.2 [facility] Comment on above: Performed By: #### C BCA, BMP, , 05593-0, THYR #### [facility] ([id number]) [address] [place] [address] ABSOLUTE NEUTROPHIL 8.7 X10E9/L High 1.5-6.6 [facility] Comment on above: Performed By: #### C BCA, BMP, 86443-0, 07431-0, THYR #### [facility] ([id number]) [address] [place] [address] Basophils/100 WBC (Bld) 0.5 % Normal [facility] Comment on above: Performed By: #### C BCA, BMP, , 99702-7, THYR #### [facility] ([id number]) [address] [place] [address] Eosinophils (Bld) [#/Vol] 0.0 10*3/uL Normal 0.0-0.4 [facility] Comment on above: Performed By: #### C BCA, BMP, , 80097-9, THYR #### [facility] ([id number]) [address] [place] [address] Eosinophils/100 WBC (Bld) 0.0 % Normal [facility] Comment on above: Performed By: #### C BCA, BMP, , 46135-9, THYR #### [facility] ([id number]) [address] [place], [place] [address] Erythrocyte distribution width (RBC) [Ratio] 13.4 % Normal 11.5-15.0 [facility] Comment on above: Performed By: #### C BCA, BMP, , 62059-4, THYR #### [facility] ([id number]) [address] [place], [place] [address] Hematocrit (Bld) [Volume fraction] 34.2 % Low 35-47 [facility] Comment on above: Performed By: #### C BCA, BMP, , 96354-8, THYR #### [facility] ([id number]) [address] [place] [address] Hemoglobin (Bld) [Mass/Vol] 11.9 g/dL Normal 11.7-15.5 [facility] Comment on above: Performed By: #### C BCA, BMP, , 53597-5, THYR #### [facility] ([id number]) [address] [place] [address] Lymphocytes (Bld) [#/Vol] 1.7 10*3/uL Normal 1.0-3.5 [facility] Comment on above: Performed By: #### C BCA, BMP, , 44624-0, THYR #### [facility] ([id number]) [address] [place] [address] Lymphocytes/100 WBC (Bld) 15.6 % Normal [facility] Comment on above: Performed By: #### C BCA, BMP, , 55855-5, THYR #### [facility] ([id number]) [address] [place] [address] MCH (RBC) [Entitic mass] 30.7 pg Normal 27-34 [facility] Comment on above: Performed By: #### C BCA, BMP, , , THYR #### [facility] ([id number]) [address] [place] [address] MCHC (RBC) [Mass/Vol] 35.0 g/dL Normal 32-36 [facility] Comment on above: Performed By: #### C BCA, BMP, , 60393-2, THYR #### [facility] ([id number]) [address] [place] [address] MCV (RBC) [Entitic vol] 88 fL Normal 80-100 [facility] Comment on above: Performed By: #### C BCA, BMP, , 33740-2, THYR #### [facility] ([id number]) [address] [place] [address] 71141 Monocytes (Bld) [#/Vol] 0.4 10*3/uL Normal 0-0.9 [facility] Comment on above: Performed By: #### C BCA, BMP, , 38377-8, THYR #### [facility] ([id number]) [address] [place] [address] 65311 Monocytes/100 WBC (Bld) 3.9 % Normal [facility] Comment on above: Performed By: #### C BCA, BMP, , 86173-1, THYR #### [facility] ([id number]) [address] [place] [address] 41647 Neutrophils/100 WBC (Bld) 80.0 % Normal [facility] Comment on above: Performed By: #### C BCA, BMP, , 88098-3, THYR #### [facility] ([id number]) [address] [place] [address] 21790 Platelet mean volume (Bld) [Entitic vol] 7.6 fL Normal 7-12 [facility] Comment on above: Performed By: #### C BCA, BMP, , 46669-9, THYR #### [facility] ([id number]) [address] [place] [address] 46636 Platelets (Bld) [#/Vol] 264 10*3/uL Normal 150-450 [facility] Comment on above: Performed By: #### C BCA, BMP, , 18313-3, THYR #### [facility] ([id number]) [address] [place] [address] 04196 RBC COUNT 3.90 X10E12/L Normal 3.80-5.20 [facility] Comment on above: Performed By: #### C BCA, BMP, , 65486-4, THYR #### [facility] ([id number]) [address] [place] [address] 12395 WBC (Bld) [#/Vol] 10.9 10*3/uL Normal 4.0-11.0 [facility] Comment on above: Performed By: #### C BCA, BMP, , 74799-9, THYR #### [facility] ([id number]) [address] [place] [address] 79934 COMPREHENSIVE METABOLIC PANE Giovanny 01-11-2025 Albumin [Mass/Vol] 3.9 g/dL Normal 3.2-5.3 [facility] Comment on above: Performed By: #### C BCA, BMP, , 48508-8, THYR #### [facility] ([id number]) [address] [place] [address] 10259 ALP [Catalytic activity/Vol] 44 U/L Normal 39-130 [facility] Comment on above: Performed By: #### C BCA, BMP, , 70769-7, THYR #### [facility] ([id number]) [address] [place] [address] 82345 ALT [Catalytic activity/Vol] 16 U/L Normal 0-31 [facility] Comment on above: Performed By: #### C BCA, BMP, , 11526-1, THYR #### [facility] ([id number]) [address] [place] [address] 93263 Anion gap [Moles/Vol] 9 mmol/L Normal 5-15 [facility] Comment on above: Performed By: #### C BCA, BMP, , 44322-8, THYR #### [facility] ([id number]) [address] [place] [address] 08948 AST [Catalytic activity/Vol] 13 U/L Normal 0-41 [facility] Comment on above: Performed By: #### C BCA, BMP, , 17152-8, THYR #### [facility] ([id number]) [address] [place] [address] 21199 Bilirubin [Mass/Vol] 0.6 mg/dL Normal 0.3-1.2 [facility] Comment on above: Performed By: #### C BCA, BMP, , 86886-6, THYR #### [facility] ([id number]) [address] [place] [address] 83176 Calcium [Mass/Vol] 9.2 mg/dL Normal 8.5-10.5 [facility] Comment on above: Performed By: #### C BCA, BMP, 74078-7, 83323-8, THYR #### [facility] ([id number]) [address] [place] [address] 78332 Chloride [Moles/Vol] 104 mmol/L Normal 98-109 [facility] Comment on above: Performed By: #### C BCA, BMP, 30444-9, 75890-2, THYR #### [facility] ([id number]) [address] [place] [address] 49863 CO2 [Moles/Vol] 22 mmol/L Normal 22-32 [facility] Comment on above: Performed By: #### C BCA, BMP, 03954-6, 91138-0, THYR #### [facility] ([id number]) [address] [place] [address] 27649 Creatinine [Mass/Vol] 0.71 mg/dL Normal 0.40-1.00 [facility] Comment on above: Result Comment: METH OD TRACEABLE TO IDMS STANDARD Performed By: #### C BCA, BMP, , 95221-8, THYR #### [facility] ([id number]) [address] [place] [address] 56862 eGFR (CKD-EPI) NON-RACE DEPENDENT >90 Normal >59 [facility] Comment on above: Result Comment: Reported eGFR is based on the CKD-EPI 2021 equation that does not use a race coefficient. Performed By: #### C BCA, BMP, 17636-2, 04347-0, THYR #### [facility] ([id number]) [address] [place] [address] 14477 Glucose [Mass/Vol] 111 mg/dL High 65-99 [facility] Comment on above: Performed By: #### C BCA, BMP, 87736-3, 19315-2, THYR #### [facility] ([id number]) [address] [place] [address] 90896 Potassium [Moles/Vol] 4.1 mmol/L Normal 3.5-5.0 [facility] Comment on above: Performed By: #### C BCA, BMP, 32667-0, 11889-5, THYR #### [facility] ([id number]) [address] [place] [address] 36453 Protein [Mass/Vol] 7.0 g/dL Normal 6.0-8.0 [facility] Comment on above: Performed By: #### C BCA, BMP, 57174-1, 68586-1, THYR #### [facility] ([id number]) [address] [place] [address] 32683 Sodium [Moles/Vol] 135 mmol/L Normal 134-146 [facility] Comment on above: Performed By: #### C BCA, BMP, , 82450-5, THYR #### [facility] ([id number]) [address] [place] [address] 76357 Urea nitrogen [Mass/Vol] 12 mg/dL Normal 5-23 [facility] Comment on above: Performed By: #### C BCA, BMP, 08295-4, 51707-1, THYR #### [facility] ([id number]) [address] [place] [address] 61148 IRON PROFILEon 01-11-2025 Iron [Mass/Vol] 96 ug/dL Normal 50-170 [facility] Comment on above: Performed By: #### C BCA, BMP, 75121-0, 03070-1, THYR #### [facility] ([id number]) [address] [place] [address] 63324 IRON BINDING 322 ug/dL Normal 250-425 [facility] Comment on above: Performed By: #### C BCA, BMP, 89219-4, 40345-7, THYR #### [facility] ([id number]) [address] [place] [address] 85419 IRON SATURATION 30 % SATURATION Normal 15-50 [facility] Comment on above: Performed By: #### C BCA, BMP, , 47427-4, THYR #### [facility] ([id number]) [address] [place] [address] 86803 MAGNESIUMon 01-11-2025 Magnesium [Mass/Vol] 2.0 mg/dL Normal 1.8-2.6 [facility] Comment on above: Performed By: #### C BCA, BMP, , 94956-6, THYR #### [facility] ([id number]) [address] [place] [address] 04458 BASIC METABOLIC PANLon 01-10 Anion gap [Moles/Vol] 10 mmol/L Normal 5-15 [facility] Comment on above: Performed By: #### C BCA, BMP, , 93832-8, THYR #### [facility] ([id number]) [address] [place] [address] 44274 Calcium [Mass/Vol] 9.2 mg/dL Normal 8.5-10.5 [facility] Comment on above: Performed By: #### C BCA, BMP, , 95056-7, THYR #### [facility] ([id number]) [address] [place] [address] 40067 Chloride [Moles/Vol] 101 mmol/L Normal 98-109 [facility] Comment on above: Performed By: #### C BCA, BMP, , 31117-5, THYR #### [facility] ([id number]) [address] [place] [address] 45228 CO2 [Moles/Vol] 24 mmol/L Normal 22-32 [facility] Comment on above: Performed By: #### C BCA, BMP, , 77708-5, THYR #### [facility] ([id number]) [address] [place] [address] 98162 Creatinine [Mass/Vol] 0.81 mg/dL Normal 0.40-1.00 [facility] Comment on above: Result Comment: METH OD TRACEABLE TO IDMS STANDARD Performed By: #### C BCA, BMP, 34890-0, 90420-1, THYR #### [facility] ([id number]) [address] [place] [address] 93028 eGFR (CKD-EPI) NON-RACE DEPENDENT >90 Normal >59 [facility] Comment on above: Result Comment: Reported eGFR is based on the CKD-EPI 2020 equation that does not use a race coefficient. Performed By: #### C BCA, BMP, , 99723-2, THYR #### [facility] ([id number]) [address] [place] [address] 55917 Glucose [Mass/Vol] 103 mg/dL High 65-99 [facility] Comment on above: Performed By: #### C BCA, BMP, , 68520-3, THYR #### [facility] ([id number]) [address] [place] [address] 25606 Potassium [Moles/Vol] 3.8 mmol/L Normal 3.5-5.0 [facility] Comment on above: Performed By: #### C BCA, BMP, , 62871-1, THYR #### [facility] ([id number]) [address] [place] [address] 59021 Sodium [Moles/Vol] 135 mmol/L Normal 134-146 [facility] Comment on above: Performed By: #### C BCA, BMP, , 64626-4, THYR #### [facility] ([id number]) [address] [place] [address] 07002 Urea nitrogen [Mass/Vol] 11 mg/dL Normal 5-23 [facility] Comment on above: Performed By: #### C BCA, BMP, 07696-3, 93612-4, THYR #### [facility] ([id number]) [address] [place], [place] [address] CBC AND AUTO DIFFon 01-10-20 25 ABSOLUTE BASOPHIL 0.0 X10E9/L Normal 0.0-0.2 [facility] Comment on above: Performed By: #### C BCA, PINR, 34418-9, BMP, 87022-4, 15995-8, THYR #### [facility] ([id number]) [address] [place] [address] #### 27088-2, 61798-1, HA1C #### [facility] ([id number]) [address], [address] [place] [address] ABSOLUTE NEUTROPHIL 3.3 X10E9/L Normal 1.5-6.6 [facility] Comment on above: Performed By: #### C BCA, PINR, 48735-9, BMP, 96299-0, 60636-2, THYR #### [facility] ([id number]) [address] [place] [address] #### 69399-4, 28012-1, HA1C #### [facility] ([id number]) [address], [address] [place] [address] Basophils/100 WBC (Bld) 0.4 % Normal P [facility] Comment on above: Performed By: #### C BCA, PINR, 29069-8, BMP, 52276-6, 77693-4, THYR #### [facility] ([id number]) [address] [place], [place] [address] #### 31373-1, 82356-0, HA1C #### [facility] ([id number]) [address], [address] [place] [address] Eosinophils (Bld) [#/Vol] 0.1 10*3/uL Normal 0.0-0.4 [facility] Comment on above: Performed By: #### C BCA, PINR, 71782-5, BMP, 86973-3, 07848-8, THYR #### [facility] ([id number]) [address] [place] [address] #### 69054-0, 56462-1, HA1C #### [facility] ([id number]) [address], [address] [place] [address] Eosinophils/100 WBC (Bld) 1.0 % Normal [facility] Comment on above: Performed By: #### C BCA, PINR, 75098-4, BMP, 04409-2, 85740-8, THYR #### [facility] ([id number]) [address] [place] [address] #### 65381-2, 63472-8, HA1C #### [facility] ([id number]) [address], [address] [place] [address] Erythrocyte distribution width (RBC) [Ratio] 13.3 % Normal 11.5-15.0 [facility] Comment on above: Performed By: #### C BCA, PINR, 51534-3, BMP, 30347-5, 38687-8, THYR #### [facility] ([id number]) [address] [place] [address] #### 70048-3, 53850-5, HA1C #### [facility] ([id number]) [address], [address] [place] [address] Hematocrit (Bld) [Volume fraction] 37.0 % Normal 35-47 [facility] Comment on above: Performed By: #### C BCA, PINR, 29805-1, BMP, 00790-9, 53981-5, THYR #### [facility] ([id number]) [address] [place] [address] 68775 #### 79939-4, 81059-9, HA1C #### [facility] ([id number]) [address], [address] [place] [address] Hemoglobin (Bld) [Mass/Vol] 12.8 g/dL Normal 11.7-15.5 [facility] Comment on above: Performed By: #### C BCA, PINR, 06521-4, BMP, 33137-6, 86753-6, THYR #### [facility] ([id number]) [address] [place], [place] [address] #### 81607-2, 85459-2, HA1C #### [facility] ([id number]) [address], [address] [place] [address] Lymphocytes (Bld) [#/Vol] 1.8 10*3/uL Normal 1.0-3.5 [facility] Comment on above: Performed By: #### C BCA, PINR, 72871-0, BMP, 49850-1, 11730-3, THYR #### [facility] ([id number]) [address] [place], [place] [address] #### 10128-9, 18295-9, HA1C #### [facility] ([id number]) [address], [address] [place] [address] Lymphocytes/100 WBC (Bld) 33.4 % Normal [facility] Comment on above: Performed By: #### C BCA, PINR, 17266-1, BMP, 08044-9, 08230-2, THYR #### [facility] ([id number]) [address] [place], [place] [address] #### 63952-2, 83955-1, HA1C #### [facility] ([id number]) [address], [address] [place] [address] MCH (RBC) [Entitic mass] 30.3 pg Normal 27-34 [facility] Comment on above: Performed By: #### C BCA, PINR, 06218-3, BMP, 73937-7, 21001-0, THYR #### [facility] ([id number]) [address] [place] [address] #### 87601-6, 99370-8, HA1C #### [facility] ([id number]) [address], [address] [place] [address] MCHC (RBC) [Mass/Vol] 34.6 g/dL Normal 32-36 [facility] Comment on above: Performed By: #### C BCA, PINR, 05329-3, BMP, 65214-0, 80748-4, THYR #### [facility] ([id number]) [address] [place] [address] #### 98258-7, 12872-3, HA1C #### [facility] ([id number]) [address], [address] [place] [address] MCV (RBC) [Entitic vol] 88 fL Normal 80-100 P [facility] Comment on above: Performed By: #### C BCA, PINR, 63191-1, BMP, 23570-3, 17779-6, THYR #### [facility] ([id number]) [address] [place] [address] #### 82400-1, 59933-1, HA1C #### [facility] ([id number]) [address], [address] [place] [address] Monocytes (Bld) [#/Vol] 0.3 10*3/uL Normal 0-0.9 [facility] Comment on above: Performed By: #### C BCA, PINR, 07256-3, BMP, 41012-2, 75603-9, THYR #### [facility] ([id number]) [address] [place] [address] #### 03829-0, 17815-6, HA1C #### [facility] ([id number]) [address], [address] [place] [address] Monocytes/100 WBC (Bld) 5.3 % Normal P [facility] Comment on above: Performed By: #### C BCA, PINR, 99665-7, BMP, 35126-5, 89991-6, THYR #### [facility] ([id number]) [address] [place], [place] [address] #### 09746-5, 88842-7, HA1C #### [facility] ([id number]) [address], [address] [place] [address] Neutrophils/100 WBC (Bld) 59.9 % Normal [facility] Comment on above: Performed By: #### C BCA, PINR, 22753-2, BMP, 74039-5, 48987-0, THYR #### [facility] ([id number]) [address] [place], [place] [address] #### 04291-4, 62827-3, HA1C #### [facility] ([id number]) [address], [address] [place] [address] Platelet mean volume (Bld) [Entitic vol] 7.7 fL Normal 7-12 [facility] Comment on above: Performed By: #### C BCA, PINR, 15655-7, BMP, 42739-1, 45947-0, THYR #### [facility] ([id number]) [address] [place], [place] [address] #### 27660-1, 68213-8, HA1C #### [facility] ([id number]) [address], [address] [place] [address] Platelets (Bld) [#/Vol] 243 10*3/uL Normal 150-450 [facility] Comment on above: Performed By: #### C BCA, PINR, 16973-0, BMP, 54002-8, 51598-1, THYR #### [facility] ([id number]) [address] [place] [address] #### 72978-1, 72900-7, HA1C #### [facility] ([id number]) [address] [facility], [address] [place] [address] RBC COUNT 4.23 X10E12/L Normal 3.80-5.20 [facility] Comment on above: Performed By: #### C BCA, PINR, 15508-6, BMP, 64905-6, 38338-7, THYR #### [facility] ([id number]) [address] [place], [place] [address] #### 88925-0, 88746-5, HA1C #### [facility] ([id number]) [address] [address] [facility], [address] [place] [address] WBC (Bld) [#/Vol] 5.4 10*3/uL Normal 4.0-11.0 [facility] Comment on above: Performed By: #### C BCA, PINR, 44502-6, BMP, 61934-3, 21140-6, THYR #### [facility] ([id number]) [address] [place], [place] [address] #### 70179-4, 96502-5, HA1C #### [facility] ([id number]) [address] [address] [facility], [address] [place] [address] CRP [Mass/Vol]on 01-10-2025 C REACTIVE PROTEIN 0.6 mg/dL Normal 0.000-0.7 4 4 [facility] Comment on above: Performed By: #### C BCA, BMP, 55907-5, 34068-3, THYR #### [facility] ([id number]) [address] [place] [address] CT BRAIN WO CONT STROKE ALER Ton 01-10-2025 CT BRAIN WO CONT STROKE ALERT CT BRAIN WO CONT STROKE ALERT CLINICAL INFORMATION: Acute neurologic deficit, stroke suspected; right extremity weakness, facial numbness, blurry vision. TECHNIQUE: CT head without contrast. All CT scans at this facility use dose modulation, iterative reconstruction, and/or weight based dosing when appropriate to reduce radiation dose to as low as reasonably achievable. COMPARISON: 05/19/2022. FINDINGS: The osseous structures of the calvarium and skull base are intact. No acute hemorrhage. No intracranial mass effect. Napoles-white differentiation is maintained. Ventricular size is within normal limits. There are no extra-axial fluid collections. The visible orbital contents, paranasal sinuses, and infratemporal soft tissues are within normal limits. IMPRESSION: * No acute intracranial findings. Approved by Resident Waqas Donohue DO on 01/10/2025 8:18 AM Trenton Worthington MD have personally reviewed the image(s) and agree with and/or edited the report Finalized by Trenton Domingo MD on 01/10/2025 8:23 AM Normal [facility] CT CTA CAROTIDon 01-10-[address] CTA CAROTID Examination: CTA carotids Clinical History:Right extremity weakness. Blurred vision. Contrast:100 mL of Omnipaque 350 administered intravenously. Comparison:None Procedure: Multidetector CT angiogram performed through the cervical portion of the carotid arteries without complication, including source images and maximum intensity projection 3-D images displayed and reviewed on a PACS workstation by the radiologist. Automatic exposure control (AEC) was utilized. Interpretation using the NASCET criteria. Findings: Within the limitations of CT angiography, the vessels are normal in course and caliber with no aneurysm, dissection, or occlusion. No stenosis of the internal carotid artery relative to the distal internal carotid artery diameter. Flow is demonstrated within bilateral vertebral arteries, and bilateral internal, external, and common carotid arteries. IMPRESSION: 1. Negative CT angiogram cervical portion of the carotid arteries. All CT scans at this facility use dose modulation, iterative reconstruction, and/or weight based dosing when appropriate to reduce radiation dose to as low as reasonably achievable. Finalized by Deacon Dalal MD on 01/10/2025 8:49 AM Normal [facility] CT CTA HEADon 01-10-[address] CTA HEAD Examination: CT angiogram of the brain ([place]) Clinical History:Right extremity weakness blurred vision Comparison:None Contrast:100 mL of Omnipaque 350 administered intravenously. Procedure: Multidetector CT angiogram performed through the [place] using 3D reconstructions and source images displayed on a PACS workstation and reviewed by the radiologist. Automatic exposure control (AEC) was utilized. Findings: CT ANGIOGRAM OF THE [place]. There is no aneurysm or major vessel occlusion of the [place]. Flow is demonstrated within the vertebral arteries, basilar artery, and bilateral posterior cerebral arteries, middle cerebral arteries and anterior cerebral arteries. IMPRESSION: 1. Negative CT angiogram [place]. All CT scans at this facility use dose modulation, iterative reconstruction, and/or weight based dosing when appropriate to reduce radiation dose to as low as reasonably achievable. Finalized by Deacon Dalal MD on 01/10/2025 8:46 AM Normal [facility] DRUG SCREEN, URINEon 025 AMPHETAMINE/METHAMP Negative Normal NEG [facility] Comment on above: Result Comment: AMPH /METH screening cut off = 1000 ng/mL Performed By: #### C BCAHERVE, 63928-2, 14829-3, THYR #### [facility] ([id number]) [address] [place], [place] [address] BARBITURATES Negative Normal NEG [facility] Comment on above: Result Comment: Pamela iturates screening cut off value = 200 ng/mL Performed By: #### C BCA, BMP, 39508-5, 07165-3, THYR #### [facility] ([id number]) [address] [place], [place] [address] BENZODIAZEPINES Positive Abnormal NEG [facility] Comment on above: Result Comment: Conf irmation available upon request. Benzodiazepines screening cut off value = 200 ng/mL Performed By: #### C BCA, [facility], , 13923-7, THYR #### [facility] ([id number]) [address] [place], [place] [address] CANNABINOIDS Negative Normal NEG [facility] Comment on above: Result Comment: Khadar abinoids/THC screening cut off value = 50 ng/mL Performed By: #### C BCA, BMP, , 23854-1, THYR #### [facility] ([id number]) [address] [place], [place] [address] COCAINE METABOLITE Negative Normal NEG [facility] Comment on above: Result Comment: Coca ine screening cut off value = 300 ng/mL Performed By: #### C BCA, BMP, , 76196-0, THYR #### [facility] ([id number]) [address] [place] [address] ECSTASY Negative Normal [facility] Comment on above: Result Comment: Ecst asy screening cut off value = 500 ng/mL This report is intended for use in clinical monitoring or management of patients. Performed By: #### C BCA, [facility], , 56687-4, THYR #### [facility] ([id number]) [address] [place], [place] [address] METHADONE Negative Normal NEG [facility] Comment on above: Result Comment: Meth adone screening cut off value = 300 ng/mL. Performed By: #### C BCA, BMP, , 12485-2, THYR #### [facility] ([id number]) [address] [place], [place] [address] OPIATES Negative Normal NEG [facility] Comment on above: Result Comment: Opia juvenal screening cut off value = 300 ng/mL NOTE: This test is used for the detection of codeine, hydrocodone (>1000 ng/mL), morphine and hydromorphone (>900 ng/mL) in urine. Performed By: #### C BCA, BMP, 31585-9, 43928-1, THYR #### [facility] ([id number]) [address] [place] [id number] OXYCODONE Negative Normal NEG [facility] Comment on above: Result Comment: Oxyc odone screening cut off value = 300 ng/mL NOTE: This test is used for the detection of oxycodone and oxymorphone in urine. Performed By: #### C BCA, BMP, 49961-2, 72700-3, THYR #### [facility] ([id number]) [address] [place] [address] [id number] PHENCYCLIDINE Negative Normal NEG [facility] Comment on above: Result Comment: Phen cyclidine screening cut off value = 25 ng/mL Performed By: #### C HOLLI, BMP, 50016-0, 06505-6, THYR #### [facility] ([id number]) [address] [place] [address] 00002 ESR Photometric method (Bld) [Velocity]on 01-10-2025 ESR, ERYTHROCYTE SEDIMENTATION RATE 17 mm/h Normal 0-20 [facility] Comment on above: Performed By: #### C HOLLI, BMP, 69349-5, 87150-1, THYR #### [facility] ([id number]) [address] [place], [place] [id number] Fibrin D-dimer DDU (PPP) [Ma ss/Vol]on 01-10-2025 D DIMER <150 Normal <255 [facility] Comment on above: Result Comment: Results <255 ng/mL DDU: The presence of a VTE can safely be excluded with a negative D-Dimer result and Wells score. A negative result doesn't exclude the possibility of DIC. The test be repeated along with other diagnostic tests if the patient's symptoms persist or worsen. [email or web address] Performed By: #### C BCA, BMP, , 09203-2, THYR #### [facility] ([id number]) [address] [place] [address] 68882 Folate [Mass/Vol]on 01-10-20 25 FOLIC ACID >25.0 Normal >5.8 [facility] Comment on above: Result Comment: NEW REFERENCE RANGE Performed By: #### C HERVE DE LA GARZA, , 69643-7, THYR #### [facility] ([id number]) [address] [place] [address] 59780 Glucose Glucometer (BldC) [M ass/Vol]on 01-10-2025 Glucose [Mass/Vol] 91 mg/dL Normal 65-99 [facility] HGB A1C (GLYCO-HGB)on 2024 Glucose [Mass/Vol] 108 mg/dL Normal [facility] Comment on above: Performed By: #### C HERVE DE LA GARZA, , 83996-8, THYR #### [facility] ([id number]) [address] [place] [address] 69946 HbA1c (Bld) [Mass fraction] 5.4 % Normal 4.4-5.6 [facility] Comment on above: Result Comment: NOTE ADA Guidelines Result HgbA1c Normal : less than 5.7 % Prediabetes : 5.7 % to 6.4 % Diabetes : > 6.4 % Use with caution in patients with abnormal hemoglobin variants as the half-life of red blood cells and in vivo glycation rates are affected. Performed By: #### C HERVE DE LA GARZA, , 37858-2, THYR #### [facility] ([id number]) [address] [place] [address] 80766 Lipid 1996 panelon 5 Cholesterol [Mass/Vol] 218 mg/dL High 150-200 [facility] Comment on above: Performed By: #### C HERVE DE LA GARZA, , 88206-4, THYR #### [facility] ([id number]) [address] [place] [address] 65988 Cholesterol in HDL [Mass/Vol] 46 mg/dL Normal >39 [facility] Comment on above: Result Comment: HDL <40 mg/dL - High Risk HDL > or = 40mg/dL- Desirable HDL >60 mg/dL - Negative Risk Performed By: #### C BCA, BMP, , 54724-1, THYR #### [facility] ([id number]) [address] [place] [address] 42347 Cholesterol in LDL [Mass/Vol] 142 mg/dL High <130 [facility] Comment on above: Result Comment: LDL <100 mg/dL - Desirable LDL >160 mg/dL - High Risk Performed By: #### C BCA, BMP, , 36112-8, THYR #### [facility] ([id number]) [address] [place] [address] 54599 Cholesterol in VLDL [Mass/Vol] 30 mg/dL Normal 0-30 [facility] Comment on above: Performed By: #### C BCA, BMP, 35106-7, 76420-9, THYR #### [facility] ([id number]) [address] [place] [address] 48653 CHOLESTEROL:HDL 4.7 Normal 1.0-5.0 [facility] Comment on above: Performed By: #### C BCA, BMP, 71513-0, 57899-6, THYR #### [facility] ([id number]) [address] [place] [address] 34221 Triglyceride [Mass/Vol] 152 mg/dL High 27-150 [facility] Comment on above: Performed By: #### C BCA, BMP, 85285-6, 33381-3, THYR #### [facility] ([id number]) [address] [place] [address] 15015 MAGNESIUMon 01-10-2025 Magnesium [Mass/Vol] 2.1 mg/dL Normal 1.8-2.6 [facility] Comment on above: Performed By: #### C BCA, BMP, 92579-2, 68608-0, THYR #### [facility] ([id number]) [address] [place], [place] [address] MR BRAIN WO CONTon MR BRAIN WO CONT MR BRAIN WO CONT EXAM:MR BRAIN WO CONT INDICATION: Neuro deficit, acute, stroke suspected COMPARISON: 05/20/2022 TECHNIQUE: Multiplanar multisequence noncontrast MR sequences through the head/brain. BRAIN FINDINGS: Brain Parenchyma: No acute hemorrhage, cerebral edema, or acute infarction. No mass, mass effect, or midline shift. Ventricles and Sulci: Normal for age. Extra-Axial Spaces: No extra-axial fluid collection. Intracranial Flow-Voids: Arterial and venous sinus flow voids appear normal. Orbits: Normal Paranasal Sinuses: Mild polypoid mucosal thickening Mastoid Air Cells: Trace left effusion Cranium: Normal Extracranial Soft Tissues: Normal IMPRESSION: No acute or subacute intracranial abnormalities Finalized by Fletcher Devine on 01/10/2025 11:56 AM Normal [facility] PROTIME AND INRon 01-10-2025 INR Coag (PPP) [Relative time] 1.1 {INR} Normal 0.8-1.1 [facility] Comment on above: Performed By: #### C BCA, PINR, 85028-3, BMP, 15790-3, 33700-2, THYR #### [facility] ([id number]) [address] [place] [address] #### 79441-5, 30852-6, HA1C #### [facility] ([id number]) [address] [place] [address], [address] [place] [address] PT Coag (PPP) [Time] 12.3 s Normal 9.8-13.2 [facility] Comment on above: Performed By: #### C BCA, PINR, 02678-6, BMP, 38645-8, 12849-8, THYR #### [facility] ([id number]) [address] [place] [address] 34107 #### 78459-1, 56287-0, HA1C #### [facility] ([id number]) [address] [place] [address], [address] [place] [address] Procalcitonin IA [Mass/Vol]o n 01-10-2025 PROCALCITONIN <0.05 Normal <0.05 [facility] Comment on above: Result Comment: NOTE <0.50 ng/mL - Low risk of severe sepsis and/or septic shock. <2.00 ng/mL - Recommend retesting within 6-24 hours. >2.00 ng/mL - High risk of sepsis and/or septic shock. Performed By: #### C BCA, BMP, 67232-0, 45050-8, THYR #### [facility] ([id number]) [address] [place] [address] 54058 SARS/FLU A+B/RSV by NAAT/Mol ecularon 01-10-2025 SARS/FLU A+B/RSV by NAAT/Molecular FLU A PCR Negative (qualifier value) FLU B PCR Negative (qualifier value) RSV by PCR Negative (qualifier value) SARS CoV 2 Not detected (qualifier value) NOTE The Xpert Xpress SARS-CoV-2/Flu/RSV Plus test is a rapid, multiplexed real-time RT-PCR test intended for the simultaneous qualitative detection and differentiation of SARS-CoV-2, influenza A, influenza B and respiratory syncytial virus (RSV) viral RNA from individuals suspected of respiratory viral infection consistent with COVID-19 by their healthcare provider. This test has not been validated in asymptomatic patients. The Xpert Xpress SARS-CoV-2 test is intended for use by qualified and trained operators who are performing tests using either [employer] or [employer] systems and is limited to laboratories that meet the CLIA requirements to perform high and moderate complexity tests. The Xpert Xpress SARS-CoV-2/Flu/RSV Plus is only for use under the Food and Drug Administration's Emergency Use Authorization. Results are for the simultaneous detection and differentiation of SARS-CoV-2, influenza A, influenza B and RSV nucleic acids in clinical specimens. SARS-CoV-2, influenza A, influenza B and RSV RNA identified by this test are generally detectable in upper respiratory samples during the acute phase of infection. Positive results are indicative of the presence of the identified virus, but do not rule out bacterial infection or co-infection with other pathogens not detected by this test. Clinical correlation with patient history and other diagnostic information is necessary to determine patient infection status. The agent detected may not be the definite cause of disease. Negative results do not preclude SARS-CoV-2, influenza A, influenza B and RSV infection and should not be used as the sole basis for treatment or other patient management decisions. Negative results must be combined with clinical observations, patient history and epidemiological information. An Invalid result may occur with specimen-associated inhibition unable to be resolved with specimen repeat. Fact Sheet for Healthcare Providers: https://www.fda.gov/me hollis/454005/download Fact Sheet for Patients: https://www.fda.gov/me hollis/043850/download Normal [facility] THYROID PROFILEon 01-10-2025 Free T4 [Mass/Vol] 0.91 ng/dL Normal 0.61-1.60 [facility] Comment on above: Performed By: #### C HOLLI BMP, 16560-9, 09264-0, THYR #### [facility] ([id number]) [address] [place] [address] 44397 TSH 0.78 uIU/mL Normal 0.49-4.67 [facility] Comment on above: Performed By: #### C BCA, BMP, 01455-2, 80986-4, THYR #### [facility] ([id number]) [address] [place] [address] 76147 Troponin I.cardiac High sens itivity method [Mass/Vol]on 01-10-2025 1 HOUR TROP I, HIGH SENSITIVITY <2 Normal <16 [facility] Comment on above: Performed By: #### C BCA, BMP, 54988-8, 90898-8, THYR #### [facility] ([id number]) [address] [place] [address] 67089 TROPONIN I, HIGH SENSITIVITY <2 Normal <16 [facility] Comment on above: Performed By: #### C BCA, BMP, 73193-2, 96874-7, THYR #### [facility] ([id number]) [address] [place] [address] 86726 URN MACROSCOPIC NURon 2024 BILIRUBIN ANT Negative Normal NEG [facility] Comment on above: Performed By: #### C BCA, BMP, 68716-3, 78391-0, THYR #### [facility] ([id number]) [address] [place] [address] 34946 BLOOD/HGB ANT Negative Normal NEG [facility] Comment on above: Performed By: #### C BCA, BMP, 50478-4, 92633-1, THYR #### [facility] ([id number]) [address] [place] [address] 10658 GLUCOSE ANT Negative Normal NEG [facility] Comment on above: Performed By: #### C BCA, BMP, 49856-5, 23054-1, THYR #### [facility] ([id number]) [address] [place] [address] 04920 KETONES ANT Negative Normal NEG [facility] Comment on above: Performed By: #### C BCA, BMP, 23728-9, 39870-6, THYR #### [facility] ([id number]) [address] [place] [address] 25032 LEUKOCYTE ESTERASE ANT Negative Normal NEG [facility] Comment on above: Performed By: #### C BCA, BMP, , 34422-3, THYR #### [facility] ([id number]) [address] [place] [address] 88386 NITRITE ANT Negative Normal NEG [facility] Comment on above: Performed By: #### C BCA, BMP, , 35543-7, THYR #### [facility] ([id number]) [address] [place] [address] 01237 PH ANT 6.5 Normal 5.0-8.5 [facility] Comment on above: Performed By: #### C BCA, BMP, , 52740-0, THYR #### [facility] ([id number]) [address] [place] [address] 05144 PROTEIN ANT Negative Normal NEG [facility] Comment on above: Performed By: #### C BCA, BMP, , 83596-0, THYR #### [facility] ([id number]) [address] [place] [address] 73017 SPECIFIC GRAVITY ANT 1.010 Normal 1.003-1 .03 5 [facility] Comment on above: Performed By: #### C BCA, BMP, , 65465-7, THYR #### [facility] ([id number]) [address] [place] [address] 26978 UROBILINOGEN ANT 0.2 eu/dL Normal <1.1 [facility] Comment on above: Performed By: #### C BCA, BMP, , 66691-9, THYR #### [facility] ([id number]) [address] [place] [address] 02273 VITAMIN B12on 01-10-2025 Cobalamin (Vitamin B12) [Mass/Vol] 251 pg/mL Normal 180-914 [facility] Comment on above: Performed By: #### C BCA, BMP, , 09536-8, THYR #### [facility] ([id number]) [address] [place] [address] 68941 aPTT Coag (PPP) [Time]on aPTT Coag (Bld) [Time] 40 s High 26-37 [facility] Comment on above: Performed By: #### C BCA, BMP, , 72069-4, THYR #### [facility] ([id number]) [address] [place] [address] 62092 BASIC METABOLIC PANLon 12-21 Anion gap [Moles/Vol] 8 mmol/L Normal 5-15 [facility] Comment on above: Performed By: #### C BCA, BMP, , 21147-5, THYR #### [facility] ([id number]) [address] [place] [address] 38099 Calcium [Mass/Vol] 9.3 mg/dL Normal 8.5-10.5 [facility] Comment on above: Performed By: #### C BCA, BMP, , 68974-2, THYR #### [facility] ([id number]) [address] [place] [address] 98079 Chloride [Moles/Vol] 102 mmol/L Normal 98-109 [facility] Comment on above: Performed By: #### C BCA, BMP, , 06412-7, THYR #### [facility] ([id number]) [address] [place] [address] 57816 CO2 [Moles/Vol] 25 mmol/L Normal 22-32 [facility] Comment on above: Performed By: #### C BCA, BMP, , 31752-8, THYR #### [facility] ([id number]) [address] [place] [address] 67662 Creatinine [Mass/Vol] 0.71 mg/dL Normal 0.40-1.00 [facility] Comment on above: Result Comment: METH OD TRACEABLE TO IDMS STANDARD Performed By: #### C BCA, BMP, 29203-7, 08182-5, THYR #### [facility] ([id number]) [address] [place] [address] 76193 eGFR (CKD-EPI) NON-RACE DEPENDENT >90 Normal >59 [facility] Comment on above: Result Comment: Reported eGFR is based on the CKD-EPI 2020 equation that does not use a race coefficient. Performed By: #### C BCA, BMP, 49304-3, 10285-1, THYR #### [facility] ([id number]) [address] [place] [address] 01592 Glucose [Mass/Vol] 94 mg/dL Normal 65-99 [facility] Comment on above: Performed By: #### C BCA, BMP, , 20404-2, THYR #### [facility] ([id number]) [address] [place] [address] 31595 Potassium [Moles/Vol] 3.9 mmol/L Normal 3.5-5.0 [facility] Comment on above: Performed By: #### C BCA, BMP, , 97579-8, THYR #### [facility] ([id number]) [address] [place] [address] 83726 Sodium [Moles/Vol] 135 mmol/L Normal 134-146 [facility] Comment on above: Performed By: #### C BCA, BMP, 00372-2, 65274-3, THYR #### [facility] ([id number]) [address] [place] [address] 45348 Urea nitrogen [Mass/Vol] 10 mg/dL Normal 5-23 [facility] Comment on above: Performed By: #### C BCA, BMP, 05576-8, 99089-8, THYR #### [facility] ([id number]) [address] [place] [address] 42202 CBC AND AUTO DIFFon 12-21-19 ABSOLUTE BASOPHIL 0.1 X10E9/L Normal 0.0-0.2 [facility] Comment on above: Performed By: #### C BCA, BMP, , 24709-2, THYR #### [facility] ([id number]) [address] [place] [address] 85167 ABSOLUTE NEUTROPHIL 6.2 X10E9/L Normal 1.5-6.6 [facility] Comment on above: Performed By: #### C BCA, BMP, , 17147-6, THYR #### [facility] ([id number]) [address] [place] [address] 88841 Basophils/100 WBC (Bld) 0.8 % Normal [facility] Comment on above: Performed By: #### C BCA, BMP, , 59252-5, THYR #### [facility] ([id number]) [address] [place] [address] 39055 Eosinophils (Bld) [#/Vol] 0.1 10*3/uL Normal 0.0-0.4 [facility] Comment on above: Performed By: #### C BCA, BMP, , 63991-3, THYR #### [facility] ([id number]) [address] [place] [address] 88546 Eosinophils/100 WBC (Bld) 1.2 % Normal [facility] Comment on above: Performed By: #### C BCA, BMP, , 41664-2, THYR #### [facility] ([id number]) [address] [place] [address] 05494 Erythrocyte distribution width (RBC) [Ratio] 13.4 % Normal 11.5-15.0 [facility] Comment on above: Performed By: #### C BCA, BMP, , 89050-0, THYR #### [facility] ([id number]) [address] [place] [address] 79899 Hematocrit (Bld) [Volume fraction] 37.4 % Normal 35-47 [facility] Comment on above: Performed By: #### C BCA, BMP, , 80652-8, THYR #### [facility] ([id number]) [address] [place] [address] 22079 Hemoglobin (Bld) [Mass/Vol] 13.1 g/dL Normal 11.7-15.5 [facility] Comment on above: Performed By: #### C BCA, BMP, , , THYR #### [facility] ([id number]) [address] [place] [address] 50843 Lymphocytes (Bld) [#/Vol] 2.5 10*3/uL Normal 1.0-3.5 [facility] Comment on above: Performed By: #### C BCA, BMP, , 56562-1, THYR #### [facility] ([id number]) [address] [place] [address] 10761 Lymphocytes/100 WBC (Bld) 26.5 % Normal [facility] Comment on above: Performed By: #### C BCA, BMP, , 20071-2, THYR #### [facility] ([id number]) [address] [place] [address] 38220 MCH (RBC) [Entitic mass] 30.4 pg Normal 27-34 [facility] Comment on above: Performed By: #### C BCA, BMP, , 53768-8, THYR #### [facility] ([id number]) [address] [place] [address] 70238 MCHC (RBC) [Mass/Vol] 35.0 g/dL Normal 32-36 [facility] Comment on above: Performed By: #### C BCA, BMP, 39453-8, 83842-1, THYR #### [facility] ([id number]) [address] [place] [address] 51680 MCV (RBC) [Entitic vol] 87 fL Normal 80-100 [facility] Comment on above: Performed By: #### C BCA, BMP, 54067-6, 35453-5, THYR #### [facility] ([id number]) [address] [place] [address] 23041 Monocytes (Bld) [#/Vol] 0.4 10*3/uL Normal 0-0.9 [facility] Comment on above: Performed By: #### C BCA, BMP, 89613-5, 75195-4, THYR #### [facility] ([id number]) [address] [place] [address] 34345 Monocytes/100 WBC (Bld) 4.2 % Normal [facility] Comment on above: Performed By: #### C BCA, BMP, 86863-8, 36663-2, THYR #### [facility] ([id number]) [address] [place] [address] 17309 Neutrophils/100 WBC (Bld) 67.3 % Normal [facility] Comment on above: Performed By: #### C BCA, BMP, 75456-8, 77078-5, THYR #### [facility] ([id number]) [address] [place] [address] 93006 Platelet mean volume (Bld) [Entitic vol] 7.4 fL Normal 7-12 [facility] Comment on above: Performed By: #### C BCA, BMP, 12413-6, 28192-5, THYR #### [facility] ([id number]) [address] [place] [address] 64379 Platelets (Bld) [#/Vol] 246 10*3/uL Normal 150-450 [facility] Comment on above: Performed By: #### C BCA, BMP, , 00560-3, THYR #### [facility] ([id number]) [address] [place], [place] [address] RBC COUNT 4.30 X10E12/L Normal 3.80-5.20 [facility] Comment on above: Performed By: #### C HOLLI, BMP, , 48593-0, THYR #### [facility] ([id number]) [address] [place], [place] [address] WBC (Bld) [#/Vol] 9.3 10*3/uL Normal 4.0-11.0 [facility] Comment on above: Performed By: #### C HOLLI, BMP, , 39772-0, THYR #### [facility] ([id number]) [address] [place] [address] MAGNESIUMon 12-21-2024 Magnesium [Mass/Vol] 2.1 mg/dL Normal 1.8-2.6 [facility] Comment on above: Performed By: #### C HOLLI, BMP, , 61321-3, THYR #### [facility] ([id number]) [address] [place], [place] [address] THYROID PROFILEon 12-21-2024 Free T4 [Mass/Vol] 0.79 ng/dL Normal 0.61-1.60 [facility] Comment on above: Performed By: #### C BCA, BMP, , 71904-1, THYR #### [facility] ([id number]) [address] [place], [place] [address] TSH 1.21 uIU/mL Normal 0.49-4.67 [facility] Comment on above: Performed By: #### C HOLLI, BMP, , 07921-5, THYR #### [facility] ([id number]) [address] [place] [address] Troponin I.cardiac High sens itivity method [Mass/Vol]on 12-21-2024 TROPONIN I, HIGH SENSITIVITY <2 Normal <16 [facility] Comment on above: Performed By: #### C HOLLI, BMP, 12484-2, 27448-0, THYR #### [facility] ([id number]) [address] [place] [address] 08752 XR CHEST 2 VWSon 12-21-2024 XR CHEST 2 VWS XR CHEST 2 VWS XR CHEST 2 VWS INDICATION: Chest pain COMPARISON: X-ray 02/10/2024 FINDINGS: Cardiomediastinal silhouette and pulmonary vasculature are within normal limits. Lungs and pleural space are clear. There is no pleural effusion or pneumothorax. IMPRESSION: No acute cardiopulmonary process. Finalized by Loi Erwin on 12/21/2024 11:37 AM Normal [facility] CBC AND AUTO DIFFon 11-16-20 ABSOLUTE BASOPHIL 0.1 X10E9/L Normal 0.0-0.2 [facility] Comment on above: Performed By: #### C MATTY DE LA GARZA, 41218-3 #### [facility] ([id number]) [address] [place] [address] 40011 ABSOLUTE NEUTROPHIL 5.2 X10E9/L Normal 1.5-6.6 [facility] Comment on above: Performed By: #### C MATTY DE LA GARZA, 56484-6 #### [facility] ([id number]) [address] [place] [address] 89813 Basophils/100 WBC (Bld) 0.7 % Normal [facility] Comment on above: Performed By: #### C MATTY DE LA GARZA, 27037-6 #### [facility] ([id number]) [address] [place] [address] 33385 Eosinophils (Bld) [#/Vol] 0.1 10*3/uL Normal 0.0-0.4 [facility] Comment on above: Performed By: #### C HOLLI CMP, 26766-0 #### [facility] ([id number]) [address] [place] [address] 99047 Eosinophils/100 WBC (Bld) 1.0 % Normal [facility] Comment on above: Performed By: #### Jose Manuel DE LA GARZA CMP, 02060-8 #### [facility] ([id number]) [address] [place] [address] 78607 Erythrocyte distribution width (RBC) [Ratio] 13.4 % Normal 11.5-15.0 [facility] Comment on above: Performed By: #### Jose Manuel DE LA GARZA CMP, 29656-4 #### [facility] ([id number]) [address] [place] [address] 38502 Hematocrit (Bld) [Volume fraction] 35.6 % Normal 35-47 [facility] Comment on above: Performed By: #### Jose Manuel DE LA GARZA [facility], 31996-5 #### [facility] ([id number]) [address] [place] [address] 56682 Hemoglobin (Bld) [Mass/Vol] 12.3 g/dL Normal 11.7-15.5 [facility] Comment on above: Performed By: #### Jose Manuel DE LA GARZA CMP, 94800-8 #### [facility] ([id number]) [address] [place] [address] 12445 Lymphocytes (Bld) [#/Vol] 2.5 10*3/uL Normal 1.0-3.5 [facility] Comment on above: Performed By: #### Jose Manuel DE LA GARZA CMP, 78838-5 #### [facility] ([id number]) [address] [place] [address] 43113 Lymphocytes/100 WBC (Bld) 30.2 % Normal [facility] Comment on above: Performed By: #### Jose Manuel DE LA GARZA CMP, 80501-5 #### [facility] ([id number]) [address] [place] [address] 72867 MCH (RBC) [Entitic mass] 30.3 pg Normal 27-34 [facility] Comment on above: Performed By: #### Jose Manuel DE LA GARZA CMP, 67030-1 #### [facility] ([id number]) [address] [place] [address] 94946 MCHC (RBC) [Mass/Vol] 34.4 g/dL Normal 32-36 [facility] Comment on above: Performed By: #### Jose Manuel DE LA GARZA CMP, 73632-9 #### [facility] ([id number]) [address] [place] [address] [id number] MCV (RBC) [Entitic vol] 88 fL Normal 80-100 [facility] Comment on above: Performed By: #### Jose Manuel DE LA GARZA CMP, 71015-2 #### [facility] ([id number]) [address] [place] [address] 79743 Monocytes (Bld) [#/Vol] 0.5 10*3/uL Normal 0-0.9 [facility] Comment on above: Performed By: #### Jose Manuel DE LA GARZA CMP, 65853-1 #### [facility] [facility] ([id number]) [address] [place] [address] 39073 Monocytes/100 WBC (Bld) 5.7 % Normal [facility] Comment on above: Performed By: #### Jose Manuel DE LA GARZA CMP, 03978-8 #### [facility] ([id number]) [address] [place] [address] 80546 Neutrophils/100 WBC (Bld) 62.4 % Normal [facility] Comment on above: Performed By: #### Jose Manuel DE LA GARZA CMP, 38386-7 #### [facility] ([id number]) [address] [place] [address] 47659 Platelet mean volume (Bld) [Entitic vol] 7.9 fL Normal 7-12 [facility] Comment on above: Performed By: #### C MATTY DE LA GARZA, 38041-8 #### [facility] ([id number]) [address] [place] [address] 00524 Platelets (Bld) [#/Vol] 246 10*3/uL Normal 150-450 [facility] Comment on above: Performed By: #### C MATTY DE LA GARZA, 64494-5 #### [facility] ([id number]) [address] [place] [address] 02218 RBC COUNT 4.05 X10E12/L Normal 3.80-5.20 [facility] Comment on above: Performed By: #### C HOLLI CMP, 23979-3 #### [facility] ([id number]) [address] [place] [address] 47218 WBC (Bld) [#/Vol] 8.3 10*3/uL Normal 4.0-11.0 [facility] Comment on above: Performed By: #### C MATTY DE LA GARZA, 45088-7 #### [facility] ([id number]) [address] [place] [address] 89198 COMPREHENSIVE METABOLIC PANE Giovanny 11-16-2024 Albumin [Mass/Vol] 3.9 g/dL Normal 3.2-5.3 [facility] Comment on above: Performed By: #### C HOLLI, CMP, 74472-6 #### [facility] ([id number]) [address] [place] [address] 10294 ALP [Catalytic activity/Vol] 46 U/L Normal 39-130 [facility] Comment on above: Performed By: #### C HOLLI, CMP, 16607-4 #### [facility] ([id number]) [address] [place] [address] 39332 ALT [Catalytic activity/Vol] 21 U/L Normal 0-31 [facility] Comment on above: Performed By: #### C HOLLI, CMP, 69703-6 #### [facility] ([id number]) [address] [place] [address] 79230 Anion gap [Moles/Vol] 7 mmol/L Normal 5-15 [facility] Comment on above: Performed By: #### Jose Manuel DE LA GARZA, CMP, 45189-4 #### [facility] ([id number]) [address] [place] [address] 07582 AST [Catalytic activity/Vol] 15 U/L Normal 0-41 [facility] Comment on above: Performed By: #### Jose Manuel DE LA GARZA CMP, 12634-7 #### [facility] ([id number]) [address] [place] [address] 35803 Bilirubin [Mass/Vol] 0.4 mg/dL Normal 0.3-1.2 [facility] Comment on above: Performed By: #### Jose Manuel DE LA GARZA, CMP, 94852-9 #### [facility] ([id number]) [address] [place] [address] 37338 Calcium [Mass/Vol] 8.6 mg/dL Normal 8.5-10.5 [facility] Comment on above: Performed By: #### Jose Manuel DE LA GARZA, CMP, 49233-6 #### [facility] ([id number]) [address] [place] [address] 68355 Chloride [Moles/Vol] 106 mmol/L Normal 98-109 [facility] Comment on above: Performed By: #### C BCA, CMP, 90461-2 #### [facility] ([id number]) [address] [place] [address] 64707 CO2 [Moles/Vol] 23 mmol/L Normal 22-32 [facility] Comment on above: Performed By: #### C BCA, CMP, 50995-9 #### [facility] ([id number]) [address] [place] [address] 09398 Creatinine [Mass/Vol] 0.77 mg/dL Normal 0.40-1.00 [facility] Comment on above: Result Comment: METH OD TRACEABLE TO IDMS STANDARD Performed By: #### C MATTY DE LA GARZA, 57478-7 #### [facility] ([id number]) [address] [place] [address] 43566 eGFR (CKD-EPI) NON-RACE DEPENDENT >90 Normal >59 [facility] Comment on above: Result Comment: Reported eGFR is based on the CKD-EPI 2020 equation that does not use a race coefficient. Performed By: #### C MATTY DE LA GARZA, 72307-3 #### [facility] ([id number]) [address] [place] [address] 41723 Glucose [Mass/Vol] 97 mg/dL Normal 65-99 [facility] Comment on above: Performed By: #### C MATTY DE LA GARZA, 50119-8 #### [facility] ([id number]) [address] [place] [address] 58439 Potassium [Moles/Vol] 3.9 mmol/L Normal 3.5-5.0 [facility] Comment on above: Performed By: #### C MATTY DE LA GARZA, 18699-4 #### [facility] ([id number]) [address] [place] [address] 40313 Protein [Mass/Vol] 6.8 g/dL Normal 6.0-8.0 [facility] Comment on above: Performed By: #### C MATTY DE LA GARZA, 15640-0 #### [facility] ([id number]) [address] [place] [address] 80013 Sodium [Moles/Vol] 136 mmol/L Normal 134-146 [facility] Comment on above: Performed By: #### C MATTY DE LA GARZA, 84817-2 #### [facility] ([id number]) [address] [place] [address] 37665 Urea nitrogen [Mass/Vol] 13 mg/dL Normal 5-23 [facility] Comment on above: Performed By: #### C BCA, CMP, 53395-5 #### [facility] ([id number]) [address] [place] [address] 43713 Troponin I.cardiac High sens itivity method [Mass/Vol]on 11-16-2024 TROPONIN I, HIGH SENSITIVITY <2 Normal <16 [facility] Comment on above: Performed By: #### C HOLLI, CMP, 39714-8 #### [facility] ([id number]) [address] [place] [address] 11022 CBC AND AUTO DIFFon 24-20 24 ABSOLUTE BASOPHIL 0.1 X10E9/L Normal 0.0-0.2 [facility] Comment on above: Performed By: #### C BCA, CMP #### [facility] ([id number]) [address] [place] [address] 50263 ABSOLUTE NEUTROPHIL 4.6 X10E9/L Normal 1.5-6.6 [facility] Comment on above: Performed By: #### C BCA, CMP #### [facility] ([id number]) [address] [place] [address] 93085 Basophils/100 WBC (Bld) 0.7 % Normal [facility] Comment on above: Performed By: #### C BCA, CMP #### [facility] ([id number]) [address] [place] [address] 59951 Eosinophils (Bld) [#/Vol] 0.2 10*3/uL Normal 0.0-0.4 [facility] Comment on above: Performed By: #### C BCA, CMP #### [facility] ([id number]) [address] [place] [address] 74003 Eosinophils/100 WBC (Bld) 2.3 % Normal [facility] Comment on above: Performed By: #### C HOLLI, CMP #### [facility] ([id number]) [address] [place] [address] 45172 Erythrocyte distribution width (RBC) [Ratio] 12.9 % Normal 11.5-15.0 [facility] Comment on above: Performed By: #### C BCA, CMP #### [facility] ([id number]) [address] [place] [address] 52260 Hematocrit (Bld) [Volume fraction] 37.2 % Normal 35-47 [facility] Comment on above: Performed By: #### C HOLLI, CMP #### [facility] ([id number]) [address] [place] [address] 32168 Hemoglobin (Bld) [Mass/Vol] 12.9 g/dL Normal 11.7-15.5 [facility] Comment on above: Performed By: #### C HOLLI, CMP #### [facility] ([id number]) [address] [place] [address] 88396 Lymphocytes (Bld) [#/Vol] 3.3 10*3/uL Normal 1.0-3.5 [facility] Comment on above: Performed By: #### C BCA, CMP #### [facility] ([id number]) [address] [place] [address] 76122 Lymphocytes/100 WBC (Bld) 38.4 % Normal [facility] Comment on above: Performed By: #### C BCA, CMP #### [facility] ([id number]) [address] [place] [address] 57346 MCH (RBC) [Entitic mass] 30.8 pg Normal 27-34 [facility] Comment on above: Performed By: #### C BCA, CMP #### [facility] ([id number]) [address] [place] [address] [place] [address] MCHC (RBC) [Mass/Vol] 34.8 g/dL Normal 32-36 [facility] Comment on above: Performed By: #### C BCA, CMP #### [facility] ([id number]) [address] [place] [address] 95422 MCV (RBC) [Entitic vol] 89 fL Normal 80-100 [facility] Comment on above: Performed By: #### C HOLLI, CMP #### [facility] ([id number]) [address] [place] [address] 35925 Monocytes (Bld) [#/Vol] 0.5 10*3/uL Normal 0-0.9 [facility] Comment on above: Performed By: #### C HOLLI, CMP #### [facility] ([id number]) [address] [place] [address] 77367 Monocytes/100 WBC (Bld) 5.4 % Normal [facility] Comment on above: Performed By: #### C HOLLI, CMP #### [facility] ([id number]) [address] [place] [address] 41322 Neutrophils/100 WBC (Bld) 53.2 % Normal [facility] Comment on above: Performed By: #### C HOLLI, CMP #### [facility] ([id number]) [address] [place] [address] [place] [address] Platelet mean volume (Bld) [Entitic vol] 8.1 fL Normal 7-12 [facility] Comment on above: Performed By: #### C BCA, CMP #### [facility] ([id number]) [address] [place] [address] 57417 Platelets (Bld) [#/Vol] 265 10*3/uL Normal 150-450 [facility] Comment on above: Performed By: #### C BCA, CMP #### [facility] ([id number]) [address] [place] [address] 45955 RBC COUNT 4.21 X10E12/L Normal 3.80-5.20 [facility] Comment on above: Performed By: #### C BCA, CMP #### [facility] ([id number]) [address] [place] [address] 54650 WBC (Bld) [#/Vol] 8.6 10*3/uL Normal 4.0-11.0 [facility] Comment on above: Performed By: #### C HOLLI, CMP #### [facility] ([id number]) [address] [place] [address] 72775 COMPREHENSIVE METABOLIC PANE [facility] 10-23-2024 Albumin [Mass/Vol] 3.9 g/dL Normal 3.2-5.3 [facility] Comment on above: Result Comment: VARGHESE ELIANE REMOVED BY HIGH SPEED CENTRIFUGATION Corrected on 10/23 AT 1804: Previously reported as 3.9 Performed By: #### C HOLLI, CMP #### [facility] ([id number]) [address] [place] [address] 34477 ALP [Catalytic activity/Vol] 53 U/L Normal 39-130 [facility] Comment on above: Result Comment: VARGHESE ELIANE REMOVED BY HIGH SPEED CENTRIFUGATION Corrected on 10/23 AT 1804: Previously reported as 53 Performed By: #### C BCA, CMP #### [facility] ([id number]) [address] [place] [address] 05446 ALT [Catalytic activity/Vol] 53 U/L High 0-31 [facility] Comment on above: Result Comment: VARGHESE ELIANE REMOVED BY HIGH SPEED CENTRIFUGATION Corrected on 10/23 AT 1804: Previously reported as 53 Performed By: #### C BCA, CMP #### [facility] ([id number]) [address] [place] [address] Anion gap [Moles/Vol] 8 mmol/L Normal 5-15 [facility] Comment on above: Performed By: #### C BCA, CMP #### [facility] ([id number]) [address] [place] [address] 46380 AST [Catalytic activity/Vol] 56 U/L High 0-41 [facility] Comment on above: Result Comment: VARGHESE ELIANE REMOVED BY HIGH SPEED CENTRIFUGATION Corrected on 10/23 AT 1804: Previously reported as 56 Performed By: #### C BCA, CMP #### [facility] ([id number]) [address] [place] [address] 09257 Bilirubin [Mass/Vol] 0.3 mg/dL Normal 0.3-1.2 [facility] Comment on above: Result Comment: VARGHESE ELIANE REMOVED BY HIGH SPEED CENTRIFUGATION Corrected on 10/23 AT 1804: Previously reported as 0.3 Performed By: #### C BCA, CMP #### [facility] ([id number]) [address] [place] [address] 96078 Calcium [Mass/Vol] 8.7 mg/dL Normal 8.5-10.5 [facility] Comment on above: Result Comment: VARGHESE ELIANE REMOVED BY HIGH SPEED CENTRIFUGATION Corrected on 10/23 AT 1804: Previously reported as 8.7 Performed By: #### C BCA, CMP #### [facility] ([id number]) [address] [place] [address] 60087 Chloride [Moles/Vol] 103 mmol/L Normal 98-109 [facility] Comment on above: Result Comment: VARGHESE ELIANE REMOVED BY HIGH SPEED CENTRIFUGATION Corrected on 10/23 AT 1804: Previously reported as 103 Performed By: #### C BCA, CMP #### [facility] ([id number]) [address] [place] [address] 98752 CO2 [Moles/Vol] 21 mmol/L Low 22-32 [facility] Comment on above: Result Comment: VARGHESE ELIANE REMOVED BY HIGH SPEED CENTRIFUGATION Corrected on 10/23 AT 1804: Previously reported as 21 Performed By: #### C HOLLI, CMP #### [facility] ([id number]) [address] [place] [address] 22179 Creatinine [Mass/Vol] 0.88 mg/dL Normal 0.40-1.00 [facility] Comment on above: Result Comment: VARGHESE ELIANE REMOVED BY HIGH SPEED CENTRIFUGATION METHOD TRACEABLE TO IDMS STANDARD Corrected on 10/23 AT 1804: Previously reported as 0.88 METHOD TRACEABLE TO IDMS STANDARD Performed By: #### C HOLLI, CMP #### [facility] ([id number]) [address] [place] [address] 49280 GFR/1.73 sq M.predicted among non-blacks MDRD (S/P/Bld) [Vol rate/Area] 88 mL/min/{1.73_m2} Normal >59 [facility] Comment on above: Result Comment: Reported eGFR is based on the CKD-EPI 2020 equation that does not use a race coefficient. Performed By: #### C HOLLI, CMP #### [facility] ([id number]) [address] [place] [address] 40798 Glucose [Mass/Vol] 113 mg/dL High 65-99 [facility] Comment on above: Result Comment: VARGHESE ELIANE REMOVED BY HIGH SPEED CENTRIFUGATION Corrected on 10/23 AT 1804: Previously reported as 113 Performed By: #### C HOLLI, CMP #### [facility] ([id number]) [address] [place] [address] 19901 Potassium [Moles/Vol] 3.7 mmol/L Normal 3.5-5.0 [facility] Comment on above: Result Comment: VARGHESE ELIANE REMOVED BY HIGH SPEED CENTRIFUGATION Corrected on 10/23 AT 1804: Previously reported as 3.7 Performed By: #### C HOLLI, CMP #### [facility] ([id number]) [address] [place] [address] 91793 Protein [Mass/Vol] 6.9 g/dL Normal 6.0-8.0 [facility] Comment on above: Result Comment: VARGHESE ELIANE REMOVED BY HIGH SPEED CENTRIFUGATION Corrected on 10/23 AT 1804: Previously reported as 6.9 Performed By: #### C BCA, CMP #### [facility] ([id number]) [address] [place] [address] Sodium [Moles/Vol] 132 mmol/L Low 134-146 [facility] Comment on above: Result Comment: VARGHESE ELIANE REMOVED BY HIGH SPEED CENTRIFUGATION Corrected on 10/23 AT 1804: Previously reported as 132 Performed By: #### C BCA, CMP #### [facility] ([id number]) [address] [place] [address] 80992 Urea nitrogen [Mass/Vol] 14 mg/dL Normal 5-23 [facility] Comment on above: Result Comment: VARGHESE ELIANE REMOVED BY HIGH SPEED CENTRIFUGATION Corrected on 10/23 AT 1804: Previously reported as 14 Performed By: #### C BCA, CMP #### [facility] ([id number]) [address] [place] [address] ABDOMEN AND PELVIS WO CON Ton 10-23-2024 CT ABDOMEN AND PELVIS WO CONT CT ABDOMEN AND PELVIS WO CONT CLINICAL INFORMATION: Abdominal/flank pain, stone suspected; pain is right flank and RUQ Pt has prior appendectomy. TECHNIQUE: CT Abdomen and Pelvis without intravenous contrast. All CT scans at this facility use dose modulation, iterative reconstruction, and/or weight based dosing when appropriate to reduce radiation dose to as low as reasonably achievable. COMPARISON: No relevant prior studies available. FINDINGS: Acute findings: Lung bases clear. No free intra-abdominal air or fluid. Right-sided renal stones noted in the central collecting system such upper pole dilated calyx. No significant intrarenal calculus on the left. Both ureters demonstrate normal caliber and course down to the level of the urinary bladder without an obstructing stone. Gallbladder contracted. Right lower quadrant unremarkable with evidence of previous appendicectomy. No pelvic mass or fluid collection. No bowel obstruction. Chronic findings: Liver spleen pancreas adrenal glands are normal. Fecal loading of the large bowel. No small bowel obstruction. No adenopathy. Inguinal orifices demonstrate no obvious hernia. Right adnexal cyst previously documented remains stable at 2.4 cm without surrounding complication. Bones are unremarkable. IMPRESSION: * No definitive acute findings. Nonobstructing stones in the midpole/upper pole calyx in the right kidney. Finalized by Joel Laughlin MD on 10/23/2024 5:57 PM Normal [facility] HCG ( test) Ql (U)o n 10-23-2024 Beta HCG ( test) Ql (U) Negative Normal NEG [facility] Comment on above: Performed By: #### 2 106-3 #### [facility] ([id number]) [address] [place] [address] 59052 URN MACROSCOPIC NURon 2023 BILIRUBIN ANT Negative Normal NEG [facility] Comment on above: Performed By: #### N UM #### [facility] ([id number]) [address] [place] [address] 76662 BLOOD/HGB ANT Negative Normal NEG [facility] Comment on above: Performed By: #### N UM #### [facility] ([id number]) [address] [place] [address] 54405 GLUCOSE ANT Negative Normal NEG [facility] Comment on above: Performed By: #### N UM #### [facility] ([id number]) [address] [place] [address] 88458 KETONES ANT Negative Normal NEG [facility] Comment on above: Performed By: #### N UM #### [facility] ([id number]) [address] [place] [address] 38726 LEUKOCYTE ESTERASE ANT Negative Normal NEG [facility] Comment on above: Performed By: #### N UM #### [facility] ([id number]) [address] [place] [address] 64351 NITRITE ANT Negative Normal NEG [facility] Comment on above: Performed By: #### N UM #### [facility] ([id number]) [address] [place] [address] PH ANT 6.0 Normal 5.0-8.5 [facility] Comment on above: Performed By: #### N UM #### [facility] ([id number]) [address] [place] [address] 48521 PROTEIN ANT Negative Normal NEG [facility] Comment on above: Performed By: #### N UM #### [facility] ([id number]) [address] [place] [address] 16897 SPECIFIC GRAVITY ANT 1.010 Normal 1.003-1 .03 5 [facility] Comment on above: Performed By: #### N UM #### [facility] ([id number]) [address] [place] [address] 96288 UROBILINOGEN ANT 0.2 eu/dL Normal <1.1 [facility] Comment on above: Performed By: #### N UM #### [facility] ([id number]) [address] [place] [address] 39301 URINE CULTUREon 10-13-2024 Bacteria identified Cx Nom (U) CULTURE RESULTS NO GROWTH AT <1000 CFU/mL Normal [facility] Comment on above: Performed By: #### 6 30-4 #### [facility] ([id number]) [address] [place] [address], [address] [place] [address] VAGINITIS PANEL PCRon 2023 VAGINITIS PANEL PCR BACT. VAGINOSIS DNA Not detected (qualifier value) Qualitative results are reported based on detection and quantitation of targeted organism markers which include: Lactobacillus spp. (L. crispatus and L. jensenii), Gardnerella vaginalis, Atopobium vaginae, Bacterial Vaginosis Associated Bacteria-2 (BVAB-2) and Megasphaera-1 RUBINA SPECIES DNA Not detected (qualifier value) Rubina species not detected include: C. albicans, C. tropicalis, C. parapsilosis or C. dubliniensis RUBINA KRUSEI DNA Not detected (qualifier value) No Rubina krusei detected RUBINA GLABRATA DNA Not detected (qualifier value) No Rubina glabrata detected TRICHOMONAS VAG DNA Not detected (qualifier value) No Trichomonas vaginalis detected NOTE BD MAX Vaginal Panel has not been evaluated for patients under 18 years old. Results for these patients should be reviewed and assessed in accordance with clinical presentation to determine patient diagnosis. Normal [facility] Comment on above: Performed By: #### V PPCR #### [facility] ([id number]) [address] [place] [address], [address] [place] [address] SUPERFICIAL WOUND CULTUREon 09-01-2024 Bacteria identified Aer cx Nom (Wound) GRAM STAIN 0 to 1 WHITE BLOOD CELLS/LPF 0 SQUAMOUS EPITHELIAL CELLS/LPF NO ORGANISMS SEEN CULTURE RESULTS NO GROWTH 2 DAYS Normal [facility] Comment on above: Performed By: #### 6 32-0 #### [facility] ([id number]) [address] [place] [address], [address] [place] [address] MR PELVIS W WO CONTon 2023 MR PELVIS W WO CONT MR PELVIS W WO CONT CLINICAL INFORMATION: Paraovarian cyst, pelvic pain, adnexal mass COMPARISON: Pelvic ultrasound 03/22/2024 TECHNIQUE: Multisequence multiplanar MRI of the pelvis without and with contrast. CONTRAST: 13.8 mL of ProHance FINDINGS: UTERUS: Surgically absent OVARIES: The ovaries are normal in size with normal terminal follicular changes no intrinsic T1 bright lesions within the ovaries. 2.5 cm simple appearing cystic lesion in the right adnexa. There is no definite evidence of deep infiltrating endometriosis. LYMPH NODES: No enlarged lymph nodes by size criteria. OTHER/LOCALIZER: Apparent Bartholin's gland cyst. IMPRESSION: * No acute abnormality within the pelvis. Specifically, no evidence of deep infiltrating endometriosis. * 2.5 cm simple appearing cystic lesion in the right adnexa. Given its size, this requires no follow-up. Approved by Resident Andrea Calixto DO on 06/27/2024 9:59 AM Cal Worthington DO have personally reviewed the image(s) and agree with and/or edited the report Finalized by Cal Yan DO on 06/27/2024 11:01 AM Normal [facility] HISTOLOGY - TISSUE EXAMon LAB AP ADDENDUM 1 Normal [facility] Comment on above: Result Comment: Immu nohistochemical stains were performed with adequate controls. No H.pylori organisms are identified on immunostain. Addendum electronically signed by Ludmila Sauceda MD on 12/15/2023 at 10:09 AM Performed By: #### L [id number] ####[facility] ([facility])[address] [place] [address] LAB AP ASR DISCLAIMER The interpretation of this case included the use of immunohistochemistry or special stains. These tests have not been cleared or approved by the U.S. Food and Drug Administration. The FDA has determined that such clearance or approval is not necessary. These tests are used for clinical purposes and should not be regarded as investigational or for research. This laboratory is certified to perform high complexity testing under the Clinical Laboratory Improvement Amendments of 1998. [facility] Comment on above: Performed By: #### L [id number] ####[facility] ([facility])[address] [place] [address] LAB AP CASE REPORT Normal [facility] Comment on above: Result Comment: Surg ical Pathology Case: [id number] Authorizing Provider: Faith Kurtz MD Collected: 12/04/2023 1007 Ordering Location: [facility] Received: 12/04/2023 [facility] Pathologist: Ludmila Sauceda MD Specimen: Gastric, r/o h. pylori Performed By: #### L [id number] ####[facility] ([facility] [place] [address] LAB AP CLINICAL INFORMATION Order Diagnoses [facility] Comment on above: Result Comment: R10. 11 - RUQ abdominal pain [ICD-10-CM] Performed By: #### L [id number] ####[facility] ([facility])[address] [place] [address] LAB AP DIAGNOSIS COMMENT Normal [facility] Comment on above: Result Comment: An i mmunohistochemical stain for H. pylori organisms is pending. The results will be reported in an addendum to follow this report. Performed By: #### L [id number] ####[facility] ([facility])[address] [place] [address] LAB AP GROSS DESCRIPTION A. Gastric. [facility] Comment on above: Result Comment: Rece ived in formalin labeled Analy Gonzalez, Gastric r/o h. pylori are three pink-napoles soft tissue bits measuring 0.3 and 0.4 cm. The specimen is entirely submitted in a single cassette. Nevin Joel, Pathologists' Electrician Chief Performed By: #### L [id number] ####[facility] ([facility])[address] [place] [address] LAB AP MICROSCOPIC DESCRIPTION Microscopic examination performed. [facility] Comment on above: Performed By: #### L [id number] ####[facility] ([facility])[address] [place] [address] LAB AP REPORT FINAL DIAGNOSIS NARRATIVE [facility] Comment on above: Result Comment: Stom ach, biopsy: - Mild chronic inactive gastritis (see comment) Performed By: #### L [id number] ####[facility] ([facility])[address] [place] [address] NURSNOTEon 12-04-2023 SAMM Kurtz is at bedside addressing patient pain [facility] NURSKYLIE Family is at bedside Normal [facility] NURSNOTE Fellow is at bedside , wants to watch patient in pacu, will return to check on her Normal [facility] POCT GLUCOSE METER UNSOLICIT ED RESULTSon 12-04-2023 Glucose [Mass/Vol] 77 mg/dL Normal 70-105 [facility] Comment on above: Order Comment: Waive d Testing in the ED is performed under the ED CLIA certificate #[id number]. Result Comment: krmona dy2 Performed By: #### L [id number] ####[facility] ([facility])[address] [place] [address] 36on 11-27-2023 36 Vm left with provide r response to request Normal [facility] Prep for Procedureon 023 Prep for Procedure [id number] Analy Gonzalez 1990 F Date Provider Department [place] 11/26/2023 [id number] KURTZ [facility] Family History Problem Relation Age of Onset Hypertension Mother Diabetes Father Hypertension Father Heart attack Maternal Grandfather Family Status - Relation Status Age at Mother Father Maternal Grandfather Normal [facility] Telephoneon 11-26-2023 Telephone [id number] Analy Gonzalez 1990 F [facility] Provider Department [place] 11/26/2023 [id number] COLLINS [facility] Family History Problem Relation Age of Onset Hypertension Mother Diabetes Father Hypertension Father Heart attack Maternal Grandfather Family Status - Relation Status Age at Mother Father Maternal Grandfather Reason for Visit and Comments: Anxiety [9] Normal [facility] Orders Onlyon 10-05-2023 Orders Only [id number] Analy Gonzalez N 1990 F Date Provider Department [place] 10/05/2023 [id number], HISTORICAL [facility] Family History Problem Relation Age of Onset Hypertension Mother Diabetes Father Hypertension Father Heart attack Maternal Grandfather Family Status - Relation Status Age at Mother Father Maternal Grandfather Normal [facility] Orders Onlyon 09-30-2023 Orders Only [id number] Analy Gonzalez 1990 F Date Provider Department Center 09/30/2023 [id number], HISTORICAL [facility] Family History Problem Relation Age of Onset Hypertension Mother Diabetes Father Hypertension Father Heart attack Maternal Grandfather Family Status - Relation Status Age at Mother Father Maternal Grandfather [facility] 29on 09-23-2023 29 Addended by: ROSALINA DOLL on: 10/09/2023 09:02 PM Modules accepted: Orders Normal [facility] Follow-Upon 09-23-2023 Follow-Up [id number] Analy Gonzalez 1990 F Date Provider Department Center 09/23/2023 ROSALINA DELGADO [facility] Family History Problem Relation Age of Onset Hypertension Mother Diabetes Father Hypertension Father Heart attack Maternal Grandfather Family Status - Relation Status Age at Mother Father Maternal Grandfather Level of Service:90788 [place] OFFICE/OUTPATIENT ESTABLISHED MOD MDM 30-39 MIN Reason for Visit and Comments: Hospital Follow-up [832] - TTH Abdominal Pain [261031] Normal [facility] CBC with Diffon 09-12-2023 Abs. Basophil <0.03 Normal 0.00-0.20 [facility] Comment on above: Performed By: #### C DP, CP, LIP #### [address] [place] [address] Camp Maintenance Supervisor: Dionna Garcia MD Abs.Imm.Granulocyte <0.03 Normal 0.00-0.30 [facility] Comment on above: Performed By: #### C DP, CP, LIP #### [address] [place] [address] Camp Maintenance Supervisor: Dionna Garcia MD Abs.Neutrophil (Seg) 4.62 k/uL Normal 1.50-8.10 [facility] Comment on above: Performed By: #### C DP, CP, LIP #### [address] [place] [address] Camp Maintenance Supervisor: Dionna Garcia MD Basophils/100 WBC (Bld) 0 % Normal 0-2 [facility] Comment on above: Performed By: #### C DP, CP, LIP #### [address] [place] [address] [employer] Maintenance Supervisor: Dionna Garcia MD Eosinophils (Bld) [#/Vol] 0.06 10*3/uL Normal 0.00-0.44 [facility] Comment on above: Performed By: #### C DP, CP, LIP #### [address] [place] [address] Camp Maintenance Supervisor: Dionna Garcia MD Eosinophils/100 WBC (Bld) 1 % Normal 1-4 [facility] Comment on above: Performed By: #### C DP, CP, LIP #### [address] [place], [place] 1265383 [employer] Supervisor: Dionna Garcia MD Erythrocyte distribution width (RBC) [Ratio] 12.6 % Normal 11.8-14.4 [facility] Comment on above: Performed By: #### C DP, CP, LIP #### [address] [place] [address] [employer] Maintenance Supervisor: Dionna Garcia MD Hematocrit (Bld) [Volume fraction] 41.6 % Normal 36.3-47.1 [facility] Comment on above: Performed By: #### C DP, CP, LIP #### [address] [place], [place] [address] Camp Maintenance Supervisor: Dionna Garcia MD Hemoglobin (Bld) [Mass/Vol] 13.7 g/dL Normal 11.9-15.1 [facility] Comment on above: Performed By: #### C DP, CP, LIP #### [address] [place] [address] Camp Maintenance Supervisor: Dionna Garcia MD Immature granulocytes/100 WBC (Bld) 0 % Normal 0 [facility] Comment on above: Performed By: #### C DP, CP, LIP #### [address] [place], [place] 669[address]83 [employer] Supervisor: Dionna Garcia MD Lymphocytes (Bld) [#/Vol] 2.32 10*3/uL Normal 1.10-3.70 [facility] Comment on above: Performed By: #### C DP, CP, LIP #### [address] [place], [place] 535[address]83 [employer] Supervisor: Dionna Garcia MD Lymphocytes/100 WBC (Bld) 31 % Normal 24-43 [facility] Comment on above: Performed By: #### C DP, CP, LIP #### [facility] [address] [place] [address] Camp Maintenance Supervisor: Dionna Garcia MD MCH (RBC) [Entitic mass] 29.3 pg Normal 25.2-33.5 [facility] Comment on above: Performed By: #### C DP, CP, LIP #### [address] [place] [address] Camp Maintenance Supervisor: Dionna Garcia MD MCHC (RBC) [Mass/Vol] 32.9 g/dL Normal 28.4-34.8 [facility] Comment on above: Performed By: #### C DP, CP, LIP #### [address] [place] [id number] ( [employer] Supervisor: Dionna Garcia MD MCV (RBC) [Entitic vol] 88.9 fL Normal 82.6-102.9 [facility] Comment on above: Performed By: #### C DP CP, LIP #### [address] [place] [address] [employer] Maintenance Supervisor: Dionna Garcia MD Monocytes (Bld) [#/Vol] 0.45 10*3/uL Normal 0.10-1.20 [facility] Comment on above: Performed By: #### C DP, CP, LIP #### [address] [place], [facility] Camp Maintenance Supervisor: Dionna Garcia MD Monocytes/100 WBC (Bld) 6 % Normal 3-12 [facility] Comment on above: Performed By: #### C DP, CP, LIP #### [address] [place] [address] Camp Maintenance Supervisor: Dionna Garcia MD Neutrophil (Seg) 62 % Normal 36-65 [facility] Comment on above: Performed By: #### C DP, CP, LIP #### [address] [place], [place] 567[address]83 [employer] Supervisor: Dionna Garcia MD NRBC Automated 0.0 per 100 WBC Normal 0.0 [facility] Comment on above: Performed By: #### C DP, CP, LIP #### [address] [place], [place] [address] Camp Maintenance Supervisor: Dionna Garcia MD Platelet mean volume (Bld) [Entitic vol] 10.0 fL Normal 8.1-13.5 [facility] Comment on above: Performed By: #### C DP, CP, LIP #### [address] [place], [place] [address] [employer] Supervisor: Dionna Garcia MD Platelets (Bld) [#/Vol] 272 10*3/uL Normal 138-453 [facility] Comment on above: Performed By: #### C DP, CP, LIP #### [address] [place], [place] 75[address]83 [employer] Supervisor: Dionna Garcia MD RBC (Bld) [#/Vol] 4.68 10*6/uL Normal 3.95-5.11 [facility] Comment on above: Performed By: #### C DP, CP, LIP #### [address] [place], [place] [address] [employer] Supervisor: Dionna Garcia MD WBC (Bld) [#/Vol] 7.5 10*3/uL Normal 3.5-11.3 [facility] Comment on above: Performed By: #### C DP, CP, LIP #### [address] [place], [place] 46[address]83 [employer] Supervisor: Dionna Garcia MD CT ABDOMEN PELVIS W IV CONTR Caroline 09-12-2023 CT ABDOMEN PELVIS W IV CONTRAST EXAMINATION: CT OF THE ABDOMEN AND PELVIS WITH CONTRAST 09/12/2023 4:57 pm TECHNIQUE: CT of the abdomen and pelvis was performed with the administration of intravenous contrast. Multiplanar reformatted images are provided for review. Automated exposure control, iterative reconstruction, and/or weight based adjustment of the mA/kV was utilized to reduce the radiation dose to as low as reasonably achievable. COMPARISON: None. HISTORY: ORDERING SYSTEM PROVIDED HISTORY: [facility] pain TECHNOLOGIST PROVIDED HISTORY: [facility] pain Decision Support Exception - unselect if not a suspected or confirmed emergency medical condition->Emergency Medical Condition (MA) FINDINGS: Lower Chest: No acute abnormality. Liver: Normal. Gallbladder and Bile Ducts: Normal. Spleen: Normal. Adrenal Glands: Normal. Pancreas: Normal. Genitourinary: No urinary stones or hydronephrosis. No suspicious renal mass. Urinary bladder demonstrates diffuse wall thickening. The simple appearing 2.0 cm right adnexal cyst likely represents a benign ovarian cyst, no follow-up imaging is recommended. Prior hysterectomy. Bowel: Normal caliber bowel. Prior appendectomy. No significant diverticular disease. Vasculature: Normal. Bones and Soft Tissues: No acute abnormality. Retroperitoneum/Mesent rick: No intraperitoneal free air, ascites or fluid collection. No lymphadenopathy in the abdomen or pelvis. IMPRESSION: 1. Diffuse urinary bladder wall thickening may relate to cystitis or pseudo thickening from underdistention. 2. No obstructive uropathy. 3. No bowel obstruction. Interpreted by: Joshua Browning DO Signed by: Joshua Browning DO 09/12/23 Final result Normal [facility] Comp Metabolic Profon 2022 Albumin [Mass/Vol] 5.1 g/dL Normal 3.5-5.2 [facility] Comment on above: Performed By: #### C ARTHUR MEJIA, LIP #### [facility] [address] [place] [address] Camp Maintenance Supervisor: Dionna Garcia MD Albumin/Glob Ratio 1.8 Normal 1.0-2.5 [facility] Comment on above: Performed By: #### C ARTHUR MEJIA, LIP #### [facility] [address] [place] [address] Camp Maintenance Supervisor: Dionna Garcia MD Alkaline Phos 61 U/L Normal 35-104 [facility] Comment on above: Performed By: #### C DP, CP, LIP #### [facility] [address] [place], [place] 4474683 [employer] Supervisor: Dionna Garcia MD ALT [Catalytic activity/Vol] 9 U/L Normal 5-33 [facility] Comment on above: Performed By: #### C DP, CP, LIP #### [facility] [address] [place], [place] 5805783 [employer] Supervisor: Dionna Garcia MD Anion gap [Moles/Vol] 8 mmol/L Low 9-17 [facility] Comment on above: Performed By: #### C DP, CP, LIP #### [address] [place], [place] 1239383 [employer] Supervisor: Dionna Garcia MD AST [Catalytic activity/Vol] 10 U/L Normal <32 [facility] Comment on above: Performed By: #### C DP, CP, LIP #### [facility] [address] [place] [address] Dr[place], [place] 6585283 [employer] Supervisor: Dionna Garcia MD Bilirubin [Mass/Vol] 0.2 mg/dL Low 0.3-1.2 [facility] Comment on above: Performed By: #### C DP, CP, LIP #### [address] [place], [place] 7905883 [employer] Supervisor: Dionna Garcia MD BUN/CRE Ratio 15 Normal 9-20 [facility] Comment on above: Performed By: #### C DP, CP, LIP #### [facility] [address] [place] [address] Dr[place], [place] 2655983 [employer] Supervisor: Dionna Garcia MD Calcium [Mass/Vol] 9.7 mg/dL Normal 8.6-10.4 [facility] Comment on above: Performed By: #### C DP, CP, LIP #### [address] [place] [address] Camp Maintenance Supervisor: Dionna Garcia MD Chloride [Moles/Vol] 101 mmol/L Normal 98-107 [facility] Comment on above: Performed By: #### C DP, CP, LIP #### [facility] [address] [place], [place] 3350383 [employer] Supervisor: Dionna Garcia MD CO2 [Moles/Vol] 28 mmol/L Normal 20-31 [facility] Comment on above: Performed By: #### C DP, CP, LIP #### [facility] [address] [place] [address] Camp Maintenance Supervisor: Dionna Garcia MD Creatinine [Mass/Vol] 0.8 mg/dL Normal 0.5-0.9 [facility] Comment on above: Performed By: #### C JACKIE CP, LIP #### [facility] [address] [place] [address] Camp Maintenance Supervisor: Dionna Garcia MD GFR/1.73 sq M.predicted among non-blacks MDRD (S/P/Bld) [Vol rate/Area] mL/min/{1.73_m2} Normal >60 [facility] Comment on above: Result Comment: These results are not intended for use in patients <18 years of age. eGFR results are calculated without a race factor using the 2020 CKD-EPI equation. Careful clinical correlation is recommended, particularly when comparing to results calculated using previous equations. The CKD-EPI equation is less accurate in patients with extremes of muscle mass, extra-renal metabolism of creatine, excessive creatine ingestion, or following therapy that affects renal tubular secretion. Performed By: #### C DP, CP, LIP #### [facility] [address] [place] [address] [employer] Maintenance Supervisor: Dionna Garcia MD Glucose [Mass/Vol] 105 mg/dL High 70-99 [facility] Comment on above: Performed By: #### C DP, CP, LIP #### [facility] [address] [place] [address] Camp Maintenance Supervisor: Dionna Garcia MD Potassium [Moles/Vol] 3.7 mmol/L Normal 3.7-5.3 [facility] Comment on above: Performed By: #### C DP, CP, LIP #### [facility] [address] [place], [place] 4902083 [employer] Supervisor: Dionna Garcia MD Protein [Mass/Vol] 8.0 g/dL Normal 6.4-8.3 [facility] Comment on above: Performed By: #### C DP, CP, LIP #### [facility] [address] [place], [place] 9887983 [employer] Supervisor: Dionna Garcia MD Sodium [Moles/Vol] 137 mmol/L Normal 135-144 [facility] Comment on above: Performed By: #### C DP, CP, LIP #### [facility] [address] [place], [place] 6340383 [employer] Supervisor: Dionna Garcia MD Urea nitrogen [Mass/Vol] 12 mg/dL Normal 6-20 [facility] Comment on above: Performed By: #### C DP, CP, LIP #### [facility] [address] [place], [place] 7219483 [employer] Supervisor: Dionna Garcia MD Lipaseon 09-12-2023 Lipase [Catalytic activity/Vol] 15 U/L Normal 13-60 [facility] Comment on above: Performed By: #### C DP, CP, LIP #### [facility] [address] [place], [place] 6217383 [employer] Supervisor: Dionna Garcia MD Urinalysis, Routineon 2022 Bilirubin, SemiQt,Ur Negative Normal NEG [facility] Comment on above: Performed By: #### U A, UMICAO #### [facility] [address] [place], [place] 165[address]83 [employer] Supervisor: Dionna Garcia MD Blood, Urine 1+ Abnormal NEG [facility] Comment on above: Performed By: #### U A, UMICAO #### [facility] [address] [place] [address] [place], [place] 1376583 [employer] Supervisor: Dionna Garcia MD Clarity (U) Clear Normal CLEAR [facility] Comment on above: Performed By: #### U A, UMICAO #### [facility] [address] [place] [address] [place], [place] 8454283 [employer] Supervisor: Dionna Garcia MD Color (U) Yellow Normal YEL [facility] Comment on above: Performed By: #### U A, UMICAO #### [facility] [address] [place] [address] [place], [place] 7124383 [employer] Supervisor: Dionna Garcia MD Glucose Ql (U) Negative Normal NEG [facility] Comment on above: Performed By: #### U A, UMICAO #### [facility] [address] [place] [address] [place], [place] 3939683 [employer] Supervisor: Dionna Garcia MD Ketones Ql (U) Negative Normal NEG [facility] Comment on above: Performed By: #### U A, UMICAO #### [facility] [address] [place] [address] [place] [address] [employer] Maintenance Supervisor: Dionna Garcia MD Leukocyte esterase Test strip Ql (U) Negative Normal NEG [facility] Comment on above: Performed By: #### U A, UMICAO #### [facility] [address] [place] [address] Dr[place], [place] 4814583 [employer] Supervisor: Dionna Garcia MD Nitrite,Ur Negative Normal NEG [facility] Comment on above: Performed By: #### U A, UMICAO #### [facility] [address] [place] [address] [place], [place] 2160083 [employer] Supervisor: Dionna Garcia MD PH,Ur 6.0 Normal 5.0-9.0 [facility] Comment on above: Performed By: #### U A, UMICAO #### [facility] [address] [place] [address] Camp Maintenance Supervisor: Dionna Garcia MD Protein Ql (U) Negative Normal NEG [facility] Comment on above: Performed By: #### U A, UMICAO #### [facility] [address] [place], [place] [address] Camp Maintenance Supervisor: Dionna Garcia MD Spec. [place],Ur 1.020 Normal 1.010-1.02 0 [facility] Comment on above: Performed By: #### U A, UMICAO #### [address] [place], [place] [address] Camp Maintenance Supervisor: Dionna Garcia MD Urobilinogen,Ur Normal Normal 0.0-1.0 [facility] Comment on above: Performed By: #### U A, UMICAO #### [address] [place], [place] [address] Camp Maintenance Supervisor: Dionna Garcia MD Urinalysis,Microon 3 Bacteria 1+ Abnormal NONE [facility] Comment on above: Performed By: #### U A, UMICAO #### [address] [place] [address] Camp Maintenance Supervisor: Dionna Garcia MD Epithelial cells LM Ql (Urine sed) 2 TO 5 Normal 0-25 [facility] Comment on above: Performed By: #### U A, UMICAO #### [facility] [address] [place], [place] 2434183 [employer] Supervisor: Dionna Garcia MD Mucus Strands TRACE Abnormal NONE [facility] Comment on above: Performed By: #### U A, UMICAO #### [facility] [address] [place], [place] 4957383 Camp Maintenance Supervisor: Dionna Garcia MD Urine RBC's 0 TO 2 Normal 0-2 [facility] Comment on above: Performed By: #### U AJAZMYNE #### [facility] [address] [place] [address] Camp Maintenance Supervisor: Dionna Garcia MD Urine WBC's 0 TO 2 Normal 0-5 [facility] Comment on above: Performed By: #### U Rick, JAZMYNE #### [facility] [address] [place] [address] Camp Maintenance Supervisor: Dionna Garcia MD Physician Referralon 023 Physician Referral [id number] Normal [facility] CBC AUTO DIFFon 01-27-2023 BASO # 0.0 103/ul Normal 0.0-0.1 [facility] Comment on above: Performed By: #### P HOS, LIPID, CREA #### [facility] [address] [place] [address] [address] Pro Clifford Basophils/100 WBC (Bld) 0.1 % Critically low 0.2-2.0 [facility] Comment on above: Performed By: #### P HOS, LIPID, CREA #### [facility] [address] [place] [address] [address] Pro Clifford EO # 0.2 103/ul Normal 0.0-0.7 [facility] Comment on above: Performed By: #### P HOS, LIPID, CREA #### [facility] [address] [place] [address] [address] Pro Clifford Eosinophils/100 WBC (Bld) 2.2 % Normal 0.9-7.0 [facility] Comment on above: Performed By: #### P HOS, LIPID, CREA #### [facility] [address] [place] [address] [address] Pro Clifford Erythrocyte distribution width (RBC) [Ratio] 13.5 % Normal 11.0-15.0 [facility] Comment on above: Performed By: #### P HOS, LIPID, CREA #### [facility] [address] [place] [address] Dr. Pro Clifford Hematocrit (Bld) [Volume fraction] 37.7 % Normal 36.0-48.0 [facility] Comment on above: Performed By: #### P HOS, LIPID, CREA #### [facility] [address] [place] [address] Dr. Pro Clifford Hemoglobin (Bld) [Mass/Vol] 12.6 g/dL Normal 12.0-16.0 [facility] Comment on above: Performed By: #### P HOS, LIPID, CREA #### [facility] [address] [place] [address] Dr. Pro Clifford IG # 0.03 10e3/ul Normal 0.00-0.03 [facility] Comment on above: Performed By: #### P HOS, LIPID, CREA #### [facility] [address] [place] [address] Dr. Pro Clifford IG % 0.3 % Normal 0.0-0.5 [facility] Comment on above: Performed By: #### P HOS, LIPID, CREA #### [facility] [address] [place] [address] Dr. Pro Clifford LYMPH # 2.6 103/ul Normal 1.2-3.8 [facility] Comment on above: Performed By: #### P HOS, LIPID, CREA #### [facility] [address] [place] [address] Dr. Pro Clifford Lymphocytes/100 WBC (Bld) 27.7 % Normal 20.5-60.0 [facility] Comment on above: Performed By: #### P HOS, LIPID, CREA #### [facility] [address] [place] [address] Dr. Pro Clifford MANUAL DIFF REQ NO Normal [facility] Comment on above: Performed By: #### P HOS, LIPID, CREA #### [facility] [address] [place] [address] Dr. Pro Clifford MCH (RBC) [Entitic mass] 28.3 pg Normal 26.7-34.0 [facility] Comment on above: Performed By: #### P HOS, LIPID, CREA #### [facility] [address] [place] [address] Dr. Pro Clifford MCHC (RBC) [Mass/Vol] 33.4 g/dL Normal 29.9-35.2 [facility] Comment on above: Performed By: #### P HOS, LIPID, CREA #### [facility] [address] [place] [address] Dr. Pro Clifford MCV (RBC) [Entitic vol] 84.5 fL Normal 81.0-99.0 [facility] Comment on above: Performed By: #### P HOS, LIPID, CREA #### [facility] [address] [place] [address] Dr. Pro Clifford MONO # 0.6 103/ul Normal 0.3-0.8 [facility] Comment on above: Performed By: #### P HOS, LIPID, CREA #### [facility] [address] [place] [address] Dr. Pro Clifford Monocytes/100 WBC (Bld) 6.7 % Normal 1.7-12.0 [facility] Comment on above: Performed By: #### P HOS, LIPID, CREA #### [facility] [address] [place] [address] Dr. Pro Clifford NEUT # 6.0 103/ul Normal 1.4-6.5 [facility] Comment on above: Performed By: #### P HOS, LIPID, CREA #### [facility] [address] [place] [address] Dr. Pro Clifford Neutrophils/100 WBC (Bld) 63.0 % Normal 43.0-75.0 [facility] Comment on above: Performed By: #### P HOS, LIPID, CREA #### [facility] [address] [place] [address] Dr. Pro Clifford Platelet mean volume (Bld) [Entitic vol] 10.2 fL Normal 9.5-13.5 [facility] Comment on above: Performed By: #### P HOS, LIPID, CREA #### [facility] [address] [place], [place] [address] Dr. Pro Clifford PLT 217 103/ul Normal 150-450 [facility] Comment on above: Performed By: #### P HOS, LIPID, CREA #### [facility] [address] [place], [place] [address] Dr. Pro Clifford RBC 4.46 106/ul Normal 4.20-5.40 [facility] Comment on above: Performed By: #### P HOS, LIPID, CREA #### [facility] [address] [place], [place] [address] Dr. Pro Clifford WBC 9.5 103/ul Normal 4.0-11.0 [facility] Comment on above: Performed By: #### P HOS, LIPID, CREA #### [facility] [address] [place] [id number] Pro Clifford [address] ABD/PELV W CONon 01-27-[address] ABD/PELV W CON CT ABDOMEN AND PELVI S WITH CONTRAST: INDICATION: UNSPECIFIED ABDOMINAL PAIN. COMPARISON: 06/26/2022. TECHNIQUE: Helical CT images of the abdomen and pelvis were obtained after the administration of intravenous contrast. Dose reduction techniques were achieved by using automated exposure control and/or adjustment of mA and/or kV according to patient size and/or use of iterative reconstruction technique. FINDINGS: LOWER CHEST: The visualized lung bases are clear. LIVER: Unremarkable. GALLBLADDER AND BILIARY SYSTEM: Unremarkable. SPLEEN: Unremarkable. PANCREAS: Unremarkable. ADRENAL GLANDS: Unremarkable. KIDNEYS AND URETERS: The kidneys enhance symmetrically. There is no hydronephrosis. Subcentimeter cysts are noted in the kidneys bilaterally. BLADDER: Under distended. GASTROINTESTINAL TRACT: No evidence of bowel obstruction or colitis. Moderate amount of stool in the colon. Status post appendectomy. VASCULATURE: Unremarkable. RETROPERITONEUM AND LYMPH NODES: No lymphadenopathy or mass. PERITONEUM/MESENTERY: No abdominal ascites. No free air. PELVIS: Small amount of free fluid in the cul-de-sac. There is a partially collapsed cyst in the right ovary measuring 1.7 cm. Additional cyst in the right ovary measuring 2.4 x 1.8 cm. BODY WALL: Tiny fat-containing umbilical hernia. BONES: No acute abnormality. IMPRESSION: 1. Right ovarian cysts. Small amount of free fluid in the cul-de-sac. 2. Constipation. Electronically authenticated by: MICHAEL NEGRON Date: 2023-01-27 19:05 Normal [facility] URINE PROFILEon 3 Bilirubin Ql (U) Negative Normal NEGATIVE [facility] Comment on above: Performed By: #### C VDTBH #### [facility] [address] [place] [address] Dr. Pro Clifford Clarity (U) CLEAR Normal CLEAR [facility] Comment on above: Performed By: #### C VDTBH #### [facility] [address] [place] [address] Dr. Pro Clifford Color (U) LT. YELLOW Normal YELLOW [facility] Comment on above: Performed By: #### C VDTBH #### [facility] [address] [place] [address] Dr. Pro Clifford ERUAHD A micrscopic examination will be performed if indicated. Normal [facility] Comment on above: Performed By: #### C VDTBH #### [facility] [address] [place] [address] Dr. Pro Clifford Glucose Ql (U) Negative Normal NEGATIVE [facility] Comment on above: Performed By: #### C VDTBH #### [facility] [address] [place] [address] Dr. Pro Clifford Hemoglobin Ql (U) SMALL Abnormal NEGATIVE [facility] Comment on above: Performed By: #### C VDTBH #### [facility] [address] [place] [address] Dr. Pro Clifford Ketones Ql (U) Negative Normal NEGATIVE [facility] Comment on above: Performed By: #### C VDTBH #### [facility] [address] [place] [address] Dr. Pro Clifford LEUKOCYTES Negative Normal NEGATIVE [facility] Comment on above: Performed By: #### C VDTBH #### [facility] [address] [place] [address] Dr. Pro Clifford Nitrite Ql (U) Negative Normal NEGATIVE [facility] Comment on above: Performed By: #### C VDTBH #### [facility] [address] [place] [address] Dr. Pro Clifford pH (U) 6.0 [pH] Normal 5-9 [facility] Comment on above: Performed By: #### C VDTBH #### [facility] [address] [place] [address] Dr. Pro Clifford SPEC GRAVITY 1.020 Normal 1.005-<=1. 025 [facility] Comment on above: Performed By: #### C VDTBH #### [facility] [address] [place] [address] Dr. Pro Clifford UA PROTEIN Negative Normal NEGATIVE/ TRACE [facility] Comment on above: Performed By: #### C VDTBH #### [facility] [address] [place] [address] Dr. Pro Clifford UR MICRO IND INDICATED Normal [facility] Comment on above: Performed By: #### C VDTBH #### [facility] [address] [place] [address] Dr. Pro Clifford Urobilinogen Qn (U) 0.2 {Bacilio'U}/dL Normal 0.2 - 1. 0 [facility] Comment on above: Performed By: #### C VDTBH #### [facility] [address] [place] [address] Dr. Pro Clifford LACTATE/LACTIC ACIDon 2022 Lactate [Moles/Vol] 0.6 mmol/L Normal 0.4-1.9 [facility] Comment on above: Performed By: #### E PHYLLIS VERMA UMICRO #### [facility] [address] [place] [address] Dr. Pro Clifford LIPASEon 01-27-2023 Lipase [Catalytic activity/Vol] 44.0 U/L Critically low 73.0-393.0 [facility] Comment on above: Performed By: #### C BC #### [facility] [address] [place] [address] [address] Pro Clifford MONOon 01-27-2023 Monocytes (Bld) [#/Vol] Negative Normal NEGATIVE [facility] Comment on above: Performed By: #### C VDTB #### [facility] [address] [place] [address] Dr. Pro Clifford PROF 14(COMP METB)on 023 Albumin [Mass/Vol] 4.1 g/dL Normal 3.4-5.0 [facility] Comment on above: Performed By: #### C BC #### [facility] [address] [place] [address] Dr. Pro Clifford Albumin/Globulin [Mass ratio] 1.1 {ratio} Normal [facility] Comment on above: Performed By: #### C BC #### [facility] [address] [place] [address] Dr. Pro Clifford ALP [Catalytic activity/Vol] 81 U/L Normal 46-116 [facility] Comment on above: Performed By: #### C BC #### [facility] [address] [place] [address] Dr. Pro Clifford ALT [Catalytic activity/Vol] 69 U/L Critically high 14-59 [facility] Comment on above: Performed By: #### C BC #### [facility] [address] [place] [address] Dr. Pro Clifford Anion gap [Moles/Vol] 14.2 mmol/L Normal [facility] Comment on above: Performed By: #### C BC #### [facility] [address] [place] [address] Dr. Pro Clifford AST [Catalytic activity/Vol] 53 U/L Critically high 15-37 [facility] Comment on above: Performed By: #### C BC #### [facility] [address] [place] [address] Dr. Pro Clifford Bilirubin [Mass/Vol] 0.1 mg/dL Critically low 0.2-1.0 [facility] Comment on above: Performed By: #### C BC #### [facility] [address] [place] [address] Dr. Pro Clifford Calcium [Mass/Vol] 9.2 mg/dL Normal 8.5-10.1 [facility] Comment on above: Performed By: #### C BC #### [facility] [address] [place] [address] Dr. Pro Clifford Chloride [Moles/Vol] 101 mmol/L Normal 98-107 [facility] Comment on above: Performed By: #### C BC #### [facility] [address] [place] [address] Dr. Pro Clifford CO2 [Moles/Vol] 23.6 mmol/L Normal 21.0-32.0 [facility] Comment on above: Performed By: #### C BC #### [facility] [address] [place] [address] Dr. Pro Clifford Creatinine [Mass/Vol] 0.86 mg/dL Normal 0.55-1.02 [facility] Comment on above: Performed By: #### C BC #### [facility] [address] [place] [address] Dr. Pro Clifford EGFR-AF [place] >60 Normal >=60 [facility] Comment on above: Performed By: #### C BC #### [facility] [address] [place] [address] Dr. Pro Clifford EGFR-NON AF [place] >60 Normal >=60 [facility] Comment on above: Performed By: #### C BC #### [facility] [address] [place] [address] Dr. Pro Clifford Globulin (S) [Mass/Vol] 3.8 g/dL Normal [facility] Comment on above: Performed By: #### C BC #### [facility] [address] [place] [address] Dr. Pro Clifford Glucose [Mass/Vol] 91 mg/dL Normal 74-106 [facility] Comment on above: Performed By: #### C BC #### [facility] [address] [place] [address] Dr. Pro Clifford Potassium [Moles/Vol] 3.8 mmol/L Normal 3.5-5.1 [facility] Comment on above: Performed By: #### C BC #### [facility] [address] [place] [address] Dr. Pro Clifford Protein [Mass/Vol] 7.9 g/dL Normal 6.4-8.2 [facility] Comment on above: Performed By: #### C BC #### [facility] [address] [place] [address] Dr. Pro Clifford Sodium [Moles/Vol] 135 mmol/L Critically low 136-145 [facility] Comment on above: Performed By: #### C BC #### [facility] [address] [place] [address] Dr. Pro Clifford Urea nitrogen [Mass/Vol] 11.0 mg/dL Normal 7.0-18.0 [facility] Comment on above: Performed By: #### C BC #### [facility] [address] [place] [address] Dr. Pro Clifford Urea nitrogen/Creatinine [Mass ratio] 12.8 mg/mg Normal [facility] Comment on above: Performed By: #### C BC #### [facility] [address] [place] [address] Dr. Pro Clifford RESPIRATORY PANEL PLUSon Adenovirus Not detected Normal NOT DETECTED [facility] Comment on above: Performed By: #### C VDTBH #### [facility] [address] [place] [address] Dr. Pro Ruiz Parapertusis Not detected Normal NOT DETECTED [facility] Comment on above: Performed By: #### C VDTBH #### [facility] [address] [place] [address] Dr. Pro Ruiz Pertussis Not detected Normal NOT DETECTED [facility] Comment on above: Performed By: #### C VDTBH #### [facility] [address] [place] [address] Dr. Pro Clifford Chlamydia Pneumoniae Not detected Normal NOT DETECTED [facility] Comment on above: Performed By: #### C VDTBH #### [facility] [address] [place] [address] Dr. Pro Clifford Coronavirus 229E Not detected Normal NOT DETECTED [facility] Comment on above: Performed By: #### C VDTBH #### [facility] [address] [place] [address] Dr. Pro Clifford Coronavirus HKU1 Not detected Normal NOT DETECTED [facility] Comment on above: Performed By: #### C VDTBH #### [facility] [address] [place] [address] Dr. Pro Clifford Coronavirus NL63 Detected Abnormal NOT DETECTED [facility] Comment on above: Performed By: #### C VDTBH #### [facility] [address] [place] [address] Dr. Pro Clifford Coronavirus OC43 Not detected Normal NOT DETECTED [facility] Comment on above: Performed By: #### C VDTBH #### [facility] [address] [place] [address] Dr. Pro Clifford Influenza A H1 Not detected Normal NOT DETECTED [facility] Comment on above: Performed By: #### C VDTBH #### [facility] [address] [place] [address] Dr. Pro Clifford Influenza A H1 2009 Not detected Normal NOT DETECTED [facility] Comment on above: Performed By: #### C VDTBH #### [facility] [address] [place] [address] Dr. Pro Clifford Influenza A H3 Not detected Normal NOT DETECTED [facility] Comment on above: Performed By: #### C VDTBH #### [facility] [address] [place] [address] Dr. Pro Clifford Influenza B Not detected Normal NOT DETECTED [facility] Comment on above: Performed By: #### C VDTBH #### [facility] [address] [place] [address] Dr. Pro Clifford Metapneumovirus Not detected Normal NOT DETECTED [facility] Comment on above: Performed By: #### C VDTBH #### [facility] [address] [place] [address] Dr. Pro Clifford Mycoplas. Pneumoniae Not detected Normal NOT DETECTED [facility] Comment on above: Performed By: #### C VDTBH #### [facility] [address] [place] [address] Dr. Pro Clifford Parainfluenza 1 Not detected Normal NOT DETECTED [facility] Comment on above: Performed By: #### C VDTBH #### [facility] [address] [place] [address] Dr. Pro Clifford Parainfluenza 2 Not detected Normal NOT DETECTED [facility] Comment on above: Performed By: #### C VDTBH #### [facility] [address] [place] [address] Dr. Pro Clifford Parainfluenza 3 Not detected Normal NOT DETECTED [facility] Comment on above: Performed By: #### C VDTBH #### [facility] [address] [place] [address] Dr. Pro Clifford Parainfluenza 4 Not detected Normal NOT DETECTED [facility] Comment on above: Performed By: #### C VDTBH #### [facility] [address] [place] [address] Dr. Pro Clifford Rhino/Enterovirus Not detected Normal NOT DETECTED [facility] Comment on above: Performed By: #### C VDTBH #### [facility] [address] [place] [address] Dr. Pro Clifford RP2 Header 1 RESPIRATORY PANEL: VIRUSES Normal [facility] Comment on above: Performed By: #### C VDTBH #### [facility] [address] [place] [address] Dr. Pro Clifford RP2 Header 2 RESPIRATORY PANEL: BACTERIA Normal [facility] Comment on above: Performed By: #### C VDTBH #### [facility] [address] [place] [address] Dr. Pro Clifford RSV Not detected Normal NOT DETECTED [facility] Comment on above: Performed By: #### C VDTBH #### [facility] [address] [place] [address] Dr. Pro Clifford SARS-CoV-2 (COVID-19) RNA SAYDA+probe Ql (Unsp spec) Not detected Normal NOT DETECTED [facility] Comment on above: Performed By: #### C VDTBH #### [facility] [address] [place] [address] Dr. Pro Clifford URINE MICROSCOPIC ONLYon BACTERIA NONE SEEN Normal NONE SEEN [facility] Comment on above: Performed By: #### C VDTBH #### [facility] [address] [place] [address] Dr. Pro Clifford Bacteria identified Cx Nom (U) NOT INDICATED Normal [facility] Comment on above: Performed By: #### C VDTBH #### [facility] [address] [place] [address] Dr. Pro Clifford CAST NONE SEEN Normal NONE SEEN [facility] Comment on above: Performed By: #### C VDTBH #### [facility] [address] [place] [address] Dr. Pro Clifford Crystals LM Nom (Urine sed) NONE SEEN Normal NONE SEEN [facility] Comment on above: Performed By: #### C VDTBH #### [facility] [address] [place] [address] Dr. Pro Clifford Epithelial cells LM Ql (Urine sed) MANY Abnormal NONE SEEN /RARE [facility] Comment on above: Performed By: #### C VDTBH #### [facility] [address] [place] [address] Dr. Pro Clifford MUCOUS NONE SEEN Normal NONE SEEN [facility] Comment on above: Performed By: #### C VDTBH #### [facility] [address] [place] [address] Dr. Pro Clifford RBC 0-2 Normal 0-2 [facility] Comment on above: Performed By: #### C VDTBH #### [facility] [address] [place] [address] Dr. Pro Clifford WBC NONE SEEN Normal NONE SEEN [facility] Comment on above: Performed By: #### C VDTBH #### [facility] [address] [place] [address] Dr. Pro Clifford XR CHEST 2 Von 01-27-2023 XR CHEST 2 V EXAMINATION: XR CHES T 2 V, 01/27/2023 7:24 PM EST HISTORY: COUGH COMPARISON: 12/15/2022 TECHNIQUE: Chest x-ray: Two views. FINDINGS: No focal consolidations or pleural effusions. Cardiomediastinal silhouette is unremarkable. Visualized osseous structures are unremarkable. IMPRESSION: No acute disease. Electronically authenticated by: MICHAEL NEGRON Date: 2023-01-27 19:50 Normal [facility] CYTOLOGYon 12-22-2022 SENT TO REF LAB 12/22/2022 Normal [facility] Comment on above: Performed By: #### P HOS, LIPID, CREA #### [facility] [address] [place] [address] Dr. Pro Clifford CBC AUTO DIFFon 12-20-2022 BASO # 0.0 103/ul Normal 0.0-0.1 [facility] Comment on above: Performed By: #### C BC #### [facility] [address] [place] [address] Dr. Pro Clifford Basophils/100 WBC (Bld) 0.2 % Normal 0.2-2.0 [facility] Comment on above: Performed By: #### C BC #### [facility] [address] [place] [address] Dr. Pro Clifford EO # 0.1 103/ul Normal 0.0-0.7 [facility] Comment on above: Performed By: #### C BC #### [facility] [address] [place] [address] Dr. Pro Clifford Eosinophils/100 WBC (Bld) 1.8 % Normal 0.9-7.0 [facility] Comment on above: Performed By: #### C BC #### [facility] [address] [place] [address] Dr. Pro Clifford Erythrocyte distribution width (RBC) [Ratio] 12.8 % Normal 11.0-15.0 [facility] Comment on above: Performed By: #### C BC #### [facility] [address] [place] [address] Dr. Pro Clifford Hematocrit (Bld) [Volume fraction] 35.9 % Critically low 36.0-48.0 [facility] Comment on above: Performed By: #### C BC #### [facility] [address] [place] [address] Dr. Pro Clifford Hemoglobin (Bld) [Mass/Vol] 12.5 g/dL Normal 12.0-16.0 [facility] Comment on above: Performed By: #### C BC #### [facility] [address] [place] [address] Dr. Pro Clifford IG # 0.01 10e3/ul Normal 0.00-0.03 [facility] Comment on above: Performed By: #### C BC #### [facility] [address] [place] [address] Dr. Pro Clifford IG % 0.2 % Normal 0.0-0.5 [facility] Comment on above: Performed By: #### C BC #### [facility] [address] [place] [address] Dr. Pro Clifford LYMPH # 1.8 103/ul Normal 1.2-3.8 [facility] Comment on above: Performed By: #### C BC #### [facility] [address] [place] [address] Dr. Pro Clifford Lymphocytes/100 WBC (Bld) 30.3 % Normal 20.5-60.0 [facility] Comment on above: Performed By: #### C BC #### [facility] [address] [place] [address] Dr. Pro Clifford MANUAL DIFF REQ NO Normal [facility] Comment on above: Performed By: #### C BC #### [facility] [address] [place] [address] Dr. Pro Clifford MCH (RBC) [Entitic mass] 28.0 pg Normal 26.7-34.0 [facility] Comment on above: Performed By: #### C BC #### [facility] [address] [place] [address] Dr. Pro Clifford MCHC (RBC) [Mass/Vol] 34.8 g/dL Normal 29.9-35.2 [facility] Comment on above: Performed By: #### C BC #### [facility] [address] [place] [address] Dr. Pro Clifford MCV (RBC) [Entitic vol] 80.5 fL Critically low 81.0-99. 0 [facility] Comment on above: Performed By: #### C BC #### [facility] [address] [place] [address] Dr. Pro Clifford MONO # 0.3 103/ul Normal 0.3-0.8 [facility] Comment on above: Performed By: #### C BC #### [facility] [address] [place] [address] Dr. Pro Clifford Monocytes/100 WBC (Bld) 4.9 % Normal 1.7-12.0 [facility] Comment on above: Performed By: #### C BC #### [facility] [address] [place] [address] Dr. Pro Clifford NEUT # 3.8 103/ul Normal 1.4-6.5 [facility] Comment on above: Performed By: #### C BC #### [facility] [address] [place] [address] Dr. Pro Clifford Neutrophils/100 WBC (Bld) 62.6 % Normal 43.0-75.0 [facility] Comment on above: Performed By: #### C BC #### [facility] [address] [place] [address] Dr. Pro Clifford Platelet mean volume (Bld) [Entitic vol] 9.8 fL Normal 9.5-13.5 [facility] Comment on above: Performed By: #### C BC #### [facility] [address] [place] [address] Dr. Pro Clifford PLT 238 103/ul Normal 150-450 [facility] Comment on above: Performed By: #### C BC #### [facility] [address] [place] [address] Dr. Pro Clifford RBC 4.46 106/ul Normal 4.20-5.40 [facility] Comment on above: Performed By: #### C BC #### [facility] [address] [address] [address] Pro Clifford WBC 6.1 103/ul Normal 4.0-11.0 [facility] Comment on above: Performed By: #### C BC #### [facility] [address] [address] [address] Pro Clifford Covid-19 PCR ([facility])on 12-01 SARS-CoV-2 (COVID-19) RNA SAYDA+probe Ql (Unsp spec) Not detected Normal NOT DETECTED [facility] Comment on above: Result Comment: This test is not yet approved or cleared by the [place] FDA. When there are no FDA-approved or cleared tests available, and other criteria are met, FDA can make tests available under an emergency access mechanism called an Emergency Use Authorization (EUA). The EUA for this test is supported by the [place] of Health and Human Service's (HHS's) declaration that circumstances exist to justify the emergency use of in vitro diagnostics for the detection and/or diagnosis of the virus that causes COVID-19. This EUA will remain in effect (meaning this test can be used) for the duration of the COVID-19 declaration justifying emergency of IVDs, unless it is terminated or revoked by FDA (after which the test may no longer be used). When diagnostic testing is negative, the possibility of a false negative should be considered in the context of a patient's recent exposures and the presence of clinical signs and symptoms consistent with SARS-CoV-2. Performed By: #### C VDTBH #### [facility] [address] [place] [address] Dr. Pro Clifford PREG QUANT HCGon 12-20-2022 HCG QUANT <1 Normal [facility] Comment on above: Performed By: #### P HOS, LIPID, CREA #### [facility] [address] [place] [address] Dr. Pro Clifford HCG RANGE SEE BELOW Normal [facility] Comment on above: Result Comment: 5-50 0.2-1 WEEK 50-500 1-2 WEEKS 100-5,000 2-3 WEEKS 500-10,000 3-4 WEEKS 1,000-50,000 4-5 WEEKS 10,000-100,000 5-6 WEEKS 15,000-200,000 6-8 WEEKS 10,000-100,000 2-3 MONTHS Performed By: #### P HOS, LIPID, CREA #### [facility] [address] [address] [address] Pro Clifford DHEA SERUMon 10-27-2022 Dehydroepiandrosterone (DHEA) 203 ng/dL Normal 31-701 [facility] Comment on above: Result Comment: Age 1 - 5 years 0 - 67 6 - 7 years 0 - 110 8 - 10 years 0 - 185 11 - 12 years 0 - 201 13 - 14 years 0 - 318 15 - 16 years 39 - 481 17 - 19 years 40 - 491 >19 years 31 - 701 Performed By: #### P HOS, LIPID, CREA #### [facility] [address] [place] [address] Dr. Pro Clifford ESTRONEon 10-27-2022 Estrone, Serum 144 pg/mL Normal 27-231 [facility] Comment on above: Result Comment: Rang e Adult (Premenopausal) 27 - 231 Menstrual Cycle (1-10 days) 19 - 149 Menstrual Cycle (11-20 days) 32 - 176 Menstrual Cycle (21-30 days) 37 - 200 Performed By: #### C VDTB #### [facility] [address] [place] [address] Dr. Pro Cliffrod TESTOSTERONE, FREE,DIRECT, T OTALon 10-26-2022 Free Testosterone(Direct) 1.0 pg/mL Normal 0.0-4.2 [facility] Comment on above: Result Comment: Perf ormed at: BN Performed By: #### PHYLLIS KIRKLAND UMICRO #### [facility] [address] [place] [address] Dr. Pro Clifford Testosterone [Mass/Vol] 36 ng/dL Normal 8-60 [facility] Comment on above: Result Comment: Perf ormed at: CB Performed By: #### PHYLLIS KIRKLAND UMICRO #### [facility] [address] [address] [address] Pro Clifford DHEA-SULFATEon 10-22-2022 DHEA-Sulfate 291.0 ug/dL Normal 84.8-378.0 [facility] Comment on above: Performed By: #### E STRAISAI #### [facility] [address] [place] [address] Dr. Pro Clifford ESTRADIOLon 10-22-2022 Estradiol 276.0 pg/mL Normal [facility] Comment on above: Result Comment: Adul t Female: Follicular phase 12.5 - 166.0 Ovulation phase 85.8 - 498.0 Luteal phase 43.8 - 211.0 Postmenopausal <6.0 - 54.7 1st trimester 215.0 - >4300.0 Vera ECLIA methodology Performed By: #### E LUIS E #### [facility] [address] [place] [address] Dr. Pro Clifford PROGESTERONEon 10-22-2022 Progesterone 0.1 ng/mL Normal [facility] Comment on above: Result Comment: Foll icular phase 0.1 - 0.9 Luteal phase 1.8 - 23.9 Ovulation phase 0.1 - 12.0 First trimester 11.0 - 44.3 Second trimester 25.4 - 83.3 Third trimester 58.7 - 214.0 Postmenopausal 0.0 - 0.1 Performed By: #### P HOS, LIPID, CREA #### [facility] [address] [place] [address] Dr. Pro Clifford US PELVIS AND TRANSVAGon US PELVIS AND TRANSVAG EXAMINATION: US P ZACHARY AND TRANSVAG HISTORY: H/O gynecological disorder ; right pelvic pain; history of ovarian cyst COMPARISON: CT abdomen pelvis 06/26/2022 TECHNIQUE: Transabdominal and transvaginal sonographic examination. FINDINGS: UTERUS: Normal size and appearance. Uterus size: 9.3 x 5.8 x 4.4 cm ENDOMETRIUM: Normal homogeneous appearance. Endometrial thickness: 14 mm RIGHT OVARY: Contains a 2.0 cm benign-appearing cyst and multiple small follicles. Duplex Doppler demonstrates normal waveform and flow; resistive index 0.6. Ovary size: 2.6 x 2.9 x 2.8 cm LEFT OVARY: Normal size and appearance. Duplex Doppler demonstrates normal waveform and flow; resistive index 0.5. Ovary size: 2.9 x 2.0 x 2.2 cm CUL-DE-SAC: Trace amount of free fluid; likely physiologic. BLADDER: Unremarkable. OTHER: None. IMPRESSION: 1. Right ovarian cyst 2.0 cm in diameter which may contribute to patient's symptoms, but is otherwise not suspicious. Electronically authenticated by: SOHAN DAVIS Date: 2022-10-22 06:21 Normal [facility] FREE T4on 10-21-2022 Free T4 [Mass/Vol] 1.01 ng/dL Normal 0.76-1.46 [facility] Comment on above: Performed By: #### P HOS, LIPID, CREA #### [facility] [address] [place] [address] Dr. Pro Clifford TSHon 10-21-2022 TSH 0.548 uIU/mL Normal 0.358-3.74 0 [facility] Comment on above: Performed By: #### C VDTBH #### [facility] [address] [place] [address] LSPINE WO CONon 2 CT LSPINE WO CON EXAM: CT LSPINE WO C ON HISTORY: DORSALGIA, UNSPECIFIED COMPARISON: Lumbar spine x-rays 10/16/2022. TECHNIQUE: Axial CT imaging is performed to the lumbar spine. Sagittal and coronal reformatted/reconstruc ruiz sequencing was additionally performed FINDINGS: Again demonstrated is pelvic side bending to the left. Maintenance of the normal lumbar lordosis. Vertebral body heights and alignments exhibit no fracture or listhesis. Intervertebral disc spaces and facet joints are normal. No prevertebral or paraspinal lesions or collections. Imaging of the abdomen exhibits no visualized irregularity. Surgical clips within the right lower quadrant presumed to be from prior appendectomy. No muscle atrophy or hematoma. The soft tissues are unremarkable. IMPRESSION: Pelvic side bending to the left suggesting muscle spasm Electronically authenticated by: DIONNA SONG Date: 2022-10-19 19:34 Normal [facility] CREATININE CLEARon 2 CREA CLEARANCE 82.52 ml/min Normal 75.00-115. 00 [facility] Comment on above: Performed By: #### C VDTBH #### [facility] [address] [place] [address] Dr. Pro Clifford CREA, 24 HR UR 1009.67 mg/24 hr Normal 800.00-1, 8 00.00 [facility] Comment on above: Performed By: #### C VDTBH #### [facility] [address] [place] [address] Dr. Pro Clifford Creatinine [Mass/Vol] 0.84 mg/dL Normal 0.55-1.02 [facility] Comment on above: Performed By: #### C VDTBH #### [facility] [address] [place] [address] Dr. Pro Clifford URINE CREAT 79.19 mg/dL Normal 20.00-300. 00 [facility] Comment on above: Performed By: #### C VDTBH #### [facility] [address] [place] [address] Dr. Pro Clifford MICROALBUMIN 24HR URon 10-17 mALB 0.4 mg/L Normal <=30.0 [facility] Comment on above: Performed By: #### P HOS, LIPID, CREA #### [facility] [address] [place] [address] Dr. Pro Clifford MALB 24U 5.1 MG/ 24 HR Normal 0.0-29.9 [facility] Comment on above: Performed By: #### P HOS, LIPID, CREA #### [facility] [address] [place] [address] Dr. Pro Clifford PROTEIN 24HR URINEon 022 T PROT, 24 HR UR 118.6 mg/24 hr Normal <=149.1 [facility] Comment on above: Performed By: #### C VDTBH #### [facility] [address] [place] [address] Dr. Pro Clifford UR PROT 9.3 mg/dL Normal <=11.9 [facility] Comment on above: Performed By: #### C VDTBH #### [facility] [address] [place] [address] Dr. Pro Clifford UR TOT VOL 1275 ml/24 HR Normal [facility] Comment on above: Performed By: #### C VDTBH #### [facility] [address] [place] [address] Dr. Pro Clifford Performed By: #### P HOS, LIPID, CREA #### [facility] [address] [place] [address] Dr. Pro Clifford UA RANDOM W/MICROSCOPICon BACTERIA NONE SEEN Normal NONE SEEN [facility] Comment on above: Performed By: #### C BC #### [facility] [address] [place] [address] Dr. Pro Clifford Bilirubin Ql (U) Negative Normal NEGATIVE [facility] Comment on above: Performed By: #### C BC #### [facility] [address] [place] [address] Dr. Pro Clifford CAST NONE SEEN Normal NONE SEEN [facility] Comment on above: Performed By: #### C BC #### [facility] [address] [place] [address] Dr. Pro Clifford Clarity (U) CLEAR Normal CLEAR [facility] Comment on above: Performed By: #### C BC #### [facility] [address] [place] [address] Dr. Pro Clifford Color (U) YELLOW Normal YELLOW [facility] Comment on above: Performed By: #### C BC #### [facility] [address] [place] [address] Dr. Pro Clifford Crystals LM Nom (Urine sed) NONE SEEN Normal NONE SEEN [facility] Comment on above: Performed By: #### C BC #### [facility] [address] [place] [address] Dr. Pro Clifford Epithelial cells LM Ql (Urine sed) FEW Abnormal NONE SEEN /RARE [facility] Comment on above: Performed By: #### C BC #### [facility] [address] [place] [address] Dr. Pro Clifford Glucose Ql (U) Negative Normal NEGATIVE [facility] Comment on above: Performed By: #### C BC #### [facility] [address] [place] [address] Dr. Pro Clifford Hemoglobin Ql (U) Negative Normal NEGATIVE [facility] Comment on above: Performed By: #### C BC #### [facility] [address] [place] [address] Dr. Pro Clifford Ketones Ql (U) Negative Normal NEGATIVE [facility] Comment on above: Performed By: #### C BC #### [facility] [address] [place] [address] Dr. Pro Clifford LEUKOCYTES Negative Normal NEGATIVE [facility] Comment on above: Performed By: #### C BC #### [facility] [address] [place] [address] Dr. Pro Clifford MUCOUS MODERATE Abnormal NONE SEEN [facility] Comment on above: Performed By: #### C BC #### [facility] [address] [place] [address] Dr. Pro Clifford Nitrite Ql (U) Negative Normal NEGATIVE [facility] Comment on above: Performed By: #### C BC #### [facility] [address] [place] [address] Dr. Pro Clifford pH (U) 5.5 [pH] Normal 5-9 [facility] Comment on above: Performed By: #### C BC #### [facility] [address] [place] [address] Dr. Pro Clifford RBC NONE SEEN Abnormal 0-2 [facility] Comment on above: Performed By: #### C BC #### [facility] [address] [place] [address] Dr. Pro Clifford SPEC GRAVITY 1.025 Normal 1.005-<=1. 025 [facility] Comment on above: Performed By: #### C BC #### [facility] [address] [place] [address] Dr. Pro Clifford UA PROTEIN Negative Normal NEGATIVE/ TRACE [facility] Comment on above: Performed By: #### C BC #### [facility] [address] [place] [address] Dr. rPo Clifford Urobilinogen Qn (U) 0.2 {Bacilio'U}/dL Normal 0.2 - 1. 0 [facility] Comment on above: Performed By: #### C BC #### [facility] [address] [address] [address] Pro Clifford WBC NONE SEEN Normal NONE SEEN [facility] Comment on above: Performed By: #### C BC #### [facility] [address] [address] [address] Pro Clifford XR LSPINE MIN 4 VIEWSon 09-30 XR LSPINE MIN 4 VIEWS EXAMINATION: XR LS PINE MIN 4 VIEWS HISTORY: Low back pain , chronic COMPARISON: No relevant comparison available. FINDINGS: BONES: No significant spondylosis, scoliosis, fracture, or visible bony lesion. DISC SPACES: No significant disc height narrowing, subluxation, or endplate abnormality. PARASPINOUS: Negative. No paraspinous abnormality is seen. OTHER: Negative. IMPRESSION: 1. No acute abnormality or significant degenerative changes. Electronically authenticated by: SOHAN DAVIS Date: 2022-10-16 15:05 Normal [facility] CYSTATIN Con 10-07-2022 Cystatin C 1.08 mg/L Critically high 0.60-1.00 [facility] Comment on above: Performed By: #### E STRADI #### [facility] [address] [place] [address] Dr. Pro Clifford ABO AND RH TYPEon 10-06-2022 ABO and Rh group Nom (Bld) ABO Rh Typing O Rh Positive Normal [facility] Comment on above: Performed By: #### E STRADI #### [facility] [address] [address] [address] Pro Clifford CREATININEon 10-06-2022 Creatinine [Mass/Vol] 0.88 mg/dL Normal 0.55-1.02 [facility] Comment on above: Performed By: #### P HOS, LIPID, CREA #### [facility] [address] [place] [address] Dr. Pro Clifford EGFR-AF [place] >60 Normal >=60 [facility] Comment on above: Performed By: #### P HOS, LIPID, CREA #### [facility] [address] [address] [address] Pro Clifford EGFR-NON AF [place] >60 Normal >=60 [facility] Comment on above: Performed By: #### P HOS, LIPID, CREA #### [facility] [address] [address] [address] Pro Clifford GLYCOHEMOGLOBIN A1Con 2021 ADA RECOMMENDATION SEE BELOW Normal [facility] Comment on above: Result Comment: ADA RECOMMENDED LIMIT 4.0 - 6.0 ADA THERAPEUTIC TARGET < 7.0 ACTION SUGGESTED > 7.0 Performed By: #### P HOS, LIPID, CREA #### [facility] [address] [address] [address] Pro Clifford Glucose [Mass/Vol] 108 mg/dL Normal [facility] Comment on above: Performed By: #### P HOS, LIPID, CREA #### [facility] [address] [address] [address] Pro Clifford HbA1c (Bld) [Mass fraction] 5.4 % Normal 4.5-6.2 [facility] Comment on above: Performed By: #### P HOS, LIPID, CREA #### [facility] [address] [place] [address] Dr. Pro Clifford GTT 2 HRon 10-06-2022 Glucose [Mass/Vol] 90 mg/dL Normal 74-106 [facility] Comment on above: Performed By: #### C BC #### [facility] [address] [address] [address] Pro Clifford Glucose [Mass/Vol] 107 mg/dL Normal [facility] Comment on above: Performed By: #### C BC #### [facility] [address] [address] [address] Pro Clifford Glucose [Mass/Vol] 114 mg/dL Normal [facility] Comment on above: Performed By: #### C BC #### [facility] [address] [place] [address] Dr. Pro Clifford LIPID PROFILEon 10-06-2022 CHOL-HDL RATIO NORM SEE BELOW Normal [facility] Comment on above: Result Comment: 3.3 - 4.4 LOW RISK 4.4 - 7.1 AVERAGE RISK 7.1 - 11.0 MODERATE RISK >11.0 HIGH RISK Performed By: #### P HOS, LIPID, CREA #### [facility] [address] [address] [address] Pro Clifford Cholesterol [Mass/Vol] 214 mg/dL Critically high <=200 [facility] Comment on above: Performed By: #### P HOS, LIPID, CREA #### [facility] [address] [address] [address] Pro Clifford Cholesterol in HDL [Mass/Vol] 48 mg/dL Normal 40-60 [facility] Comment on above: Performed By: #### P HOS, LIPID, CREA #### [facility] [address] [address] [address] Pro Clifford Cholesterol in LDL [Mass/Vol] 142.4 mg/dL Normal [facility] Comment on above: Performed By: #### P HOS, LIPID, CREA #### [facility] [address] [address] [address] Pro Clifford Cholesterol.total/Choles terol in HDL [Mass ratio] 4.5 {ratio} Normal [facility] Comment on above: Performed By: #### P HOS, LIPID, CREA #### [facility] [address] [address] [address] Pro Clifford HDL NORMAL > or = 60 mg/dl - LO W CARDIOVASCULAR RISK <40 mg/dl - HIGH CARDIOVASCULAR RISK Normal [facility] Comment on above: Performed By: #### P HOS, LIPID, CREA #### [facility] [address] [address] [address] Por Clifford LDL CALC NORMAL SEE BELOW Normal [facility] Comment on above: Result Comment: <100 mg/dl OPTIMAL 100 - 129 mg/dl NEAR OR ABOVE OPTIMAL 130 - 159 mg/dl BORDERLINE HIGH 160 - 189 mg/dl HIGH >190 mg/dl VERY HIGH Performed By: #### P HOS, LIPID, CREA #### [facility] [address] [address] [address] Pro Clifford Triglyceride [Mass/Vol] 118 mg/dL Normal <=150 [facility] Comment on above: Performed By: #### P HOS, LIPID, CREA #### [facility] [address] [place] [address] Dr. Pro Clifford VLDL CALC 23.6 mg/dL Normal [facility] Comment on above: Performed By: #### P HOS, LIPID, CREA #### [facility] [address] [place] [address] Dr. Pro Clifford MICROALBUMIN, RAND URon 11-0 mALB <1.3 Normal <=30.0 [facility] Comment on above: Performed By: #### P HOS, LIPID, CREA #### [facility] [address] [place] [address] Dr. Pro Clifford PHOSPHORUSon 10-06-2022 Phosphate [Mass/Vol] 3.9 mg/dL Normal 2.6-4.7 [facility] Comment on above: Performed By: #### P HOS, LIPID, CREA #### [facility] [address] [place] [address] Dr. Pro Clifford UA RANDOM W/MICROSCOPICon BACTERIA TRACE Abnormal NONE SEEN [facility] Comment on above: Performed By: #### C BC #### [facility] [address] [place] [address] Dr. Pro Clifford Bilirubin Ql (U) Negative Normal NEGATIVE [facility] Comment on above: Performed By: #### C BC #### [facility] [address] [place] [address] Dr. Pro Clifford CAST NONE SEEN Normal NONE SEEN [facility] Comment on above: Performed By: #### C BC #### [facility] [address] [place] [address] Dr. Pro Clifford Clarity (U) CLEAR Normal CLEAR [facility] Comment on above: Performed By: #### C BC #### [facility] [address] [place] [address] Dr. Pro Clifford Color (U) LT. YELLOW Normal YELLOW [facility] Comment on above: Performed By: #### C BC #### [facility] [address] [address] [address] Pro Clifford Crystals LM Nom (Urine sed) NONE SEEN Normal NONE SEEN [facility] Comment on above: Performed By: #### C BC #### [facility] [address] [address] [address] Pro Clifford Epithelial cells LM Ql (Urine sed) FEW Abnormal NONE SEEN /RARE [facility] Comment on above: Performed By: #### C BC #### [facility] [address] [address] [address] Pro Clifford Glucose Ql (U) Negative Normal NEGATIVE [facility] Comment on above: Performed By: #### C BC #### [facility] [address] [place] [address] Dr. Pro Clifford Hemoglobin Ql (U) SMALL Abnormal NEGATIVE [facility] Comment on above: Performed By: #### C BC #### [facility] [address] [address] [address] Pro Clifford Ketones Ql (U) Negative Normal NEGATIVE [facility] Comment on above: Performed By: #### C BC #### [facility] [address] [place] [address] Dr. Pro Clifford LEUKOCYTES Negative Normal NEGATIVE [facility] Comment on above: Performed By: #### C BC #### [facility] [address] [address] [address] Pro Clifford MUCOUS NONE SEEN Normal NONE SEEN [facility] Comment on above: Performed By: #### C BC #### [facility] [address] [place] [address] Dr. Pro Clifford Nitrite Ql (U) Negative Normal NEGATIVE [facility] Comment on above: Performed By: #### C BC #### [facility] [address] [place] [address] Dr. Pro Clifford pH (U) 5.5 [pH] Normal 5-9 [facility] Comment on above: Performed By: #### C BC #### [facility] [address] [place] [address] Dr. Pro Clifford RBC 2-5 Abnormal 0-2 [facility] Comment on above: Performed By: #### C BC #### [facility] [address] [place] [address] Dr. Pro Clifford SPEC GRAVITY 1.020 Normal 1.005-<=1. 025 [facility] Comment on above: Performed By: #### C BC #### [facility] [address] [place] [address] Dr. Pro Clifford UA PROTEIN Negative Normal NEGATIVE/ TRACE [facility] Comment on above: Performed By: #### C BC #### [facility] [address] [place] [address] Dr. Pro Clifford Urobilinogen Qn (U) 0.2 {Bacilio'U}/dL Normal 0.2 - 1. 0 [facility] Comment on above: Performed By: #### C BC #### [facility] [address] [place] [address] Dr. Pro Clifford WBC NONE SEEN Normal NONE SEEN [facility] Comment on above: Performed By: #### C BC #### [facility] [address] [place] [address] Dr. Pro Clifford HCG ( test) IAalan d Ql (U)Ordered By: DIONNA WHALEY on 09-01-2022 HCG ( test) Ql (U) Negative [facility] COVID-19 Positive/NegativeOr dered By: Arthur Mckenzie on 08-28-2022 SARS-CoV-2 (COVID-19) N gene SAYDA+probe Ql (Resp) Negative Negative [facility] Comment on above: Testing for SARS-CoV -2 by RT-PCRThis test was developed and its performance characteristics determined by [employer] and validated at the [facility]. This test has not been FDA cleared or approved. This test has been authorized by FDA under an Emergency Use Authorization (EUA). This test has been validated in accordance with the FDA's Guidance Document (Policy for Diagnostics Testing in Laboratories Certified to Perform High Complexity Testing under CLIA prior to Emergency Use Authorization for Coronavirus Disease-2019 during the Public Health Emergency) issued on March 01, 2020. This test is only authorized for the duration of time the declaration that circumstances exist justifying the authorization of the emergency use of in vitro diagnostic tests for detection of SARS-CoV-2 virus and/or diagnosis of COVID-19 infection under section 564(b)(1) of the Act, 21 U.S.C. 360bbb-3(b)(1), unless the authorization is terminated or revoked sooner. Basophils Auto (Bld) [#/Vol] Ordered By: Arthur Mckenzie on 08-18-2022 Basophils (Bld) [#/Vol] 0.0 10*3/uL 0.0-0.[address] [facility] Basophils/100 WBC Auto (Bld) Ordered By: Arthur Mckenzie on 08-18-2022 Basophils/100 WBC (Bld) 0.3 % . [facility] Blood hemoglobin measurement (mass/volume)Ordered By: Arthur Mckenzie on 08-18-2022 Hemoglobin (Bld) [Mass/Vol] 12.6 g/dL 11.8-15.[address] [facility] Blood leukocytes automated c ount (number/volume)Ordered By: Arthur Mckenzie on 08-18-2022 WBC (Bld) [#/Vol] 5.7 10*3/uL 4.5-11.0 [facility] Creatinine and Glomerular fi ltration rate.predicted panel (S/P/Bld)Ordered By: Arthur Mckenzie on 08-18-2022 Creatinine [Mass/Vol] 0.83 mg/dL 0.44-1.03 [facility] Eosinophils Auto (Bld) [#/Vo l]Ordered By: Arthur Mckenzie on 08-18-2022 Eosinophils (Bld) [#/Vol] 0.1 10*3/uL 0.0-0.[address] [facility] Eosinophils/100 WBC Auto (Bl d)Ordered By: Arthur Mckenzie on 08-18-2022 Eosinophils/100 WBC (Bld) 1.2 % . [facility] Erythrocyte distribution wid th Auto (RBC) [Ratio]Ordered By: Arthur Mckenzie on 08-18-2022 Erythrocyte distribution width (RBC) [Ratio] 13.3 % 11.9-15.[address] [facility] Estimated glomerular filtrat ion rate (GFR) non- AmericanOrdered By: Arthur Mckenzie on 08-18-2022 GFR/1.73 sq M.predicted among non-blacks MDRD (S/P/Bld) [Vol rate/Area] > 60 mL/Min [facility] Hematocrit Auto (Bld) [Volum e fraction]Ordered By: Arthur Mckenzie on 08-18-2022 Hematocrit (Bld) [Volume fraction] 38.2 % 34.0-46.[address] [facility] Laboratory - Hematology and Cell countsOrdered By: Arthur Mckenzie on 08-18-2022 Nucleated RBC/100 WBC (Bld) [Ratio] 0.1 % 0-0.[address] [facility] Lymphocytes Auto (Bld) [#/Vo l]Ordered By: Arthur Mckenzie on 08-18-2022 Lymphocytes (Bld) [#/Vol] 1.8 10*3/uL 1.00-4.[address] [facility] Lymphocytes/100 WBC Auto (Bl d)Ordered By: Arthur Mckenzie on 08-18-2022 Lymphocytes/100 WBC (Bld) 32.2 % . [facility] MCH Auto (RBC) [Entitic mass ]Ordered By: Arthur Mckenzie on 08-18-2022 MCH (RBC) [Entitic mass] 28.4 pg 24.7-34.[address] [facility] MCHC Auto (RBC) [Mass/Vol]Or dered By: Arthur Mckenzie on 08-18-2022 MCHC (RBC) [Mass/Vol] 32.9 g/dL 32.0-35.0 [facility] MCV Auto (RBC) [Entitic vol] Ordered By: Arthur Mckenzie on 08-18-2022 MCV (RBC) [Entitic vol] 86.4 fL 80-100 [facility] Monocytes Auto (Bld) [#/Vol] Ordered By: Arthur Mckenzie on 08-18-2022 Monocytes (Bld) [#/Vol] 0.3 10*3/uL 0.0-0.[address] [facility] Monocytes/100 WBC Auto (Bld) Ordered By: Arthur Mckenzie on 08-18-2022 Monocytes/100 WBC (Bld) 5.5 % . [facility] Neutrophils Auto (Bld) [#/Vo l]Ordered By: Arthur Mckenzie on 08-18-2022 Neutrophils (Bld) [#/Vol] 3.5 10*3/uL 1.8-7.[address] [facility] Neutrophils/100 WBC Auto (Bl d)Ordered By: Arthur Mckenzie on 08-18-2022 Neutrophils/100 WBC (Bld) 60.8 % . [facility] No Panel InformationOrdered By: Arthur Mckenzie on 08-18-2022 Estimated GFR () > 60 mL/Min [facility] Comment on above: GFR estimated refere nce range: According to KDOQI guidelines, <60 ml/min/1.73m2 is sufficient to diagnose a patient with chronic kidney disease. Pharmacy Creatinine Clearance (Chem N/A [facility] Platelet mean volume Auto (B ld) [Entitic vol]Ordered By: Arthur Mckenzie on 08-18-2022 Platelet mean volume (Bld) [Entitic vol] 8.5 fL 6.3-10.[address] [facility] Platelets Auto (Bld) [#/Vol] Ordered By: Arthur Mckenzie on 08-18-2022 Platelets (Bld) [#/Vol] 242 10*3/uL 150-[address] [facility] RBC Auto (Bld) [#/Vol]Ordere d By: Arthur Mckenzie on 08-18-2022 RBC (Bld) [#/Vol] 4.42 10*6/uL 3.60-5.00 [facility] Serum or plasma anion gap de terminationOrdered By: Arthur Mckenzie on 08-18-2022 Anion gap [Moles/Vol] 13.7 mmol/L 6.0-15.[address] [facility] Serum or plasma calcium sudha urement (mass/volume)Ordered By: Arthur Mckenzie on 08-18-2022 Calcium [Mass/Vol] 9.6 mg/dL 8.2-10.2 [facility] Serum or plasma chloride vladimir surement (moles/volume)Ordered By: Arthur Mckenzie on 08-18-2022 Chloride [Moles/Vol] 99 mmol/L 95-114 [facility] Serum or plasma glucose sudha urement (mass/volume)Ordered By: Arthur Mckenzie on 08-18-2022 Glucose [Mass/Vol] 81 mg/dL 70-100 [facility] Comment on above: ADA recommended refe rence range Random Glucose Reference Range is dependent on time and content of last meal. Glucose of more than 200 mg/dL in a nonstressed, ambulatory subject supports the diagnosis of Diabetes Mellitus. ADA recommended refe rence rangeRandom Glucose Reference Range is dependent on time and content of last meal. Glucose of more than 200 mg/dL in a nonstressed, ambulatory subject supports the diagnosis of Diabetes Mellitus. Serum or plasma potassium me asurement (moles/volume)Ordered By: Arthur Mckenzie on 08-18-2022 Potassium [Moles/Vol] 4.5 mmol/L 3.5-5.1 [facility] Serum or plasma sodium measu rement (moles/volume)Ordered By: Arthur Mckenzie on 08-18-2022 Sodium [Moles/Vol] 134 mmol/L 136-146 [facility] Serum or plasma total carbon dioxide measurement (moles/volume)Ordered By: Arthur Mckenzie on 08-18-2022 CO2 [Moles/Vol] 25.8 mmol/L 22.0-30.0 [facility] Serum or plasma urea nitroge n measurement (mass/volume)Ordered By: Arthur Mckenzie on 08-18-2022 Urea nitrogen [Mass/Vol] 10 mg/dL 9-[address] [facility] MRI TSPINE WO CONon 07-17-20 22 MRI TSPINE WO CON EXAMINATION: MRI TSPINE WO CON HISTORY: Pain in thoracic spine ; upper back pain, left greater than right COMPARISON: No relevant comparison available. TECHNIQUE: Axial T2; Sagittal T1, T2, and Stir sequences. Images were performed without contrast. FINDINGS: CORD: Normal caliber, contour, and signal intensity. BONES: No fracture, pars defect, or osseous lesion. DISCS: No significant disc/facet abnormality, spinal stenosis, or foraminal stenosis. PARASPINAL AREA: No visible mass. OTHER: Negative. IMPRESSION: 1. No acute findings or significant degenerative changes to account for patient's symptoms. Electronically authenticated by: SOHAN DAVIS Date: 2022-07-17 09:20 Normal [facility] XR TSPINE 2 VIEWSon 07-03-20 22 XR TSPINE 2 VIEWS STUDY: XR TSPINE 2 VIEWS HISTORY:Midthoracic pain without known injury COMPARISON: None available FINDINGS: There is no vertebral body height loss, displaced fracture, malalignment or osseous destruction. The discs are maintained. The soft tissues appear normal. IMPRESSION: No acute osseous abnormality or malalignment. Electronically authenticated by: HAILEY LIN Date: 2022-07-02 22:22 Normal [facility] CBC AUTO DIFFon 06-26-2022 BASO # 0.0 103/ul Normal 0.0-0.1 [facility] Comment on above: Performed By: #### C VDTBH #### [facility] [address] [place] [address] Dr. Pro Clifford Basophils/100 WBC (Bld) 0.2 % Normal 0.2-2.0 [facility] Comment on above: Performed By: #### C VDTBH #### [facility] [address] [place] [address] Dr. Pro Clifford EO # 0.1 103/ul Normal 0.0-0.7 [facility] Comment on above: Performed By: #### C VDTBH #### [facility] [address] [place] [address] Dr. Pro Clifford Eosinophils/100 WBC (Bld) 0.6 % Critically low 0.9-7.0 [facility] Comment on above: Performed By: #### C VDTBH #### [facility] [address] [place] [address] Dr. Pro Clifford Erythrocyte distribution width (RBC) [Ratio] 12.4 % Normal 11.0-15.0 [facility] Comment on above: Performed By: #### C VDTBH #### [facility] [address] [place] [address] Dr. Pro Clifford Hematocrit (Bld) [Volume fraction] 37.8 % Normal 36.0-48.0 [facility] Comment on above: Performed By: #### C VDTBH #### [facility] [address] [place] [address] Dr. Pro Clifford Hemoglobin (Bld) [Mass/Vol] 12.9 g/dL Normal 12.0-16.0 [facility] Comment on above: Performed By: #### C VDTBH #### [facility] [address] [place] [address] Dr. Pro Clifford IG # 0.04 10e3/ul Critically high 0.00-0.03 [facility] Comment on above: Performed By: #### C VDTBH #### [facility] [address] [place] [address] Dr. Pro Clifford IG % 0.4 % Normal 0.0-0.5 [facility] Comment on above: Performed By: #### C VDTBH #### [facility] [address] [place] [address] Dr. Pro Clifford LYMPH # 3.0 103/ul Normal 1.2-3.8 [facility] Comment on above: Performed By: #### C VDTBH #### [facility] [address] [place] [address] Dr. Pro Clifford Lymphocytes/100 WBC (Bld) 26.6 % Normal 20.5-60.0 [facility] Comment on above: Performed By: #### C VDTBH #### [facility] [address] [place] [address] Dr. Pro Clifford MANUAL DIFF REQ NO Normal [facility] Comment on above: Performed By: #### C VDTBH #### [facility] [address] [place] [address] Dr. Pro Clifford MCH (RBC) [Entitic mass] 29.3 pg Normal 26.7-34.0 [facility] Comment on above: Performed By: #### C VDTBH #### [facility] [address] [place] [address] Dr. Pro Clifford MCHC (RBC) [Mass/Vol] 34.1 g/dL Normal 29.9-35.2 [facility] Comment on above: Performed By: #### C VDTBH #### [facility] [address] [place] [address] Dr. Pro Clifford MCV (RBC) [Entitic vol] 85.9 fL Normal 81.0-99.0 [facility] Comment on above: Performed By: #### C VDTBH #### [facility] [address] [place] [address] Dr. Pro Clifford MONO # 0.5 103/ul Normal 0.3-0.8 [facility] Comment on above: Performed By: #### C VDTBH #### [facility] [address] [place] [address] Dr. Pro Clifford Monocytes/100 WBC (Bld) 4.2 % Normal 1.7-12.0 [facility] Comment on above: Performed By: #### C VDTBH #### [facility] [address] [place] [address] Dr. Pro Clifford NEUT # 7.5 103/ul Critically high 1.4-6.5 [facility] Comment on above: Performed By: #### C VDTBH #### [facility] [address] [place] [address] Dr. Pro Clifford Neutrophils/100 WBC (Bld) 68.0 % Normal 43.0-75.0 [facility] Comment on above: Performed By: #### C VDTBH #### [facility] [address] [place] [address] Dr. Pro Clifford Platelet mean volume (Bld) [Entitic vol] 9.8 fL Normal 9.5-13.5 [facility] Comment on above: Performed By: #### C VDTBH #### [facility] [address] [place] [address] Dr. Pro Clifford PLT 252 103/ul Normal 150-450 [facility] Comment on above: Performed By: #### C VDTBH #### [facility] [address] [place] [address] Dr. Pro Clifford RBC 4.40 106/ul Normal 4.20-5.40 [facility] Comment on above: Performed By: #### C VDTBH #### [facility] [address] [place] [address] Dr. Pro Clifford WBC 11.1 103/ul Critically high 4.0-11.0 [facility] Comment on above: Performed By: #### C [facility] #### [facility] [id number] Pro Clifford CT ABD/PELV W CONon 06-26-[address] ABD/PELV W CON EXAM: CT abdomen and pelvis with contrast dated 06/26/2022 7:28 PM EDT HISTORY: 31 years old Female with abdominal pain with vomiting. COMPARISON STUDY: None available at time of dictation. TECHNIQUE: Multidetector spiral CT of the abdomen and pelvis was performed from lung bases to pubic symphysis. 100 mL Omnipaque 300 Intravenous contrast was administered during this examination. Portal venous imaging was obtained. Axial, coronal and sagittal multiplanar reformats were performed by the technologist. Dose reduction techniques were achieved by using automated exposure control and/or adjustment of mA and/or kV according to patient size and/or use of iterative reconstruction technique. FINDINGS: Lung Bases: No acute or significant lung base finding. Normal heart size. No pleural or pericardial effusion. Liver: The liver is normal in size. No focal lesions. Normal hepatic vascular enhancement. Gallbladder and Biliary Tree: The gallbladder is distended and a punctate stone on image 33 series 3 may be present in the region of the gallbladder neck however there are no definite CT features of acute cholecystitis appreciated. Spleen: Unremarkable Pancreas: The pancreas is normal in appearance without focal lesions or abnormal enhancement. There is an area of hypodensity measuring 3.4 mm along the mid aspect of the pancreas, which is seen on image 37 series 5 and 35 series 3. This may represent a small focus of invaginated fat within the pancreatic parenchyma. A very small IPMN is a consideration. This can be better evaluated nonemergently if clinically indicated with MRI. Continued attention on follow-up is suggested. Adrenal Glands: Unremarkable Kidneys: Kidneys demonstrate normal symmetric enhancement without suspicious focal lesions, calculi or hydronephrosis. Subcentimeter hypodensity in the right kidney most suggests a small cyst. Similar finding on image 34 series 3 in the superior aspect of the left kidney. Bladder: Mild thickening or underdistention of the bladder for which laboratory correlation for infection is suggested. Bowel: The stomach is grossly normal in appearance. Small bowel and colon are normal in caliber and distribution. The appendix is not visualized; however, no secondary findings of acute appendicitis identified. Moderate stool is noted in the proximal colon and in the cecum at the pelvis. There is gas noted within the colon elsewhere. Slight thickening or underdistention of the enteric bowel in the abdomen is appreciated elsewhere. Lymphadenopathy: No mesenteric, retroperitoneal or periportal lymphadenopathy. Subcentimeter lymph nodes in the retroperitoneum are appreciated. Abdominal Wall and Mesentery: Unremarkable. Vasculature: The visualized abdominal aorta is normal in size and caliber. Abdominal and pelvic vessels demonstrate normal enhancement. Pelvic Organs: Pelvic free fluid is noted. There is an area of hypodensity in the right adnexa measuring up to 2.6 cm, which may reflect functional change. An enhancing focus in the left adnexa/pelvis is appreciated measuring up to 2 cm which may reflect functional change or hemorrhagic/proteinace ous cyst. Findings can be better evaluated with targeted ultrasound if clinically indicated. Musculoskeletal: No aggressive focal bony lesions, acute fractures or dislocation. IMPRESSION: Mild infectious or inflammatory enteritis may be present as above. Moderate to large volume of stool in the proximal colon. Pelvic free fluid is noted with an enhancing region in the left adnexa and a hypodensity in the right adnexa. Findings are nonspecific but may reflect functional change. Consider correlation with targeted ultrasound for better characterization. Small renal cysts are suggested. Electronically authenticated by: LOI DYKES Date: 2022-06-26 20:38 Normal [facility] CULTURE URINEon 06-26-2022 CULTURE URINE Culture Observations : LIGHT GROWTH OF MIXED GENITAL PHILLY. NO POTENTIAL PATHOGENS SEEN. Normal [facility] Comment on above: Performed By: #### E STRADI #### [facility] [address] [address] [address] Pro Clifford ER URINE PROFILEon 2 Bilirubin Ql (U) Negative Normal NEGATIVE [facility] Comment on above: Performed By: #### E PHYLLIS VERMA UMICRO #### [facility] [address] [id number] Pro Clifford Clarity (U) SL CLOUDY Abnormal CLEAR [facility] Comment on above: Performed By: #### E PHYLLIS VERMA UMICRO #### [facility] [address] [address] [address] Pro Clifford Color (U) LT. YELLOW Normal YELLOW [facility] Comment on above: Performed By: #### E RUR, PREGU, UMICRO #### [facility] [address] [address] [address] Pro GONZALEZ A micrscopic examination will be performed if indicated. Normal [facility] Comment on above: Performed By: #### E RUR, PREGU, UMICRO #### [facility] [address] [address] [address] Pro Clifford Glucose Ql (U) Negative Normal NEGATIVE [facility] Comment on above: Performed By: #### Jesusita RUR PREGU, UMICRO #### [facility] [address] [address] [address] Pro Clifford Hemoglobin Ql (U) TRACE-INTACT Abnormal NEGATIVE [facility] Comment on above: Performed By: #### Jesusita RUR PREGU, UMICRO #### [facility] [address] [address] [address] Pro Clifford Ketones Ql (U) Negative Normal NEGATIVE [facility] Comment on above: Performed By: #### Jesusita RUR PREGU, UMICRO #### [facility] [address] [address] [address] Pro Clifford LEUKOCYTES TRACE Abnormal NEGATIVE [facility] Comment on above: Performed By: #### Jesusita RUR PREGU, UMICRO #### [facility] [address] [address] [address] Pro Clifford Nitrite Ql (U) Negative Normal NEGATIVE [facility] Comment on above: Performed By: #### E RUR, PREGU, UMICRO #### [facility] [address] [address] [address] Pro Clifford pH (U) 6.0 [pH] Normal 5-9 [facility] Comment on above: Performed By: #### Jesusita RUR, PREGU, UMICRO #### [facility] [address] [place] [address] Dr. Pro Clifford SPEC GRAVITY 1.015 Normal 1.005-<=1. 025 [facility] Comment on above: Performed By: #### PHYLLIS KIRKLAND UMICRO #### [facility] [address] [place] [address] Dr. Pro Clifford UA PROTEIN Negative Normal NEGATIVE/ TRACE [facility] Comment on above: Performed By: #### PHYLLIS KIRKLAND UMICRO #### [facility] [address] [place] [address] Dr. Pro Clifford UR MICRO IND INDICATED Normal [facility] Comment on above: Performed By: #### PHYLLIS KIRKLAND UMICRO #### [facility] [address] [place] [address] Dr. Pro Clifford Urobilinogen Qn (U) 0.2 {Bacilio'U}/dL Normal 0.2 - 1. 0 [facility] Comment on above: Performed By: #### PHYLLIS KIRKLAND UMICRO #### [facility] [address] [place] [address] Dr. Pro Clifford LIPASEon 06-26-2022 Lipase [Catalytic activity/Vol] 48.0 U/L Critically low 73.0-393.0 [facility] Comment on above: Performed By: #### P HOS, LIPID, CREA #### [facility] [address] [place] [address] Dr. Pro Clifford URon 06-26-2022 , QUAL Negative Normal NEGATIVE [facility] Comment on above: Performed By: #### PHYLLIS KIRKLAND, UMICRO #### [facility] [address] [place] [address] Dr. Pro Clifford PROF 14(COMP METB)on 022 Albumin [Mass/Vol] 4.5 g/dL Normal 3.4-5.0 [facility] Comment on above: Performed By: #### P HOS, LIPID, CREA #### [facility] [address] [place] [address] Dr. Pro Clifford Albumin/Globulin [Mass ratio] 1.2 {ratio} Normal [facility] Comment on above: Performed By: #### P HOS, LIPID, CREA #### [facility] [address] [address] [address] Pro Clifford ALP [Catalytic activity/Vol] 59 U/L Normal 46-116 [facility] Comment on above: Performed By: #### P HOS, LIPID, CREA #### [facility] [address] [address] [address] Pro Clifford ALT [Catalytic activity/Vol] 17 U/L Normal 14-59 [facility] Comment on above: Performed By: #### P HOS, LIPID, CREA #### [facility] [address] [place] [address] Dr. Pro Clifford Anion gap [Moles/Vol] 14.0 mmol/L Normal [facility] Comment on above: Performed By: #### P HOS, LIPID, CREA #### [facility] [address] [place] [address] Dr. Pro Clifford AST [Catalytic activity/Vol] 9 U/L Critically low 15-37 [facility] Comment on above: Performed By: #### P HOS, LIPID, CREA #### [facility] [address] [place] [address] Dr. Pro Clifford Bilirubin [Mass/Vol] 0.5 mg/dL Normal 0.2-1.0 [facility] Comment on above: Performed By: #### P HOS, LIPID, CREA #### [facility] [address] [place] [address] Dr. Pro Clifford Calcium [Mass/Vol] 9.5 mg/dL Normal 8.5-10.1 [facility] Comment on above: Performed By: #### P HOS, LIPID, CREA #### [facility] [address] [place] [address] Dr. Pro Clifford Chloride [Moles/Vol] 102 mmol/L Normal 98-107 [facility] Comment on above: Performed By: #### P HOS, LIPID, CREA #### [facility] [address] [address] [address] Pro Clifford CO2 [Moles/Vol] 24.7 mmol/L Normal 21.0-32.0 [facility] Comment on above: Performed By: #### P HOS, LIPID, CREA #### [facility] [address] [address] [address] Pro Clifford Creatinine [Mass/Vol] 0.98 mg/dL Normal 0.55-1.02 [facility] Comment on above: Performed By: #### P HOS, LIPID, CREA #### [facility] [address] [address] [address] Pro Clifford EGFR-AF [place] >60 Normal >=60 [facility] Comment on above: Performed By: #### P HOS, LIPID, CREA #### [facility] [address] [address] [address] Pro Clifford EGFR-NON AF [place] >60 Normal >=60 [facility] Comment on above: Performed By: #### P HOS, LIPID, CREA #### [facility] [address] [address] [address] Pro Clifford Globulin (S) [Mass/Vol] 3.7 g/dL Normal [facility] Comment on above: Performed By: #### P HOS, LIPID, CREA #### [facility] [address] [address] [address] Pro Clifford Glucose [Mass/Vol] 93 mg/dL Normal 74-106 [facility] Comment on above: Performed By: #### P HOS, LIPID, CREA #### [facility] [address] [address] [address] Pro Clifford Potassium [Moles/Vol] 3.7 mmol/L Normal 3.5-5.1 [facility] Comment on above: Performed By: #### P HOS, LIPID, CREA #### [facility] [address] [address] [address] Pro Clifford Protein [Mass/Vol] 8.2 g/dL Normal 6.4-8.2 [facility] Comment on above: Performed By: #### P HOS, LIPID, CREA #### [facility] [address] [address] [address] Pro Clifford Sodium [Moles/Vol] 137 mmol/L Normal 136-145 [facility] Comment on above: Performed By: #### P HOS, LIPID, CREA #### [facility] [address] [place] [address] Dr. Pro Clifford Urea nitrogen [Mass/Vol] 14.0 mg/dL Normal 7.0-18.0 [facility] Comment on above: Performed By: #### P HOS, LIPID, CREA #### [facility] [address] [place] [address] Dr. Pro Clifford Urea nitrogen/Creatinine [Mass ratio] 14.3 mg/mg Normal [facility] Comment on above: Performed By: #### P HOS, LIPID, CREA #### [facility] [address] [place] [address] Dr. Pro Clifford URINE MICROSCOPIC ONLYon BACTERIA TRACE Abnormal NONE SEEN [facility] Comment on above: Performed By: #### E RUR, PREGU, UMICRO #### [facility] [address] [place] [address] Dr. Pro Clifford Bacteria identified Cx Nom (U) INDICATED Normal [facility] Comment on above: Performed By: #### E RUR, PREGU, UMICRO #### [facility] [address] [place] [address] Dr. Pro Clifford CAST NONE SEEN Normal NONE SEEN [facility] Comment on above: Performed By: #### E RUR, PREGU, UMICRO #### [facility] [address] [place] [address] Dr. Pro Clifford Crystals LM Nom (Urine sed) NONE SEEN Normal NONE SEEN [facility] Comment on above: Performed By: #### E RUR, PREGU, UMICRO #### [facility] [address] [place] [address] Dr. Pro Clifford Epithelial cells LM Ql (Urine sed) FEW Abnormal NONE SEEN /RARE [facility] Comment on above: Performed By: #### E RUR, PREGU, UMICRO #### [facility] [address] [address] [address] Pro Clifford MUCOUS TRACE Abnormal NONE SEEN [facility] Comment on above: Performed By: #### E RUR, PREGU, UMICRO #### [facility] [address] [address] [address] Pro Clifford RBC 2-5 Abnormal 0-2 [facility] Comment on above: Performed By: #### E RUR, PREGU, UMICRO #### [facility] [address] [address] [address] Pro Clifford WBC 0-2 Abnormal NONE SEEN [facility] Comment on above: Performed By: #### E RUR, PREGU, UMICRO #### [facility] [address] [address] [address] Pro Clifford US SINGLE QUAD RT UPPERon US SINGLE QUAD RT UPPER EXAM: US SINGLE QUAD RT UPPER HISTORY: 31 years old Female presenting with right upper quadrant pain. TECHNIQUE: Ultrasound of the right upper quadrant abdomen. COMPARISON: None. FINDINGS: Liver: Normal in size, contour and echogenicity. No intrahepatic biliary ductal dilatation. Gallbladder: No cholelithiasis, pericholecystic fluid or gallbladder wall thickening. Common bile duct: Normal in diameter, measuring 4.7 mm. Right kidney: The right kidney is normal in size measuring 8.7 x 4.3 x 2.8 cm. There is no hydronephrosis of the right kidney. There is increased echogenicity of the right renal medulla in a pattern typical of medullary nephrocalcinosis. Miscellaneous:None. IMPRESSION: Findings in the right kidney have a typical appearance of medullary nephrocalcinosis. Unremarkable right upper quadrant ultrasound otherwise. Electronically authenticated by: SADAF STERN Date: 2022-06-26 19:19 Normal [facility] CBC AUTO DIFFon 04-11-2022 BASO # 0.0 103/ul Normal 0.0-0.1 [facility] Comment on above: Performed By: #### C BC #### [facility] [address] [address] [address] Pro Clifford Basophils/100 WBC (Bld) 0.1 % Critically low 0.2-2.0 [facility] Comment on above: Performed By: #### C BC #### [facility] [address] [place] [address] Dr. Pro Clifford EO # 0.1 103/ul Normal 0.0-0.7 [facility] Comment on above: Performed By: #### C BC #### [facility] [address] [place] [address] Dr. Pro Clifford Eosinophils/100 WBC (Bld) 1.2 % Normal 0.9-7.0 [facility] Comment on above: Performed By: #### C BC #### [facility] [address] [place] [address] Dr. Pro Clifford Erythrocyte distribution width (RBC) [Ratio] 12.8 % Normal 11.0-15.0 [facility] Comment on above: Performed By: #### C BC #### [facility] [address] [place] [address] Dr. Pro Clifford Hematocrit (Bld) [Volume fraction] 35.6 % Critically low 36.0-48.0 [facility] Comment on above: Performed By: #### C BC #### [facility] [address] [place] [address] Dr. Pro Clifford Hemoglobin (Bld) [Mass/Vol] 11.6 g/dL Critically low 12.0-16.0 [facility] Comment on above: Performed By: #### C BC #### [facility] [address] [place] [address] Dr. Pro Clifford IG # 0.02 10e3/ul Normal 0.00-0.03 [facility] Comment on above: Performed By: #### C BC #### [facility] [address] [place] [address] Dr. Pro Clifford IG % 0.2 % Normal 0.0-0.5 [facility] Comment on above: Performed By: #### C BC #### [facility] [address] [place] [address] Dr. Pro Clifford LYMPH # 2.2 103/ul Normal 1.2-3.8 [facility] Comment on above: Performed By: #### C BC #### [facility] [address] [place] [address] Dr. Pro Clifford Lymphocytes/100 WBC (Bld) 26.9 % Normal 20.5-60.0 [facility] Comment on above: Performed By: #### C BC #### [facility] [address] [place] [address] Dr. Pro Clifford MANUAL DIFF REQ NO Normal [facility] Comment on above: Performed By: #### C BC #### [facility] [address] [place] [address] Dr. Pro Clifford MCH (RBC) [Entitic mass] 29.2 pg Normal 26.7-34.0 [facility] Comment on above: Performed By: #### C BC #### [facility] [address] [place] [address] Dr. Pro Clifford MCHC (RBC) [Mass/Vol] 32.6 g/dL Normal 29.9-35.2 [facility] Comment on above: Performed By: #### C BC #### [facility] [address] [place] [address] Dr. Pro Clifford MCV (RBC) [Entitic vol] 89.7 fL Normal 81.0-99.0 [facility] Comment on above: Performed By: #### C BC #### [facility] [address] [place] [address] Dr. Pro Clifford MONO # 0.4 103/ul Normal 0.3-0.8 [facility] Comment on above: Performed By: #### C BC #### [facility] [address] [place] [address] Dr. Pro Clifford Monocytes/100 WBC (Bld) 5.2 % Normal 1.7-12.0 [facility] Comment on above: Performed By: #### C BC #### [facility] [address] [place] [address] Dr. Pro Clifford NEUT # 5.4 103/ul Normal 1.4-6.5 [facility] Comment on above: Performed By: #### C BC #### [facility] [address] [place] [address] Dr. Pro Clifford Neutrophils/100 WBC (Bld) 66.4 % Normal 43.0-75.0 [facility] Comment on above: Performed By: #### C BC #### [facility] [address] [place] [address] Dr. Pro Clifford Platelet mean volume (Bld) [Entitic vol] 9.5 fL Normal 9.5-13.5 [facility] Comment on above: Performed By: #### C BC #### [facility] [address] [place] [address] Dr. Pro Clifford PLT 228 103/ul Normal 150-450 [facility] Comment on above: Performed By: #### C BC #### [facility] [address] [place] [address] Dr. Pro Clifford RBC 3.97 106/ul Critically low 4.20-5.40 [facility] Comment on above: Performed By: #### C BC #### [facility] [address] [place] [address] Dr. Pro Clifford WBC 8.1 103/ul Normal 4.0-11.0 [facility] Comment on above: Performed By: #### C BC #### [facility] [address] [place] [address] Dr. Pro Akins 04-11-2022 CHRISTOPHER Telephone (CARIAV) ANALY GONZALEZ ([id number]) 1990 F Date Time Provider Department 04/11/22 ROSY BERMUDEZ During your visit today, we recorded the following information about you: Jennifer Heredia, LASHONDA 04/11/2022 1:18 PM Signed Patient calling Requesting Test Results and POC please Call patient CELL [phone] Leave Detailed messages Rosy Bermudez DO 04/11/2022 2:50 PM Signed Called her and spoke to her but noted that we have not received new blood test results but we have not received any in the chart yet, but she states she had the testing done 3 weeks ago at [facility]. She also after our previous discussion obtain a home blood pressure cuff and has noticed that her blood pressure have been running higher. We discussed with her keeping this log and discussing with her family physician. Will attempt to track down the results from [facility]. DO Rosaline Luo 04/11/2022 4:04 PM Signed 04/11/2022 Call placed to [phone] [facility] to request all completed lab results be faxed to office at [phone]. This nurse is awaiting results for Dr. Bermudez to review. Rosaline Dempsey 04/22/2022 3:54 PM Signed 04/22/2022 Pt was called and she stated she had labs drawn at [facility] this nurse called [phone] and requested lab results to be faxed to [phone] results placed on desk for review. Rosaline Bermudez DO 04/22/2022 4:04 PM Signed Received/reviewed blood work noting all negative except for anti-dfs70 antibodies. Remainder of the panel are negative including dsDNA and the labs strongest related to lupus making this seem unlikely. Uncertain as to the particular antibody being positive as search for information on this indicates it may be elevated in 10% of people but may also be present in autoimmune rheumatologic disease. I wpuld like her to follow-up with rheumatology regarding this. Rosaline Dempsey 04/22/2022 4:13 PM Signed 04/22/2022 I attempted to call patient VM box is full unable to leave message. Rosaline Dempsey Lpn Allergies As of Date: 04/11/2022 Noted Allergy Reaction LAMOTRIGINE 02/19/2022 1 - Mental Status Change 2 - Rash PENICILLIN 02/19/2022 2 - Rash PREGABALIN 02/19/2022 1 - Mental Status Change 2 - Rash 12 - Shortness of Breath PENICILLIN G 10/31/2021 2 - Rash Date Reviewed: 04/11/2022 Reviewed by: Rosy Bermudez DO - Fully Assessed Reason for Visit: Results [95] Primary Visit Diagnosis:Abnormal laboratory test [R89.9] Other Visit Diagnosis:Weakness [R53.1] Order(s):CONSULT TO RHEUM/IMMUN DISEASE [9039] Order #: [id number]: 1 FUTURE Prescriptions as of 08/28/2022 - naratriptan (AMERGE) 2.5 mg tablet Take one at onset of severe headache/migraine may repeat x 1 after 4 hours if needed. Maximum 2/day and 2 days/week. - sertraline (ZOLOFT) 50 mg tablet Take 1 tablet by mouth daily at bedtime. - meloxicam (MOBIC) 15 mg tablet Take 1 tablet by mouth once daily as needed for pain. - acetaminophen 300 mg-caffeine 40 mg-butalbital 50 mg (FIORICET) per capsule Take 1-2 capsules by mouth twice daily. - fluticasone (FLONASE) 50 mcg/actuation nasal spray Use 1 [place] in the nose once daily. - gabapentin (NEURONTIN) 300 mg capsule Take 300 capsules by mouth five times daily. - hydrOXYzine HCl (ATARAX) 25 mg tablet 1 tablet. Problem List As Of Date: 04/11/2022 (None) Encounter Status:Closed by JENNIFER HEREDIA on 08/28/22 Normal [facility] PREG QUANT HCGon 04-11-2022 HCG QUANT 83870 mIU/mL Normal [facility] Comment on above: Performed By: #### P HOS, LIPID, CREA #### [facility] [address] [address] [address] Pro Clifford HCG RANGE SEE BELOW Normal [facility] Comment on above: Result Comment: 5-50 0-1 WEEK 40-300 1-2 WEEKS 100-1,000 2-3 WEEKS 500-6,000 3-4 WEEKS 5,000-200,000 1-2 MONTHS 10,000-100,000 2-3 MONTHS 3,000-50,000 2ND TRIMESTER 1,000-50,000 3RD TRIMESTER Performed By: #### P HOS, LIPID, CREA #### [facility] [address] [place], [place] [address] Dr. Pro Clifford TYPE AND SCREENon 04-11-2022 TYPE AND SCREEN Negative Normal [facility] Comment on above: Performed By: #### E LUIS E #### [facility] [address] [place], [place] [address] Dr. Pro Clifford Covid-19 PCR ([facility])on 03-30 SARS-CoV-2 (COVID-19) RNA SAYDA+probe Ql (Unsp spec) Not detected Normal NOT DETECTED [facility] Comment on above: Result Comment: When diagnostic testing is negative, the possibility of a false negative should be considered in the context of a patient's recent exposures and the presence of clinical signs and symptoms consistent with SARS-CoV-2. This test is not yet approved or cleared by the [place] FDA. When there are no FDA-approved or cleared tests available, and other criteria are met, FDA can make tests available under an emergency access mechanism called an Emergency Use Authorization (EUA). The EUA for this test is supported by the [place] of Health and Human Service's declaration that circumstances exist to justify the emergency use of in vitro diagnostics for the detection and/or diagnosis of the virus that causes COVID-19. This EUA will remain in effect for the duration of the COVID-19 declaration justifying emergency of IVDs, unless it is terminated or revoked by the FDA (after which the test may no longer be used). Performed By: #### E LUIS E #### [facility] [address] [place], [place] [address] Dr. Pro Clifford US PREG TVon 04-10-2022 US PREG TV EXAMINATION: US PREG TV HISTORY: Missed period COMPARISON: Ultrasound transvaginal 04/03/2022 FINDINGS: GESTATIONAL SAC: Present and normal appearing. POLE: Present and normal appearing. YOLK SAC: Present. CARDIAC: Absent. UTERUS: Normal size and appearance. OVARIES: Right: Contains a 3.0 cm benign-appearing cyst. Left: Not seen. CERVIX: 4.6 cm in length and closed. CUL-DE-SAC: Normal. OTHER: None. AGE BY LMP: 11 weeks, 0 days MARY BY LMP: 10/30/2022 AGE BY US CRL: 6 weeks, 4 days MARY BY US CRL: 11/30/2022 IMPRESSION: 1. Intrauterine without detectable heartbeat or growth over past week. Findings compatible with demise. Dr. Palma notified of these findings by the telephone surveyor at time of imaging. Electronically authenticated by: SOHAN DAVIS Date: 2022-04-10 13:00 Normal [facility] CARDIAC [place] 3-6on 2 CK [Catalytic activity/Vol] 63 U/L Normal 26-192 [facility] Comment on above: Performed By: #### P HOS, LIPID, CREA #### [facility] [address] [address] [address] Pro Clifford CK.MB [Mass/Vol] 0.35 ng/mL Normal <=3.60 [facility] Comment on above: Performed By: #### P HOS, LIPID, CREA #### [facility] [address] [place] [address] Dr. Pro Clifford HSTROP 4.4 pg/mL Normal 4.0-51.3 [facility] Comment on above: Result Comment: CUT- OFF POINTS HAVE BEEN ESTABLISHED BASED ON THE FOURTH UNIVERSAL DEFINITIONS OF MYOCARDIAL INFARCTION. THE UPPER REFERENCE LIMIT (URL) OF TROPONIN, DEFINED THE 99TH PERCENTILE OF cTnI DISTRIBUTION IN A REFERENCE POPULATION, HAS BEEN CONFIRMED THE DECISION THRESHOLD FOR [place] DIAGNOSIS. Performed By: #### P HOS, LIPID, CREA #### [facility] [address] [address] [address] Pro Clifford CARDIAC [place] ADMITon 022 CK [Catalytic activity/Vol] 67 U/L Normal 26-192 [facility] Comment on above: Performed By: #### C BC #### [facility] [address] [address] [address] Pro Clifford CK.MB [Mass/Vol] 0.30 ng/mL Normal <=3.60 [facility] Comment on above: Performed By: #### C BC #### [facility] [address] [address] [address] Pro Clifford HSTROP 4.0 pg/mL Normal 4.0-51.3 [facility] Comment on above: Result Comment: CUT- OFF POINTS HAVE BEEN ESTABLISHED BASED ON THE FOURTH UNIVERSAL DEFINITIONS OF MYOCARDIAL INFARCTION. THE UPPER REFERENCE LIMIT (URL) OF TROPONIN, DEFINED THE 99TH PERCENTILE OF cTnI DISTRIBUTION IN A REFERENCE POPULATION, HAS BEEN CONFIRMED THE DECISION THRESHOLD FOR [place] DIAGNOSIS. Performed By: #### C BC #### [facility] [address] [place] [address] Dr. Pro Clifford HAKAN 27 ng/mL Normal 9-82 [facility] Comment on above: Performed By: #### C BC #### [facility] [address] [place] [address] Dr. Pro Clifford CBC AUTO DIFFon 04-09-2022 BASO # 0.0 103/ul Normal 0.0-0.1 [facility] Comment on above: Performed By: #### C BC #### [facility] [address] [place] [address] Dr. Pro Clifford Basophils/100 WBC (Bld) 0.2 % Normal 0.2-2.0 [facility] Comment on above: Performed By: #### C BC #### [facility] [address] [place] [address] Dr. Pro Clifford EO # 0.1 103/ul Normal 0.0-0.7 [facility] Comment on above: Performed By: #### C BC #### [facility] [address] [place] [address] Dr. Pro Clifford Eosinophils/100 WBC (Bld) 1.2 % Normal 0.9-7.0 [facility] Comment on above: Performed By: #### C BC #### [facility] [address] [place] [address] Dr. Pro Clifford Erythrocyte distribution width (RBC) [Ratio] 12.9 % Normal 11.0-15.0 [facility] Comment on above: Performed By: #### C BC #### [facility] [address] [place] [address] Dr. Pro Clifford Hematocrit (Bld) [Volume fraction] 35.0 % Critically low 36.0-48.0 [facility] Comment on above: Performed By: #### C BC #### [facility] [address] [place] [address] Dr. Pro Clifford Hemoglobin (Bld) [Mass/Vol] 11.6 g/dL Critically low 12.0-16.0 [facility] Comment on above: Performed By: #### C BC #### [facility] [address] [place] [address] Dr. Pro Clifford IG # 0.03 10e3/ul Normal 0.00-0.03 [facility] Comment on above: Performed By: #### C BC #### [facility] [address] [place] [address] Dr. Pro Clifford IG % 0.3 % Normal 0.0-0.5 [facility] Comment on above: Performed By: #### C BC #### [facility] [address] [place] [address] Dr. Pro Clifford LYMPH # 3.1 103/ul Normal 1.2-3.8 [facility] Comment on above: Performed By: #### C BC #### [facility] [address] [place] [address] Dr. Pro Clifford Lymphocytes/100 WBC (Bld) 30.3 % Normal 20.5-60.0 [facility] Comment on above: Performed By: #### C BC #### [facility] [address] [place] [address] Dr. Pro Clifford MANUAL DIFF REQ NO Normal [facility] Comment on above: Performed By: #### C BC #### [facility] [address] [place] [address] Dr. Pro Clifford MCH (RBC) [Entitic mass] 30.1 pg Normal 26.7-34.0 [facility] Comment on above: Performed By: #### C BC #### [facility] [address] [place] [address] Dr. Pro Clifford MCHC (RBC) [Mass/Vol] 33.1 g/dL Normal 29.9-35.2 [facility] Comment on above: Performed By: #### C BC #### [facility] [address] [place] [address] Dr. Pro Clifford MCV (RBC) [Entitic vol] 90.7 fL Normal 81.0-99.0 [facility] Comment on above: Performed By: #### C BC #### [facility] [address] [place] [address] Dr. Pro Clifford MONO # 0.6 103/ul Normal 0.3-0.8 [facility] Comment on above: Performed By: #### C BC #### [facility] [address] [place] [address] Dr. Pro Clifford Monocytes/100 WBC (Bld) 5.9 % Normal 1.7-12.0 [facility] Comment on above: Performed By: #### C BC #### [facility] [address] [place] [address] Dr. Pro Clifford NEUT # 6.3 103/ul Normal 1.4-6.5 [facility] Comment on above: Performed By: #### C BC #### [facility] [address] [place] [address] Dr. Pro Clifford Neutrophils/100 WBC (Bld) 62.1 % Normal 43.0-75.0 [facility] Comment on above: Performed By: #### C BC #### [facility] [address] [place] [address] Dr. Pro Clifford Platelet mean volume (Bld) [Entitic vol] 10.2 fL Normal 9.5-13.5 [facility] Comment on above: Performed By: #### C BC #### [facility] [address] [place] [address] Dr. Pro Clifford PLT 257 103/ul Normal 150-450 [facility] Comment on above: Performed By: #### C BC #### [facility] [address] [place] [address] Dr. Pro Clifford RBC 3.86 106/ul Critically low 4.20-5.40 [facility] Comment on above: Performed By: #### C BC #### [facility] [address] [address] [address] Pro Clifford WBC 10.1 103/ul Normal 4.0-11.0 [facility] Comment on above: Performed By: #### C BC #### [facility] [address] [address] [address] Pro Clifford PROF CHEM 8 (BAS METB)on Anion gap [Moles/Vol] 10.6 mmol/L Normal [facility] Comment on above: Performed By: #### C BC #### [facility] [address] [address] [address] Pro Clifford Calcium [Mass/Vol] 9.0 mg/dL Normal 8.5-10.1 [facility] Comment on above: Performed By: #### C BC #### [facility] [address] [place] [address] Dr. Pro Clifford Chloride [Moles/Vol] 103 mmol/L Normal 98-107 [facility] Comment on above: Performed By: #### C BC #### [facility] [address] [address] [address] Pro Clifford CO2 [Moles/Vol] 25.0 mmol/L Normal 21.0-32.0 [facility] Comment on above: Performed By: #### C BC #### [facility] [address] [address] [address] Pro Clifford Creatinine [Mass/Vol] 0.75 mg/dL Normal 0.55-1.02 [facility] Comment on above: Performed By: #### C BC #### [facility] [address] [place] [address] Dr. Pro Clifford EGFR-AF [place] >60 Normal >=60 [facility] Comment on above: Performed By: #### C BC #### [facility] [address] [place] [address] Dr. Pro Clifford EGFR-NON AF [place] >60 Normal >=60 [facility] Comment on above: Performed By: #### C BC #### [facility] [address] [place], [place] [address] Dr. Pro Clifford Glucose [Mass/Vol] 101 mg/dL Normal 74-106 [facility] Comment on above: Performed By: #### C BC #### [facility] [address] [place], [place] [address] Dr. Pro Clifford Potassium [Moles/Vol] 3.6 mmol/L Normal 3.5-5.1 [facility] Comment on above: Performed By: #### C BC #### [facility] [address] [address] [address] Pro Clifford Sodium [Moles/Vol] 135 mmol/L Critically low 136-145 [facility] Comment on above: Performed By: #### C BC #### [facility] [address] [address] [address] Pro Clifford Urea nitrogen [Mass/Vol] 11.0 mg/dL Normal 7.0-18.0 [facility] Comment on above: Performed By: #### C BC #### [facility] [facility] [address] [address] [address] Pro Clifford Urea nitrogen/Creatinine [Mass ratio] 14.7 mg/mg Normal [facility] Comment on above: Performed By: #### C BC #### [facility] [address] [place], [place] [address] Dr. Pro Clifford US PREG TVon 04-03-2022 US PREG TV EXAMINATION: US PREG TV HISTORY: Missed period COMPARISON: No relevant comparison available. FINDINGS: Gutierrez intrauterine gestation Gestational sac: Normal [place]-rump length: 6.8 mm, 6 weeks 4 days Yolk sac: 0.48 cm Heart rate: No cardiac activity identified The right ovary measures 3.3 x 2.8 x 2.9 cm, area of anechoic echogenicity measuring 2.9 x 2.7 x 2.0 cm, corpus luteal cyst favored. The left ovary measures 2.7 x 1.2 x 2.3 cm. Cervix: Short, 1.2 cm Ultrasound age: 6 weeks 4 days Ultrasound MARY: 11/23/2022 IMPRESSION: Gutierrez intrauterine gestation measuring 6 weeks 4 days. No cardiac activity identified, demise versus early gestation. Continued surveillance required Electronically authenticated by: DIONNA SANCHEZ Date: 2022-04-03 16:51 Normal [facility] TESTINGon 03-22-2022 RECV HEADER SEE SCANNED REPORT I N HPF Normal [facility] Comment on above: Performed By: #### E STRADI #### [facility] [address] [place] [address] Dr. Pro Clifford Performed By: #### E RUR PREGU, UMICRO #### [facility] [address] [address] [address] Pro Clifford REV FROM REF LAB 03/27/2022 Normal [facility] Comment on above: Performed By: #### E STRADI #### [facility] [address] [address] [address] Pro Clifford REV FROM REF LAB 04/08/22 Normal [facility] Comment on above: Performed By: #### E LUCI PREGU, UMICRO #### [facility] [address] [place] [address] Dr. Pro Clifford SENT TO REF LAB 03/22/22 Normal [facility] Comment on above: Performed By: #### E STRADI #### [facility] [address] [place] [address] Dr. Pro Clifford Performed By: #### E SHERI VERMAU, UMICRO #### [facility] [address] [place] [address] Dr. Pro Clifford UA RANDOM W/MICROSCOPICon BACTERIA TRACE Abnormal NONE SEEN [facility] Comment on above: Performed By: #### E STRADI #### [facility] [address] [address] [address] Pro Clifford Bilirubin Ql (U) Negative Normal NEGATIVE [facility] Comment on above: Performed By: #### E STRADI #### [facility] [address] [place] [address] Dr. Pro Clifford CAST NONE SEEN Normal NONE SEEN [facility] Comment on above: Performed By: #### E STRADI #### [facility] [address] [place] [address] Dr. Pro Clifford Clarity (U) CLEAR Normal CLEAR [facility] Comment on above: Performed By: #### E STRADI #### [facility] [address] [place] [address] Dr. Pro Clifford Color (U) LT. YELLOW Normal YELLOW [facility] Comment on above: Performed By: #### E STRADI #### [facility] [address] [place] [address] Dr. Pro Clifford Crystals LM Nom (Urine sed) NONE SEEN Normal NONE SEEN [facility] Comment on above: Performed By: #### E STRADI #### [facility] [address] [place] [address] Dr. Pro Clifford Epithelial cells LM Ql (Urine sed) MANY Abnormal NONE SEEN /RARE [facility] Comment on above: Performed By: #### E STRADI #### [facility] [address] [place] [address] Dr. Pro Clifford Glucose Ql (U) Negative Normal NEGATIVE [facility] Comment on above: Performed By: #### E STRADI #### [facility] [address] [place] [address] Dr. Pro Clifford Hemoglobin Ql (U) TRACE-INTACT Abnormal NEGATIVE [facility] Comment on above: Performed By: #### E STRADI #### [facility] [address] [place] [address] Dr. Pro Clifford Ketones Ql (U) Negative Normal NEGATIVE [facility] Comment on above: Performed By: #### E STRADI #### [facility] [address] [place] [address] Dr. Pro Clifford LEUKOCYTES Negative Normal NEGATIVE [facility] Comment on above: Performed By: #### E STRADI #### [facility] [address] [place] [address] Dr. Pro Clifford MUCOUS NONE SEEN Normal NONE SEEN [facility] Comment on above: Performed By: #### E STRADI #### [facility] [address] [place] [address] Dr. Pro Clifford Nitrite Ql (U) Negative Normal NEGATIVE [facility] Comment on above: Performed By: #### E STRADI #### [facility] [address] [place] [address] Dr. Pro Clifford pH (U) 6.0 [pH] Normal 5-9 [facility] Comment on above: Performed By: #### E STRADI #### [facility] [address] [place] [address] Dr. Pro Clifford RBC 0-2 Normal 0-2 [facility] Comment on above: Performed By: #### E STRADI #### [facility] [address] [place] [address] Dr. Pro Clifford SPEC GRAVITY 1.020 Normal 1.005-<=1. 025 [facility] Comment on above: Performed By: #### E STRADI #### [facility] [address] [place] [address] Dr. Pro Clifford UA PROTEIN Negative Normal NEGATIVE/ TRACE [facility] Comment on above: Performed By: #### E STRADI #### [facility] [address] [place] [address] Dr. Pro Clifford Urobilinogen Qn (U) 0.2 {Bacilio'U}/dL Normal 0.2 - 1. 0 [facility] Comment on above: Performed By: #### E STRADI #### [facility] [address] [place] [address] Dr. Pro Clifford WBC NONE SEEN Normal NONE SEEN [facility] Comment on above: Performed By: #### E STRADI #### [facility] [address] [place] [address] Dr. Pro Akins 03-12-2022 CHRISTOPHER Telephone (NEURAV) ANALY GONZALEZ ([id number]) 1990 F Date Time Provider Department 03/12/22 ROSY BERMUDEZ During your visit today, we recorded the following information about you: Rosy Bermudez DO 03/12/2022 12:01 PM Signed Blood work results from 02/28/2022 received noting depakote level of 33, subtheraputic for seizure treatment. She was started on this near 02/16 so level low. Given this and that treatment was for episodes of blackout. Called and spoke to her noting she was in the emergency room at [facility] for fluid retention on 03/08 but notes she stopped it several days before as she felt it was nit helping and making her lightheadedness worse. She notes another fall down stairs two weeks ago after I had seen her, she states this was due to her legs giving out. In the emergency room she had blood work and cxr. She notes only minimal abnormalities and she was given IV solumedrol which she states made her feel good for a few days. After discussion of options she elects to retrial of sertraline to help headache control, anxiety, and help maintain blood pressure. Allergies As of Date: 03/12/2022 Noted Allergy Reaction LAMOTRIGINE 02/19/2022 1 - Mental Status Change 2 - Rash PENICILLIN 02/19/2022 2 - Rash PREGABALIN 02/19/2022 1 - Mental Status Change 2 - Rash 12 - Shortness of Breath PENICILLIN G 10/31/2021 2 - Rash Date Reviewed: 02/19/2022 Reviewed by: Rosy Bermudez DO - Fully Assessed Reason for Visit: Results [95] Order(s):sertraline (ZOLOFT) 25 mg tabletTake 1 tablet by mouth daily at bedtime.Disp: 30 tabletRfl: 4 Prescriptions as of 03/12/2022 - sertraline (ZOLOFT) 25 mg tablet Take 1 tablet by mouth daily at bedtime. - acetaminophen 300 mg-caffeine 40 mg-butalbital 50 mg (FIORICET) per capsule Take 1-2 capsules by mouth twice daily. - divalproex DR (DEPAKOTE) 250 mg EC tablet Take 1 tablet by mouth once daily. - fluticasone (FLONASE) 50 mcg/actuation nasal spray Use 1 [place] in the nose once daily. - gabapentin (NEURONTIN) 300 mg capsule Take 300 capsules by mouth five times daily. - hydrOXYzine HCl (ATARAX) 25 mg tablet 1 tablet. - diclofenac, EC, (VOLTAREN) 75 mg EC tablet Take 1 tablet by mouth twice daily as needed (for pain.). - cyclobenzaprine (FLEXERIL) 5 mg tablet Take 0.5-1 tablets by mouth twice daily as needed. - naratriptan (AMERGE) 2.5 mg tablet Take one at onset of severe headache/migraine may repeat x 1 after 4 hours if needed. Maximum 2/day and 2 days/week. Problem List As Of Date: 03/12/2022 (None) Prescriptions ordered this encounter Disp Refills Start End SERTRALINE 25 MG TABLET 30 t* 4 03/12/2022 Route: ORAL Sig: Take 1 tablet by mouth daily at bedtime. Encounter Status:Closed by ROSY BERMUDEZ on 03/12/22 Normal [facility] BNPon 03-07-2022 Natriuretic peptide B (Bld) [Mass/Vol] 27.0 pg/mL Normal <=450.0 [facility] Comment on above: Performed By: #### P HOS, LIPID, CREA #### [facility] [address] [place] [address] Dr. Pro Clifford CBC AUTO DIFFon 03-07-2022 BASO # 0.0 103/ul Normal 0.0-0.1 [facility] Comment on above: Performed By: #### P HOS, LIPID, CREA #### [facility] [address] [place] [address] Dr. Pro Clifford Basophils/100 WBC (Bld) 0.2 % Normal 0.2-2.0 [facility] Comment on above: Performed By: #### P HOS, LIPID, CREA #### [facility] [address] [place] [address] Dr. Pro Clifford EO # 0.1 103/ul Normal 0.0-0.7 [facility] Comment on above: Performed By: #### P HOS, LIPID, CREA #### [facility] [address] [place] [address] Dr. Pro Clifford Eosinophils/100 WBC (Bld) 0.9 % Normal 0.9-7.0 [facility] Comment on above: Performed By: #### P HOS, LIPID, CREA #### [facility] [address] [place] [address] Dr. Pro Clifford Erythrocyte distribution width (RBC) [Ratio] 12.6 % Normal 11.0-15.0 [facility] Comment on above: Performed By: #### P HOS, LIPID, CREA #### [facility] [address] [place] [address] Dr. Pro Clifford Hematocrit (Bld) [Volume fraction] 36.3 % Normal 36.0-48.0 [facility] Comment on above: Performed By: #### P HOS, LIPID, CREA #### [facility] [address] [place] [address] Dr. Pro Clifford Hemoglobin (Bld) [Mass/Vol] 11.9 g/dL Critically low 12.0-16.0 [facility] Comment on above: Performed By: #### P HOS, LIPID, CREA #### [facility] [address] [place] [address] Dr. Pro Clifford IG # 0.02 10e3/ul Normal 0.00-0.03 [facility] Comment on above: Performed By: #### P HOS, LIPID, CREA #### [facility] [address] [place] [address] Dr. Pro Clifford IG % 0.2 % Normal 0.0-0.5 [facility] Comment on above: Performed By: #### P HOS, LIPID, CREA #### [facility] [address] [place] [address] Dr. Pro Clifford LYMPH # 3.5 103/ul Normal 1.2-3.8 [facility] Comment on above: Performed By: #### P HOS, LIPID, CREA #### [facility] [address] [place] [address] Dr. Pro Clifford Lymphocytes/100 WBC (Bld) 30.2 % Normal 20.5-60.0 [facility] Comment on above: Performed By: #### P HOS, LIPID, CREA #### [facility] [address] [address] [address] Pro Clifford MANUAL DIFF REQ NO Normal [facility] Comment on above: Performed By: #### P HOS, LIPID, CREA #### [facility] [address] [place] [address] Dr. Pro Clifford MCH (RBC) [Entitic mass] 29.3 pg Normal 26.7-34.0 [facility] Comment on above: Performed By: #### P HOS, LIPID, CREA #### [facility] [address] [place] [address] Dr. Pro Clifford MCHC (RBC) [Mass/Vol] 32.8 g/dL Normal 29.9-35.2 [facility] Comment on above: Performed By: #### P HOS, LIPID, CREA #### [facility] [address] [place] [address] Dr. Pro Clifford MCV (RBC) [Entitic vol] 89.4 fL Normal 81.0-99.0 [facility] Comment on above: Performed By: #### P HOS, LIPID, CREA #### [facility] [address] [place] [address] Dr. Pro Clifford MONO # 0.6 103/ul Normal 0.3-0.8 [facility] Comment on above: Performed By: #### P HOS, LIPID, CREA #### [facility] [address] [place] [address] Dr. Pro Clifford Monocytes/100 WBC (Bld) 4.8 % Normal 1.7-12.0 [facility] Comment on above: Performed By: #### P HOS, LIPID, CREA #### [facility] [address] [place] [address] Dr. Pro Clifford NEUT # 7.5 103/ul Critically high 1.4-6.5 [facility] Comment on above: Performed By: #### P HOS, LIPID, CREA #### [facility] [address] [address] [address] Pro Clifford Neutrophils/100 WBC (Bld) 63.7 % Normal 43.0-75.0 [facility] Comment on above: Performed By: #### P HOS, LIPID, CREA #### [facility] [address] [place] [address] Dr. Pro Clifford Platelet mean volume (Bld) [Entitic vol] 9.9 fL Normal 9.5-13.5 [facility] Comment on above: Performed By: #### P HOS, LIPID, CREA #### [facility] [address] [address] [address] Pro Clifford PLT 271 103/ul Normal 150-450 [facility] Comment on above: Performed By: #### P HOS, LIPID, CREA #### [facility] [address] [address] [address] Pro Clifford RBC 4.06 106/ul Critically low 4.20-5.40 [facility] Comment on above: Performed By: #### P HOS, LIPID, CREA #### [facility] [address] [address] [address] Pro Clifford WBC 11.7 103/ul Critically high 4.0-11.0 [facility] Comment on above: Performed By: #### P HOS, LIPID, CREA #### [facility] [address] [address] [address] Pro Akins 03-07-2022 CHRISTOPHER Telephone (NEURAV) ANALY GONZALEZ ([id number]) 1990 F Date Time Provider Department 03/07/22 ROSY BERMUDEZ During your visit today, we recorded the following information about you: Harris Donato 03/07/2022 12:03 PM Signed Lab orders mailed.Pt notified. Allergies As of Date: 03/07/2022 Noted Allergy Reaction LAMOTRIGINE 02/19/2022 1 - Mental Status Change 2 - Rash PENICILLIN 02/19/2022 2 - Rash PREGABALIN 02/19/2022 1 - Mental Status Change 2 - Rash 12 - Shortness of Breath PENICILLIN G 10/31/2021 2 - Rash Date Reviewed: 02/19/2022 Reviewed by: Rosy Bermudez DO - Fully Assessed Reason for Visit: [employer] - Other [3602] Orders [681] Prescriptions as of 03/18/2022 - sertraline (ZOLOFT) 25 mg tablet Take 1 tablet by mouth daily at bedtime. - acetaminophen 300 mg-caffeine 40 mg-butalbital 50 mg (FIORICET) per capsule Take 1-2 capsules by mouth twice daily. - divalproex DR (DEPAKOTE) 250 mg EC tablet Take 1 tablet by mouth once daily. - fluticasone (FLONASE) 50 mcg/actuation nasal spray Use 1 [place] in the nose once daily. - gabapentin (NEURONTIN) 300 mg capsule Take 300 capsules by mouth five times daily. - hydrOXYzine HCl (ATARAX) 25 mg tablet 1 tablet. - diclofenac, EC, (VOLTAREN) 75 mg EC tablet Take 1 tablet by mouth twice daily as needed (for pain.). - cyclobenzaprine (FLEXERIL) 5 mg tablet Take 0.5-1 tablets by mouth twice daily as needed. - naratriptan (AMERGE) 2.5 mg tablet Take one at onset of severe headache/migraine may repeat x 1 after 4 hours if needed. Maximum 2/day and 2 days/week. Problem List As Of Date: 03/07/2022 (None) Encounter Status:Closed by HARRIS DONATO on 03/18/22 Normal [facility] D-DIMERon 03-07-2022 D-DIMER 0.19 mg/L FEU Normal 0.19-0.50 [facility] Comment on above: Performed By: #### C VDTB #### [facility] [address] [place] [address] Dr. Pro Clifford D-DIMER COMMENTS SEE BELOW Normal [facility] Comment on above: Result Comment: Incr eases in D-Dimer concentration observed with thromboembolic events can be variable due to localization, size, and age of the thrombus. Therefore, a thromboembolic event cannot be diagnosed with certainty on the basis of the reference range. D-Dimers may also be elevated for a variety of disorders including: advanced age, , coronary disease, cancer, liver disease, infection, inflammation, hematoma, DIC, trauma, post-surgery, diabetes, thrombolytic or anticoagulant therapy, stress, and generalized hospitalization. Performed By: #### C VDTB #### [facility] [address] [place] [address] Dr. Pro Clifford PROF 14(COMP METB)on 022 Albumin [Mass/Vol] 4.0 g/dL Normal 3.4-5.0 [facility] Comment on above: Performed By: #### C BC #### [facility] [address] [place] [address] Dr. Pro Clifford Albumin/Globulin [Mass ratio] 1.1 {ratio} Normal [facility] Comment on above: Performed By: #### C BC #### [facility] [address] [place] [address] Dr. Pro Clifford ALP [Catalytic activity/Vol] 53 U/L Normal 46-116 [facility] Comment on above: Performed By: #### C BC #### [facility] [address] [place] [address] Dr. Pro Clifford ALT [Catalytic activity/Vol] 22 U/L Normal 14-59 [facility] Comment on above: Performed By: #### C BC #### [facility] [address] [place] [address] Dr. Pro Clifford Anion gap [Moles/Vol] 15.7 mmol/L Normal [facility] Comment on above: Performed By: #### C BC #### [facility] [address] [place] [address] Dr. Pro Clifford AST [Catalytic activity/Vol] 12 U/L Critically low 15-37 [facility] Comment on above: Performed By: #### C BC #### [facility] [address] [place], [place] [id number] Dr. Pro Clifford Bilirubin [Mass/Vol] 0.2 mg/dL Normal 0.2-1.3 [facility] Comment on above: Performed By: #### C BC #### [facility] [address] [place] [address] Dr. Pro Clifford Calcium [Mass/Vol] 8.9 mg/dL Normal 8.5-10.1 [facility] Comment on above: Performed By: #### C BC #### [facility] [address] [place] [address] Dr. Pro Clifford Chloride [Moles/Vol] 101 mmol/L Normal 98-107 [facility] Comment on above: Performed By: #### C BC #### [facility] [address] [place] [address] Dr. Pro Clifford CO2 [Moles/Vol] 23.2 mmol/L Normal 22.0-30.0 [facility] Comment on above: Performed By: #### C BC #### [facility] [address] [place] [address] Dr. Pro Clifford Creatinine [Mass/Vol] 0.89 mg/dL Normal 0.52-1.04 [facility] Comment on above: Performed By: #### C BC #### [facility] [address] [place] [address] Dr. Pro Clifford EGFR-AF [place] >60 Normal >=60 [facility] Comment on above: Performed By: #### C BC #### [facility] [address] [place] [address] Dr. Pro Clifford EGFR-NON AF [place] >60 Normal >=60 [facility] Comment on above: Performed By: #### C BC #### [facility] [address] [place] [address] Dr. Pro Clifford Globulin (S) [Mass/Vol] 3.7 g/dL Normal [facility] Comment on above: Performed By: #### C BC #### [facility] [address] [place] [address] Dr. Por Clifford Glucose [Mass/Vol] 89 mg/dL Normal 74-106 [facility] Comment on above: Performed By: #### C BC #### [facility] [address] [address] [address] Pro Clifford Potassium [Moles/Vol] 3.9 mmol/L Normal 3.4-5.0 [facility] Comment on above: Performed By: #### C BC #### [facility] [address] [address] [address] Pro Clifford Protein [Mass/Vol] 7.7 g/dL Normal 6.1-8.2 [facility] Comment on above: Performed By: #### C BC #### [facility] [address] [address] [address] Pro Clifford Sodium [Moles/Vol] 136 mmol/L Critically low 137-145 [facility] Comment on above: Performed By: #### C BC #### [facility] [address] [address] [address] Pro Clifford Urea nitrogen [Mass/Vol] 14.0 mg/dL Normal 7.0-18.0 [facility] Comment on above: Performed By: #### C BC #### [facility] [address] [address] [address] Pro Clifford Urea nitrogen/Creatinine [Mass ratio] 15.7 mg/mg Normal [facility] Comment on above: Performed By: #### C BC #### [facility] [address] [address] [address] Pro Clifford [facility] 12 mm/hr Normal <=20 [facility] Comment on above: Performed By: #### P HOS, LIPID, CREA #### [facility] [address] [place] [address] Dr. Pro Clifford TROPONIN, HIGH SENSITIVITYon 03-07-2022 HSTROP 5.8 pg/mL Normal 4.0-35.5 [facility] Comment on above: Result Comment: CUT- OFF POINTS HAVE BEEN ESTABLISHED BASED ON THE FOURTH UNIVERSAL DEFINITIONS OF MYOCARDIAL INFARCTION. THE UPPER REFERENCE LIMIT (URL) OF TROPONIN, DEFINED THE 99TH PERCENTILE OF cTnI DISTRIBUTION IN A REFERENCE POPULATION, HAS BEEN CONFIRMED THE DECISION THRESHOLD FOR [place] DIAGNOSIS. Performed By: #### C #### [facility] [address] [id number] Pro Clifford XR CHEST 1 Von 03-07-2022 XR CHEST 1 V EXAMINATION: XR CHES T 1 V HISTORY: Chest pain COMPARISON: None. TECHNIQUE: Portable chest FINDINGS: The lung parenchyma is free of consolidation or infiltrate. No pneumothorax or pleural effusion. The cardiac, mediastinal and hilar contours are normal. The visualized osseous structures exhibit no gross abnormality. IMPRESSION: Normal chest x-ray Electronically authenticated by: DIONNA SONG Date: 2022-03-07 21:46 [facility] Office Visit (NEUAV4 ) ANALY GONZALEZ ([id number]) 1990 F Date Time Provider Department 02/19/22 9:00 AM ROSY BERMUDEZ4 During your visit today, we recorded the following information about you: Rosy Bermudez DO 02/19/2022 12:38 PM Signed [facility] [place] New Patient Consultation February 19, 2022 HPI: Ms. Gonzalez, who is accompanied by her with her permission, presents today secondary to issues of weakness, headache/migraine, syncope, vertigo, and peripheral neuropathy. 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 She notes having had two blackouts each preceded by lightheadedness. In the first she went from standing to seated then become flushed, hot, and on standing up she was helped to the ground and blacked out for 1-2 minutes. She was monitored and noted her heart rate and blood pressure were fine, and there were no convulsions were noted. She had someone take her to the emergency room at [facility]. She had urine and urine test. She has orthostatic vitals performed but she does not believe they waited in between. She was give hydroxyzine for possible anxiety and was discharged. She called her PCP the following day. On the same visit with the PCP she was started on antibiotic for ear infection, prednisone, and lyrica. The latter was for possible fibromyalgia. She notes with lyrica she felt depressed and made her feel even more lightheaded. There had question of vertigo and was referred to vestibular therapist who treated her and did not think she had vertigo. She continued to have issues where she felt her legs could give out, had falls, but denies lightheadedness. She describes spells where her head get's heavy, then becomes lightheaded. She feels the timing of these spells are positional. She has been on gabapentin for anxiety/depression/bip olar disorder. She has been on the gabapentin for month and feels this has helped her symptoms rather than made them any worse. She was diagnosed with COVID at the end of November, noted to be her third time having it, but notes she also had it in 09/2021. She returned to the emergency room 01/05/2022 with worsened symptoms after being on Lyrica and she stopped this the next day with her PCP. She then had referral placed and MRI brain was ordered. She had the MRI 01/17/2022. She was seen in her PCP's office again who questioned psychiatric reason for this. She was referred and saw a psychiatrist. She was seen and continued as needed hydroxyzine, started on lamotrigine. The lamotrigine did not seem to help and gave her side effects with rash so this was stopped . She was later seen and was started on depakote as of 3 days ago. She denies any history of seizures at any point of her life. 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 She was started on prednisone, doxycycline, and flonase for this but she does not think it has helped much. She has history of migraines and headaches. Her headaches date back to childhood. She will have headaches 3 days a week with migraines 1-2 per week on average. Her headache pains are usually in her temples. She is not aware of any triggers. With the migraines she can have sensitivity to light and sound, nausea, blurring vision, and scintillations. In her family her mother and sister also have migraines. She had history of head injury in 2016 with head injury and concussion as part of this. She did lose consciousness as part of this. She cannot recall her headaches changing near that time. She does not sleep all that well. She does not snore much, but does not gasp for air or stop breathing in her sleep. She can be restless in trying to get to sleep. Her caffeine intake is minimal. For her headaches she used to take fioricet and after excedrin both of which she has stopped. Previously sumatriptan made her feel nauseated, nurtec- caused her to feel worse, ibuprofen- no help, aleve-no help, tylenol- no help. For prevention of pain she has been on duloxetine- caused side effects including increased fatigue. In the past she has been on sertraline, lexapro, celexa, prozac, paxil, welbutrin, buspar, amitriptyline (vidi dreams), nortriptyline (vivid dreams), duxloetine all gave side effects. She recently started depakote, but only on the third dose. She has only been on this only two days. Gabapentin at 300 mg five times a day. She does not feel she has had any side effects to this and feels this has greatly helped her sleep better. She had felt wearing off in between doses which is what led this to 5 times a day. She has not been on a higher dose of this before. PAST MEDICAL HISTORY Diagnosis Date - Bipolar 1 disorder (HCC) - Borderline personality disorder (HCC) - Intractable migraine without aura and (more content not included)... Normal [facility] Mable 02-19-2022 CNPN Telephone ([facility]) ANALY GONZALEZ ([id number]) 1990 F Date Time Provider Department 02/19/22 ROSY BERMUDEZ [facility] During your visit today, we recorded the following information about you: Curtis Marie Pss 02/19/2022 11:41 AM Signed Patient asking if labs can be faxed to [facility] in [place] Patient did not have fax number only phone number [phone] Please call patient once faxed Rosaline Dempsey 02/19/2022 3:43 PM Signed 02/19/2022 Labs printed and faxed to [facility] in [place] at [phone]. Confirmation received patient notified via phone call and verbalized she will have completed through [facility]. Allergies As of Date: 02/19/2022 Noted Allergy Reaction LAMOTRIGINE 02/19/2022 1 - Mental Status Change 2 - Rash PENICILLIN 02/19/2022 2 - Rash PREGABALIN 02/19/2022 1 - Mental Status Change 2 - Rash 12 - Shortness of Breath PENICILLIN G 10/31/2021 2 - Rash Date Reviewed: 02/19/2022 Reviewed by: Rosy Bermudez DO - Fully Assessed Reason for Visit: Results [95] Prescriptions as of 02/19/2022 - acetaminophen 300 mg-caffeine 40 mg-butalbital 50 mg (FIORICET) per capsule Take 1-2 capsules by mouth twice daily. - divalproex DR (DEPAKOTE) 250 mg EC tablet Take 1 tablet by mouth once daily. - doxycycline (VIBRA-TABS) 100 mg tablet Take 1 tablet by mouth twice daily. - fluticasone (FLONASE) 50 mcg/actuation nasal spray Use 1 [place] in the nose once daily. - gabapentin (NEURONTIN) 300 mg capsule Take 300 capsules by mouth five times daily. - hydrOXYzine HCl (ATARAX) 25 mg tablet 1 tablet. - diclofenac, EC, (VOLTAREN) 75 mg EC tablet Take 1 tablet by mouth twice daily as needed (for pain.). - cyclobenzaprine (FLEXERIL) 5 mg tablet Take 0.5-1 tablets by mouth twice daily as needed. - naratriptan (AMERGE) 2.5 mg tablet Take one at onset of severe headache/migraine may repeat x 1 after 4 hours if needed. Maximum 2/day and 2 days/week. Problem List As Of Date: 02/19/2022 (None) Encounter Status:Closed by ANKUSH HAHN CURTIS on 02/19/22 Normal [facility] XR elbow RT min 3V*on 2021 XR elbow RT min 3V* [facility] [employer] Other XR elbow RT min 3V* [facility] [place] Other XR elbow RT min 3V* [facility] [place] Other XR elbow RT min 3V* [place] [address] [employer] Other XR elbow RT min 3V* XRay Report [facility] [place] Other XR elbow RT min 3V* Signed [employer] Other XR elbow RT min 3V* Patient: Analy Gonzalez MR#: [id number] [employer] Other XR elbow RT min 3V* [address] [employer] Other XR elbow RT min 3V* : 1990 Acct:[id number] [employer] [facility] Other XR elbow RT min 3V* Age/Sex: 31 / F ADM Date: 01/15/22 [employer] [facility] Other XR elbow RT min 3V* Loc: XDUCLY Room: Type: REG CLI [employer] [facility] Other XR elbow RT min 3V* Attending Dr: Maddison TORIBIO [employer] [facility] Other XR elbow RT min 3V* Ordering Provider: CATARINO Moncada [employer] Other XR elbow RT min 3V* Date of Service: 01/15/22 [employer] [facility] Other XR elbow RT min 3V* XR/XR elbow RT min 3V*: M25.576 [employer] Other XR elbow RT min 3V* ([id number]) XR/XR shoulder RT min 2V*: M25.521 [employer] [facility] Other XR elbow RT min 3V* Copies to: SANDY MoncadaC [employer] [facility] Other XR elbow RT min 3V* CLINICAL HISTORY: Patient fell backwards and landed on outstretched right arm. Pain at the right [employer] Other XR elbow RT min 3V* shoulder and elbow. [employer] Other XR elbow RT min 3V* RIGHT SHOULDER - 3 views [employer] Other XR elbow RT min 3V* COMPARISON: None [employer] Other XR elbow RT min 3V* AP, Y and Grashey views were obtained. There is no evidence of fracture or dislocation. There are [employer] Other XR elbow RT min 3V* no significant soft tissue abnormalities. [employer] Other XR elbow RT min 3V* XR/XR shoulder RT min 2V* [employer] Other XR elbow RT min 3V* IMPRESSION: [facility] [employer] Other XR elbow RT min 3V* NO ACUTE BONY INJURY. [employer] Other XR elbow RT min 3V* RIGHT ELBOW - 4 VIEWS [employer] [facility] Other XR elbow RT min 3V* AP, lateral and both oblique views were obtained. [employer] [facility] Other XR elbow RT min 3V* There is no evidence of fracture or dislocation. There are no significant soft tissue [employer] Other XR elbow RT min 3V* abnormalities. There is no elbow effusion. [employer] Other XR elbow RT min 3V* Impression dictated by: Macy Curiel M.D.01/15/2022 6:34 PM [employer] [facility] Other XR elbow RT min 3V* Dictation Location: [place] [address] [employer] [facility] [employer] Other XR elbow RT min 3V* Transcribed By: PWS 01/15/22 1834 [employer] [facility] Other XR elbow RT min 3V* Dictated By: Macy Curiel MD 01/15/22 1829 [employer] [facility] Other XR elbow RT min 3V* Signed By: [employer] Other XR elbow RT min 3V* 01/15/22 1834 No rt [place] Other Vital Signs Date Time Vital Sign Value Performing Clinician Facility 08-23-2025 11:30-0400 Diastolic blood pressure 82 mm[Hg] Cassie Salomon MD Work Phone: [facility] 08-23-2025 11:30-0400 Heart rate 87 /min Cassie Salomon MD Work Phone: [facility] 08-23-2025 11:30-0400 Respiratory rate 16 /min Cassie Salomon MD Work Phone: [facility] 08-23-2025 11:30-0400 SaO2% (BldA) [Mass fraction] 96 % Cassie Salomon MD Work Phone: [facility] 08-23-2025 11:30-0400 Systolic blood pressure 132 mm[Hg] Cassie Salomon MD Work Phone: [facility] 08-23-2025 10:45-0400 Inhaled oxygen flow rate 3 L/min Cassie Salomon MD Work Phone: [facility] 08-23-2025 09:10-0400 Body height 157.48 cm Cassie Salomon MD Work Phone: [facility] 08-23-2025 09:10-0400 Body weight 68.03 kg Cassie Salomon MD Work Phone: [facility] 08-09-2025 13:12-0400 Body height 154.94 cm Cassie Salomon MD Work Phone: [facility] 08-09-2025 13:12-0400 Body mass index (BMI) [Ratio] 30.1 kg/m2 Cassie Salomon MD Work Phone: [facility] 08-09-2025 13:12-0400 Body weight 72.34 kg Cassie Salomon MD Work Phone: [facility] 08-09-2025 13:12-0400 Diastolic blood pressure 90 mm[Hg] Cassie Salomon MD Work Phone: [facility] 08-09-2025 13:12-0400 Heart rate 74 /min Cassie Salomon MD Work Phone: [facility] 08-09-2025 13:12-0400 SaO2% (BldA) [Mass fraction] 98 % Cassie Salomon MD Work Phone: [facility] 08-09-2025 13:12-0400 Systolic blood pressure 124 mm[Hg] Cassie Salomon MD Work Phone: [facility] 08-02-2025 10:50-0400 Diastolic blood pressure 82 mm[Hg] Cassie Salomon MD Work Phone: [facility] 08-02-2025 10:50-0400 Heart rate 88 /min Cassie Salomon MD Work Phone: [facility] 08-02-2025 10:50-0400 Respiratory rate 16 /min Cassie Salomon MD Work Phone: [facility] 08-02-2025 10:50-0400 SaO2% (BldA) [Mass fraction] 99 % Cassie Salomon MD Work Phone: [facility] 08-02-2025 10:50-0400 Systolic blood pressure 126 mm[Hg] Cassie Salomon MD Work Phone: [facility] 08-02-2025 10:12-0400 Inhaled oxygen flow rate 3 L/min Cassie Salomon MD Work Phone: [facility] 08-02-2025 09:17-0400 Body height 157.48 cm Cassie Salomon MD Work Phone: [facility] 08-02-2025 09:17-0400 Body weight 68.03 kg Cassie Salomon MD Work Phone: [facility] 07-19-2025 14:30-0400 Body height 154.94 cm Cassie Salomon MD Work Phone: [facility] 07-19-2025 14:30-0400 Body mass index (BMI) [Ratio] 30.9 kg/m2 Cassie Salomon MD Work Phone: [facility] 07-19-2025 14:30-0400 Body weight 74.38 kg Cassie Salomon MD Work Phone: [facility] 07-19-2025 14:30-0400 Diastolic blood pressure 84 mm[Hg] Cassie Salomon MD Work Phone: [facility] 07-19-2025 14:30-0400 Heart rate 93 /min Cassie Salomon MD Work Phone: [facility] 07-19-2025 14:30-0400 SaO2% (BldA) [Mass fraction] 99 % Cassie Salomon MD Work Phone: [facility] 07-19-2025 14:30-0400 Systolic blood pressure 110 mm[Hg] Cassie Salomon MD Work Phone: [facility] 07-12-2025 11:18-0400 Diastolic blood pressure 78 mm[Hg] Cassie Salomon MD Work Phone: [facility] 07-12-2025 11:18-0400 Heart rate 80 /min Cassie Salomon MD Work Phone: [facility] 07-12-2025 11:18-0400 Respiratory rate 16 /min Cassie Salomon MD Work Phone: [facility] 07-12-2025 11:18-0400 SaO2% (BldA) [Mass fraction] 98 % Cassie Salomon MD Work Phone: [facility] 07-12-2025 11:18-0400 Systolic blood pressure 118 mm[Hg] Cassie Salomon MD Work Phone: [facility] 07-12-2025 10:40-0400 Inhaled oxygen flow rate 3 L/min Cassie Salomon MD Work Phone: [facility] 07-12-2025 08:24-0400 Body height 157.48 cm Cassie Salomon MD Work Phone: [facility] 07-12-2025 08:24-0400 Body weight 70.3 kg Cassie Salomon MD Work Phone: [facility] 06-28-2025 13:57-0400 Body height 157.48 cm Cassie Salomon MD Work Phone: [facility] 06-28-2025 13:57-0400 Body mass index (BMI) [Ratio] 29.1 kg/m2 Cassie Salomon MD Work Phone: [facility] 06-28-2025 13:57-0400 Body weight 72.23 kg Cassie Salomon MD Work Phone: [facility] 06-28-2025 13:57-0400 Diastolic blood pressure 80 mm[Hg] Cassie Salomon MD Work Phone: [facility] 06-28-2025 13:57-0400 Heart rate 101 /min Cassie Salomon MD Work Phone: [facility] 06-28-2025 13:57-0400 SaO2% (BldA) [Mass fraction] 99 % Cassie Salomon MD Work Phone: [facility] 06-28-2025 13:57-0400 Systolic blood pressure 124 mm[Hg] Cassie Salomon MD Work Phone: [facility] 06-15-2025 13:110400 Body height 157.48 cm Cassie Salomon MD Work Phone: [facility] 06-15-2025 13:11-0400 Body mass index (BMI) [Ratio] 28.1 kg/m2 Cassie Salomon MD Work Phone: [facility] 06-15-2025 13:11-0400 Body weight 69.85 kg Cassie Salomon MD Work Phone: [facility] 05-05-2024 10:23-0400 Body height 157.48 cm MD Cassie Salomon Work Phone: [facility] 05-05-2024 10:23-0400 Body mass index (BMI) [Ratio] 27.8 kg/m2 MD Cassie Salomon Work Phone: [facility] 05-05-2024 10:23-0400 Body weight 68.94 kg MD Cassie Salomon Work Phone: [facility] 04-13-2023 13:40-0400 Body height 157.48 cm Maddison Cabrera Other [employer] Other 04-13-2023 13:40-0400 Body mass index (BMI) [Ratio] 27.51 kg/m2 Maddison Cabrera Other [employer] Other 04-13-2023 13:40-0400 Body temperature 98.9 [degF] Maddison Cabrera Other [employer] Other 04-13-2023 13:40-0400 Body weight 68.22 kg Maddison Cabrera Other [employer] Other 04-13-2023 13:40-0400 Respiratory rate 18 /min Maddison Cabrera Other [employer] Other 04-13-2023 13:40-0400 SaO2% (BldA) [Mass fraction] 98 % Maddison Cabrera Other [employer] Other 01-26-2023 12:25-0500 Body height 157.48 cm Paulina Pro Other [employer] Other 01-26-2023 12:25-0500 Body mass index (BMI) [Ratio] 27.43 kg/m2 [facility] Other [employer] Other 01-26-2023 12:25-0500 Body temperature 101 [degF] Paulina Pro Other [employer] Other 01-26-2023 12:25-0500 Body weight 68.04 kg Paulina Pro Other [employer] Other 01-26-2023 12:25-0500 Respiratory rate 18 /min Paulina Pro Other [employer] Other 01-26-2023 12:25-0500 SaO2% (BldA) [Mass fraction] 99 % [facility] Other [employer] Other 10-07-2022 12:00-0500 Body height 157.48 cm Arthur Mckenzie Other [employer] Other 10-07-2022 12:00-0500 Body mass index (BMI) [Ratio] 27.43 kg/m2 Arthur Mckenzie Other [employer] Other 10-07-2022 12:00-0500 Body weight 68.04 kg Arthur Mckenzie Other [employer] [facility] Other 09-02-2022 07:55-0400 Body temperature 98.8 [degF] MD Cassie Salomon Work Phone: [facility] 09-02-2022 07:55-0400 Diastolic blood pressure 91 mm[Hg] MD Cassie Salomon Work Phone: [facility] 09-02-2022 07:55-0400 Heart rate 87 /min MD Cassie Salomon Work Phone: [facility] 09-02-2022 07:55-0400 Respiratory rate 16 /min MD Cassie Salomno Work Phone: [facility] 09-02-2022 07:55-0400 SaO2% (BldA) [Mass fraction] 96 % MD Cassie Salomon Work Phone: [facility] 09-02-2022 07:55-0400 Systolic blood pressure 143 mm[Hg] MD Cassie Salomon Work Phone: [facility] 09-02-2022 05:55-0400 Body weight 77 kg MD Cassie Salomon Work Phone: [facility] 09-01-2022 15:55-0400 Inhaled oxygen flow rate 1 L/min MD Cassie Salomon Work Phone: [facility] 09-01-2022 07:00-0400 Body height 157.48 cm MD Cassie Salomon Work Phone: [facility] 09-01-2022 07:00-0400 Body mass index (BMI) [Ratio] 29.1 kg/m2 MD Cassie Salomon Work Phone: [facility] 01-15-2022 18:20-0500 Body height 157.48 cm Maddison Cabrera Other [employer] [facility] [employer] Other 01-15-2022 18:20-0500 Body mass index (BMI) [Ratio] 25.97 kg/m2 Maddison Cabrera Other [employer] Other 01-15-2022 18:20-0500 Body temperature 97.5 [degF] Maddison Cabrera Other [employer] [facility] Other 01-15-2022 18:20-0500 Body weight 64.41 kg Maddison Cabrera Other [employer] Other 01-15-2022 18:20-0500 Respiratory rate 18 /min Maddison Cabrera Other [employer] Other 01-15-2022 18:20-0500 SaO2% (BldA) [Mass fraction] 99 % Maddison Cabrera Other [employer] Other Encounters Encounter Date Encounter Type Care Provider Facility Start: 08-23-2025 End: 08-23-2025 ambulatory Cody Gupta Facility:[facility] Start: 08-23-2025 Non-patient / Non-visit Cody sofia MD -[facility] Work Phone: Start: 08-09-2025 ambulatory [facility] Start: 08-09-2025 End: 08-09-2025 ambulatory Cassie Salomon MD Work Phone: [facility] Work Phone: Start: 08-09-2025 End: 08-09-2025 Patient encounter procedure Cody Gupta MD -[facility] Work Phone: Start: 08-07-2025 End: 08-07-2025 ambulatory [facility] Start: 08-02-2025 End: 08-02-2025 Admission to same day surgery center Cody Gupta MD -[facility] Work Phone: Start: 08-02-2025 End: 08-02-2025 ambulatory Cassie Salomon MD Work Phone: [facility] Work Phone: Start: 08-02-2025 Non-patient / Non-visit Cdoy sofia MD -[facility] Work Phone: Start: 07-24-2025 End: 07-24-2025 ambulatory Jerry Valente MD Facility:[facility] Start: 07-20-2025 End: 07-20-2025 ambulatory Billy Valdovinos MD Facility:[facility] Start: 07-19-2025 End: 07-19-2025 ambulatory Cassie Salomon MD Work Phone: [facility] Work Phone: Start: 07-19-2025 End: 07-19-2025 Patient encounter procedure Cody Gupta MD -[facility] Work Phone: Start: 07-12-2025 End: 07-12-2025 Admission to same day surgery center Cody Gupta MD -[facility] Work Phone: Start: 07-12-2025 End: 07-12-2025 ambulatory Cassie Salomon MD Work Phone: [facility] Work Phone: Start: 07-12-2025 Non-patient / Non-visit Cody sofia MD -[facility] Work Phone: Start: 06-28-2025 End: 06-28-2025 ambulatory Cassie Salomon MD Work Phone: [facility] Work Phone: Start: 06-28-2025 End: 06-28-2025 Patient encounter procedure Cody Gupta MD -[facility] Work Phone: Start: 06-15-2025 End: 06-15-2025 ambulatory Cassie Salomon MD Work Phone: [facility] Work Phone: Start: 06-15-2025 End: 06-15-2025 Patient encounter procedure Brandi Lisa [facility] Work Phone: Start: 05-25-2025 End: 05-25-2025 ambulatory ELLIOT PIMENTELLAWANDA [facility] Start: 05-24-2025 End: 05-26-2025 ambulatory IFEOMA ALCAZAR [facility] Start: 05-23-2025 End: 05-24-2025 Emergency department patient visit CASSIE SALOMON [facility] Start: 03-09-2025 ambulatory Cassie Salomon MD Facility:[facility] Start: 02-28-2025 End: 02-28-2025 ambulatory Cassie Salomon MD Facility:[facility] Start: 02-22-2025 End: 02-22-2025 Emergency department patient visit CASSIE Hernandez Melody [facility] Start: 02-14-2025 End: 02-14-2025 ambulatory CARLOS [facility] Start: 01-26-2025 End: 01-26-2025 ambulatory CAROLINA ALEXANDER [facility] Start: 01-25-2025 End: 01-25-2025 Emergency department patient visit CASSIE Hernandez Melody [facility] Start: 01-15-2025 End: 01-18-2025 ambulatory Cassie Salomon MD Facility:[facility] Start: 01-10-2025 End: 01-11-2025 ambulatory CASSIE SALOMON [facility] Start: 12-21-2024 End: 12-21-2024 Emergency department patient visit CASSIE M Melody [facility] Start: 11-16-2024 End: 11-16-2024 Emergency department patient visit CASSIE M Melody [facility] Start: 10-23-2024 End: 10-23-2024 Emergency department patient visit MEDICINE LODGE [facility] Start: 10-13-2024 End: 10-13-2024 ambulatory [facility] Start: 09-02-2024 End: 09-02-2024 ambulatory ARIEL [facility] Start: 09-01-2024 End: 09-01-2024 ambulatory [facility] Start: 08-08-2024 End: 08-08-2024 ambulatory [facility] Start: 08-08-2024 Encounter for gynecological examination (general) (routine) without abnormal findings [facility] Start: 08-03-2024 End: 08-03-2024 ambulatory ARIEL [facility] Start: 06-24-2024 End: 06-24-2024 ambulatory [facility] Start: 05-05-2024 End: 05-05-2024 ambulatory MD Cassie Salomon Work Phone: [facility] Work Phone: Start: 05-05-2024 End: 05-05-2024 Patient encounter procedure MD Cassie Salomon Work Phone: [facility] Work Phone: Start: 04-28-2024 End: 04-28-2024 ambulatory [facility] Start: 04-12-2024 End: 04-12-2024 ambulatory [facility] Start: 03-21-2024 End: 03-21-2024 ambulatory [facility] Start: 12-04-2023 End: 12-05-2023 ambulatory FAITH KURTZ [facility] Start: 09-23-2023 End: 09-23-2023 ambulatory ROSALINA DOLL [facility] Start: 09-12-2023 Emergency department patient visit CASSIE SALOMON [facility] Start: 08-25-2023 ambulatory Facility:[facility] Start: 04-13-2023 End: 04-13-2023 ambulatory Maddison Cabrera Other [employer] Other Start: 04-13-2023 Office outpatient vi sit 15 minutes Maddison Cabrera [facility] Start: 01-27-2023 End: 01-27-2023 ambulatory YVAN DAWKINS . Facility:[facility] Start: 01-26-2023 End: 01-26-2023 ambulatory Paulina Pro Other [facility] [employer] Other Start: 01-26-2023 Office outpatient vi sit 15 minutes Paulina Pro [facility] Start: 12-24-2022 Encounter for preprocedural laboratory examination DR BRETT PALMA . [facility] Start: 12-22-2022 End: 12-22-[address] BRETT PALMA . Facility:[facility] Start: 12-20-2022 Encounter for preprocedural cardiovascular examination DR BRETT PALMA . [facility] Start: 12-20-2022 End: 12-21-[address] BRETT PALMA . Facility:[facility] Start: 12-20-2022 End: 12-21-2022 Encounter for preprocedural laboratory examination DR BRETT PALMA . Facility:[facility] Start: 12-15-2022 End: 12-16-[address] BRETT PALMA . Facility:[facility] Start: 12-15-2022 End: 12-16-2022 Encounter for preprocedural cardiovascular examination DR BRETT PALMA . Facility:[facility] Start: 12-02-[address] RUIZ SORTO . Faci lity:[facility] Start: 11-04-2022 End: 11-05-[address] RUIZ SORTO . Facility:[facility] Start: 10-21-2022 End: 10-22-[address] BRETT PALMA . Facility:[facility] Start: 10-19-2022 End: 10-19-[address] RICHMOND HURTADO . Facility:[facility] Start: 10-17-2022 End: 10-17-2022 ambulatory MANDO PESAVENTO Facility:[facility] Start: 10-16-2022 End: 10-17-2022 ambulatory MANDO PESAVENTO Facility:[facility] Start: 10-07-2022 Postop follow up vis it related to original px Arthur Mckenzie [facility] Start: 10-07-2022 End: 10-07-2022 ambulatory MD Cassie Salomon Work Phone: [facility] Work Phone: Start: 10-07-2022 End: 10-07-2022 Patient encounter procedure MD Cassie Salomon Work Phone: [facility] [place] Start: 10-06-2022 End: 10-07-[address] DOCTOR OCHOA Facility:[facility] Start: 09-01-2022 End: 09-02-2022 Admission to same day [facility] MD Cassie Salomon Work Phone: [facility] [place] Start: 09-01-2022 End: 09-02-2022 ambulatory MD Cassie Salomon Work Phone: [facility] Work Phone: Start: 08-28-2022 End: 08-28-2022 ambulatory MD Cassie Salomon Work Phone: [facility] Work Phone: Start: 08-28-2022 End: 08-28-2022 Patient encounter procedure MD Cassie Salomon Work Phone: [facility] Hhp-Kbf-Ywxtzwsl Testing Start: 08-18-2022 End: 08-18-2022 Patient encounter procedure MD Cassie Salomon Work Phone: [facility] Gyf-Sne-Krwpnwys Testing Start: 07-24-2022 End: 07-24-2022 Patient encounter procedure MD Cassie Salomon Work Phone: [facility] [place] Start: 07-16-2022 End: 07-17-2022 ambulatory MADDISON ZALDIVAR Facility:[facility] Start: 07-02-2022 End: 07-03-[address] LUBNA Rehman Facility:[facility] Start: 06-26-2022 End: 06-26-2022 ambulatory YVAN Rehman Facility:[facility] Start: 06-20-2022 ambulatory MADDISON ZALDIVAR Facility: [facility] Start: 06-13-2022 End: 06-13-2022 ambulatory ROSY Mary AIDAN Facility:[facility] Start: 06-13-2022 End: 06-13-2022 ambulatory Rosy Bermudez DO Work Phone: Neurology Comment on above: Weakness (Primary Dx ); Syncope, unspecified syncope type; Chronic migraine without aura without status migrainosus, not intractable Start: 06-13-2022 End: 06-13-2022 Telemedicine consultation with patient Rosy Bermudez DO Work Phone: [facility] Start: 04-15-2022 Encounter for preprocedural laboratory examination DR BRETT PALMA . [facility] Start: 04-11-2022 End: 04-11-2022 ambulatory MADDISON ZALDIVAR Facility:[facility] Start: 04-10-2022 End: 04-11-[address] BRETT PALMA . Facility:[facility] Start: 04-10-2022 End: 04-11-2022 ambulatory MADDISON ZALDIVAR Facility:[facility] Start: 04-08-2022 End: 04-09-2022 ambulatory MADDISON ZALDIVAR Facility:[facility] Start: 04-03-2022 End: 04-04-[address] BRETT PALMA . Facility:[facility] Start: 03-22-2022 End: 03-23-[address] [facility] Start: 03-12-2022 Telephone encounter Beckjesusita Bermudez DO Work Phone: Neurology Comment on above: Results Start: 03-07-2022 End: 03-08-2022 ambulatory MADDISON ZALDIVAR Facility:[facility] Start: 03-07-2022 Telephone encounter Beck miller Mary Bermudez DO Work Phone: Neurology Comment on above: [employer] - O ther; Orders Start: 02-20-2022 End: 02-20-2022 ambulatory ROSY BERMUDEZ Facility:[facility] Start: 02-19-2022 Telephone encounter Beck Hernandez Aidan DO Work Phone: Internal Medicine [place] Comment on above: Results Start: 02-19-2022 End: 02-19-2022 ambulatory ROSY BERMUDEZ Facility:[facility] Start: 02-19-2022 End: 02-19-2022 Patient encounter procedure Rosy Bermudez DO Work Phone: Neurology Comment on above: Weakness (Primary Dx ); Syncope, unspecified syncope type; Chronic migraine without aura without status migrainosus, not intractable Start: 01-15-2022 End: 01-15-2022 ambulatory Maddison Cabrera Other [employer] Other Start: 01-15-2022 Office outpatient vi sit 15 minutes Maddison Cabrera [facility] [place] Procedures Date Procedure Procedure Detail Performing Clinician Start: 08-02-2025 Local anesthetic lum bar facet joint nerve block Cassie Salomon MD Work Phone: Start: 07-12-2025 Local anesthetic lum bar facet joint nerve block Cassie Salomon MD Work Phone: Start: 05-05-2024 X-ray of cervical spine MD Cassie Salomon Work Phone: Start: 10-07-2022 X-ray of cervical spine MD Cassie Salomon Work Phone: Start: 09-01-2022 OR Cervical Fusion Anterior (Not Applicable) MD Cassie Salomon Work Phone: Start: 09-01-2022 X-ray of cervical spine MD Cassie Salomon Work Phone: Start: 07-24-2022 X-ray of cervical spine MD Cassie Salomon Work Phone: Start: 06-11-2022 Adult depression screening assessment Rosy Bermudez DO Work Phone: Start: 02-17-2022 Adult depression screening assessment Rosy Bermudez DO Work Phone: Plan of Treatment Date Care Activity Detail Author Start: 08-23-[address] [facility] Start: 08-02-[address] [facility] Start: 07-12-[address] [facility] Start: 06-15-2025 Patient referral [facility] Work Phone: Start: 05-05-2024 Patient referral [facility] Work Phone: Start: 05-05-2024 X-ray of cervical spine XR cer v spine AP/LAT/FLX/EXT [facility] Start: 06-11-2023 Adult depression screening assessment DEPRESSION SCREENING [facility] Start: 02-17-2023 Adult depression screening assessment DEPRESSION SCREENING [facility] Start: 09-02-[address] [facility] Start: 07-31-[address] [facility] Start: 02-19-2022 End: 04-21-2022 NAN BY IFA WITH REFLEX NAN BY IFA WITH REFLEX Lab Routine Weakness Syncope, unspecified syncope type Chronic migraine without aura without status migrainosus, not intractable Expected: 02/19/2022, Expires: 04/21/2022 [facility] Work Phone: Comment on above: Expected: 02/19/2022 , Expires: 04/21/2022 Start: 02-19-2022 End: 04-21-2022 C reactive protein [Mass/volume] in Serum or Plasma by High sensitivity method C-REACTIVE ULTRA SEN Lab Routine Weakness Syncope, unspecified syncope type Chronic migraine without aura without status migrainosus, not intractable Expected: 02/19/2022, Expires: 04/21/2022 [facility] Work Phone: Comment on above: Expected: 02/19/2022 , Expires: 04/21/2022 Start: 02-19-2022 End: 04-21-2022 CK CREATINE KINASE CK CREATINE KINASE Lab Routine Weakness Syncope, unspecified syncope type Chronic migraine without aura without status migrainosus, not intractable Expected: 02/19/2022, Expires: 04/21/2022 [facility] Work Phone: Comment on above: Expected: 02/19/2022 , Expires: 04/21/2022 Start: 02-19-2022 End: 04-21-2022 Erythrocyte sedimentation rate SED RATE WESTERGREN Lab Routine Weakness Syncope, unspecified syncope type Chronic migraine without aura without status migrainosus, not intractable Expected: 02/19/2022, Expires: 04/21/2022 [facility] Work Phone: Comment on above: Expected: 02/19/2022 , Expires: 04/21/2022 Start: 02-19-2022 End: 04-21-2022 Folate [Mass/volume] in Serum or Plasma FOLATE SERUM Lab Routine Weakness Syncope, unspecified syncope type Chronic migraine without aura without status migrainosus, not intractable Expected: 02/19/2022, Expires: 04/21/2022 [facility] Work Phone: Comment on above: Expected: 02/19/2022 , Expires: 04/21/2022 Start: 02-19-2022 End: 04-21-2022 VITAMIN B12 BLOOD VITAMIN B12 BLOOD Lab Routine Weakness Syncope, unspecified syncope type Chronic migraine without aura without status migrainosus, not intractable Expected: 02/19/2022, Expires: 04/21/2022 [facility] Work Phone: Comment on above: Expected: 02/19/2022 , Expires: 04/21/2022 Start: 07-31-2021 Influenza vaccination INFLUENZA (#1) [facility] Start: 2020 HPV TESTING HPV TESTING [facility] Start: 2011 PAP TESTING PAP TESTING [facility] Start: 2009 Urine microalbumin profile DTAP,TDAP,TD (1 - Tdap) [facility] Start: 2008 HEPATITIS C SCREENING HEPATITIS C [facility] Start: 2008 HIV SCREENING HIV SCREENING [facility] Start: 1995 COVID-19 VACCINE (1) COVID-19 VACCIN E (1) [facility] Start: 03-27-1991 COVID-19 VACCINE (#1) COVID-19 VACCI NE (#1) [facility] Patient Education [facility] Work Phone: Patient referral [facility] Work Phone: [facility] Immunizations Immunization Date Immunization Notes Care Provider Fa rosa 01-21-2024 hepatitis B vaccine, adult dosage Cassie Salomon MD Work Phone: [facility] 04-13-2023 tetanus toxoid, redu natalie diphtheria toxoid, and acellular pertussis vaccine, adsorbed Maddison Deborah Other [facility] Payers Date Payer Category Payer Unknown 2022 Medicaid [id number] 2021 Unknown [facility] [id number] 2021-Present [phone] [address] [place] [address] O [id number] 1990 Unknown [id number] 2.16.840.1.817642.3.579.2.5 93 1990 Unknown [id number] 2.16.840.1.198594.3.579.2.5 93 1990 Unknown [id number] 2.16.840.1.112261.3.579.2.5 93 1990 Unknown [id number] 2.16.840.1.181386.3.579.2.5 93 1990 Unknown [id number] 2.16.840.1.525691.3.579.2.5 93 1990 Unknown [id number] 2.16.840.1.770533.3.579.2.5 93 1990 Unknown [id number] 2.16.840.1.238952.3.579.2.5 93 1990 Unknown [id number] 2.16.840.1.650924.3.579.2.5 93 1990 Unknown [id number] 2.16.840.1.648692.3.579.2.5 93 1990 Unknown [id number] 2.16.840.1.518466.3.579.2.5 93 1990 Unknown [id number] 2.16.840.1.060335.3.579.2.5 93 1990 Unknown [id number] 2.16.840.1.147436.3.579.2.5 93 1990 Unknown [id number] 2.16.840.1.096885.3.579.2.5 93 1990 Unknown [id number] 2.16.840.1.163890.3.579.2.5 93 1990 Unknown [id number] 2.16.840.1.394613.3.579.2.5 93 1990 Unknown [id number] 2.16.840.1.020831.3.579.2.5 93 1990 Unknown [id number] 2.16.840.1.429746.3.579.2.5 93 1990 Unknown [id number] 2.16.840.1.409017.3.579.2.5 93 1990 Unknown [id number] 2.16.840.1.545516.3.579.2.5 93 1990 Unknown [id number] 2.16.840.1.622008.3.579.2.5 93 1990 Unknown [id number] 2.16.840.1.345543.3.579.2.1 286 1990 Unknown [id number] 2.16.840.1.301259.3.579.2.1 286 1990 Unknown [id number] 2.16.840.1.792871.3.579.2.1 286 1990 Unknown [id number] 2.16.840.1.700390.3.579.2.1 286 1990 Unknown [id number] 2.16.840.1.933621.3.579.2.1 286 1990 Unknown [id number] 2.16.840.1.678245.3.579.2.1 286 1990 Unknown [id number] 2.16.840.1.901847.3.579.2.1 286 1990 Unknown [id number] 2.16.840.1.471633.3.579.2.1 286 1990 Unknown [id number] 2.16.840.1.508561.3.579.2.1 286 1990 Unknown [id number] 2.16.840.1.270398.3.579.2.1 286 1990 Unknown [id number] 2.16.840.1.958522.3.579.2.1 286 1990 Unknown [id number] 2.16.840.1.766851.3.579.2.1 286 1990 Unknown [id number] 2.16.840.1.701426.3.579.2.1 96 1990 Unknown [id number] 2.16.840.1.218267.3.579.2.1 96 1990 Unknown [id number] 2.16.840.1.037104.3.579.2.1 96 1990 Unknown [id number] 2.16.840.1.590590.3.579.2.1 96 1990 Unknown [id number] 2.16.840.1.648987.3.579.2.1 96 1990 Unknown [id number] 2.16.840.1.867651.3.579.2.1 96 1990 Unknown [id number] 2.16.840.1.280598.3.579.2.1 286 1990 Unknown [id number] 2.16.840.1.825945.3.579.2.1 286 1990 Unknown [id number] 2.16.840.1.898310.3.579.2.1 286 1990 Unknown [id number] 2.16.840.1.608761.3.579.2.1 286 1990 Unknown [id number] 2.16.840.1.456563.3.579.2.1 286 1990 Unknown [id number] 2.16.840.1.525336.3.579.2.1 286 1990 Unknown [id number] 2.16.840.1.932260.3.579.2.1 286 1990 Unknown [id number] 2.16.840.1.428358.3.579.2.1 286 1990 Unknown [id number] 2.16.840.1.325214.3.579.2.1 286 1990 Unknown [id number] 2.16.840.1.899987.3.579.2.1 286 1990 Unknown [id number] 2..840.1.957166.3.579.2.1 286 1990 Unknown [id number] 2.840.1.757541.3.579.2.1 286 1959 Medicaid [id number] 1959 Self-pay [id number] 1959 Unknown [id number] 2.840.1.685436.19 1959 Unknown [id number] Unknown [id number] 2.840.1.876246.3.579.2.5 93 Unknown [id number] 2.16.840.1.604708.3.579.2.5 93 Unknown [id number] 2.16.840.1.294314.3.579.2.5 93 Unknown [id number] 2.16.840.1.287740.3.579.2.5 93 Unknown [id number] 2.16.840.1.686386.3.579.2.5 31 Unknown [id number] 2.16.840.1.863314.3.579.2.5 31 Unknown [id number] 2.16.840.1.627936.3.579.2.5 31 Worker's Compensation [employer] [facility] [id number] Social History Date Type Detail Facility Start: 02-19-2022 End: 08-23-2025 Tobacco smoking status NHIS Ex-smoker [facility] End: 02-20-2020 History of tobacco use Current smoker [facility] End: 02-20-2020 History of tobacco use Cigarette Smoker [facility] Start: 02-19-2022 Cigarettes smoked current (pack per day) - Reported 0.5 [facility] Start: 02-19-2022 Tobacco use and exposure User of smokeless tobacco [facility] Start: 02-19-2022 End: 06-13-2022 Alcohol intake Ex-drinker (finding) [facility] Start: 1990 Sex Assigned At Female [facility] Start: 02-09-2022 End: 02-21-2022 Exposure to SARS-CoV-2 (event) Not sure [facility] Sex Assigned At Sex Assigned At [facility] [employer] Other Sex Female (finding) [facility] Medical Equipment Procedure Code Equipment Code Equipment Original Text Equipment Identifier Dates Cervical total intervertebral disc prosthesis, modular [id number] FDA Start: 09-01-2022 Goals Date Patient Goal Desired Activity /State Functional Status Date Assessment Result Facility 09-02-2022 Functional status Patient at Baseline [facility] Work Phone: Mental Status Date Assessment Result Facility 09-02-2022 Cognitive function Cognitive Sta tus Patient at Baseline [facility] Work Phone: Clinical Notes 01-15-2022 to 07-20-2025 Note Date & Type Note Facility 07-20-2025 Note Clinical Information Procedure: CSF Clinical History: Demyelinating [employer] Disease NG Specimen A CSF Gross Description Cerebrospinal fluid consists of 2 mL of watery, clear, colorless fluid which is centrifuged for concentration and then 1 mL of specimen is added to PreservCyt for ThinPrep processing. NG Micro The cerebral spinal fluid cytology smear shows a hypocellular specmen, demonstrating rare inflammatory cells. No cytologically malignant cells are seen. Diagnosis Cerebral spinal fluid, cytology: Negative for malignant cells. Completed by: Oskar Damon MD PhD (Electronically signed by) 07/21/25 14:44 EDT [facility] Comment on above: Performed By: #### N GCR #### [facility] (DEFAULT) [address] [id number] 06-15-2025 Evaluation note Diagnosis Onset Date Resolution Cervical radiculopathy acute Ju 2024 12:48pm Left arm weakness acute June 152024 12:48pm Sacroiliitis acute June 15, 2 025 12:48pm Cervical radiculopathy acute Ju 2024 1:45pm Cervical spondylosis acute June 28, 2025 1:45pm Lumbar radiculopathy acute June 28, 2025 1:45pm Other chronic pain acute June 012024 1:45pm Sacroiliitis acute June 28, 2 025 1:45pm [facility] Work Phone: 1(674) 129-197207-17-2025 Evaluation note* Diagnosis Onset Date Resolution Status Admit Date Cervical radiculopathy acute Ju 2024 12:48pm Left arm weakness acute June 152024 12:48pm Sacroiliitis acute June 15, 2 025 12:48pm Cervical radiculopathy acute 2024 1:45pm Cervical spondylosis acute June 28, 2025 1:45pm Lumbar radiculopathy acute June 28, 2025 1:45pm Other chronic pain acute June 012024 1:45pm Sacroiliitis acute June 28, 2 025 1:45pm Cervical spondylosis acute 2024 2:21pm DDD (degenerative disc disea se), cervical acute July 19 2:21pm Other chronic pain acute July 19, 2025 2:21pm [facility] Work Phone: 1(232) 667-189307-17-2025 Evaluation note* Diagnosis Onset Date Resolution Status Admit Date Cervical radiculopathy acute Ju ly 2024 12:48pm Left arm weakness acute June 152024 12:48pm Sacroiliitis acute June 15, 2 025 12:48pm Cervical radiculopathy acute 2024 1:45pm Cervical spondylosis acute June 28, 2025 1:45pm Lumbar radiculopathy acute June 28, 2025 1:45pm Other chronic pain acute June 012024 1:45pm Sacroiliitis acute June 28, 2 025 1:45pm Cervical spondylosis acute 2024 2:21pm DDD (degenerative disc disease), cervical acute July 19, 2025 2:21pm Other chronic pain acute July 19, 2025 2:21pm Cervical spondylosis acute Jul 12:51pm DDD (degenerative disc disease), cervical acute July 12:51pm Other chronic pain acute 2024 12:51pm [facility] Work Phone: 1(289) 199-120002-19-2025 NoteAdmission Information Patient: Analy Gonzalez : 1990 Date of Admission: 01/15/2025 21:08:35 Date of Discharge: 01/18/2025 14:36:00 Code Status: Full Resuscitation PCP: Cassie Salomon MD Consult: Billy Valdovinos MD Follow Up with Provider With When Contact Information Billy Valdovinos Within 2 to 4 weeks [address] [place] [address] [facility] (1) Additional Instructions: Call for followup appointment Cassie Salomon MD Within 3 to 5 days [facility] [place] [address] Additional Instructions: Call for followup appointment Brief Hospital Course Summary: Ms. Gonzalez is a 34-year-old female with a PMHx of chronic neck and back pain, fibromyalgia, migraine headaches, and IBS who presented to the ED from home with bilateral lower extremity weakness that has progressed to her bilateral upper extremities. Patient also complains of low back pain, urinary incontinence, and loss of sensation in the vaginal area. Patient admitted to BLE hemiparesis and parasthesia, acute back pain, and hypokalemia. Assessment: Acute BLE hemiparesis and paraesthesia progressing to her BUE, unclear etiology MRI T/L negative. Recent MRI brain negative at OSH Neurology is on consult MRI of the head shows no infarct or bleed MRI of the spine noted with some degenerative changes and spinal stenosis mild Most likely central related to severe fibromyalgia Workup has been completed as per neurology Currently able to ambulate and clinically improving Full control of bladder and bowel Stable to discharge today Acute intractable low back pain , slowly improving Pain controlled with Toradol and Robaxin PT OT consulted Transferred out to neurological floor Neurontin for neuropathic pain Ambulating independently now and stable Vitamin D deficiency Started on vitamin D replacement Hyponatremia Due to volume depletion Improved after hydration Chronic medical issue Left ovarian hemorrhagic cyst Fibromyalgia Chronic neck pain Migraine headaches Workup so far CRP elevated at 2.16, normal ESR, vitamin B12, and prolactin, CK level not elevated Flu/COVID/RSV negative UDS negative Overall improved and stable to discharge home Follow-up with PCP and neurology 20 minutes in discharge activity Medications New Medications [facility] [id number], [address] [place], [place] [id number], [phone] cholecalciferol (cholecalciferol 2000 intl units oral capsule) 1 Capsules Oral (given by mouth) every day. Refills: 0. Last Dose: meloxicam (meloxicam 7.5 mg oral tablet) 1 Tabs Oral (given by mouth) every day. Refills: 0. Last Dose: methocarbamol (methocarbamol 500 mg oral tablet) 500 Milligram Oral (given by mouth) 3 times a day as needed muscle spasms for 7 Days. Refills: 0. Last Dose: Medications That Have Not Changed Other Medications ALPRAZolam (ALPRAZolam 0.5 mg oral tablet) 1 Tabs Oral (given by mouth) 3 times a day as needed foranxiety. Last Dose: aspirin (Aspirin Enteric Coated 81 mg oral delayed release tablet) 1 Tabs Oral (given by mouth) once a day (in the morning). Last Dose: butalbital/acetaminophen/caffeine (butalbital/acetaminophen/caffeine 50 mg-300 mg-40 mg oral capsule) 1 Capsules Oral (given by mouth) every 4 hours as needed as needed for headache. Last Dose: cyanocobalamin (Vitamin B-12 1000 mcg oral tablet) 1 Tabs Oral (given by mouth) once a day (at bedtime). Last Dose: fluticasone nasal (fluticasone 50 mcg/inh nasal spray) 2 Sprays Nasal (into the nose) once a day (in the morning). Last Dose: gabapentin (gabapentin 800 mg oral tablet) 2 Tabs Oral (given by mouth) once a day (at bedtime). Last Dose: gabapentin (gabapentin 800 mg oral tablet) 1 Tabs Oral (given by mouth) 2 times a day. AM/Afternoon. Last Dose: hydrOXYzine (hydrOXYzine hydrochloride 25 mg oral tablet) 1 Tabs Oral (given by mouth) 4 times a day as needed as needed for anxiety. Last Dose: Objective Physical Exam General: Alert oriented x3, patient appears in no acute cardiorespiratory distress. Eye: Extraocular movement intact HENT: Normocephalic, Neck: Supple, Lungs: Clear to auscultation, Heart: RRR Abdomen: Soft, non-tender, non-distended Extremities: No edema Skin: Warm and dry Neurologic: Awake, alert, and oriented X3, patient does not have any focal deficits. Vitals & Measurements T: 36.7 ?C (Oral) HR: 78 (Peripheral) RR: 17 BP: 115/72 SpO2: 98% HT: 158 cm WT: 80.9 kg BMI: 30.92 Additional Vitals No qualifying data available. Lab Results Labs (Last four charted values) WBC 7.9 (JAN 17) H 11.7 (JAN 16) 9.3 (JAN 15) Hgb L 11.0 (JAN 17) L 11.6 (JAN 16) 12.2 (JAN 15) H (more content not included)...[facility]02-17-2025 Note OT/PT evaluation hold. Awaiting neuro consult. OT/PT to see when able. Electronically signed by Phyllis Zheng 01/16/25 16:07 [facility]02-17-2025 Note Pt evaluated by Speech/ pathology for swallow evaluation. Ok to have soft diet and thin liquids at this time Electronically signed by Sara Arvizu 01/16/25 15:47 [facility]02-17-2025 NoteChief Complaint numbness in vaginal area started today, 1 episode of incontinence today also, recently released from hospital for stroke-like symptoms related to a migraine, negative for CVA though Assessment/Plan Brief Hospital Course Summary: Ms. Gonzalez is a 34-year-old female with a PMHx of chronic neck and back pain, fibromyalgia, migraine headaches, and IBS who presented to the ED from home with vaginal pain, urinary incontinence, bilateral lower extremity weakness. Patient admitted to BLE hemiparesis and parasthesia, acute back pain, and hypokalemia. Assessment: Acute BLE hemiparesis and parasthesia, unclear etiology MRI T/L negative. Rrecent MRI brain negative at OSH Acute intractable low back pain Acute hypokalemia Asymptomatic bacteruria Dsyphagia Left ovarian hemorrhagic cyst Fibromyalgia Chronic neck pain Migraine headaches Plan: Admit to neuro/ortho unit under observation status CRP, ESR, CK, influenza/COVID/RSV, Urine culture, UDS, prolactin, mag, phos, vitamin D/B12/folate Neurology consult for evaluation If inflammatory markers are elevated, will need infectious w/u and consider LP Neuro checks Tylenol/Toradol/Tramadol/Lidocaine patch/Methocarbomal PRN pain, escalate regimen as needed Replete lytes LR 100 ml/hr for hydration Hold off on abx for bacteruria, f/u UCx Bladder scan NPO given subjective dysphagia Obtain records from [facility] including CT and MRI studies Pepcid IV ST/PT/OT evaluation Fall precautions Discussion: I discussed with the patient, family, patient's nurse, and care transition about the patient's plan of care. I reviewed other provider notes. Anticipated Discharge Location: Home Medical necessity for ongoing hospitalization: ongoing workup for active diagnosis Code Status: Full Resuscitation History of Present Illness Ms. Gonzalez is a 34-year-old female with a PMHx of chronic neck and back pain, fibromyalgia, migraine headaches, and IBS who presented to the ED from home with urinary incontinence, bilateral lower extremity weakness. Patient reports she developed bilateral lower extremity weakness approximately 3 days ago extendingfrom her thighs to calves. Associated cold and Numbness sensation in her lower extremities. Numbness in her vaginal area when upon wiping. Back pain radiated into her hips pelvis and abdomen. 1 episode of bladder incontinence today which is new. Also, difficulty swallowing liquids. Per patient she was recently discharged from [facility] [place] 2 days ago, diagnosed with hemiplegic migraine. At that time she presented with strokelike symptoms including facial numbness, weakness and forgetfulness. She reports her CT and MRI was negative. Discharged after started on Lipitor. Since discharge, she has been using a walker at home but notes her balance is worsening along with lower extremity leg pain. No recent falls, trauma, viral illness, tick bites, allergic reactioin, travel outside country, or vaccinations. No known history of any neurological disorders except for fibromyalgia migraine headaches. ER course: Afebrile, HR 86, BP 139/88, 95% RA. Labs show WBC 9.3, Hgb 12.2, platelet 231, NA 134, K3.2, CR 0.9/BUN 12, glucose 105, LFTs NL, troponin negative, THS 3.7. Serum negative. UA showed bacteriuria otherwise completely negative.MRI lumbar spine showed no acute fracture of subluxation in the lumbar spine, no high-grade spinal canal or foraminal stenosis in the thoracolumbar spine. No evidence of cauda equina syndrome or bone marrow edema. CTAP with IV contrast showed liquid stool throughout the colon, right left ovarian hemorrhagic cyst, gallbladder/liver/spleen/appendix normal. Received fentanyl, Dilaudid, Ativan, morphine, scopolamine, 1 L NS bolus. Review of Systems 10 point review of systems reviewed Objective Physical Exam General: Alert oriented x3, patient appears in no acute cardiorespiratory distress. Eye: normal conjunctiva HENT: Normocephalic, fairly dry oral mucosa, no scleral icterus. Neck: Supple, non-tender, no lymphadenopathy. no swelling or airway compromise Lungs: Clear to auscultation, no rales rhonchi crepitations or wheeze. Heart: S1-S2 is normal. No murmur rubs or gallops. Abdomen: Soft, non-tender, non-distended, normal bowel sounds, no masses Extremities: No cyanosis clubbing or edema Skin: no open sores or wounds MSK: No pinpoint spinal tenderness or obvious bony abnormality Neurologic: Awake, alert, and oriented X3, patient does not have any focal deficits. Speech clear. No tics or tremoirs. Face symmetrical. No nystagmus. Able to lift BLE off bed for short duration. Equaly strength in all extremities. ? effort on exam. Reflexes WNl Psychiatric: Calm and cooperative Vitals & Measurements T: 36.9 ?C (Oral) HR: 86 (Peripheral) RR: 17 BP: 139/88 SpO2: 95% HT: 170.2 cm WT: 58.6 kg (Dosing) Additional Vitals No qualifying data available. Problem List/Past Medical History Ongoing No hunter (more content not included)...[facility]02-11-2025 NoteXR CHEST 1 VW Procedure: Chest x-ray performed Number of views:1 History:Stroke alert. Shortness of breath. Anxiety history. Comparison:12/21/2024 Findings: The heart and lungs show no acute findings, and the mediastinum and heena are grossly negative . Impression: 1. No acute change. Finalized by Deacon Dalal MD on 01/10/2025 8:34 [facility]01-05-2024 NotePatient: Analy Gonzalez Procedure Summary Date: 12/04/23 Room / Location: [facility] Endoscopy Anesthesia Start: 954 Anesthesia Stop: 1020 Procedure: EGD Diagnosis: RUQ abdominal pain Scheduled Providers: Faith Kurtz MD; Lubna Rodríguez CRNA; Shantal Kumari MD Responsible Provider: Shantal Kumari MD Anesthesia Type: MAC ASA Status: 2 Anesthesia Type: MAC Vitals Value Taken Time BP 99/64 12/04/23 1150 Temp 36.2 ???C (97.2 ???F) 12/04/23 1150 Pulse 68 12/04/23 1150 Resp 16 12/04/23 1150 SpO2 100 % 12/04/23 1150 Anesthesia Post Evaluation Patient location during evaluation: bedside Patient participation: complete - patient participated Level of consciousness: awake and alert Pain score: 0 Pain management: adequate Airway patency: patent Cardiovascular status: acceptable Respiratory status: acceptable Hydration status: acceptable Patient is hemodynamically stable and is able to be discharged from PACU per anesthesia protocol. No notable events documented.[facility]01-05-2024 Note Patient: Analy Gonzalez Procedure Summary Date: 12/04/23 Room / Location: [facility] Endoscopy Anesthesia Start: 954 Anesthesia Stop: Procedure: EGD Diagnosis: RUQ abdominal pain Scheduled Providers: Faith Kurtz MD; Lubna Rdoríguez CRNA; Shantal Kumari MD Responsible Provider: Shantal Kumari MD Anesthesia Type: MAC ASA Status: 2 Anesthesia Post Transport Note Transport to: PACU O2 Route: room air Patient Monitor: direct observation Transport: uneventful [facility] Gastroenterology History and Physical Note IDENTIFYING DATA PATIENT: Analy Gonzalez HISTORY OF PRESENT ILLNESS Analy Gonzalez is a 33 y.o. female presenting for EGD for evaluation of RUQ pain and alternating diarrhea and constipation PAST MEDICAL, SURGICAL, FAMILY, and SOCIAL HISTORY Past Medical History: Past Medical History: Diagnosis Date Abdominal pain Anxiety Chronic pain disorder DDD (degenerative disc disease), cervical Depression GERD (gastroesophageal reflux disease) Recurrent sinusitis Sinus tachycardia TIA (transient ischemic attack) Past Surgical History: Past Surgical History: Procedure Laterality Date APPENDECTOMY ESOPHAGOGASTRODUODENOSCOPY HYSTERECTOMY NECK SURGERY UPPER GASTROINTESTINAL ENDOSCOPY Family History: Family History Problem Relation Name Age of Onset Hypertension Mother Prerna benjamin Diabetes Father Javid benjamin Hypertension Father Javid benjamin Heart attack Maternal Grandfather Adam casanova Social History: Social History Tobacco Use Smoking status: Former Smokeless tobacco: Current Vaping Use Vaping Use: Never used Substance Use Topics Alcohol use: Never Drug use: Never Allergies: Allergies Allergen Reactions Pregabalin Rash and Shortness of breath Other reaction(s): Mental Status Change Lamotrigine Rash Other reaction(s): Mental Status Change, hives all over body, mouth sores Penicillin Rash Home Medications: Prior to Admission medications Medication Sig Start Date End Date Taking? Authorizing Provider ALPRAZolam (Xanax) 0.25 mg tablet Take 0.25 mg by mouth if needed in the morning, at noon, and at bedtime. 06/18/22 Yes Historical Provider, amitriptyline (Elavil) 10 mg tablet Take 10 mg by mouth at bedtime. 09/10/23 Yes Historical Provider, cloNIDine (Catapres) 0.1 mg tablet Take 0.1 mg by mouth in the morning and 0.1 mg in the evening. Yes Historical Provider, famotidine (Pepcid) 40 mg tablet Take 1 tablet (40 mg) by mouth in the morning. 10/09/23 10/08/24 Yes Rosalina Doll, SARAH gabapentin (Neurontin) 800 mg tablet Take 1,600 mg by mouth in the morning and at bedtime. 1 tab am, 2 tab hs Yes Historical Provider, hydrOXYzine HCL (Atarax) 25 mg tablet Take 25 mg by mouth every 6 (six) hours if needed. 09/05/23 Yes Historical Provider, pantoprazole (ProtoNix) 40 mg EC tablet in the morning and at bedtime. 10/31/22 Yes Historical Provider, ksbwgnggbw-svjqjhvmuuohp-vbcd (Fioricet) 50-300-40 mg capsule Take 1 capsule by mouth if needed in the morning and at bedtime. 08/19/22 Historical Provider, carisoprodol (Soma) 350 mg tablet if needed. 10/14/22 Historical Provider, metoprolol tartrate (Lopressor) 25 mg tablet 01/15/23 Historical Provider, naratriptan (Amerge) 2.5 mg tablet Take 2.5 mg by mouth if needed each day. 05/28/22 Historical Provider, ondansetron (Zofran) 4 mg tablet Take 4 mg by mouth. 09/12/23 Historical Provider, polyethylene glycol (Glycolax) 17 gram/dose powder Take 17 g by mouth in the morning and at bedtime. Patient taking differently: Take 17 g by mouth 1 (one) time. 09/23/23 09/22/24 Rosalina Doll NP REVIEW OF SYSTEMS See HPI, otherwise ROS negative as below Review of Systems Gastrointestinal: Positive for abdominal pain, constipation and diarrhea. All other systems reviewed and are negative. OBJECTIVE DATA Vitals: BP 136/80 Pulse 67 Temp 37 ???C (98.6 ???F) (Temporal) Resp 18 Ht 1.575 m (5' 2 ) Wt 68.4 kg (150 lb 12.7 oz) SpO2 100% BMI 27.58 kg/m??? Physical Exam Vitals reviewed. Eyes: Extraocular Movements: Extraocular movements intact. Conjunctiva/sclera: Conjunctivae normal. Pupils: Pupils are equal, round, and reactive to light. Cardiovascular: Rate and Rhythm: Normal rate. Pulmonary: Effort: Pulmonary effort is normal. Musculoskeletal: General: Normal range of motion. Cervical back: Normal range of motion. Neurological: General: No focal deficit present. Mental Status: She is alert and oriented to person, place, and time. Mental status is at baseline. Psychiatric: Mood and Affect: Mood normal. Behavior: Behavior normal. Thought Content: Thought content normal. Judgment: Judgment normal. LABS CBC: No results found for: WBC , RBC , HGB , HCT , MCV , RDW , PLT PT/INR No results found for: PT , INR BMP: No results found for: NA , K , CL , BUN , CREATININE , EGFR , GLU LFTs: No results found for: BILITOT , BILIDIR , ALKPHOS , GGT , AST , ALT , ALBUMIN , PROT B12/Folate/Iron studies: No results found for: [id number] , FOLATE , IRON , TIBC , UIBC , IRONSAT , FERRITIN ASSESSMENT AND PLAN Analy Gonzalez is a 33 y.o. female presenting for EGD for evaluation of RUQ pain and alternating diarrhea and constipation Plan: [id number] NotePatient: Analy Gonzalez Procedure Information Date/Time: 12/04/23 9414 Scheduled providers: Faith Kurtz MD; Lubna Rodríguez CRNA; Shantal Kumari MD Procedure: EGD Location: [facility] Endoscopy Relevant Problems Neuro/Psych (+) TIA (transient ischemic attack) Clinical information reviewed: Physical Exam Airway Mallampati: I TM distance: >3 FB Neck ROM: full Comments: G1 view w previous anesthetics Cardiovascular - normal exam Dental - normal exam Pulmonary - normal exam Abdominal - normal exam Other findings: Scope for chronic abdominal pain Anesthesia Plan ASA 2 MAC intravenous induction Postoperative administration of opioids is intended. Anesthetic plan and risks discussed with patient. Use of blood products discussed with patient who. Plan discussed with resident, VICTORINA and TRAN. [facility] Note Medications to take AM day of procedure with sips water only: Alprazolam prn Clonidine Famotidine Gabapentin pantoprazole Medication Hold instructions: NSAIDs (Motrin,Aleve): 5 days prior to procedure Vitamins/Supplements: 5 days prior to procedure IF YOU ARE GOING HOME AFTER YOUR SURGERY OR PROCEDURE, FOR YOUR SAFETY, YOUR SURGERY WILL BE CANCELLED IF BOTH OF THE FOLLOWING ARE NOT AVAILABLE: An adult yard truck driver over the age of 18, that can receive information about your care after surgery, and drive you home. A responsible adult to stay with you for 24 hours in case of an emergency. Can be same as above. The highest risk of complications is within the first 24 hours after sedation/anesthesia. Nothing to eat or drink after midnight the night before surgery. This includes gum, candy, mints, and lozenges. No alcohol, marijuana, or tobacco products including vaping for 24 hours. Please brush your teeth; don't swallow the toothpaste or water. If you use dentures, wear them but do not use paste. Please leave any other removable dental hardware at home. Do not put in contact lenses. Do not wear perfume, make-up, nail grenadian, or lotions on the day of your surgery or procedure. Follow skin-prep/wipe instructions as below if required. Bring with you: *Insurance card *Photo ID *Medication list *Co-pay for visit/prescriptions If applicable: *Rescue inhalers *Green bracelet from lab *CPAP or BiPAP machine, if staying overnight *Any braces, splints, or equipment ordered preoperatively *Remote controls for implanted devices Leave at home: *Purse/Wallet/Santiago- unless needed for co-pay *Cell phone (can leave with family/friend or place in locker if needed) *Jewelry (including piercings and wedding bands) *If not possible, ask the person who is waiting with you to keep them Children under the age of 12 will not be allowed into patient care areas. We will call you between 3pm and 4pm the day before your surgery to give you an arrival time. If you do not receive this call, have any questions, or need to make any changes, please call [phone]. Notify your surgeon if you develop any illness such as a cold, cough, fever, sore throat or vomiting between now and your surgery. Thank you for entrusting us with your care. [facility] Surgical Services TeamUnUpper [facility] Center12-28-2023 Note Patient calls today for some medication to help with her increased anxiety and claustrophobia for upcoming EGD, and HIDA scan procedures.[facility]10-25-[facility] Follow up- History & Physical CHIEF COMPLAINT Chief Complaint Patient presents with Hospital Follow-up TT Abdominal Pain HISTORY OF PRESENT ILLNESS: Analy Gonzalez is a 32 y.o. female who presents today in follow up from the ER. She was seen in the [facility] system 09/12/23 for RUQ abd pain. Symptoms started late 2021. States has been in hospital multiple times for RUQ abd. Pain is worse with eating, but can occur when she has not eaten. At times will awaken her at night. Feels like food just sits Symptoms seem to be worse with red meat. Has been trying to eat more fiber, doesn't seem to be helping. Denies history of gallbladder disease, however was told gallbladder was contracted. Questions if she has Crohns, Reports alternating constipation and and diarrhea. Reports occasional blood in stool States stools tend to be darker red, Denies heartburn, currently on PPI Was started on Bentyl in the ER, states that is not really helping. Reports a weight loss of about 10 lbs over the past few months. History of fibrmyalgia Recent CT in the ER was unremarkable. EGD 10/[address] Mchugh at [facility] was essentially normal. No history of gallbladder disease. . PREVIOUS LABS/IMAGING/ENDOSCOPY: EGD 10/30/[address] Mchugh at [facility] Findings- Erythema at the gastroesophageal junction. Biopsied. - Normal stomach. Biopsied. - Normal ampulla, first portion of the duodenum and second portion of the duodenum. Biopsied. Final Pathologic Diagnosis 1. Duodenum, biopsy: Normal small bowel mucosa. 2. Stomach, biopsy: Normal gastric mucosa. No evidence of H. pylori. 3. Gastroesophageal junction, biopsy: Focal active esophagitis, suggestive of reflux. Negative for metaplasia and dysplasia. HISTORY: Problem list: Patient Active Problem List Diagnosis Abdominal pain Anxiety Chronic pain syndrome Common bile duct dilation DDD (degenerative disc disease), cervical Left-sided sensory deficit present Muscle spasm Recurrent sinusitis Retained products of conception after miscarriage Retention cyst of nasal sinus Sensory disturbance Sinus tachycardia TIA (transient ischemic attack) Past Medical History: Past Medical History: Diagnosis Date Anxiety Depression GERD (gastroesophageal reflux disease) Past Surgical History: Past Surgical History: Procedure Laterality Date APPENDECTOMY ESOPHAGOGASTRODUODENOSCOPY HYSTERECTOMY Appendix 2019 Hysterectomy 2022. FAMILY HISTORY: Family History Problem Relation Name Age of Onset Hypertension Mother Prerna benjamin Diabetes Father Javid benjamin Hypertension Father Javid benjamin Heart attack Maternal Grandfather Adam casanova Father stomach issue SOCIAL HISTORY: Social History Tobacco Use Smoking status: Former Smokeless tobacco: Current Vaping Use Vaping Use: Never used Substance Use Topics Alcohol use: Never Drug use: Never ALLERGIES: Pregabalin, Lamotrigine, and Penicillin Current Medications: Current Outpatient Medications: ALPRAZolam (Xanax) 0.25 mg tablet, Take 0.25 mg by mouth if needed in the morning, at noon, and at bedtime., Disp: , Rfl: amitriptyline (Elavil) 10 mg tablet, Take 10 mg by mouth in the morning., Disp: , Rfl: hbljkoawia-ryspwlowhdqqd-uwhu (Fioricet) 50-300-40 mg capsule, Take 1 capsule by mouth if needed in the morning and at bedtime., Disp: , Rfl: carisoprodol (Soma) 350 mg tablet, , Disp: , Rfl: cloNIDine (Catapres) 0.1 mg tablet, Take 0.1 mg by mouth in the morning and 0.1 mg in the evening., Disp: , Rfl: gabapentin (Neurontin) 800 mg tablet, Take 1,600 mg by mouth in the morning., Disp: , Rfl: hydrOXYzine HCL (Atarax) 25 mg tablet, Take 25 mg by mouth every 6 (six) hours if needed., Disp: , Rfl: ondansetron (Zofran) 4 mg tablet, Take 4 mg by mouth., Disp: , Rfl: pantoprazole (ProtoNix) 40 mg EC tablet, , Disp: , Rfl: metoprolol tartrate (Lopressor) 25 mg tablet, , Disp: , Rfl: naratriptan (Amerge) 2.5 mg tablet, Take 2.5 mg by mouth if needed each day., Disp: , Rfl: I reviewed and reconciled this patient's medication list today. The list included in this note is the most up to date list that I can attest to at this time based on the information that the patient has provided me and the electronic medical record. REVIEW OF SYSTEMS: See HPI, otherwise ROS as below CONSTITUTIONAL: reports some weight loss HEENT: negative RESPIRATORY: negative CARDIOVASCULAR: negative GASTROINTESTINAL: As in HPI GENITOURINARY: negative INTEGUMENT/BREAST: negative MUSCULOSKELETAL: negative NEUROLOGICAL: negative BEHAVIOR/PSYCH: History of anxiety, follows with a therapist. PHYSICAL EXAM: Vitals: 09/23/23 1122 BP: 137/84 BP Location: Left arm Patient Position: Sitting BP Cuff Size: Small adult Pulse: 66 Weight: 64.9 kg (143 lb) Height: 1.575 m (5' 2 ) Body mass index is 26.16 kg/m???. GEN: Alert a (more content not included)...[facility] 04-13-2023 Evaluation note* Encounter Date Diagnosis Assessment Notes Treatment Notes Treatment Clinical Notes March, Wasp sting, undetermined intent, initial encounter (ICD-10 - T63.464A) Insect bites and stings home care material was printed Drink plenty fluids, get plenty of rest. Take the Medrol Dosepak as prescribed until gone. You may take Benadryl as needed for itching. Apply ice to the area 2-3 times a day for swelling. Follow-up with your family physician if no improvement in 2 to 3 days. [facility] Other 02-27-2023 Evaluation note* Encounter Date Diagnosis Assessment Notes Treatment Notes Treatment Clinical Notes Dec, Spider bite wound, accidental or unintentional, initial encounter (ICD-10 - T63.301A) Discussed diagnosis with patient in detail. Instructed patient to take antibiotic as directed, complete entire course even if feeling better, take with food and plenty of water. Instructed close monitoring of area. Wound care as discussed. Avoid picking at scab or scrubbing, clean by letting warm soapy water run over. May leave open to air. Follow up with PCP in the next 2-3 days. Immediate eval by ER for ongoing fever, chills, body aches, increase in swelling or redness over difficulty breathing, chest pain, or any new or concerning symptoms. Patient verbalizes understanding and is agreeable to treatment plan [facility] Other 01-23-2023 NoteOPERATIVE NOTE OPERATION DATE: 12/22/2022 PROCEDURE: Diagnostic laparoscopy with left ovarian cystotomy. PREOPERATIVE DIAGNOSIS: Pelvic pain, dysmenorrhea. POSTOPERATIVE DIAGNOSIS: Pelvic pain, dysmenorrhea, including adenomyotic appearing uterus, left ovarian cyst. ANESTHESIA: General. SURGEON: Brett Palma D.O. SHELVER: KAUSHAL Thrasher URINE OUTPUT: Yellow and clear. BLOOD LOSS: 5 mL. FINDINGS: A 3 cm left ovarian cyst, adenomyotic appearing uterus, otherwise normal appearing right ovary, normal appearing tubes, evidence of surgical appendectomy. PROCEDURE: The patient was taken back to the Operating Room where she was placed in dorsal lithotomy position after given general anesthesia. The patient was prepped and draped in normal sterile fashion. A sponge stick was placed into the patient's vagina. Attention was turned to the patient's abdomen, where a small umbilical incision was made. The fascia was tented using Jolanta clamps and the fascia was entered sharply. Confirmation of intra-abdominal placement of the 10 mm port was confirmed under direct visualization using a laparoscope. The patient's abdomen was then insufflated using CO2 gas with approximately 4 liters. A second port was placed left laterally; this was done under direct visualization with a 5 mm port. Survey of the patient's abdomen demonstrated normal liver and gallbladder. Survey of the patient's pelvic anatomy demonstrated normal appearing right ovary and tubes as well as, left ovarian cyst and adenomyotic appearing uterus. A needle was used to perform a left ovarian cystotomy. No endometrial implants could be noted, no evidence of any pelvic disease was seen, normal appearing pelvic cavity. All instruments were removed from the patient's abdomen. The patient's abdomen was desufflated of CO2 gas. The patient tolerated the procedure well. Sponge stick was removed from the patient's vagina. The patient's infraumbilical fascia was closed using #0 Vicryl on a GI needle. The patient's skin was closed laterally and infraumbilically using 4-0 Vicryl. The patient tolerated the procedure well. Sponge, lap and needle counts were correct x 2. The patient was taken to Recovery Room in stable condition.[facility] [id number] NoteEXAM: Chest x-ray HISTORY: . Pre-surgery evaluation . COMPARISON: 03/07/2022 TECHNIQUE: Frontal and lateral chest. FINDINGS: Heart and vascularity are unremarkable. Lungs are expanded and free of focal infiltrates. No acute bony abnormality is appreciated. Impression: No acute heart or lung disease identified. Electronically authenticated by: DIONNA PANIAGUA Date: 2022-12-15 17:26[facility] [id number] NoteCONSULTATION CONSULTATION DATE: 11/04/2022 CHIEF COMPLAINT: Low back pain. HISTORY OF PRESENT ILLNESS: This is a very pleasant, 32-year-old female, who was referred to us by Dr. Salomon. The patient, in last August of 2021, had a fall on an unfinished porch, where she hit her back. Subsequent to that, she has had chronic low back pain. The pain is more so on the right hand side compared to the left hand side; however, pain is bilateral. She rates the pain as a 6/10, a sharp pain. Pushing, pulling, standing, housework, ADLs, activities, change in weather aggravate the patient's pain. Heat mitigates the pain as does sitting and lying down. The patient currently takes ibuprofen 800 mg b.i.d., Tylenol and Fioricet for her migraines. The patient has Xanax which she takes approximately one tablet every other day. The patient's PAST MEDICAL HISTORY / SURGICAL HISTORY / REVIEW OF SYSTEMS are noted on the chart along with the MEDICATION LIST / ALLERGIES and a CT of her abdomen and lumbar spine, which was reviewed in office today. PHYSICAL EXAM: Upon physical examination, this is a pleasant, soft spoken, 32-year-old female, who does not appear to be in any acute distress. VITAL SIGNS: Stable at 130/89, with a heart rate of 71. At a height of 5'2 , the patient weighs 70 kg. FOCUSED EVALUATION: HEAD: Atraumatic, normocephalic. NECK: No crepitus or guarding. HEART: Negative orthopnea. LUNGS: Non-labored breathing. ABDOMEN: Protuberant, non-distended. BACK: Spasming is noted along the lumbar spine. Left hand side is greater than right hand side. The right hand side is more painful to the patient; however, deep palpation we are not able to elicit any algogenicity along the facets. The paravertebral muscles are taut and spasmodic. EXTREMITIES: No pedal edema is noted. MUSCULOSKELETAL: Intact in the lower extremities at 5/5 bilaterally. NEUROLOGICALLY: No radicular symptomatology. PSYCHIATRICALLY: Affect is appropriate. IMPRESSION: Chronic low back pain, remote myofascial trauma to the lumbar spine with lumbar paravertebral spasming. PLAN: The patient states she has issues with muscle relaxants and cannot tolerate them. We will start the patient on magnesium glycinate. Patient will apply heat rub to her low back and perform stretching exercises with the use of a tennis ball along the paravertebrals. We shall, in the interim, look to get authorization for lumbar trigger point injections. The patient understands and would like to proceed. CC: Cassie Salomon M.D.[facility] [id number] Evaluation note* Encounter Date Diagnosis Assessment Notes Treatment Notes Treatment Clinical Notes Sep, Cervical disc disorder at C5-C6 level with radiculopathy (ICD-10 - M50.122) We independently reviewed the plain x-ray of the cervical spine showing excellent artificial disc placement at C5-6. There is movement at that level on flexion and extension. The patient has absolutely no symptoms with regard to cervical radiculopathy I will send her back to work in 1 week full duty. She will see us again before the end of the year near her postop period with another xray [facility] Other 10-04-2022 Progress note Author Arthur Mckenzie [facility] September 02, 2022 7:52am Note Date/Time September 02, 2022 7: 52am [facility] [address] [place] [address] Neurosurgery Progress Note Signed Patient: Analy Gonzalez MR#: [id number] : 1990 Acct:[id number] Age/Sex: 31 / F Adm Date: 2 Loc: 4N Room: 6B6835-2 Type: REG SDC Attending Dr: Arthur Mckenzie MD Copies to: ~ Date of Service: 09/02/2022 Subjective Subjective HPI: Patient up in room dressed. Says her neck is sore but tolerable. Her arm feelsgood. Worried about nausea, but not nauseous. Exam Physical Exam Vital Signs: Temp Pulse Resp BP Pulse Ox O2 Del Method O2 Flow Rate 98.6 F 104 H 18 124/76 97 Room Air 1 09/02/22 03:54 09/02/22 03:54 09/02/22 03:54 09/02/22 03:54 09/02/22 03:54 09/02/22 03:54 09/01/22 15:55 Narrative: Upper and lower extremity strength motion baseline Gait grossly normal Incision clean and dry Assessment/Plan Assessment/Plan (1) Cervical disc disorder at C5-C6 level with radiculopathy: Plan: Postoperative day #1 the patient has no arm pain. She does not tolerate muscle relaxers well. I will discharge her home with pain medication and I instructed the patient to use anti-inflammatories as a muscle relaxant. I will see the patient back in 1 month for follow-up full home-going instructions were given. Code(s): M50.122 - Cervical disc disorder at C5-C6 level with radiculopathy Status: Acute Documented By: Arthur Mckenzie MD 09/02/22 0734 Signed By: <Electronically signed by MD Arthur Mckenzie> 09/02/22 0757 [facility] Work Phone: [phone] 606-985207-18-2022 NoteHNO ID: [id number] Author: Brandy Peck Service: ? Author Type: ? Type: Progress Notes Filed: 06/16/2022 1:25 PM Note Text: [facility] cannot be scheduled [facility] NoteHNO ID: [id number] Author: Rosy Bermudez, DO Service: ? Author Type: Physician Type: Progress Notes Filed: 06/13/2022 4:19 PM Note Text: [facility] Follow-up visit June 13, 2022 Visit conducted as via Epic/zoom secondary to barrera virus pandemic currently underway and due to patient's stated preference. Consent and verification obtained at the start of call/visit. HPI: Overall Ms. Gonzalez states that she has been feeling not feeing the greatest. Since our last encounter 02/19/2022 she has had several hospitalizations. She feels her overall symptoms have been worse. One of her admissions was for chest pain and she had stress test for this. She was diagnosed with sinus tachycardia with chest pains. She is now wearing a heart monitoring for a month. In 05/19/2022 she notes having left sided weakness in the arm and leg. She was seen telestroke and neurology noting NIHSS was 0. As part of this admit she had MRI of the brain performed which was normal/negative. The weakness lasted through the afternoon. She had more neck pains and was admitted to [facility] where the MRI was done when she was having neck pains. MRI cervical was performed 06/06/2022 due to need for insurance authorization as outpatient. She was to follow-up for further neurology follow-up visit but this is not until 06/2022. Her only medication changes as addition of lopressor. She is on this for tachycardia. She does not feel that this has helped any but feels it has lowered her blood pressures now and she is getting lightheaded with position changes. She sees bacteriology technician 06/19 and plans on discussing further with them then. After our last encounter she had the blood tests noting positive NAN and then DSF70 ab. She states she has issues with fatigue. She has generalized weakness but non-focal. She has had more numbness in the hands, mainly the first two fingers of the right hand. She can be awoken from sleep She has issues in sleep and she has been having more nightmares and vivid dreams and anxiety during the daytime. She is taking hydroxyzine as needed. She is taking sertraline at 25 mg one nightly. She has not felt this to be helpful for anxiety, sleep, or headaches. Her headaches now average 3-4 days a week with migraines 1-2 per week on average. Her headache pains are usually in back of her had and at the craniocervical junction. She is not aware of any triggers, but seems to occur near the same time each day, 4-5 PM. She is now working from home as via computer.. With the migraines she can have sensitivity to light and sound, nausea, blurring vision, and scintillations. For her headaches she has been taking naratriptan and limits excedrin use. Tylenol does not help much. Naratriptan has helped for migraines. Initially she had flushed feeling the times taken for short time. She tried diclofenac but this made her nauseated so stopped taking it. Cyclobenzaprine she had stopped as via hospitalization but she is not certain as to why. She denies other changes to her health and/or medications except for the above and increases to upper back and neck pains, left>right. There has not been discussion of physical therapy. PAST MEDICAL HISTORY Diagnosis Date - Bipolar 1 disorder (HCC) - Borderline personality disorder (HCC) - Intractable migraine without aura and without status migrainosus - OCD (obsessive compulsive disorder) - Recurrent major depressive disorder (HCC) No past surgical history on file. No current outpatient medications on file prior to visit. No current facility-administered medications on file prior to visit. Social History Tobacco Use - Smoking status: Former Smoker Packs/day: 0.50 Types: Cigarettes Quit date: 02/20/2020 Years since quittin.3 - Smokeless tobacco: Current User Substance Use Topics - Alcohol use: Not Currently - Drug use: Never ALLERGIES Allergen Reactions - Lamotrigine Mental Status Change, Rash - Penicillin Rash - Pregabalin Mental Status Change, Rash, Shortness of Breath - Penicillin G Rash Review of Systems: See HPI Physical Exam: Patient is alert and in no distress. Dress is appropriate. Mood is appropriate Breathing appears regular and unstressed Neurologic examination: Cognitively intact. No deficits. No formal MMSE performed. CN: Pupils equal and reactive to light, extraocular movements intact with no nystagmus, face is symmetric with no facial droop, facial sensation intact bilaterally to light touch V1-3, tongue is midline with no deviation, shoulder shrug is symmetric Motor exam shows symmetric motion in all extremities Sensory intact to light touch in all extremities. Coordination: No dysmetria on finger to nose. No tremors noted. No drift seen Gait deferred Labs/studies: MRI brain report 05/20/2022 noting Unremarkable MR brain. MRI cervical spine 06/06/2022 notin (more content not included)...[facility]07[facility] History of Present illness Narrative* Rosy Hernandez Jluisshruthi, DO - 06/13/2022 3:16 PM EDT [facility] Follow-up visit June 13, 2022 Visit conducted as via Epic/[employer] secondary to barrera virus pandemic currently underway and due to patient's stated preference. Consent and verification obtained at the start of call/visit. HPI: Overall Ms. Gonzalez states that she has been feeling not feeing the greatest. Since our last encounter 02/19/2022 she has had several hospitalizations. She feels her overall symptoms have been worse. One of her admissions was for chest pain and she had stress test for this. Shewas diagnosed with sinus tachycardia with chest pains. She is now wearing a heart monitoring for a month. In 05/19/2022 she notes having left sided weakness in the arm and leg. She was seen telestroke and neurology noting NIHSS was 0. As part of this admit she had MRI of the brain performed which was normal/negative. The weakness lasted through the afternoon. She had more neck pains and was admitted to [facility] where the MRI was done when she was having neck pains. MRI cervical was performed 06/06/2022 due to need for insurance authorization as outpatient. She was to follow-up for further neurology follow-up visit but this is not until 06/2022. Her only medication changes as addition of lopressor. She is on this for tachycardia. She does not feel that this has helped any but feels it has lowe red her blood pressures now and she is getting lightheaded with position changes. She sees bacteriology technician 06/19 and plans on discussing further with them then. After our last encounter she had the blood tests noting positive NAN and then DSF70 ab. She states she has issues with fatigue. She has generalized weakness but non- focal. She has had more numbness in the hands, mainly the first two fingers of the right hand. She can be awoken from sleep She has issues in sleep and she has been having more nightmares and vivid dreams and anxiety during the daytime. She is taking hydroxyzine as needed. She is taking sertraline at 25 mg one nightly. She has not felt this to be helpful for anxiety, sleep, or headaches. Her headaches now average 3-4 days a week with migraines 1-2 per week on average. Her headache pains are usually in back of her had and at the craniocervical junction. She is not aware of any triggers, but seems to occur near the same time each day, 4-5 PM. She is now working from home as via comput er.. With the migraines she can have sensitivity to light and sound, nausea, blurring vision, and scintillations. For her headaches she has been taking naratriptan and limits excedrin use. Tylenol does not help much. Naratriptan has helped for migraines. Initially she had flushed feeling the times taken for short time. She tried diclofenac but this made her nauseated so stopped taking it. Cyclobenzaprine she had stopped as via hospitalization but she is not certain as to why. She denies other changes to her health and/or medications except for the above and increases to upper back and neck pains, left>right. There has not been discussion of physical therapy. PAST MEDICAL HISTORY Diagnosis Date Bipolar 1 disorder (HCC) Borderline personality disorder (HCC) Intractable migraine without aura and without status migrainosus OCD (obsessive compulsive disorder) Recurrent major depressive disorder (HCC) No past surgical history on file. No current outpatient medications on file prior to visit. No current facility-administered medications on file prior to visit. Social History Tobacco Use Smoking status: Former Smoker Packs/day: 0.50 Types: Cigarettes Quit date: 02/20/2020 Years since quittin.3 Smokeless tobacco: Current User Substance Use Topics Alcohol use: Not Currently Drug use: Never ALLERGIES Allergen Reactions Lamotrigine Mental Status Change, Rash Penicillin Rash Pregabalin Mental Status Change, Rash, Shortness of Breath Penicillin G Rash Review of Systems: See HPI Physical Exam: Patient is alert and in no distress. Dress is appropriate. Mood is appropriate Breathing appears regular and unstressed Neurologic examination: Cognitively intact. No deficits. No formal MMSE performed. CN: Pupils equal and reactive to light, extraocular movements intact with no nystagmus, face is symmetric with no facial droop, facial sensation intact bilaterally to light touch V1-3, tongue is midline with no deviation, shoulder shrug is symmetric Motor exam shows symmetric motion in all extremities Sensory intact to light touch in all extremities. Coordination: No dysmetria on finger to nose. No tremors noted. No drift seen Gait deferred Labs/studies: MRI brain report 05/20/2022 noting Unremarkable MR brain. MRI cervical spine 06/06/2022 noting 1. There is a left-sided disc protrusion or herniation at C5-C6 with compression of the left-sided thecal sac and narrowing of the left neural foramen. 2. Disc bulging is seen at the level of C3-C4, C4-C5 and C6-C7. No evidence of significant spinal stenosis or narrowing of the neural foramina at these levels. 3. Unremarkable cervical spinal cord. No evidence of myelomalacia or cord edema. 4. No evidence of spondylolisthesis. CT brain 05/19/2022 noting No acute intracranial findings. Nuclear stress test 06/06/2022 noting ECG evidence of ischemia is noted with exercise. Myocardial perfusion is normal. This is a low risk study. Outside blood work: 02/28/2022 including vitamin B12, folate, valproic acid (33), NAN (positive), CPK, ESR, CRP, 04/18/2022 including: Beta-HCG, PTT, PT, INR, BMP, CBC (Hb 10.2, Hct 29.4) 05/16- including: TSH, D-dimer, Trop I, BMP, CBC, UDS CRP, CMP, lipid panel (total chol 211, HDL 47, LDL 115, TG 245), ZACKERY panel (negative), ESR, CRP (1.1). Assessment: R53.1 Weakness (primary encounter diagnosis) Comment: episodic and noted more at times of position changes. No clear weakness noted in office examination. Question possible relation to orthostatic hypotension noting bilateral shakiness, in her legs. R55 Syncope, unspecified syncope type Comment: episode of blackout noted as via description favor orthostatic hypotension. Seizure unlikely given description. Question if precipitated by UTI and now in workup for cardiac reasonss Psychogenic spell not ruled out though a diagnosis of exclusion. G43.709 Chronic migraine without aura without status migrainosus, not intractable Comment: Several of her symptoms including vertigo may relate to migraine or complex/vestibular migraine with tension headache trigger. PLAN: 1. Chart reviewed including interval progress notes, messages, recent imaging, and laboratory results. Including inpatient records received and reviewed as via Care Everywhere (05/17/2022 admission for sinus tachycardia, headache, and chest pains). 2. Continue to recommend home exercises as given by physical therapy with Alexa trained therapist preferably- she will talk local physicians for ordering this. 3. Discussed headache prevention options with her after discussion she elects to increase sertraline from 25 mg to 50 mg nightly. Hopeful that this may help several issues including mood and headache/migraine. 4. Asked to stay well hydrated, eat well including enough proteins, and take time with position changes to help avoid orthostatic hypotension. 5. Replace Diclofenac with meloxicam as need for day to day pain. 6.. Stop and avoid Cyclobenzaprine and other msucle relaxants. 7. Naratriptan as needed for severe headaches. 8. Reviewed blood test results from outside sources including ones requested on last visit: ESR, CRP, vitamin B12, folate, NAN, CPK- performed 02/28/2022 noting NNA positive and vlaproic acid level lowat 33. 9. Await rheumatology referral noting positive NAN and on confirmation testing positive DSF70 Ab 10. Asked to wear neutral wrist splint at night loosely for hand paresthesia/carpal tunnel symptoms. Thank you for allowing me to see this patient if there are any question or concerns please feel free to contact me at my clinic. Sincerely, Rosy Moore I spent 42 minutes in the visit/call with the patient located at home in [place], [place]. Physician in office in [place], [place]. documented in this encounterC[facility]05-[facility]-2022 NoteOPERATIVE NOTE OPERATION DATE: 04/11/2022 PROCEDURE: Suction D AND C. PREOPERATIVE DIAGNOSIS: Missed . POSTOPERATIVE DIAGNOSIS: Missed . ANESTHESIA: General. SURGEON: Brett Palma D.O. SHELVER: None. SPECIMEN: Products of conception. FINDINGS: Products of conception. BLOOD LOSS: 50 mL. URINE OUTPUT: Yellow and clear. PROCEDURE: The patient was taken back to the OR where she was given general anesthesia without difficulty. She was then placed in dorsal lithotomy position, prepped and draped in the normal sterile fashion. A weighted speculum was placed in the patient's vagina and the anterior lip of the cervix was identified and grasped with a single-tooth tenaculum. The patient was then gently dilated using Hegar dilators after we had sounded roughly to 9 cm. The suction curette was then tested. The suction curette was then placed in the patient's uterus and products of conception were removed using an 8-Qatari suction curette. Excellent hemostasis was noted. The patient tolerated the procedure well. Sponge, lap, and needle counts were correct x 2. All instruments were then removed from the patient's vagina. The patient was taken to the Recovery Room in stable condition. ?? [facility] Signed and Approved by: DR BRETT PALMA . 04/15/2022 10:10:00[facility] [id number] Miscellaneous Notes* Telephone Encounter - Rosy Bermudez DO - 03/12/2022 11:44 AM EDT Blood work results from 02/28/2022 received noting depakote level of 33, subtheraputic for seizure treatment. She was started on this near 02/16 so level low. Given this and that treatment was for episodes of blackout. Called and spoke to her noting she was in the emergency room at [facility] for fluid retention on 03/08 but notes she stopped it several days before as she felt it was nit helpingand making her lightheadedness worse. She notes another fall down stairs two weeks ago after I had seen her, she states this was due to her legs giving out. In the emergency room she had blood work and cxr. She notes only minimal abnormalities and she was given IV solumedrol which she states made her feel good for a few days. After discussion of options she elects to retrial of sertraline to helpheadache control, anxiety, and help maintain blood pressure. documented in this encounterC[facility] Clinic Foundation04-08-2022 Miscellaneous Notes* Telephone Encounter - Harris Donato - 03/07/2022 11:46 AM EDT Lab orders mailed.Pt notified. documented in this encounterCleveland Clinic Foundation03-23-2022 Miscellaneous Notes* Telephone Encounter - Rosaline Dempsey - 02/19/2022 3:26 PM EDT 02/19/2022 Labs printed and faxed to [facility] in [place] at [phone]. Confirmation received patient notified via phone call and verbalized she will have completed through [facility]. * Telephone Encounter - Curtis Marie Pss - 02/19/2022 11:38 AM EDT Patient asking if labs can be faxed to [facility] in [place] Patient did not have fax number only phone number [phone] Please call patient once faxed documented in this encounterCleveland Clinic Foundation03-23-2022 NoteHNO ID: [id number] Author: Rosy Bermudez DO Service: ? Author Type: Physician Type: Progress Notes Filed: 02/19/2022 12:38 PM Note Text: [facility] New Patient Consultation February 19, 2022 HPI: Ms. Gonzalez, who is accompanied by her with her permission, presents today secondary to issues of weakness, headache/migraine, syncope, vertigo, and peripheral neuropathy. 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 She notes having had two blackouts each preceded by lightheadedness. In the first she went from standing to seated then become flushed, hot, and on standing up she was helped to the ground and blacked out for 1-2 minutes. She was monitored and noted her heart rate and blood pressure were fine, and there were no convulsions were noted. She had someone take her to the emergency room at [facility]. She had urine and urine test. She has orthostatic vitals performed but she does not believe they waited in between. She was give hydroxyzine for possible anxiety and was discharged. She called her PCP the following day. On the same visit with the PCP she was started on antibiotic for ear infection, prednisone, and lyrica. The latter was for possible fibromyalgia. She notes with lyrica she felt depressed and made her feel even more lightheaded. There had question of vertigo and was referred to vestibular therapist who treated her and did not think she had vertigo. She continued to have issues where she felt her legs could give out, had falls, but denies lightheadedness. She describes spells where her head get's heavy, then becomes lightheaded. She feels the timing of these spells are positional. She has been on gabapentin for anxiety/depression/bipolar disorder. She has been on the gabapentin for month and feels this has helped her symptoms rather than made them any worse. She was diagnosed with COVID at the end of November, noted to be her third time having it, but notes she also had it in 09/2021. She returned to the emergency room 01/05/2022 with worsened symptoms after being on Lyrica and she stopped this the next day with her PCP. She then had referral placed and MRI brain was ordered. She had the MRI 01/17/2022. She was seen in her PCP's office again who questioned psychiatric reason for this. She was referred and saw a psychiatrist. She was seen and continued as needed hydroxyzine, started on lamotrigine. The lamotrigine did not seem to help and gave her side effects with rash so this was stopped . She was later seen and was started on depakote as of 3 days ago. She denies any history of seizures at any point of her life. 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 She was started on prednisone, doxycycline, and flonase for this but she does not think it has helped much. She has history of migraines and headaches. Her headaches date back to childhood. She will have headaches 3 days a week with migraines 1-2 per week on average. Her headache pains are usually in her temples. She is not aware of any triggers. With the migraines she can have sensitivity to light and sound, nausea, blurring vision, and scintillations. In her family her mother and sister also have migraines. She had history of head injury in 2016 with head injury and concussion as part of this. She did lose consciousness as part of this. She cannot recall her headaches changing near that time. She does not sleep all that well. She does not snore much, but does not gasp for air or stop breathing in her sleep. She can be restless in trying to get to sleep. Her caffeine intake is minimal. For her headaches she used to take fioricet and after excedrin both of which she has stopped. Previously sumatriptan made her feel nauseated, nurtec- caused her to feel worse, ibuprofen- no help, aleve-no help, tylenol- no help. For prevention of pain she has been on duloxetine- caused side effects including increased fatigue. In the past she has been on sertraline, lexapro, celexa, prozac, paxil, welbutrin, buspar, amitriptyline (vidi dreams), nortriptyline (vivid dreams), duxloetine all gave side effects. She recently started depakote, but only on the third dose. She has only been on this only two days. Gabapentin at 300 mg five times a day. She does not feel she has had any side effects to this and feels this has greatly helped her sleep better. She had felt wearing off in between doses which is what led this to 5 times a day. She has not been on a higher dose of this before. PAST MEDICAL HISTORY Diagnosis Date - Bipolar 1 disorder (HCC) - Borderline personality disorder (HCC) - Intractable migraine without aura and without status migrainosus - OCD (obsessive compulsive disorder) - Recurrent major depressive disorder (HCC) History reviewed. No pertinent surgical history. No current outpatient med (more content not included)...[facility]03-[facility] History of Present illness Narrative* Rosy Bermudez DO - 02/19/2022 9:02 AM EDT [facility] New Patient Consultation February 19, 2022 HPI: Ms. Gonzalez, who is accompanied by her with her permission, presents today secondary toissues of weakness, headache/migraine, syncope, vertigo, and peripheral neuropathy. 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 She notes having had two blackouts each preceded by lightheadedness. In the first she went from standing to seated then become flushed, hot, and on standing up she was helped to the ground and blacked out for 1-2 minutes. She was monitored and noted her heart rate and blood pressure were fine, and there were no convulsions were noted. She had someone take her to the emergency room at [facility]. She had urine and urine test. She has orthostatic vitals performed but she does not believe they waited in between. She was give hydroxyzine for possible anxiety and was discharged. She called her PCP the . On the same visit with the PCP she was started on antibiotic for ear infection, prednisone, and lyrica. The latter was for possible fibromyalgia. She notes with lyrica she felt depressed and made her feel even more lightheaded. There had question of vertigo and was referred to vestibular therapist who treated her and did not think she had vertigo. She continued to have issues where she felt her legs could give out, had falls, but denies lightheadedness. She describes spells where her head get's heavy, then becomes lightheaded. She feels the timing of these spells are positional. She has been on gabapentin for anxiety/depression/bipolar disorder. She has been on the gabapentin for month and feels this has helped her symptoms rather than made them any worse. She was diagnosed with COVID at the end of November, noted to be her third time having it, but notes she also had it in 09/2021. She returned to the emergency room 01/05/2022 with worsened symptoms after being on Lyrica and she stopped this the next day with her PCP. She then had referral placed and MRI brain was ordered. She had the MRI 01/17/2022. She was seen in her PCP's office again who questioned psychiatric reason for this. She was referred and saw a psychiatrist. She was seen and continued as needed hydroxyzine, started on lamotrigine. The lamotrigine did not seem to help and gave her side effects with rash so this was stopped . She was later seen and was started on depakote as of 3 days ago. She denies any history of seizures at any point of her life. 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 She was started on prednisone, doxycycline, and flonase for this but she does not think it has helped much. She has history of migraines and headaches. Her headaches date back to childhood. She will have headaches 3 days a week with migraines 1-2 per week on average. Her headache pains are usually in her temples. She is not aware of any triggers. With the migraines she can have sensitivity to light and sound, nausea, blurring vision, and scintillations. In her family her mother and sister also have migraines. She had history of head injury in 2016 with head injury and concussion as part of this. She did lose consciousness as part of this. She cannotrecall her headaches changing near that time. She does not sleep all that well. She does not snore much, but does not gasp for air or stop breathing in her sleep. She can be restless in trying to getto sleep. Her caffeine intake is minimal. For her headaches she used to take fioricet and after excedrin both of which she has stopped. Previously sumatriptan made her feel nauseated, nurtec- caused her to feel worse, ibuprofen- no help, aleve-no help, tylenol- no help. For prevention of pain she has been on duloxetine- caused side effectsincluding increased fatigue. In the past she has been on sertraline, lexapro, celexa, prozac, paxil, welbutrin, buspar, amitriptyline (vidi dreams), nortriptyline (vivid dreams), duxloetine all gave side effects. She recently started depakote, but only on the third dose. She has only been on this only two days.Gabapentin at 300 mg five times a day. She does not feel she has had any side effects to this and feels this has greatly helped her sleep better. She had felt wearing off in between doses which is what led this to 5 times a day. She has not been on a higher dose of this before. PAST MEDICAL HISTORY Diagnosis Date Bipolar 1 disorder (HCC) Borderline personality disorder (HCC) Intractable migraine without aura and without status migrainosus OCD (obsessive compulsive disorder) Recurrent major depressive disorder (HCC) History reviewed. No pertinent surgical history. No current outpatient medications on file prior to visit. No current facility-administered medications on file prior to visit. Social History Tobacco Use Smoking status: Former Smoker Packs/day: 0.50 Types: Cigarettes Quit date: 02/20/2020 Years since quittin.0 Smokeless tobacco: Current User Substance Use Topics Alcohol use: Not Currently Drug use: Never ALLERGIES Allergen Reactions Lamotrigine Mental Status Change, Rash Penicillin Rash Pregabalin Mental Status Change, Rash, Shortness of Breath Penicillin G Rash Review of Systems: Constitutional: denies fever, weight loss, loss of appetite ENT: + loss of hearing, -vertigo Vision: + blurring vison, -double vision/diplopia Dermatologic: denies rash Cardiopulmonary: denies chest pain, +palpitations, - skipped heart beats Respiratory: denies shortness of breath GI: +nausea, -vomiting, -diarrhea, -constipation : denies incontinence Psych: denies depression, +anxiety, -suicidal thoughts Sleep: + issues with sleeping, -pauses in breathing while asleep Heme: + easy bruising/bleeding Musculoskeletal: +generalized weakness, -muscle atrophy, joint ache/pain Back/spine: denies low back, mid back, + cervical pains Neuro: denies tremors, +loss of feeling, +lightheadedness/dizziness, blackout, paresthesia, facial paresthesia, facial weakness, +difficulty in speech, slurring of words, dysarthria, dysphagia, memory loss, +headache Physical Exam: 02/19/22 0906 BP: 128/86 BP Site: Left Arm BP Position: Sitting BP Cuff Size: Large Adult Pulse: 103 Patient is alert and in no distress. Dress is appropriate. Mood is appropriate Heart is regular rate and rhythm with no murmur or bruit auscultated Breathing appears regular and unstressed Neurologic examination: Cognitively intact. No deficits. No formal MMSE performed. CN: Pupils equal and reactive to light, extraocular movements intact with no nystagmus, face is symmetric with no facial droop, facial sensation intact bilaterally to light touch V1-3, hearing intactbilaterally, shoulder shrug is symmetric Ophthalmologic exam: Fundis is sharp with no evidence of edema noted. Motor exam shows 5/5 strength symmetric through the upper and lower extremities in all groups tested though slightly weak attempt at first. Sensory intact to light touch and temperature in all extremities. Vibratory sensation is intact andsymmetric all extremities Deep tendon reflexes are symmetric at the biceps, brachioradialis, triceps, patella, and Achilles bilaterally Dial's responses are both flexion. Coordination: No dysmetria on finger to nose. No tremors noted. No drift seen Gait normal in stance and pattern. Osteopathic exam: Cervical paraspinal and shoulder intrinsic muscle hypertonicity bilaterally, right.left Labs/studies: MRI brain without contrast report 01/17/2022 noting 1. No evidence of acute intracranial process onthis unenhanced exam as described. On this unenhanced examination, there is no distinct evidence of intracranial mass. No mass effectis apparent. No midline shift. No evidence of acute infarction. No restricted diffusion. No unexpected paramagnetic substance deposition. No evidence of white matter disease. VESSELS: Signal voids are present in the major intracranial vessels BRAIN VOLUME: Normal VENTRICLES: No hydrocephalus ORBITS: No acute findings SELLA/ SUPRASELLAR: No acute findings at relatively thick sections CP ANGLES: No acute findings at relatively thick sections UPPER CERVICAL: No acute findings PARANASAL SINUSES: No air-fluid levels. Probable retention cyst left maxillary sinus measuring 20 mm MASTOIDS: Clear at MRI CALVARIUM: No acute finding. CT brain 01/05/2022 report noting Normal noncontrast head CT. . Outside blood testin12/25/2021 including CBC, BMP (Na 133), SARS COVID-19 (positive), 12/17/2021 including urine (negative), UA (trace Lk est, Ketone 80 10/31/2021 including: CMP, D-Dimer, Trop I, Mg, Urine preg (neg) 08/04/2018 including ESR, CRP Assessment: R53.1 Weakness (primary encounter diagnosis) Comment: episodic and noted more at times of position changes. No clear weakness noted in office examination. Question possible relation to orthostatic hypotension noting bilateral shakiness, in her legs. R55 Syncope, unspecified syncope type Comment: episode of blackout noted as via description favor orthostatic hypotension. Seizure unlikely given description. Question if precipitated by UTI. Psychogenic spell not ruled out though a diagnosis of exclusion. G43.709 Chronic migraine without aura without status migrainosus, not intractable Comment: Several of her symptoms including vertigo may relate to migraine or complex/vestibular migraine. PLAN: 1. Chart reviewed including previous/interval progress notes, messages, recent imaging, and laboratory results. 2. Discussed options with her including medication and non medication treatment options for headache. Included in this discussion was option of physical therapy (preferably with specifically trained therapist), after discussion she elects to the below. 3. Physical therapy with Alexa trained therapist preferably. 4. Discussed headache prevention options with her after discussion she elects to continue with the build up of depakote as only started 3 days ago. Hopeful that this may help several issues includingmood and headache/migraine. 5. Asked to stay well hydrated, eat well including enough proteins, and take time with position changes to help avoid orthostatic hypotension. 6. Diclofenac as need for day to day pain. 7. Cyclobenzaprine as needed for tension 8. Naratriptan as needed for severe headaches. 9. Blood tests including ESR, CRP, vitamin B12, folate, NAN, CPK Thank you for allowing me to see this patient if there are any question or concerns please feel free to contact me at my clinic. Sincerely, Rosy Moore I spent 84 minutes in the visit, with more than 50% of the total [id number] time of the visit in counseling / coordination of care. documented in this encounterC[facility] Foundation[facility] Evaluation note* Encounter Date Diagnosis Assessment Notes Treatment Notes Treatment Clinical Notes Dec, Acute pain of right shoulder (ICD-10 - M25.511) Dec, Sprain of right shoulder, unspecified shoulder sprain type, initial encounter (ICD-10 - S43.401A) Wear the sling for comfort and support. Take ibuprofen, 600 mg, 3 times a day with food as needed for pain. Ice to your shoulder and elbow 2-3 times a day. Follow-up with your family physician or orthopedic surgeon if no improvement in 5 to 7 days. Dec, Elbow pain, right (ICD-10 - M25.521) Dec, Contusion of right elbow, initial encounter (ICD-10 - S50.01XA) [facility] Other Evaluation note* Diagnosis Weakness- Primary Other malaise and fatigue Syncope, unspecified syncope type Chronic migraine without aura without status migrainosus, not intractable Chronic migraine without aura, without mention of intractable migraine without mention of status migrainosus documented [facility] this encounter [facility]* Diagnosis Weakness- Primary Other malaise and fatigue Syncope, unspecified syncope type Chronic migraine without aura without status migrainosus, not intractable Chronic migraine without aura, without mention of intractable migraine without mention of status migrainosus documented in this encounter [facility]Evaluation noteNo assessment information availableHocking [facility] Work Phone: Evaluation note* Diagnosis Onset Date Resolution Status Cervical disc disorder at C5-C6 level with radiculopat hy acute [facility] Work Phone: Evaluation noteNo InformationNort [place] Other evaluation note* Diagnosis Onset Date Resolution Status History of cervical discectomy acute Neck pain [facility] Work Phone: Hispetv general Narrative - Reported* Type Description Date Medical History Migraine with aura, not intracta ble, without status migrainosus Medical History Anxiety Medical History Nausea Medical History Neuropathic pain Surgical History appendectomy [facility] Other [facility] general Narrative - Reported* Type Description Date Medical History Migraine with aura, not intracta ble, without status migrainosus Medical History Anxiety Medical History Nausea Medical History Neuropathic pain Medical History fibromyalgia Surgical History appendectomy [facility] Other [place] general Narrative - Reported* Type Description Date Medical History Migraine with aura, not intracta ble, without status migrainosus Medical History Anxiety Medical History Nausea Medical History Neuropathic pain Medical History fibromyalgia Surgical History appendectomy Surgical History Neck Surgery [facility] Other Hospital Discharge instructions Additional Instructions DISCHARGE INSTRUCTIONS FOR [facility] ANTERIOR CERVICAL DISCECTOMY & FUSION DIET RESTRICTIONS -None unless diabetic or cardiac ACTIVITY -Up in house- activity as tolerated -No lifting over 15 pounds -No driving until seen my physician; may ride in car -May shower in a.m. OTHER -Call your physician's office for any fever, drainage, or chills -Please call your physician's office and make an appointment to see your physician in two weeks. -Use the prednisone provided if arm pain returns, if it does not do not use the prednisone Collar is optional at this time please wear for comfort Use ice for muscle spasm in the back of the neck 20 minutes every 1-2 hours No dressing is needed over the wound there is a liquid bandage.[facility] Work Phone: Hospital Discharge instructionsAmbulatory Orders* Referral to Pain Management Location: None Selected [facility] Work Phone: Reason for Referral Specialty Diagnoses / Procedures Referred By Glory weber Referred To Contact [facility] Diagnoses Weakness Syncope, unspecified syncope type Chronic migraine without aura without status migrainosus, not intractable Procedures CONSULT TO PHYSICAL THERAPY PHYSICAL THERAPY EVALUATION HIGH COMPLEX 45 MINS Rosy Bermudez, [address] [place] [address] [facility] [place] [address] [place] [address] Referral ID Status Reason Start Date Expiration Date Visits Requested Visits Authorized [id number] Pending Review Auto-Generat ed Referral 02/19/2022 02/19/2023 1 1 Chief Complaint and Reason for Visit Chief Complaint M54.12 Chief Complaint M54.12 Radiculopathy Chief Complaint M54.12 Radiculopathy Radiculopathy Chief Complaint M54.12 Radiculopathy Radiculopathy Radiculopathy Reason for Visit Cervical disc disord er at C5-C6 level with radiculopathy Chief Complaint M54.12 Radiculopathy Radiculopathy Radiculopathy m50.90 Reason for Visit Cervical disc disord er at C5-C6 level with radiculopathy Chief Complaint m50.122 increased neck pain with a lump discectomy 09/20 Reason for Visit History of cervical discectomy Neck pain Chief Complaint Admit Date follow up hospital visit June 15, 2025 12:48pm Chief Complaint Admit Date follow up hospital visit June 15, 2025 12:48pm REF [facility] neck/back pain June 28 1:45pm Reason for Visit Admit Date Cervical radiculopathy June 15, 2025 1 2:48pm Left arm weakness June 15, 2025 12:4 8pm Sacroiliitis June 15, 2025 12:4 8pm Cervical radiculopathy June 28, 2025 1 :45pm Cervical spondylosis June 28, 2025 1:4 5pm Lumbar radiculopathy June 28, 2025 1:4 5pm Other chronic pain June 28, 2025 1:45 pm Sacroiliitis June 28, 2025 1:45 pm Chief Complaint Admit Date follow up hospital visit June 15, 2025 12:48pm REF [facility] neck/back pain June 28 1:45pm pain July 12, 2025 7: 59am Chief Complaint Admit Date follow up hospital visit June 15, 2025 12:48pm REF [facility] neck/back pain June 28 1:45pm pain July 12, 2025 7: 59am f/u after left cervical MBB July 19, 2025 2:21pm Reason for Visit Admit Date Cervical radiculopathy June 15, 2025 1 2:48pm Left arm weakness June 15, 2025 12:4 8pm Sacroiliitis June 15, 2025 12:4 8pm Cervical radiculopathy June 28, 2025 1 :45pm Cervical spondylosis June 28, 2025 1:4 5pm Lumbar radiculopathy June 28, 2025 1:4 5pm Other chronic pain June 28, 2025 1:45 pm Sacroiliitis June 28, 2025 1:45 pm Cervical spondylosis July 19, 2025 2 :21pm DDD (degenerative disc disease), cervica l July 19, 2025 2:21pm Other chronic pain July 19, 2025 2: 21pm Chief Complaint Admit Date follow up hospital visit June 15, 2025 12:48pm REF [facility] T neck/back pain June 28 1:45pm pain July 12, 2025 7: 59am f/u after left cervical MBB July 19, 2025 2:21pm NECK PAIN August 02, 2025 9:04am Chief Complaint Admit Date follow up hospital visit June 15, 2025 12:48pm REF [facility] T neck/back pain June 28 1:45pm pain July 12, 2025 7: 59am f/u after left cervical MBB July 19, 2025 2:21pm NECK PAIN August 02, 2025 9:04am FOLLOW UP AFTER LEFT CERVICAL MBB Sept2024 12:51pm Reason for Visit Admit Date Cervical radiculopathy June 15, 2025 1 2:48pm Left arm weakness June 15, 2025 12:4 8pm Sacroiliitis June 15, 2025 12:4 8pm Cervical radiculopathy June 28, 2025 1 :45pm Cervical spondylosis June 28, 2025 1:4 5pm Lumbar radiculopathy June 28, 2025 1:4 5pm Other chronic pain June 28, 2025 1:45 pm Sacroiliitis June 28, 2025 1:45 pm Cervical spondylosis July 19, 2025 2 :21pm DDD (degenerative disc disease), cervica l July 19, 2025 2:21pm Other chronic pain July 19, 2025 2: 21pm Cervical spondylosis August 09 12:51pm DDD (degenerative disc disease), cervica l August 09, 2025 12:51pm Other chronic pain August 09, 2025 12:51pm Chief Complaint Admit Date follow up hospital visit June 15, 2025 12:48pm REF [facility] T neck/back pain June 28 1:45pm pain July 12, 2025 7: 59am f/u after left cervical MBB July 19, 2025 2:21pm NECK PAIN August 02, 2025 9:04am FOLLOW UP AFTER LEFT CERVICAL MBB Sept2024 12:51pm NECK PAIN August 23, 2025 8:49am Advance Directives No Advanced Directives Records Found Advance Directive Response Recorded Date/ Time Advance Directives No December 8:16pm Advance Directive Response Recorded Date/ Time Advance Directives No December 7:16pm Family History No Family History Records Found Relationship Condition Age at Onset Recorded Date/T li father Type 2 diabetes mellitus Unknown Renal failure Unknown Not Specified Hypertension Unknown Relationship Condition Age at Onset Recorded Date/T li father Type 2 diabetes mellitus Unknown Renal failure Unknown Not Specified Hypertension Unknown sister Hypertension Unknown Relationship Condition Age at Onset Recorded Date/T li father Type 2 diabetes mellitus Unknown Renal failure Unknown mother Hypertension Unknown sister Hypertension Unknown Relationship Condition Age at Onset Recorded Date/T li father Type 2 diabetes mellitus Unknown Renal failure Unknown mother Hypertension Unknown sister Hypertension Unknown father Diabetes mellitus Unknown Hypertension Unknown Disorder of kidney Unknown Relationship Condition Age at Onset Recorded Date/T li father Type 2 diabetes mellitus Unknown Renal failure Unknown Malignant neoplasm of pancreas Unknown mother Hypertension Unknown Malignant neoplasm of thyroid gland Unkno wn sister Hypertension Unknown father Diabetes mellitus Unknown Disorder of kidney Unknown Hypertension Unknown Relationship Condition Age at Onset Recorded Date/T li father Malignant neoplasm of pancreas Unknown Type 2 diabetes mellitus Unknown Renal failure Unknown Disorder of kidney Unknown Diabetes mellitus Unknown mother Malignant neoplasm of thyroid gland Unkno wn Hypertension Unknown sister Hypertension Unknown Summary Purpose Additional Source Comments Source Comments (unrecognize d section and content) In the event this informatio n is protected by the Federal Confidentiality of Alcohol and Drug Abuse Patient Records regulations: The Federal rules restrict any use of the information to criminally investigate or prosecute any alcohol or drug abuse patient.[facility] FoundationIn the event this information is protected by the Federal Confidentiality of Alcohol and Drug Abuse Patient Records regulations: The Federal rules restrict any use of the information to criminally investigate or prosecute any alcohol or drug abuse patient.[facility] FoundationIn the event this information is protected by the Federal Confidentiality of Alcohol and Drug Abuse Patient Records regulations: The Federal rules restrict any use of the information to criminally investigate or prosecute any alcohol or drug abuse patient.[facility] FoundationIn the event this information is protected by the Federal Confidentiality of Alcohol and Drug Abuse Patient Records regulations: The Federal rules restrict any use of the information to criminally investigate or prosecute any alcohol or drug abuse patient.[facility] FoundationIn the event this information is protected by the Federal Confidentiality of Alcohol and Drug Abuse Patient Records regulations: The Federal rules restrict any use of the information to criminally investigate or prosecute any alcohol or drug abuse patient.[facility] Reason for Visit (unrecogniz ed section and content) Reason Comments New Patient Specialty Diagnoses / Procedures Referred By Contac t Referred To Contact Neurology / NEUROLOGY Diagnoses weakness, dizziness, chronic migraines, peripheral neuropathy Procedures NEW MEDICAL Maddison Zaldivar, INSURANCE AGENCY MANAGER [address] [place] [address] [place] [address] [place] [address] Referral ID Status Reason Start Date Expiration Date V isits Requested Visits Authorized [id number] Closed Clearance Not Met - Admin/Service Order Dispatcher /Director Advise to Postpone/Teresita edule or Not Proceed Clearance Not Met -Financial Clearance Bypassed 02/19/2022 11/29/2022 1 1 Reason Comments Results Reason Comments [employer] - Other Orders Reason Comments Follow Up Care Teams (unrecognized sec tion and content) Team Status: Active Member Role Status Yazan Salomon MD Primary Care Provider Active Team Status: Inactive Member Role Status Dates Cassie Salomon MD Primary Care Provider Active Start: May 05, 2024 End: May 05, 2024 Arthur Mckenzie MD Attending Provider Active Star t: May 05, 2024 End: May 05, 2024 Rail Equipment Operator Relationship Specialty Start Date End Date Maddison Zaldivar S, INSURANCE AGENCY MANAGER [address] [place] [address] Referring Internal Medicine 01/14/22 Rail Equipment Operator Relationship Specialty Start Date End Date Maddison Zaldivar S, INSURANCE AGENCY MANAGER [address] [place] [address] Referring Internal Medicine 01/14/22 Rail Equipment Operator Relationship Specialty Start Date End Date Mandy Zaldivarela S, INSURANCE AGENCY MANAGER [address] [place] [facility] [address] Referring Internal Medicine 01/14/22 Rail Equipment Operator Relationship Specialty Start Date End Date Maddison Zaldivar S, INSURANCE AGENCY MANAGER [address] [place] [address] Referring Internal Medicine 01/14/22 Team Status: Inactive Member Role Status Yazan Salomon MD Primary Care Provider Active Arthur Mckenzie MD Attending Provider Active Team Status: Active Member Role Status Yazan Salomon MD Primary Care Provider Active Start: May 05, 2024 Arthur Mckenzie MD Attending Provider Active Star t: May 05, 2024 Team Status: Inactive Member Role Status Yazan Salomon MD Primary Care Provider Active Start: June 15, 2025 End: June 15, 2025 Brandi Lisa APRN Attending Provider Active Start: June 15, 2025 End: June 15, 2025 Team Status: Inactive Member Role Status Yazan Salomon MD Primary Care Provider Active Start: June 28, 2025 End: June 28, 2025 Cody Gupta MD Attending Provider Active Sta rt: June 28, 2025 End: June 28, 2025 Brandi Lisa PRODUCTION SPECIALIST Referring Provider Active Start: June 28, 2025 End: June 28, 2025 Team Status: Inactive Member Role Status Yazan Salomon MD Primary Care Provider Active Start: July 12, 2025 End: July 12, 2025 Cody Gupta MD Attending Provider Active Sta rt: July 12, 2025 End: July 12, 2025 Team Status: Active Member Role Status Yazan Salomon MD Primary Care Provider Active Start: July 12, 2025 Cody Gupta MD Attending Provider Active Sta rt: July 12, 2025 Cody Gupta MD Other Provider Active Start: July 12, 2025 Team Status: Inactive Member Role Status Yazan Salomon MD Primary Care Provider Active Start: July 19, 2025 End: July 19, 2025 Cody Gupta MD Attending Provider Active Sta rt: July 19, 2025 End: July 19, 2025 Team Status: Inactive Member Role Status Yazan Salomon MD Primary Care Provider Active Start: August 02, 2025 End: August 02, 2025 Cody Gupta MD Attending Provider Active Sta rt: August 02, 2025 End: August 02, 2025 Team Status: Active Member Role Status Yazan Salomon MD Primary Care Provider Active Start: August 02, 2025 Cody Gupta MD Attending Provider Active Sta rt: August 02, 2025 Cody Gupta MD Other Provider Active Start: August 02, 2025 Team Status: Inactive Member Role Status Yazan Salomon MD Primary Care Provider Active Start: August 09, 2025 End: August 09, 2025 Cody Gupta MD Attending Provider Active Sta rt: August 09, 2025 End: August 09, 2025 Team Status: Active Member Role Status Yazan Salomon MD Primary Care Provider Active Start: August 23, 2025 Cody Gupta MD Attending Provider Active Sta rt: August 23, 2025 Cody Gupta MD Other Provider Active Start: August 23, 2025 Goals (unrecognized section and content) Goals may be documented in a n alternate section INFORMATION SOURCE (unrecogn ized section and content) DATE CREATED AUTHOR 09/01/2022 [facility] DATE CREATED AUTHOR AUTHOR'S ORGANIZ ATION 01/29/2023 [facility] DATE CREATED AUTHOR AUTHOR'S ORGANIZ ATION 09/02/2023 Terrell Raz [facility] DATE CREATED AUTHOR AUTHOR'S ORGANIZ ATION 09/14/2023 [facility] DATE CREATED AUTHOR AUTHOR'S ORGANIZ ATION 12/16/2023 [facility] DATE CREATED AUTHOR AUTHOR'S ORGANIZ ATION 08/08/2024 [facility] DATE CREATED AUTHOR AUTHOR'S ORGANIZ ATION 05/24/2025 [facility] DATE CREATED AUTHOR AUTHOR'S ORGANIZ ATION 07/29/2025 [facility] DATE CREATED AUTHOR AUTHOR'S ORGANIZ ATION 08/12/2025 [facility] DATE CREATED AUTHOR AUTHOR'S ORGANIZ ATION 08/17/2025 [facility] DATE CREATED AUTHOR AUTHOR'S ORGANIZ ATION 08/24/2025 [facility] FOR RECORDS PERTAINING TO PATIENTS WHO ARE OR HAVE BEEN ENROLLED IN A CHEMICAL DEPENDENCY/SUBSTANCEABUSE PROGRAM, SOME INFORMATION MAY BE OMITTED. This clinical summary was aggregated from multiple sources. Caution should be exercised in using it in the provision of clinical care. This summary normalizes information from multiple sources, and as a consequence, information in this document may materially change the coding, format and clinical context of patient data. In addition, data may be omitted in some cases. CLINICAL DECISIONS SHOULD BE BASED ON THE PRIMARY CLINICAL RECORDS. [facility] [employer] [facility]. provides no warranty or guarantee of the accuracy or completeness of information in this document.
== END 2025-08-31 16:47 | disposition home or self-care (01) ==
LOC: US 16:48
PROVIDERS: PCP Family Medicine; Visit Provider Family Medicine
DX: N39.0 Urinary tract infection, site not specified (principal); N20.0 Calculus of kidney
CPT/HCPCS: 76770